=== PATIENT | female | born 1950 | race Caucasian/White ===

== ENCOUNTER 2020-05-22 10:34 | Emergency (ER) | payer MEDICARE, SELFPAY ==
[2020-05-22 10:46] VITALS: BP 179/88; PULSE 96; RESP 16; TEMP 35.9; O2SAT 96
--- NOTE | 2020-05-22 10:53 | ED.EAR ---
HPI - Ear Problem General Chief complaint: Ear Stated complaint: EARACHE Time Seen by Provider: 05/22/20 10:53 Source: patient and RN notes reviewed History of Present Illness HPI Narrative: Patient is a 69-year-old female who presents the urgent care with complaints of left ear pain. Patient states that it started on Tuesday and she is taken Tylenol a few times since then. Patient denies any use of [id number] drops, water, peroxide to the ear. Denies any recent swimming. Denies fever, chills, nausea, vomiting, any upper respiratory symptoms. No other acute complaints. No acute distress noted. Patient read the plan of care. Related Data Home Medications Medication Instructions Recorded Confirmed amlodipine-benazepril 1 cap PO DAILY 05/22/20 05/22/20 buspirone 10 mg PO DAILY 05/22/20 05/22/20 duloxetine 30 mg PO DAILY 05/22/20 05/22/20 glipizide 2.5 mg PO DAILY 05/22/20 05/22/20 metoprolol succinate 50 mg PO DAILY 05/22/20 05/22/20 naproxen 375 mg PO BID 05/22/20 05/22/20 omeprazole 20 mg PO DAILY 05/22/20 05/22/20 pravastatin 20 mg PO DAILY 05/22/20 05/22/20 Allergies Allergy/AdvReac Type Severity Reaction Status Date / Time Sulfa (Sulfonamide Allergy Unknown Hives / Verified 05/22/20 10:43 Antibiotics) Red Face Review of Systems Review of Systems: Narrative: CONSTITUTIONAL: Denies fever, chills, or sweats. EYES: Denies visual changes, redness, or discharge. ENT: Reports of left otalgia without notable drainage CARDIOVASCULAR: Denies chest pain, palpitations, or edema. RESPIRATORY: Denies cough or dyspnea. GASTROINTESTINAL: Denies abdominal pain, nausea, vomiting, or diarrhea. GENITOURINARY: Denies dysuria or hematuria. SKIN: Denies rash or itching. MUSCULOSKELETAL: Denies back pain, joint pain, or myalgia. NEUROLOGIC: Denies headache, numbness, or weakness. All other systems reviewed are negative, except as documented in HPI. PMFSH Comments At the time of my signature, I reviewed and agree with the nursing past medical, surgical, social, and family history. There is no relevant family history pertinent to the patient complaint. Exam Narrative: Exam Narrative: GENERAL: This is a well-nourished, well-developed patient, in no apparent distress. HEAD: normocephalic, atraumatic. EYES: PERRL. Sclera clear/white. Vision is grossly intact. EARS: External ears normal, right auditory canals clear and without drainage, moderate edema and erythema noted to the left auditory canal without notable drainage, unable to visualize left TM due to a outer ear canal edema and pain, right TMs normal without perforation. Hearing grossly intact. NOSE: External nose normal with no obvious nasal discharge, nares without redness, no rhinorrhea. THROAT: Mucous membranes moist NECK: Neck supple SKIN: warm, intact with no suspicious lesions or rash, good texture and turgor. NEURO: awake, alert, and oriented to person, place and time. There were no obvious focal neurologic abnormalities. EXTREMITIES: No clubbing, cyanosis, or edema. Course Vital Signs Vital signs: Vital Signs Temperature 96.7 F L 05/22/20 10:46 Pulse Rate 96 05/22/20 10:46 Respiratory Rate 16 05/22/20 10:46 Blood Pressure 179/88 H 05/22/20 10:46 Pulse Oximetry 96 05/22/20 10:46 Temperature 96.7 F L 05/22/20 10:46 Pulse Rate 96 05/22/20 10:46 Respiratory Rate 16 05/22/20 10:46 Blood Pressure 179/88 H 05/22/20 10:46 Pulse Oximetry 96 05/22/20 10:46 Reviewed?patient is informed that they may have pre-hypertension or hypertension based on a blood pressure reading in the department. I recommend the patient call the primary care provider listed on their discharge instructions or a physician of their choice this week to arrange follow-up for further evaluation of possible pre-hypertension or hypertension. Medical Decision Making MDM Narrative Medical decision making narrative: Advised the patient to complete oral antibiotic regimen as
== END 2020-05-22 11:05 | disposition home or self-care (01) ==
PROVIDERS: Emergency Provider Nurse Practitioner Family
DX: H60.92 Unspecified otitis externa, left ear (principal); E78.00 Pure hypercholesterolemia, unspecified; I10 Essential (primary) hypertension; K21.9 Gastro-esophageal reflux disease without esophagitis; M19.90 Unspecified osteoarthritis, unspecified site; E11.9 Type 2 diabetes mellitus without complications; F32.9 Major depressive disorder, single episode, unspecified
CPT/HCPCS: 99213; G0463

== ENCOUNTER 2022-02-24 14:58 | Outpatient (CLI) | payer MEDICARE, SELFPAY ==
--- NOTE | ~2022-02-24 | MM_ITS ---
EXAMINATION: MM screening sariah BI w new HISTORY: Screening TECHNIQUE: Craniocaudal and mediolateral oblique 3-D tomosynthesis images were obtained and synthetic 2-D images were generated. CAD analysis was submitted and interpreted. COMPARISON: No prior mammogram is available for comparison at this institution. BREAST PARENCHYMAL COMPOSITION: There are scattered areas of fibroglandular density. FINDINGS: There is no evidence of suspicious mass, calcification, or architectural distortion to sugg est malignancy in either breast. There has been no suspicious interval change. IMPRESSION: 1. No mammographic evidence of malignancy. 2. Recommend routine screening mammography in one year. BI-RADS Category 1: Negative Reviewed, dictated and finalized at location [facility].
== END 2022-02-24 14:59 | disposition home or self-care (01) ==
LOC: ANHIMG 14:59
PROVIDERS: PCP Internal Medicine; Visit Provider Nurse Practitioner
DX: Z12.31 Encounter for screening mammogram for malignant neoplasm of breast (principal)
CPT/HCPCS: 77063; 77067

== ENCOUNTER 2022-03-05 10:07 | Emergency (ER) | payer MEDICARE, SELFPAY ==
--- NOTE | 2022-03-05 10:13 | ED.FEMALEGU ---
HPI - Female Genitourinary General Chief complaint: Urogenital-Female Stated complaint: urinary pain Time Seen by Provider: 03/05/22 10:13 Source: patient and RN notes reviewed Mode of arrival: ambulatory Limitations: no limitations History of Present Illness HPI Narrative: 71 y/o female presents for c/o burning with urination, frequency and hesitancy. Endorses one episode of urinary incontinence yesterday. States 'I think I have a uti.' Denies hematuria, flank pain, nausea, vomiting, diarrhea, constipation fever/chills. Denies frequent uti's. Related Data Home Medications Medication Instructions Recorded Confirmed biotin 10,000 mcg disintegrating 10,000 mcg PO DAILY 01/11/22 03/05/22 tablet fexofenadine 180 mg tablet 180 mg PO DAILY 01/11/22 03/05/22 Allergies Allergy/AdvReac Type Severity Reaction Status Date / Time Sulfa (Sulfonamide Allergy Unknown Hives / Verified 03/05/22 10:14 Antibiotics) Red Face Review of Systems Review of Systems: CONSTITUTIONAL: Denies body aches, fever, chills, or sweats. CARDIOVASCULAR: Denies chest pain, palpitations, or edema. RESPIRATORY: Denies cough or dyspnea. GASTROINTESTINAL: Denies abdominal pain, nausea, vomiting, or diarrhea. GENITOURINARY: Reports dysuria, frequency, urgency, denies hematuria, flank pain SKIN: Denies rash, itching, or wounds. MUSCULOSKELETAL: Denies back pain or myalgia. [facility] Past Medical History Medical History (Updated 03/05/22 @ 10:29 by Penny Whittaker APRN) Allergy Anxiety Arthritis Diabetes GERD (gastroesophageal reflux disease) Hyperlipidemia Obesity Transaminitis Family History Family History Mother Hypertension Social History Social History Smoking status: Former smoker Smoking end date: 11/14/89 Alcohol intake: never Substance use: never Comments At time of signature, I have reviewed and agree with nursing past medical, surgical, social and family history unless otherwise noted. Please see nursing chart for further information. There is no relevant family history pertinent to the presenting complaint Exam Narrative: GENERAL: Well-appearing and in no acute distress. HEAD: Normocephalic EYES: EOMI. . ENT: Mucous membranes pink and moist. NECK: Normal AROM. Supple. CHEST: No respiratory distress. Clear to auscultation. HEART: Regular rate and rhythm. ABDOMEN: Soft, nontender, nondistended, No CVA tenderness MUSCULOSKELETAL: No bony tenderness. SKIN: Warm, dry, no rash. NEURO: No focal deficits. Alert and oriented x3. Gait steady. PSYCH: Normal affect. No signs of depression or anxiety. Course Course Emergency Course: Patient is aware of diagnosis, understands and agrees to treatment plan. Anticipatory guidance given. Patient agrees to follow-up as directed and is aware of reasons to seek care at the emergency department. Portions of this record may have been created with voice recognition software Level of Care: Express Care Visit Vital Signs Vital signs: Vital Signs Temperature 96.6 F L 03/05/22 10:15 Pulse Rate 94 03/05/22 10:15 Respiratory Rate 16 03/05/22 10:15 Blood Pressure 151/82 H 03/05/22 10:15 Pulse Oximetry 97 03/05/22 10:15 Temperature 96.6 F L 03/05/22 10:15 Pulse Rate 94 03/05/22 10:15 Respiratory Rate 16 03/05/22 10:15 Blood Pressure 151/82 H 03/05/22 10:15 Pulse Oximetry 97 03/05/22 10:15 Reviewed MDM - Female Genitourinary MDM Narrative Medical decision making narrative: urine result reviewed with pt, she is advised to monitor for worsening sx and f/u with pcp. v/u. Differential Diagnosis Differential diagnosis: Likely urinary tract infection and cystitis Lab Data Attestation: I reviewed the patient's lab results. Labs: Urine Characteristics Cloudy Discharg
[2022-03-05 10:15] VITALS: BP 151/82; PULSE 94; RESP 16; TEMP 35.9; O2SAT 97
== END 2022-03-05 10:38 | disposition home or self-care (01) ==
PROVIDERS: Emergency Provider Nurse Practitioner Family; PCP Internal Medicine
DX: N39.0 Urinary tract infection, site not specified (principal); Z87.891 Personal history of nicotine dependence; M19.90 Unspecified osteoarthritis, unspecified site; E11.9 Type 2 diabetes mellitus without complications; K21.9 Gastro-esophageal reflux disease without esophagitis; E78.5 Hyperlipidemia, unspecified; E66.9 Obesity, unspecified; Z68.41 Body mass index [BMI] 40.0-44.9, adult; F41.9 Anxiety disorder, unspecified
CPT/HCPCS: 81003; 87086; 87088; 99213; G0463

== ENCOUNTER 2022-04-28 11:38 | Outpatient (CLI) | payer MEDICARE, SELFPAY ==
--- NOTE | ~2022-04-28 | XR_ITS ---
XR abdomen/kub 1V DATE: 04/28/2022 12:02 INDICATION: Hematuria for 2 weeks TECHNIQUE: 2 AP views COMPARISON: None FINDINGS: There is radiopaque contrast material within the bilateral renal collecting systems and uri nary bladder; no examination is noted here for which intravenous contrast material would been adminis tered. There is no evidence of hydronephrosis on either side. The urinary bladder appears unremarkabl e. The spleen appears prominent in size. No visceromegaly is noted otherwise. No evidence of bowel obstruction. The psoas shadows are intact. There is rotatory dextroscoliosis and degenerative change of the lumbar spine. There is degenerative change of the lower thoracic spine. Normal heart size. The lung bases are clear. IMPRESSION: Suspected splenomegaly Reviewed, dictated and finalized at [facility]. Reviewed, dictated and finalized at location [facility]. IMPRESSION: Suspected splenomegaly
== END 2022-04-28 11:39 | disposition home or self-care (01) ==
PROVIDERS: PCP Internal Medicine; Visit Provider Nurse Practitioner Family
DX: R31.29 Other microscopic hematuria (principal); M41.9 Scoliosis, unspecified; M47.814 Spondylosis without myelopathy or radiculopathy, thoracic region
CPT/HCPCS: 74018

== ENCOUNTER 2022-05-23 11:17 | Emergency (ER) | payer MEDICARE, SELFPAY ==
[2022-05-23] VITALS (47 sets, daily range): BP systolic 109–153; BP diastolic 63–97; PULSE 111–139; RESP 9–25; TEMP 36.1; O2SAT 91–99
--- NOTE | ~2022-05-23 | CT_ITS ---
EXAMINATION: CT abdomen pelvis w con DATE: 05/23/2022 13:47 INDICATION: Epigastric pain, nausea, vomiting and diarrhea TECHNIQUE: Computed tomography (CT) of the abdomen and pelvis was performed with 100 mL Omnipaque-300 intravenous contrast. Automated exposure control and iterative reconstruction technique were employe d. The dose-length product was 1320.92 mGy-cm. COMPARISON: None FINDINGS: Mild compressive atelectasis at the medial aspect of the bilateral lower lobes along side a moderate sized sliding-type hiatal hernia. Heart size is normal. No pericardial or pleural effusion. Numerous small splenic and a couple small hepatic calcifications consistent with old granulomatous disease. 5 mm low-attenuation cyst in the left hepatic lobe. There are few small gallstones layering in the depe ndent aspect of the otherwise normal gallbladder with no wall thickening or pericholecystic infiltrat e change to suggest acute cholecystitis. Pancreas and bilateral adrenal glands are normal. A few subc entimeter bilateral renal cysts the largest on the right measuring 6 mm. Bladder is normal. The uteru s is not identified and has likely been surgically resected. Bowels including appendix are normal. No free intraperitoneal gas or fluid. No pathologically enlarged abdominal or pelvic lymphadenopathy. S -shaped thoracolumbar scoliosis. There are bridging osteophytes as well as fusion across many of the posterior elements at multiple levels in the spine consistent with diffuse idiopathic skeletal hypero stosis (DISH). IMPRESSION: 1. Cholelithiasis. 2. Moderate-sized sliding-type hiatal hernia. Reviewed, dictated and finalized at location [facility].
--- NOTE | 2022-05-23 11:46 | ECG_ITS ---
Measurements Intervals [place] Rate: 131 P: MT: 0 QRS: -9 QRSD: 80 T: 55 QT: 308 QTc: 455 Interpretive Statements SINUS TACHYCARDIA POOR R WAVE PROGRESSION, ANTERIOR LEADS CONSIDER INFERIOR INFARCT, AGE INDETERMINATE BORDERLINE ST-T WAVE ABNORMALITY- HIGH LATERAL LEADS BASELINE ARTIFACT- I, III, AVR, AVL, AVF, V4-V6 ABNORMAL ECG Electronically Signed On 05-23-2022 12:56:27 CDT by Sean Cantu D.O.
[2022-05-23 12:00] LABS: Basophils Absolute Auto 0.1 K/mm3 (0.0-0.1); Basophils Percent Auto 0.6 % (0.2-1.2); Hematocrit 37.2 % (37.0-47.0); Hemoglobin 12.4 g/dL (12.0-15.0); Immature Granulocyte Absolute 0.06 K/mm3 (0.00-0.031); Immature Granulocyte Percent A 0.5 % (0-0.5); Lymphocytes Absolute Auto 2.37 K/mm3 (0.9-3.2); Lymphocytes Percent Auto 17.8 % (18.3-44.2); Mean Corpuscular HGB Conc 33.3 g/dl (32-36); Mean Corpuscular Hemoglobin 29.1 pg (26-34); Mean Corpuscular Volume 87.3 fl (80-100); Mean Platelet Volume 12.2 fl (7.4-10.4); Monocytes Absolute Auto 0.9 K/mm3 (0.1-0.6); Monocytes Percent Auto 6.6 % (2.6-8.5); Neutrophils Absolute Auto 9.9 K/mm3 (1.3-6.7); Neutrophils Percent Auto 74.5 % (45.5-73.1); Platelet Count Result 235 k/mm3 (150-375); Red Blood Count 4.26 M/mm3 (4.2-5.4); Red Cell Distribution Width 13.7 % (11.5-14.5); White Blood Count 13.3 K/mm3 (4.5-10.0)
[2022-05-23 12:11] LABS: Alanine Aminotransferase 25 U/L (6-35); Albumin Level 4.1 g/dL (3.5-5.1); Alkaline Phosphatase 80 U/L (38-126); Anion Gap 11 mmol/L (8-16); Aspartate Amino Transferase 23 U/L (14-36); Bilirubin,Total 0.5 mg/dL (0.2-1.3); Blood Urea Nitrogen 54 mg/dL (7-17); Calcium 9.1 mg/dL (8.4-10.2); Carbon Dioxide 19 mmol/L (22-30); Chloride 113 mmol/L (98-107); Estimated CRCL calculation 63 ml/min; Estimated Glomerular Filt Rate > 60; Glucose 254 mg/dL (65-110); Lipase 62 U/L (23-300); Potassium 4.3 mmol/L (3.4-5.0); Sodium 143 mmol/L (137-145)
[2022-05-23 12:55] LABS: Appearance Urine Clear (Clear); Bilirubin Urine 1+ (Negative); Color Urine Yellow (Yellow); Glucose Urine UA Negative (Negative); Ketones Urine Trace mg/dL (Negative); Leukocyte Esterase Ur Negative LEU/UL (Negative); Nitrate Urine Negative (Negative); Protein Urine Trace mg/dL (Negative); Specific Grav Ur >= 1.030 (1.001-1.035); Urobilinogen Urine 0.2 mg/dL (<2.0)
[2022-05-23 12:58] LABS: Add Urine Microscopic? YES; Blood Urine Trace-Intact (Negative)
[2022-05-23 13:02] LABS: Hyaline Casts Urine 50+ /lpf; Mucus Urine Heavy /lpf; Squamous Epithelial Cell Urine Few /hpf (Few); WBC Urine 0-3 /hpf
--- NOTE | 2022-05-23 13:07 | ED.NAVMDI ---
HPI - Nausea/Vomiting/Diarrhea General Chief complaint: Nausea/Vomiting/Diarrhea <Nia Murillo PA-C - Last Filed: 05/23/22 20:04> Stated complaint: n/v/d since tuesday <Nia Murillo PA-C - Last Filed: 05/23/22 20:04> Time Seen by Provider: 05/23/22 12:42 <MONTSERRAT Melton Last Filed: 05/23/22 20:04> Source: patient and family <MONTSERRAT Melton Last Filed: 05/23/22 20:04> Mode of arrival: EMS <MONTSERRAT Melton Last Filed: 05/23/22 20:04> Limitations: no limitations <MONTSERRAT Melton Last Filed: 05/23/22 20:04> History of Present Illness HPI Narrative: Patient is a 71-year-old female who presents to the ED, via EMS, with report of N/V/D X 2 days. Patient reports having multiple episodes of vomiting and diarrhea over the past two days. Denies abdominal pain. Denies dysuria, hematuria. Denies bright red rectal bleeding or emesis. Has had chills/diaphoresis, but no documented fever. Also denies any recent cough, congestion, rhinorrhea. Patient's sister at bedside reports patient is very groggy currently. EMS started fluids and given IV Zofran en route to ED. Patient reports her emesis, stool, and urine have been black in color. Denies taking any pepto bismol, iron. Patient further reports feeling very dizzy and lightheaded with standing upright. <Nia Murillo PA-C - Last Filed: 05/23/22 20:04> Related Data Home medications: Home Medications Medication Instructions Recorded Confirmed biotin 10,000 mcg disintegrating 10,000 mcg PO DAILY 01/11/22 03/16/22 tablet fexofenadine 180 mg tablet 180 mg PO DAILY 01/11/22 03/16/22 terbinafine HCl 250 mg tablet 500 mg PO DAILY 03/16/22 03/16/22 <MONTSERRAT Melton Last Filed: 05/23/22 20:04> Allergies/Adverse reactions: Allergies Allergy/AdvReac Type Severity Reaction Status Date / Time Sulfa (Sulfonamide Allergy Unknown Hives / Verified 05/23/22 11:38 Antibiotics) Red Face <Nia Murillo PA-C - Last Filed: 05/23/22 20:04> Review of Systems Review of Systems: CONSTITUTIONAL: Reports chills and sweats. Denies fever. ENT: Denies rhinorrhea, congestion, sore throat. CARDIOVASCULAR: Denies chest pain. RESPIRATORY: Denies cough or dyspnea. GASTROINTESTINAL: Reports N/V/D, black vomit, melena. Denies abdominal pain, bright red rectal bleeding. GENITOURINARY: Reports black urine. Denies dysuria or hematuria. MUSCULOSKELETAL: Denies back pain, joint pain, or myalgia. NEUROLOGIC: Reports dizziness/light headedness. Denies headache, numbness, or weakness. <Nia Murillo PA-C - Last Filed: 05/23/22 20:04> All systems reviewed & are unremarkable except as noted in HPI and below <Nia Murillo PA-C - Last Filed: 05/23/22 20:04> [facility] Past Medical History Medical History: Medical History (Updated 05/24/22 @ 00:00 by Abdelrahman Bethea) Allergy Anxiety Arthritis Diabetes GERD (gastroesophageal reflux disease) Hyperlipidemia Obesity Transaminitis <Nia Murillo PA-C - Last Filed: 05/23/22 20:04> Surgical History Surgical History: Surgical History (Updated 05/23/22 @ 19:59 by Nia Murillo PA-C) History of carpal tunnel release of both wrists No pertinent past surgical history <Nia Murillo PA-C - Last Filed: 05/23/22 20:04> Family History Family History: Family History (Updated 03/16/22 @ 10:50 by Kadi Flores MA) Mother Hypertension <Nia Murillo PA-C - Last Filed: 05/23/22 20:04> Social History Social History: Social History Smoking status: Former smoker Smoking end date: 11/14/89 Alcohol intake: never Substance use: never <Nia Murillo PA-C - Last Filed: 05/23/22 20:04> Exam Narrative: GENERAL: Ill appearing, obese, in no acute distress. HEAD: Normocephalic, atraumatic. THROAT: Pharynx clear, no exudate. MMs dry. NECK: Supple. No adenopathy, no masses
[2022-05-23 13:32] LABS: Lactic Acid Reflex 2.6 mmol/L (0.7-2.0)
[2022-05-23] MEDS: SODIUM CHLORIDE 0.9% IV 1,000 ML 999 ML IV CONT ×3 (13:59→18:01)
[2022-05-23] MEDS: ONDANSETRON INJ 4 MG/2 ML VIAL IV PUSH (13:59)
[2022-05-23] MEDS: PANTOPRAZOLE SODIUM IV 40 MG VIAL IV PUSH (15:39)
[2022-05-23 16:20] LABS: Reflex Lactic Acid Yes or No Add Lactic
[2022-05-23 16:21] LABS: SARS-CoV-2 RNA PCR Negative
[2022-05-23 17:24] LABS: Hematocrit 32.9 % (37.0-47.0); Hemoglobin 10.8 g/dL (12.0-15.0)
[2022-05-23 17:54] LABS: INR 1.2; Partial Thromboplastin Time 28.4 SECONDS (22.3-36.8); Prothrombin Time 14.9 Seconds (11.1-14.7)
--- NOTE | 2022-05-23 19:11 | PC.NURSE ---
Patient report given to ELKE Forde. All questions answered and care of patient assumed.
== END 2022-05-23 21:40 | disposition short-term general hospital (02) ==
PROVIDERS: Physician Assistant; Emergency Provider Emergency Medicine; PCP Internal Medicine
DX: K92.2 Gastrointestinal hemorrhage, unspecified (principal); Z20.822 Contact with and (suspected) exposure to COVID-19; E11.9 Type 2 diabetes mellitus without complications; K21.9 Gastro-esophageal reflux disease without esophagitis; E78.5 Hyperlipidemia, unspecified; M19.90 Unspecified osteoarthritis, unspecified site; F41.9 Anxiety disorder, unspecified; E66.9 Obesity, unspecified; Z68.39 Body mass index [BMI] 39.0-39.9, adult; Z87.891 Personal history of nicotine dependence; Z79.84 Long term (current) use of oral hypoglycemic drugs
CPT/HCPCS: 36415; 51701; 74177; 80053; 81001; 83605; 83690; 85014; 85018; 85025; 85610; 85730; 86850; 86900; 86901; 87040; 93005; 96361; 96374; 96375; 96376; 99285; C9113; C9803; J2405; J7030; J7060; Q9967; U0003; U0005

== ENCOUNTER 2022-06-01 09:13 | Outpatient (CLI) | payer MEDICARE, SELFPAY ==
[2022-06-01 18:38] LABS: Eosinophils Absolute Auto 0.1 K/mm3 (0-0.3); Eosinophils Percent Auto 2.7 % (0-4.4); Hematocrit 29.4 % (37.0-47.0); Hemoglobin 9.1 g/dL (12.0-15.0); Immature Granulocyte Absolute 0.01 K/mm3 (0.00-0.031); Immature Granulocyte Percent A 0.2 % (0-0.5); Immature Platelet Fraction Pct 12.8 % (0.9-11.2); Lymphocytes Absolute Auto 0.91 K/mm3 (0.9-3.2); Mean Corpuscular Hemoglobin 28.7 pg (26-34); Mean Corpuscular Volume 92.7 fl (80-100); Mean Platelet Volume 12.8 fl (7.4-10.4); Monocytes Absolute Auto 0.4 K/mm3 (0.1-0.6); Monocytes Percent Auto 9.2 % (2.6-8.5); Neutrophils Absolute Auto 2.7 K/mm3 (1.3-6.7); Neutrophils Percent Auto 64.9 % (45.5-73.1); Platelet Count Result 157 k/mm3 (150-375); Red Blood Count 3.17 M/mm3 (4.2-5.4); Red Cell Distribution Width 15.1 % (11.5-14.5); White Blood Count 4.1 K/mm3 (4.5-10.0)
[2022-06-01 18:46] LABS: Alanine Aminotransferase 18 U/L (6-35); Albumin Level 3.6 g/dL (3.5-5.1); Alkaline Phosphatase 69 U/L (38-126); Anion Gap 8 mmol/L (8-16); Aspartate Amino Transferase 29 U/L (14-36); Bilirubin,Total 0.6 mg/dL (0.2-1.3); Blood Urea Nitrogen 9 mg/dL (7-17); Calcium 8.8 mg/dL (8.4-10.2); Carbon Dioxide 31 mmol/L (22-30); Chloride 104 mmol/L (98-107); Estimated Glomerular Filt Rate > 60; Glucose 145 mg/dL (65-110); Sodium 143 mmol/L (137-145)
== END 2022-06-01 09:14 | disposition home or self-care (01) ==
LOC: ANHGOSHLAB 09:15
PROVIDERS: PCP Internal Medicine; Visit Provider Nurse Practitioner
DX: R74.01 Elevation of levels of liver transaminase levels (principal); D64.9 Anemia, unspecified
CPT/HCPCS: 36415; 80053; 85025; 85055

== ENCOUNTER 2023-02-28 13:45 | Outpatient (RCR) | payer MEDICARE, SELFPAY ==
--- NOTE | 2022-12-07 10:19 | PTOPEVAL1 ---
Assessment and note entered by Grayson Parada, PT, DPT Evaluation Information Assessment Status Evaluation Diagnosis tatiana knee pain Onset 1-2 years Subjective Information Pt states she has tatiana knee replacements in 2015 and she recovered well from theses. She states after therapy she was walking 3x/wk in the pool for exercise. Since Cov she has stopped this. She states 1-2 years she states she has lost motion and now her knees ache often. Pts states her goals are more motion and to be able to walk/stand longer. Reported Pain Level Pain Score 0,0: Self Report Assessment PT Clinical Summary Haritha presents to therapy today for her initial evaluation with a diagnosis of tatiana knee pain. She has a history of tatiana TKA in 2014. Today she demonstrates tatiana active knee flexion ~70 deg, and is lacking ~15 deg from terminal knee ext. She demonstrates good strength through resisted muscle testing but requires increased time to complete the 5xSTS test. Skilled physical therapy services are indicated to improve tatiana knee ROM, knee strength with functional tasks, manage pain, and to improve functional mobility. Plan of Care Interventions Gait Training,Hot Pack/Cold Pack,Manual Therapy, Neuro Re-education,Patient/Caregiver Educati, Therapeutic Activities,Therapeutic Exercise PT Services Indicated Yes Treatment Frequency and 2x/wk for 4 wks Duration These treatments will address the objective and functional deficits as defined above. The patient will be advanced safely and appropriately in order for the patient to progress towards his/her prior level of function. Additional exercises will be introduced and as well as a comprehensive home exercise program upon discharge, if needed, ?to ensure carryover of functional gains achieved in the clinic. This treatment plan has been reviewed and agreement upon by the patient.
--- NOTE | 2022-12-28 16:31 | PTOPPROG ---
Assessment and note entered by Grayson Parada, PT, DPT Evaluation Information Assessment Status Progress Diagnosis tatiana knee pain Onset 1-2 years Subjective Information Pt states her L knee is feeling a little bit better and her R knee feels about the same. She states she feels like her legs are getting stronger. Assessment PT Clinical Summary Haritha Diehl presents to therapy today following 6 visits of skilled physical therapy to treat her tatiana knee pain. Today she demonstrates no improvements actively or passively in her knee ROM into flexion and extension. Her ROM is still significantly decreased from functional levels. She has improved her gait speed and functional LE strength since starting therapy. She also reports improvements in her pain reports. Continuation of skilled physical therapy services are indicated to continue improving strength, functional mobility, and to work towards improving knee ROM. [facility] stretching splint d/t the chronic nature of her limitations. Plan of Care Interventions Gait Training,Hot Pack/Cold Pack,Manual Therapy, Neuro Re-education,Patient/Caregiver Educati, Therapeutic Activities,Therapeutic Exercise PT Services Indicated Yes Treatment Frequency and 2x/wk for 4 wks Duration These treatments will address the objective and functional deficits as defined above. The patient will be advanced safely and appropriately in order for the patient to progress towards his/her prior level of function. Additional exercises will be introduced and as well as a comprehensive home exercise program upon discharge, if needed, ?to ensure carryover of functional gains achieved in the clinic. This treatment plan has been reviewed and agreement upon by the patient.
--- NOTE | 2023-02-28 14:11 | PTOPDC ---
Assessment and note entered by Grayson Parada, PT, DPT Evaluation Information Assessment Status Discharge Diagnosis tatiana knee pain Onset 1-2 years Subjective Information pt states she has been wearing a dynamic stretching split for 5 weeks now and feels she does not feel she has improved. She states she feels lost and unsure of where to go from here. Shes states she has not been doing her exercises. She states she can perform all of her daily tasks, but states her knees still hurt every time she gets up. Reported Pain Level Pain Score 2,3: Self Report Assessment PT Clinical Summary Haritha presents to therapy today for her progress report after a 6 week long participation in a dynamic stretching splint, and following 7 visits of skilled therapy to treat her tatiana knee pain. Today she reports no improvements in her pain since starting the splints. Today she demonstrates no improvements in her active nor passive ROM in her knees tatiana. It was recommended that she continue her HEP and follow up with her orthopedic doctor and referring provider regarding next steps in her POC. Plan of Care PT Services Indicated No
== END 2023-03-01 09:56 | disposition home or self-care (01) ==
LOC: ANHGOSHPT 13:45
PROVIDERS: PCP Internal Medicine; Visit Provider Nurse Practitioner
DX: M25.561 Pain in right knee (principal); M25.562 Pain in left knee; Z96.659 Presence of unspecified artificial knee joint
CPT/HCPCS: 97110; 97112; 97140; 97161; 97530

== ENCOUNTER 2023-04-13 11:25 | Observation (INO) | payer MEDICARE, SELFPAY ==
[2023-04-13] VITALS (18 sets, daily range): BP systolic 104–138; BP diastolic 55–99; PULSE 73–144; RESP 14–28; TEMP 35.7–36.2; O2SAT 92–98; BMI 38.0
--- NOTE | ~2023-04-13 | XR_ITS ---
Clinical Indication: Shortness of breath PA and lateral views of the chest: Comparison: None Findings: Suspected abnormal density in the retrocardiac region. No pleural effusion or pneumothorax. . Cardiomediastinal silhouette is within normal limits. Bones and soft tissues are otherwise unremar kable. Impression: Abnormal retrocardiac density. This probably is related to moderate to large hiatal hernia, which was seen on prior CT dated 05/23/2022. Otherwise clear lungs. Reviewed, dictated and finalized at location . Impression: Abnormal retrocardiac density. This probably is related to moderate to large hi atal hernia, which was seen on prior CT dated 05/23/2022. Otherwise clear lungs.
--- NOTE | 2023-04-13 11:28 | ECG_ITS ---
Measurements Intervals [place] Rate: 133 P: MD: 0 QRS: -80 QRSD: 74 T: 52 QT: 278 QTc: 414 Interpretive Statements ATRIAL FLUTTER/TACHYCARDIA WITH RAPID VENTRICULAR RESPONSE LOW QRS VOLTAGE IN PRECORDIAL LEADS LEFT ANTERIOR FASCICULAR BLOCK CANNOT RULE OUT SEPTAL INFARCT, AGE INDETERMINATE ABNORMAL ECG COMPARED TO ECG 05/23/2022 11:53:39 ATRIAL FLUTTER NOW PRESENT LEFT ANTERIOR FASCICULAR BLOCK NOW PRESENT Electronically Signed On 04-13-2023 12:13:09 CDT by Sean Cantu D.O.
[2023-04-13 11:45] LABS: Basophils Absolute Auto 0.1 K/mm3 (0.0-0.1); Basophils Percent Auto 1.1 % (0.2-1.2); Eosinophils Absolute Auto 0.2 K/mm3 (0-0.3); Eosinophils Percent Auto 2.3 % (0-4.4); Hemoglobin 16.7 g/dL (12.0-15.0); Immature Granulocyte Absolute 0.04 K/mm3 (0.00-0.031); Immature Granulocyte Percent A 0.6 % (0-0.5); Lymphocytes Absolute Auto 1.68 K/mm3 (0.9-3.2); Lymphocytes Percent Auto 25.7 % (18.3-44.2); Mean Corpuscular HGB Conc 34.1 g/dl (32-36); Mean Corpuscular Hemoglobin 30.8 pg (26-34); Mean Corpuscular Volume 90.4 fl (80-100); Mean Platelet Volume 11.5 fl (7.4-10.4); Monocytes Absolute Auto 0.6 K/mm3 (0.1-0.6); Monocytes Percent Auto 8.7 % (2.6-8.5); Neutrophils Percent Auto 61.6 % (45.5-73.1); Platelet Count Result 149 k/mm3 (150-375); Red Blood Count 5.42 M/mm3 (4.2-5.4); Red Cell Distribution Width 12.5 % (11.5-14.5); White Blood Count 6.5 K/mm3 (4.5-10.0)
[2023-04-13] MEDS: dilTIAZem HCl INJ 25 MG/5 ML VIAL 20 MG IV PUSH (11:53)
[2023-04-13] MEDS: dilTIAZem 100 MG/100 ML 100 MG/100 ML BAG IV CONT (11:54)
[2023-04-13 11:57] LABS: Alanine Aminotransferase 40 U/L (6-35); Albumin Level 4.4 g/dL (3.5-5.1); Alkaline Phosphatase 80 U/L (38-126); Anion Gap 9 mmol/L (8-16); Aspartate Amino Transferase 42 U/L (14-36); Bilirubin,Total 1.1 mg/dL (0.2-1.3); Blood Urea Nitrogen 11 mg/dL (7-17); Calcium 9.1 mg/dL (8.4-10.2); Carbon Dioxide 28 mmol/L (22-30); Chloride 105 mmol/L (98-107); Estimated CRCL calculation 56 ml/min; Estimated Glomerular Filt Rate > 60; Glucose 186 mg/dL (65-110); Potassium 4.2 mmol/L (3.4-5.0); Sodium 142 mmol/L (137-145)
[2023-04-13 12:26] LABS: Prothrombin Time 13.7 Seconds (11.1-14.7)
[2023-04-13 12:27] LABS: NT Pro B Type Natriuretic Pept 305 pg/mL (19.9-100); Partial Thromboplastin Time 32.9 SECONDS (22.3-36.8); Troponin I < 0.012 ng/mL (0.000-0.034)
--- NOTE | 2023-04-13 13:27 | ED.GENADULT ---
HPI - General Adult General Chief complaint: Shortness of Breath/Dyspnea Stated complaint: tachycardia Time Seen by Provider: 04/13/23 11:37 History of Present Illness HPI narrative: Patient is a 72-year-old female who presents emergency department with chief complaint of fast and irregular heartbeat. Patient reports that she went to her regular doctor's office today for a normal follow-up appointment and they found that she was in A-fib with RVR the patient incidentally reports that she has been getting little short of breath with exertion but denies specific chest pain. Related Data Home Medications Medication Instructions Recorded Confirmed biotin 10,000 mcg disintegrating 10,000 mcg PO DAILY 01/11/22 04/13/23 tablet fexofenadine 180 mg tablet 180 mg PO DAILY 01/11/22 04/13/23 cholecalciferol (vitamin D3) 50 50 mcg PO DAILY 04/13/23 04/13/23 mcg (2,000 unit) capsule Allergies Allergy/AdvReac Type Severity Reaction Status Date / Time Sulfa (Sulfonamide Allergy Unknown Hives / Verified 04/13/23 11:26 Antibiotics) Red Face Review of Systems Review of Systems: A 10 system review of systems was completed on the patient and is negative except for what is stated in the HPI. Nursing and ancillary documentation was reviewed. [facility] Past Medical History Medical History Allergy Anxiety Arthritis Diabetes GERD (gastroesophageal reflux disease) GI bleed due to NSAIDs Hyperlipidemia Hypertension Obesity Transaminitis Surgical History Surgical History H/O esophagogastroduodenoscopy (~05/2022) H/O total knee replacement Bilateral in 2015 History of carpal tunnel release of both wrists No pertinent past surgical history Family History Family History Mother Hypertension Social History Social History Smoking status: Former smoker Smoking end date: 11/14/89 Alcohol intake: never Substance use: never Lack of Transportation: No Lack of Food: Never True Current Housing: I Have Housing Concerned About Future Housing: No Difficulty Paying Gas/Electric Bills: No Difficulty Paying for Meds: No Currently Unemployed: No Education: High School Diploma/GED Difficulty w/ Childcare or Family Care: No Spiritual care concerns: No Exam Narrative: GENERAL: Well-appearing, well-nourished, and in no acute distress. HEAD: Normocephalic, atraumatic. EYES: PERRLA and EOMI. ENT: Nares clear, no rhinorrhea or epistaxis. Mucous membranes moist. NECK: Supple. CHEST: Clear to auscultation. No respiratory distress. HEART: Tachycardic irregular rate and rhythm. No murmur heard. Normal peripheral pulses. ABDOMEN: Soft, nontender, nondistended, normal active bowel sounds. EXTREMITIES: Normal range of motion. No edema. SKIN: Warm, dry, no rash. NEURO: No focal deficits. Alert and oriented x3. PSYCH: Normal mood and affect. Course Vital Signs Vital signs: Vital Signs Temperature 35.7 C L 04/13/23 11:37 Pulse Rate 133 H 04/13/23 11:37 Respiratory Rate 20 04/13/23 11:37 Blood Pressure 138/99 H 04/13/23 11:37 Pulse Oximetry 97 04/13/23 11:37 Oxygen Delivery Room Air 04/13/23 11:37 Temperature 35.8 C L 04/13/23 14:42 Pulse Rate 86 04/13/23 14:42 Respiratory Rate 16 04/13/23 14:42 Blood Pressure 120/75 04/13/23 14:42 Pulse Oximetry 96 04/13/23 14:42 Oxygen Delivery Room Air 04/13/23 12:00 Medical Decision Making [facility] Narrative Medical decision making narrative: Differential diagnosis includes A-fib with RVR, CHF, electrolyte abnormality EKG is atrial flutter patient flutter is noticed with a rate of 133 Laboratory studies were obtained and the patient which CBC showed normal wh
--- NOTE | 2023-04-13 14:15 | ADMGEN ---
This patient, Haritha Castanon, was admitted to IMU Room 232-01. Patient/family oriented to hospital policies and general routines including ID bracelet, bed and alarms, visiting hours, pain management, procedures, bathroom and other care routines, personal items, smoking policy, room service/diet, and visiting hours. Information on how to activate the Rapid Response Team has been discussed. Patient/Family are encouraged to report perceived risks to care and to ask questions if they do not understand what they are told or what they should do.
[2023-04-13 15:35] LABS: Troponin I < 0.012 ng/mL (0.000-0.034)
[2023-04-13 20:28] LABS: Troponin I < 0.012 ng/mL (0.000-0.034)
--- NOTE | 2023-04-13 20:34 | PM.IMHP ---
H&P: HPI History of Present Illness Date/Time: 04/13/23 20:35 Chief Complaint: Irregular heartbeat. Narrative: This is a very pleasant 72-year-old female with hypertension, hyperlipidemia, type 2 diabetes mellitus, obstructive sleep apnea for which she has not used her CPAP for a couple of years, and history of upper GI bleed in May 2022 who presented to the emergency department from her doctor's office for evaluation of an irregular heartbeat. The patient provides the following history. She was at her doctor's office today for routine checkup when she was found to be in atrial fibrillation with rapid ventricular response. Her heart rate in the emergency department was as high as 144 and she was started on a diltiazem drip. At the time my evaluation her heart rate is in the 70s to 80s though she remains in atrial fibrillation. She was surprised by a the admission as she has absolutely no symptoms and she specifically denies sensations of racing heart, palpitations, and shortness of breath. She does get short of breath with exertion however that has been ongoing for a couple of years which she attributes to deconditioning as she has not been going to water aerobics since the start of COVID. She stopped wearing her CPAP a couple of years ago but is willing to start using it again. She has no known history of thyroid disease, denies alcohol and caffeine use, and she has no known history of cardiac dysrhythmia or disease. At the time my evaluation she has no complaints. Review of Systems Review of Systems: Twelve systems were reviewed. No fever, chills, or sweats. No recent cold or flu symptoms. She felt a little dizzy when she got up to the bathroom earlier. She goes on to say that every once while she gets dizzy when rolling over in bed. No syncope or near syncope. She has not noticed any significant lower extremity edema and denies calf pain. Appetite has been good. No nausea or vomiting. She has 3 loose stools a day which seemed to be related to food. Her stools are always dark black and have been since last May when she was started on iron supplementation. She has not noticed any bright red blood in her stools. It no blurry vision, polydipsia, or polyuria. Except as documented, all other systems were reviewed and are negative. [facility] Past Medical History Medical History (Updated 04/14/23 @ 00:12 by Leighann Kaplan PA-C) Allergy Anxiety Arthritis GERD (gastroesophageal reflux disease) GI bleed due to NSAIDs Hyperlipidemia Hypertension Obesity Obstructive sleep apnea Transaminitis Type 2 diabetes mellitus Surgical History Surgical History (Updated 04/14/23 @ 00:12 by Leighann Kaplan PA-C) H/O esophagogastroduodenoscopy (~05/2022) H/O total knee replacement Bilateral in 2015 History of carpal tunnel release of both wrists History of esophagogastroduodenoscopy (05/2022) For evaluation of upper GI bleed. Findings included a large hiatal hernia, erythematous mucosa in the gastric body which was biopsied, and 2 friable gastric polyps which were resected and retrieved. No pertinent past surgical history Family History Family History Mother Hypertension Grandparent Acute myocardial infarction Grandparent Acute myocardial infarction Father Cerebrovascular accident Prostate carcinoma Grandparent Diabetes mellitus Social History Social History Smoking packs per day: 1 Smoking cigarettes per day: 20.0 Years smoked: 20 Smoking pack-years: 20.00 Smoking status: Former smoker Tobacco type: cigarettes Smoking end date: 11/14/89 Alcohol intake: never Substance use: never Lack of Transportation: No Lack of Food: Never True Current Housing: I Have Housing Concerned About Future Housing: No Difficulty Paying Gas/Electric Bills: No Difficulty Paying for Meds:
[2023-04-13] MEDS: PRAVASTATIN SODIUM 20 MG TABLET PO (21:37)
[2023-04-13 21:38] LABS: Glucose Point of Care 114 mg/dl (65-105)
[2023-04-13] MEDS: LORATADINE 10 MG TABLET PO (21:38)
[2023-04-13] MEDS: CHOLECALCIFEROL 1,000 UNITS TABLET 2000 UNITS PO (21:38)
[2023-04-13 23:25] LABS: Hemoglobin A1C 7.1 % (<5.7)
[2023-04-14] VITALS (17 sets, daily range): BP systolic 101–132; BP diastolic 61–93; PULSE 74–107; RESP 16–20; TEMP 35.7–36.5; O2SAT 93–99
--- NOTE | 2023-04-14 00:07 | ECHO_ITS ---
Patient Info Name: Haritha Castanon Age: 72 years : 1950 Gender: Female Ht: 64 in Wt: 222 lbs BSA: 2.18 m2 HR: 75 bpm BP: 120 / 82 mmHg Heart Rhythm: Indeterminant Technical Quality: Poor Exam Date: 04/14/2023 9:59 AM Exam Location: [facility] Patient Status: Outpatient Admit Date: 04/13/2023 Staff Ordering Physician: Leighann Kaplan PA-C Color Room Attendant: Benson Yip RDCS Attending Provider: Mirta Zapien DO Referring Physician: Rosaura BUNDY; Exam Type: CA echo doppler color flow Study Info Indications - new onset Fib Complete two-dimensional, color flow and Doppler transthoracic echocardiogram is performed. Reason for Poor Study: poor echocardiographic windows Summary 1. Complete two-dimensional, color flow and Doppler transthoracic echocardiogram is performed. 2. Left ventricular chamber dimension is normal. 3. Left ventricular systolic function is normal, estimated at 60-65%. 4. There is mildly increased left ventricular wall thickness. 5. Right ventricular systolic function is normal. 6. Left atrial chamber dimension is moderately enlarged. 7. Right atrial chamber dimension is mildly enlarged. 8. There is mild tricuspid valve regurgitation. Left Ventricle Left ventricular chamber dimension is normal. Left ventricular systolic function is normal, estimated at 60-65%. There is mildly increased left ventricular wall thickness. Right Ventricle Right ventricular chamber dimension is normal. Right ventricular systolic function is normal. Left Atria Left atrial chamber dimension is moderately enlarged. Right Atria Right atrial chamber dimension is mildly enlarged. Atrial Septum Intact interatrial septum visualized by color flow imaging. Aortic Valve The aortic valve is trileaflet. There is mild aortic valve sclerosis. There is no aortic valve stenosis. There is no aortic valve regurgitation. Pulmonic Valve The pulmonic valve is not well visualized. There is trace pulmonic regurgitation. Mitral Valve There is trace mitral valve regurgitation. The mitral valve annulus is moderately calcified. Tricuspid Valve There is mild tricuspid valve regurgitation. Pericardium/Pleural There is small anterior pericardial effusion. Inferior Vena Cava Inferior vena cava is not well visualized. Aorta The aortic root size at the sinus of Valsalva is normal. Left Ventricular Outflow Tract Name Value Normal LVOT 2D LVOT Diameter 2.0 cm LVOT Doppler LVOT Peak Gradient 4 mmHg LVOT Mean Gradient 2 mmHg LVOT VTI 16 cm LVOT VTI/AV VTI Ratio 0.8 LVOT Stroke Volume 48 ml LVOT CO 4.0 l/min LVOT CI 1.8 l/min/m2 Pulmonic Valve Name Value Normal RVOT Doppler RVOT Peak Gradient 4 mmHg
[2023-04-14 00:24] LABS: Iron 86 ug/dL (37-170)
[2023-04-14 00:34] LABS: Percent Iron Saturation 27 % (20-50)
[2023-04-14 00:42] LABS: Folic Acid > 20.0 ng/mL (2.76->20)
[2023-04-14 00:56] LABS: Thyroid Stimulating Hormone Reflex 0.373 uIU/mL (0.465-4.68)
[2023-04-14] MEDS: dilTIAZem 100 MG/100 ML 100 MG/100 ML BAG IV CONT (03:30)
[2023-04-14 04:54] LABS: Hemoglobin 15.9 g/dL (12.0-15.0); Mean Corpuscular HGB Conc 34.6 g/dl (32-36); Mean Corpuscular Hemoglobin 31.2 pg (26-34); Mean Corpuscular Volume 90.4 fl (80-100); Mean Platelet Volume 11.4 fl (7.4-10.4); Platelet Count Result 123 k/mm3 (150-375); Red Blood Count 5.09 M/mm3 (4.2-5.4); Red Cell Distribution Width 12.6 % (11.5-14.5); White Blood Count 6.3 K/mm3 (4.5-10.0)
[2023-04-14 05:43] LABS: Alanine Aminotransferase 35 U/L (6-35); Albumin Level 3.9 g/dL (3.5-5.1); Alkaline Phosphatase 70 U/L (38-126); Anion Gap 5 mmol/L (8-16); Aspartate Amino Transferase 37 U/L (14-36); Bilirubin,Total 1.4 mg/dL (0.2-1.3); Blood Urea Nitrogen 13 mg/dL (7-17); Carbon Dioxide 30 mmol/L (22-30); Chloride 104 mmol/L (98-107); Estimated CRCL calculation 62 ml/min; Estimated Glomerular Filt Rate > 60; Glucose 136 mg/dL (65-110); Potassium 3.9 mmol/L (3.4-5.0); Sodium 139 mmol/L (137-145)
[2023-04-14 08:32] LABS: Glucose Point of Care 269 mg/dl (65-105)
[2023-04-14] MEDS: DULoxetine HCL 30 MG CAPSULE.DR PO (09:05)
[2023-04-14] MEDS: INSULIN ASPART (*BKC) 100 UNITS/ML SUB-Q (09:06)
[2023-04-14] MEDS: busPIRone HCL 10 MG TABLET PO (09:06)
[2023-04-14] MEDS: glipiZIDE XL 5 MG TABCR PO (09:06)
[2023-04-14] MEDS: PANTOPRAZOLE 40 MG TABLET PO (09:06)
[2023-04-14 10:06] LABS: IFOB Positive Control Positive; Immunochemical Fecal Occult Bl Negative (N)
[2023-04-14 11:52] LABS: Glucose Point of Care 182 mg/dl (65-105)
--- NOTE | 2023-04-14 11:55 | PM.IMPN ---
Progress Note: A&P Assessment and Plan (1) Atrial fibrillation with rapid ventricular response: Code(s): I48.91 - Unspecified atrial fibrillation Status: Acute Assessment and Plan: Heart rate controlled. Echo pending. cardiology consult (2) Type 2 diabetes mellitus: Code(s): E11.9 - Type 2 diabetes mellitus without complications Status: Acute Assessment and Plan: Monitor blood sugar (3) Obstructive sleep apnea: Code(s): G47.33 - Obstructive sleep apnea (adult) (pediatric) Status: Acute Assessment and Plan: Patient needs to resume CPAP use at home. (4) Hypertension: Qualifiers: Hypertension type: primary hypertension Qualified Code(s): I10 - Essential (primary) hypertension Code(s): I10 - Essential (primary) hypertension Status: Acute Assessment and Plan: Monitor blood pressure (5) Iron deficiency anemia: Qualifiers: Iron deficiency anemia type: other iron deficiency Qualified Code(s): D50.8 - Other iron deficiency anemias Code(s): D50.9 - Iron deficiency anemia, unspecified Status: Acute Subjective Date/time seen: 04/14/23 11:55 Interval history: No complaints Exam Narrative: General: Well-developed, nontoxic-appearing female sitting up in bed reading a book in no distress. Weight: 100.5 kg. BMI: 38.0. HEENT: Wearing glasses. PERRL, EOMI. Sclera anicteric. Oral mucosa moist. Neck: Supple. No JVD or carotid bruits. Respiratory: Lungs are clear to auscultation bilaterally. Cardiovascular: Irregularly irregular rate and rhythm with S1-S2. Gastrointestinal: Abdomen is soft, obese, nontender, and nondistended with positive bowel sounds. Skin: Warm and dry. No rash or lesions on limited exam. Extremities: No cyanosis, clubbing, or edema. Radial and pedal pulses intact. Neurological: Alert. Cranial nerves 2-12 are grossly intact. No gross focal deficits to casual conversation. Psychiatric: Pleasant and cooperative with normal mood and affect. Judgment and insight intact. Objective Data Vital Signs Vital Signs: Vital Signs - 24 hr 04/13/23 12:00 04/13/23 12:02 04/13/23 12:00 Temperature Pulse Rate 131 H 91 Respiratory Rate 19 21 H Blood Pressure 104/55 L Pulse Oximetry 95 93 Oxygen Delivery Room Air 04/13/23 12:16 04/13/23 13:15 04/13/23 13:31 Temperature Pulse Rate 73 89 95 Respiratory Rate 22 H 14 27 H Blood Pressure 111/72 116/85 121/79 Pulse Oximetry 94 96 92 Oxygen Delivery 04/13/23 14:05 04/13/23 14:42 04/13/23 16:54 Temperature 96.5 F L 96.2 F L Pulse Rate 85 86 87 Respiratory Rate 16 16 20 Blood Pressure 130/76 120/75 119/87 Pulse Oximetry 93 96 97 Oxygen Delivery 04/13/23 16:00 04/13/23 15:00 04/13/23 20:00 Temperature 97.1 F L Pulse Rate 88 79 Respiratory Rate 16 Blood Pressure 125/81 Pulse Oximetry 97 Oxygen Delivery Room Air 04/13/23 20:00 04/13/23 20:00 04/13/23 22:00 Temperature Pulse Rate 79 84 94 Respiratory Rate 16 Blood Pressure Pulse Oximetry 97 Oxygen Delivery Room Air 04/14/23 00:00 04/14/23 00:00 04/14/23 00:00 Temperature 97.3 F L Pulse Rate 98 98 93 Respiratory Rate 16 16 Blood Pressure 101/77 Pulse Oximetry 99 99 Oxygen Delivery Room Air 04/14/23 02:00 04/14/23 03:30 04/14/23 04:00 Temperature Pulse Rate 92 87 87 Respiratory Rate 16 Blood Pressure 101/77 Pulse Oximetry 99 Oxygen Delivery Room Air 04/14/23 04:00 04/14/23 04:00 04/14/23 06:00 Temperature 97.1 F L Pulse Rate 92 92 75 Respiratory Rate 16 Blood Pressure 120/82 Pulse Oximetry 98 Oxygen Delivery 04/14/23 08:25 Temperature 97.1 F L Pulse Rate 95 Respiratory Rate 20 Blood Pressure 125/76 Pulse Oximetry 93 Oxygen Delivery Intake/Output Intake/Output: Intake & Output 04/11/23 04/12/23 04/13/23 04/14/23 23:59 23:59 23:59 23:59 Intake Tota
[2023-04-14] MEDS: METOPROLOL SUCCINATE EXT REL 50 MG TABCR PO (12:39)
[2023-04-14] MEDS: amLODIPine BESYLATE 5 MG TABLET PO (12:40)
[2023-04-14] MEDS: lisinopriL 10 MG TABLET PO (12:40)
--- NOTE | 2023-04-14 13:09 | PM.CNCAR ---
Assessment and Plan Assessment and plan (1) Atrial fibrillation with rapid ventricular response: Code(s): I48.91 - Unspecified atrial fibrillation Status: Acute Assessment and Plan: New diagnosis for the patient. Currently rate controlled on low dose Cardizem drip. Echo with preserved LVEF. Will stop Cardizem drip and start oral Cardizem. Continue with beta kleber. Patient on Amlodipine at home - will stop that since we are starting Cardizem. If additional blood pressure control is needed, can increase dose of ACEi. Anticoagulation for stroke prophylaxis has not been started as patient is being worked up for dark stools. Fecal occult pending. If no concern for GI bleed / negative workup, recommend to start NOAC. Will arrange for outpatient follow up in our clinic. History of Present Illness History of Present Illness Consult date/time: 04/14/23 13:09 Requesting physician: Dale Frazier MD Consult reason: atrial fibrillation Reason For Visit: new onset atrial fibrillation with rapid ventricul Narrative: We are consulted for atrial fibrillation with RVR. This is a 72-year-old female with hypertension, hyperlipidemia, type 2 diabetes, HAYDE, history of upper GI bleed who presented to [place] ER from her doctor's office for irregular heart beat. Found to be in atrial fibrillation with RVR. New diagnosis for the patient. Started on Cardizem drip. Being worked up for dark stools as well. Patient denies any palpitations, chest pain, shortness of breath. Review of Systems Review of Systems: All systems reviewed & are unremarkable except as noted in HPI and below (HPI) [facility] Past Medical History Medical History Allergy Anxiety Arthritis GERD (gastroesophageal reflux disease) GI bleed due to NSAIDs Hyperlipidemia Hypertension Obesity Obstructive sleep apnea Transaminitis Type 2 diabetes mellitus Surgical History Surgical History H/O esophagogastroduodenoscopy (~05/2022) H/O total knee replacement Bilateral in 2015 History of carpal tunnel release of both wrists History of esophagogastroduodenoscopy (05/2022) For evaluation of upper GI bleed. Findings included a large hiatal hernia, erythematous mucosa in the gastric body which was biopsied, and 2 friable gastric polyps which were resected and retrieved. No pertinent past surgical history Family History Family History Mother Hypertension Grandparent Acute myocardial infarction Grandparent Acute myocardial infarction Father Cerebrovascular accident Prostate carcinoma Grandparent Diabetes mellitus Social History Social History Smoking packs per day: 1 Smoking cigarettes per day: 20.0 Years smoked: 20 Smoking pack-years: 20.00 Smoking status: Former smoker Tobacco type: cigarettes Smoking end date: 11/14/89 Alcohol intake: never Substance use: never Lack of Transportation: No Lack of Food: Never True Current Housing: I Have Housing Concerned About Future Housing: No Difficulty Paying Gas/Electric Bills: No Difficulty Paying for Meds: No Currently Unemployed: No Education: High School Diploma/GED Difficulty w/ Childcare or Family Care: No Spiritual care concerns: No Meds Home Medications and Allergies Home Medications Medication Instructions Recorded Confirmed Type biotin 10,000 mcg disintegrating 10,000 mcg PO HS 01/11/22 04/13/23 History tablet fexofenadine 180 mg tablet 180 mg PO HS 01/11/22 04/13/23 History ferrous sulfate 325 mg (65 mg 325 mg PO DAILY #90 tabs 10/13/22 04/13/23 Rx iron) tablet amlodipine 5 mg-benazepril 10 mg 1 cap PO DAILY #90 caps 12/30/22 04/13/23 Rx capsule buspirone 10 mg tablet 10 mg PO DAILY #90 tabs 03/28/23 04/13/23 Rx
[2023-04-14 14:44] LABS: Free T4 Free Thyroxine Reflex 1.43 ng/dL (0.78-2.19)
[2023-04-14] MEDS: dilTIAZem HCL CD 180 MG CAP.ER.24H PO (15:01)
[2023-04-14 16:04] LABS: Glucose Point of Care 134 mg/dl (65-105)
[2023-04-14 19:59] LABS: Glucose Point of Care 146 mg/dl (65-105)
[2023-04-14] MEDS: CHOLECALCIFEROL 1,000 UNITS TABLET 2000 UNITS PO (21:28)
[2023-04-14] MEDS: PRAVASTATIN SODIUM 20 MG TABLET PO (21:28)
[2023-04-14] MEDS: LORATADINE 10 MG TABLET PO (22:52)
[2023-04-15] VITALS (8 sets, daily range): BP systolic 98–102; BP diastolic 63–65; PULSE 70–132; RESP 14–16; TEMP 36.1–37.5; O2SAT 96–101
[2023-04-15 08:04] LABS: Glucose Point of Care 193 mg/dl (65-105)
[2023-04-15] MEDS: APIXABAN 5 MG TABLET PO (09:31)
[2023-04-15] MEDS: PANTOPRAZOLE 40 MG TABLET PO (09:31)
[2023-04-15] MEDS: busPIRone HCL 10 MG TABLET PO (09:32)
[2023-04-15] MEDS: lisinopriL 10 MG TABLET PO (09:32)
[2023-04-15] MEDS: METOPROLOL SUCCINATE EXT REL 50 MG TABCR 100 MG PO (09:32)
[2023-04-15] MEDS: glipiZIDE XL 5 MG TABCR PO (09:33)
[2023-04-15] MEDS: dilTIAZem HCL CD 180 MG CAP.ER.24H PO (09:33)
[2023-04-15] MEDS: DULoxetine HCL 30 MG CAPSULE.DR PO (09:33)
--- NOTE | 2023-04-15 10:32 | PM.PNCARD ---
Progress Note: A&P Assessment and Plan (1) Atrial fibrillation with rapid ventricular response: Code(s): I48.91 - Unspecified atrial fibrillation Status: Acute Assessment and Plan: 04/14: New diagnosis for the patient. Currently rate controlled on low dose Cardizem drip. Echo with preserved LVEF. Will stop Cardizem drip and start oral Cardizem. Continue with beta kleber. Patient on Amlodipine at home - will stop that since we are starting Cardizem. If additional blood pressure control is needed, can increase dose of ACEi. Anticoagulation for stroke prophylaxis has not been started as patient is being worked up for dark stools. Fecal occult pending. If no concern for GI bleed / negative workup, recommend to start NOAC. Will arrange for outpatient follow up in our clinic. 04/15: Patient doing well. Patient is in rate controlled atrial fibrillation. Continue PO Diltiazem and Toprol. Will start Eliquis for anticoagulation as fecal occult negative and no concern for bleeding. Okay for discharge from my standpoint. Will arrange outpatient follow up in our clinic. Recommendations/plan discussed with Hospitalist. Subjective Date/time seen: 04/15/23 10:32 Interval history: Reason for visit: New diagnosis of atrial fibrillation HPI: We are consulted for atrial fibrillation with RVR. This is a 72-year-old female with hypertension, hyperlipidemia, type 2 diabetes, HAYDE, history of upper GI bleed who presented to [place] ER from her doctor's office for irregular heart beat. Found to be in atrial fibrillation with RVR. New diagnosis for the patient. Started on Cardizem drip. Being worked up for dark stools as well. Patient denies any palpitations, chest pain, shortness of breath. Date of service 04/15: Feeling well this morning. Remains in atrial fibrillation but is rate controlled. Hoping to go home today. Review of Systems Review of Systems: 8 point ROS obtained. Negative, unless stated in HPI. Exam Const: General: comfortable and no acute distress HENMT: Mouth: Yes moist mucous membranes Eyes: General: appearance normal, both eyes and all related structures Sclera: sclerae normal Neck: Neck: supple Resp: Effort & Inspection: normal respiratory effort Auscultation: clear to auscultation bilaterally Cardio: Rhythm: abnormal rhythm irregularly irregular Heart sounds: no murmurs Skin: General skin exam: normal color Neuro: Speech: normal speech Psych: Mental Status: mental status grossly normal Affect: normal affect Objective Data Vital Signs Vital Signs: Vital Signs - 24 hr 04/14/23 12:00 04/14/23 12:18 04/14/23 12:00 Temperature 35.7 C L Pulse Rate 95 96 Respiratory Rate 20 Blood Pressure 130/93 H Pulse Oximetry 97 Oxygen Delivery Room Air 04/14/23 12:39 04/14/23 14:00 04/14/23 15:51 Temperature Pulse Rate 107 H 86 Respiratory Rate Blood Pressure Pulse Oximetry Oxygen Delivery Room Air 04/14/23 16:17 04/14/23 16:00 04/14/23 18:00 Temperature 36.1 C L Pulse Rate 83 84 83 Respiratory Rate 20 Blood Pressure 132/74 Pulse Oximetry 96 Oxygen Delivery 04/14/23 20:00 04/14/23 20:00 04/14/23 20:00 Temperature 36.5 C Pulse Rate 84 84 84 Respiratory Rate 16 16 Blood Pressure 114/61 Pulse Oximetry 96 96 Oxygen Delivery Room Air 04/14/23 22:00 04/15/23 00:00 04/15/23 00:00 Temperature 37.5 C Pulse Rate 82 82 87 Respiratory Rate 16 Blood Pressure 98/64 L Pulse Oximetry 97 Oxygen Delivery 04/15/23 00:00 04/15/23 02:00 04/15/23 04:00 Temperature Pulse Rate 87 90 88 Respiratory Rate 16 Blood Pressure Pulse Oximetry 97 Oxygen Delivery Room Air 04/15/23 04:00 04/15/23 06:00 04/15/23 04:00 Temperature 36.1 C L Pulse Rate 88 92 100 Respiratory Rate 16 16 Blood Pressure 100/65 Pulse Oximetry 97 96 Oxygen Delivery Room Air 04/15/23 08:00 04/15/23 08:00 04/15/23 09:32 Temperature 36.1
--- NOTE | 2023-04-15 13:32 | PM.DS ---
DS: Admitting Diagnosis Discharge Date April 15, 2023 Admitting Diagnosis AFib RVR DS: Discharge Diagnosis Discharge Diagnosis (1) Atrial fibrillation with rapid ventricular response: Code(s): I48.91 - Unspecified atrial fibrillation Status: Acute Assessment and Plan: Heart rate controlled. Echo pending. cardiology consult (2) Type 2 diabetes mellitus: Code(s): E11.9 - Type 2 diabetes mellitus without complications Status: Acute Assessment and Plan: Monitor blood sugar (3) Obstructive sleep apnea: Code(s): G47.33 - Obstructive sleep apnea (adult) (pediatric) Status: Acute Assessment and Plan: Patient needs to resume CPAP use at home. (4) Hypertension: Qualifiers: Hypertension type: primary hypertension Qualified Code(s): I10 - Essential (primary) hypertension Code(s): I10 - Essential (primary) hypertension Status: Acute Assessment and Plan: Monitor blood pressure (5) Iron deficiency anemia: Qualifiers: Iron deficiency anemia type: other iron deficiency Qualified Code(s): D50.8 - Other iron deficiency anemias Code(s): D50.9 - Iron deficiency anemia, unspecified Status: Acute DS: Summary Hospital Course Hospital Course: 72-year-old admitted for AFib RVR. Medications adjusted and she was started on Cardizem. We will also increase her beta-kleber. She will also be started on anticoagulation on discharge. She can follow-up with Cardiology Time Spent with Patient Time attestation: Total time spent providing and/or coordinating discharge services: Exam Narrative: General: Well-developed, nontoxic-appearing female sitting up in bed reading a book in no distress. Weight: 100.5 kg. BMI: 38.0. HEENT: Wearing glasses. PERRL, EOMI. Sclera anicteric. Oral mucosa moist. Neck: Supple. No JVD or carotid bruits. Respiratory: Lungs are clear to auscultation bilaterally. Cardiovascular: Irregularly irregular rate and rhythm with S1-S2. Gastrointestinal: Abdomen is soft, obese, nontender, and nondistended with positive bowel sounds. Skin: Warm and dry. No rash or lesions on limited exam. Extremities: No cyanosis, clubbing, or edema. Radial and pedal pulses intact. Neurological: Alert. Cranial nerves 2-12 are grossly intact. No gross focal deficits to casual conversation. Psychiatric: Pleasant and cooperative with normal mood and affect. Judgment and insight intact. DS: Data Data Completed and Pending Labs on day of discharge: Labs from last 24 hours 04/15/23 04/14/23 04/14/23 08:01 19:45 15:55 POC Capillary Glucose 193 H 146 H 134 H Free T4 Total T3 04/13/23 22:59 POC Capillary Glucose Free T4 1.43 Total T3 1.80 H Discharge Plan Discharge Attending physician on discharge: Dale Frazier Consulting providers: Jaqueline Martinez Discharging Clinician: Dale Frazier Patient Disposition: Home, Self-Care Activity: as tolerated Diet: as tolerated Patient Instructions: Antibiotic Form Stand Alone Forms: General Discharge Information Follow-up/Referrals: Jaqueline Martinez MD [Physician] - Discharge Medications: New metoprolol succinate 50 mg Tablet Extended Release 24 Hr 100 mg PO DAILY 30 Days Qty: 60 0RF diltiazem HCl 180 mg Capsule,Ext.Rel 24h Degradable 180 mg PO QAM 30 Days Qty: 30 0RF Eliquis 5 mg Tablet 5 mg PO Q12HR 30 Days Qty: 60 0RF Continued cholecalciferol (vitamin D3) 50 mcg (2,000 unit) capsule 50 mcg PO HS biotin 10,000 mcg tablet,disintegrating 10,000 mcg PO HS fexofenadine 180 mg tablet 180 mg PO HS ferrous sulfate 325 mg (65 mg iron) tablet 325 mg PO DAILY Qty: 90 1RF glipizide 5 mg tablet extended release 24hr 5 mg PO DAILY omeprazole 20 mg capsule,delayed release(DR/EC) 20 mg PO DAILY Rx Instructions: Take 1 capsule by mouth once daily
--- NOTE | 2023-04-15 15:35 | PCCCNOTE ---
On 04/15/23, the student, [Glory Damon ], provided care and completed [facility] documentation on this patient. I have reviewed the student's documentation and agree with the findings.
== END 2023-04-15 15:11 | disposition home or self-care (01) ==
LOC: ANHED 13:30 → ANHIMU 14:10
PROVIDERS: Physician Assistant; Admitting Provider Student in an Organized Health Care Education/Training Program; Emergency Provider Emergency Medicine; PCP Internal Medicine; Visit Provider Chiropractor
DX: I48.91 Unspecified atrial fibrillation (principal); E11.9 Type 2 diabetes mellitus without complications; G47.33 Obstructive sleep apnea (adult) (pediatric); I10 Essential (primary) hypertension; D50.8 Other iron deficiency anemias; R00.0 Tachycardia, unspecified; R06.02 Shortness of breath; F41.9 Anxiety disorder, unspecified; M19.90 Unspecified osteoarthritis, unspecified site; K21.9 Gastro-esophageal reflux disease without esophagitis; E78.5 Hyperlipidemia, unspecified; R94.31 Abnormal electrocardiogram [ECG] [EKG]; I07.1 Rheumatic tricuspid insufficiency; E66.9 Obesity, unspecified; Z68.36 Body mass index [BMI] 36.0-36.9, adult; K44.9 Diaphragmatic hernia without obstruction or gangrene; R74.01 Elevation of levels of liver transaminase levels; Z87.891 Personal history of nicotine dependence; Z79.84 Long term (current) use of oral hypoglycemic drugs; Z79.899 Other long term (current) drug therapy
CPT/HCPCS: 36415; 71046; 80053; 82274; 82607; 82728; 82746; 82948; 83036; 83540; 83550; 83735; 83880; 84439; 84443; 84480; 84484; 85025; 85027; 85610; 85730; 93005; 93306; 96365; 96366; 96374; 99285; A9270; G0378; J1815

== ENCOUNTER 2023-06-15 10:00 | Outpatient (RCR) | payer MEDICARE, SELFPAY ==
--- NOTE | 2023-05-25 15:46 | OPREHPOC ---
Outpatient Therapy Plan of Care This is a Multidisciplinary Plan of Care that may contain components documented by all disciplines (PT, OT, and ST.) PT Problem 1 PT Problem #1 Knowledge Deficit PT Goal 1 Goal Pt to be IND with issued HEP. Target Visit 12 PT Problem 2 PT Problem #2 Pain PT Goal 1 Goal Pt to report pain no greater than 4/10 in the last week Target Visit 8 PT Goal 2 Goal Pt to report 50% improvement in overall symptoms Target Visit 12 PT Problem 3 PT Problem #3 Impaired Range of Motion PT Goal 1 Goal Pt to improve tatiana knee flexion ROM to 75 deg Target Visit 12 PT Goal 2 Goal Pt to improve active tatiana knee extension ROM to -10 deg Target Visit 12 PT Problem 4 PT Problem #4 Impaired Gait PT Goal 1 Goal Pt to improve 2 min walk distance from 360ft to 420ft Target Visit 12
--- NOTE | 2023-05-25 15:46 | PTOPEVAL1 ---
Assessment and note entered by Grayson Parada, PT, DPT Evaluation Information Assessment Status Evaluation Diagnosis tatiana knee pain Onset chronic Subjective Information Pt states her knees are the same as the last time she was in therapy. She states she is on a new medication for her A-fib. She had both knees replaced in 2014. Since then she has had developed a knee flexion contracture since 2019. She continues to have no pain at rest, just when standing. Reported Pain Level Pain Score 0: Self Report Assessment PT Clinical Summary Haritha presents to therapy today for her initial evaluation with a diagnosis of tatiana knee pain following tatiana TKA in 2014. Today she demonstrates significant limitations in her knee active and passive ROM, L knee active is -20 to 63 deg, R knee is -14 to 66 deg. Due to her lack of motion she demonstrates deviations during ambulation and stair navigation. She also reports her standing tolerance is limited by pain. Skilled therapy services are indicated to improve motion, improve strength, manage pain, and to promote an unlimited functional mobility. Plan of Care Interventions Electrical Stimulation,Gait Training,Hot Pack/Cold Pack,Manual Therapy,Neuro Re-education,Patient/ Caregiver Educati,Therapeutic Activities, Therapeutic Exercise PT Services Indicated Yes Treatment Frequency and 2x/wk for 6 wks Duration These treatments will address the objective and functional deficits as defined above. The patient will be advanced safely and appropriately in order for the patient to progress towards his/her prior level of function. Additional exercises will be introduced and as well as a comprehensive home exercise program upon discharge, if needed, ?to ensure carryover of functional gains achieved in the clinic. This treatment plan has been reviewed and agreement upon by the patient.
--- NOTE | 2023-06-15 10:42 | PTOPDC ---
Assessment and note entered by Grayson Parada, PT, DPT Evaluation Information Assessment Status Discharge Diagnosis tatiana knee pain Onset chronic Subjective Information Pt states overall she does not feel a difference in her knees. She states she continues to have pain, this pain has not changed in frequency. Reported Pain Level Pain Score 4: Self Report Pain Score 0,0,5: Self Report Assessment PT Clinical Summary Haritha presents to therapy today for her progress report following 8 visits of skilled therapy to treat her tatiana knee pain following tatiana TKA in 2014. Today she combines to demonstrates significant limitations in her knee active and passive ROM, L knee active is -15 to 63 deg, R knee is -17 to 60 deg and has made changes that are with the standard error of measure. Due to her lack of motion she continues to demonstrates deviations during ambulation and stair navigation as well as a decreased gait speed. She did not make improvement in her gait speed either. She will be discharged from skilled services at this time d/t making no measureable improvement. Plan of Care PT Services Indicated No
== END 2023-06-15 11:51 | disposition home or self-care (01) ==
LOC: ANHGOSHPT 10:00
PROVIDERS: PCP Nurse Practitioner
DX: M25.561 Pain in right knee (principal); M25.562 Pain in left knee; Z96.653 Presence of artificial knee joint, bilateral
CPT/HCPCS: 97110; 97112; 97140; 97161; 97530

== ENCOUNTER 2023-07-11 15:00 | Outpatient (CLI) | payer MEDICARE, SELFPAY ==
--- NOTE | ~2023-07-11 | MM_ITS ---
EXAMINATION: MM screening sariah BI w new HISTORY: Screening mammogram TECHNIQUE: Craniocaudal and mediolateral oblique 3-D tomosynthesis images were obtained and synthetic 2-D images were generated. CAD analysis was submitted and interpreted. COMPARISON: 02/24/2022 BREAST PARENCHYMAL COMPOSITION: There are scattered areas of fibroglandular density. FINDINGS: No suspicious mass, calcification, or architectural distortion are identified in either zaki ast to suggest malignancy. There has been no suspicious interval change. IMPRESSION: 1. No mammographic evidence of malignancy. 2. Recommend routine screening mammography in one year. BI-RADS Category 1: Negative Reviewed, dictated and finalized at location A.
== END 2023-07-11 15:01 | disposition home or self-care (01) ==
LOC: ANHIMG 15:02
PROVIDERS: PCP Internal Medicine; Visit Provider Nurse Practitioner
DX: Z12.31 Encounter for screening mammogram for malignant neoplasm of breast (principal)
CPT/HCPCS: 77063; 77067

== ENCOUNTER 2023-09-21 01:30 | Day surgery (SDC) | payer MEDICARE, SELFPAY ==
[2023-09-13 13:17] VITALS: BMI 39.5
--- NOTE | 2023-09-19 09:19 | SUR.PREOP ---
Patient called regarding upcoming procedure. Reviewed preop instructions, appointment times, and procedure prep.
--- NOTE | 2023-09-20 16:36 | PM.HPGS ---
History of Present Illness History of Present Illness Consent: Risks, benefits, and alternatives have been discussed and questions answered. Patient agrees to proceed with procedure. Chief complaint: neoplasm screening Narrative: Haritha Castanon is a 73 year old female referred for colon cancer screening. Review of Systems Review of Systems: All systems reviewed & are unremarkable except as noted in HPI and below PMFSH Past Medical History Medical History Allergy Anxiety Arthritis GERD (gastroesophageal reflux disease) GI bleed due to NSAIDs Hyperlipidemia Hypertension Obesity Obstructive sleep apnea Transaminitis Type 2 diabetes mellitus Surgical History Surgical History H/O esophagogastroduodenoscopy (~05/2022) H/O total knee replacement Bilateral in 2014 History of carpal tunnel release of both wrists History of esophagogastroduodenoscopy (05/2022) For evaluation of upper GI bleed. Findings included a large hiatal hernia, erythematous mucosa in the gastric body which was biopsied, and 2 friable gastric polyps which were resected and retrieved. No pertinent past surgical history Family History Family History Mother Hypertension Grandparent Acute myocardial infarction Grandparent Acute myocardial infarction Father Cerebrovascular accident Prostate carcinoma Grandparent Diabetes mellitus Sibling Glaucoma Social History Social History Smoking packs per day: 1 Smoking cigarettes per day: 20.0 Years smoked: 20 Smoking pack-years: 20.00 Smoking status: Former smoker Tobacco type: cigarettes Smoking end date: 11/14/89 Alcohol intake: current Substance use: never Substance use type: does not use Lack of Transportation: No Lack of Food: Never True Current Housing: I Have Housing Concerned About Future Housing: No Difficulty Paying Gas/Electric Bills: No Difficulty Paying for Meds: No Currently Unemployed: No Education: High School Diploma/GED Difficulty w/ Childcare or Family Care: No Living arrangements: alone Spiritual care concerns: No Meds Home Medications and Allergies Home Medications Medication Instructions Recorded Confirmed Type fexofenadine 180 mg tablet 180 mg PO HS 01/11/22 09/13/23 History buspirone 10 mg tablet 10 mg PO DAILY #90 tabs 03/28/23 09/13/23 Rx duloxetine 30 mg capsule,delayed 30 mg PO DAILY #90 caps 04/04/23 09/13/23 Rx release cholecalciferol (vitamin D3) 50 50 mcg PO HS 04/13/23 09/13/23 History mcg (2,000 unit) capsule omeprazole 20 mg capsule,delayed 20 mg PO DAILY 04/13/23 09/13/23 History release apixaban 5 mg tablet (Eliquis) 5 mg PO Q12HR 30 days #60 tabs 04/15/23 09/13/23 Rx diltiazem HCl 180 mg 180 mg PO QAM 30 days #30 caps 04/15/23 09/13/23 Rx capsule,extended release 24 hr, controlled lisinopril 10 mg tablet (Zestril) 10 mg PO DAILY #30 tabs 04/15/23 09/13/23 Rx pravastatin 20 mg tablet 20 mg PO HS #90 tabs 04/29/23 09/13/23 Rx glipizide 5 mg tablet, extended 5 mg PO DAILY #90 tabs 06/17/23 09/13/23 Rx release 24 hr metoprolol succinate 100 mg 100 mg PO DAILY #90 tabs 08/15/23 09/13/23 Rx tablet,extended release 24 hr CPAP supplies #1 ea 08/30/23 08/30/23 Rx biotin 5,000 mcg chewable tablet 5,000 mcg PO HS 09/13/23 09/13/23 History Allergies Allergy/AdvReac Type Severity Reaction Status Date / Time Sulfa (Sulfonamide Allergy Severe Hives / Verified 09/21/23 09:46 Antibiotics) Red Face Exam Resp: Auscultation: clear to auscultation bilaterally Cardio: Rate: regular rate Rhythm: regular rhythm GI: GI Palp: Yes Soft to palpation and No Tenderness to palpation present (GI) Assessment and Plan Assessment and plan (1) Screening for colon canc
[2023-09-21 09:49] VITALS: BP 161/92; PULSE 106; RESP 20; TEMP 36.5; O2SAT 97; BMI 38.7
[2023-09-21] MEDS: LACTATED RINGERS 1,000 ML 150 ML IV CONT (10:02)
[2023-09-21 10:07] LABS: Glucose Point of Care 210 mg/dl (65-105)
--- NOTE | 2023-09-21 10:54 | WPDANESEPPF ---
Anes - Initial Pre Proc Eval Procedure: Operation Date: 09/21/23 11:15 Proposed Procedures p Screening Colonoscopy - Star Carson MD Date/Time: 09/21/23 10:54 Surgeon: Star Carson MD Pre Op Diagnosis: neoplasm screening Patient Data Age: 73 Gender: F Height: 1.63 m Weight: 102.4 kg Last Vital Signs Temp 97.7 F 09/21/23 09:49 Pulse 106 H 09/21/23 09:49 Resp 20 09/21/23 09:49 BP 161/92 H 09/21/23 09:49 Pulse Ox 97 09/21/23 09:49 O2 Del Method Room Air 09/21/23 09:49 Allergies Allergy/AdvReac Type Severity Reaction Status Date / Time Sulfa (Sulfonamide Allergy Severe Hives / Verified 09/21/23 09:46 Antibiotics) Red Face Home Medications Medication Instructions Recorded Confirmed Type fexofenadine 180 mg tablet 180 mg PO HS 01/11/22 09/13/23 History buspirone 10 mg tablet 10 mg PO DAILY #90 tabs 03/28/23 09/13/23 Rx duloxetine 30 mg capsule,delayed 30 mg PO DAILY #90 caps 04/04/23 09/13/23 Rx release cholecalciferol (vitamin D3) 50 50 mcg PO HS 04/13/23 09/13/23 History mcg (2,000 unit) capsule omeprazole 20 mg capsule,delayed 20 mg PO DAILY 04/13/23 09/13/23 History release apixaban 5 mg tablet (Eliquis) 5 mg PO Q12HR 30 days #60 tabs 04/15/23 09/13/23 Rx diltiazem HCl 180 mg 180 mg PO QAM 30 days #30 caps 04/15/23 09/13/23 Rx capsule,extended release 24 hr, controlled lisinopril 10 mg tablet (Zestril) 10 mg PO DAILY #30 tabs 04/15/23 09/13/23 Rx pravastatin 20 mg tablet 20 mg PO HS #90 tabs 04/29/23 09/13/23 Rx glipizide 5 mg tablet, extended 5 mg PO DAILY #90 tabs 06/17/23 09/13/23 Rx release 24 hr metoprolol succinate 100 mg 100 mg PO DAILY #90 tabs 08/15/23 09/13/23 Rx tablet,extended release 24 hr CPAP supplies #1 ea 08/30/23 08/30/23 Rx biotin 5,000 mcg chewable tablet 5,000 mcg PO HS 09/13/23 09/13/23 History Laboratory Tests 09/21/23 09:59 POC Capillary Glucose 210 H mg/dl (65-105) Patient hx anesthesia problems: none Family hx anesthesia problems: none Results Review: All pre-operative results and documents have been reviewed as part of the pre-operative evaluation. [facility] Past Medical History Medical History Allergy Anxiety Arthritis GERD (gastroesophageal reflux disease) GI bleed due to NSAIDs Hyperlipidemia Hypertension Obesity Obstructive sleep apnea Transaminitis Type 2 diabetes mellitus Surgical History Surgical History H/O esophagogastroduodenoscopy (~05/2022) H/O total knee replacement Bilateral in 2014 History of carpal tunnel release of both wrists History of esophagogastroduodenoscopy (05/2022) For evaluation of upper GI bleed. Findings included a large hiatal hernia, erythematous mucosa in the gastric body which was biopsied, and 2 friable gastric polyps which were resected and retrieved. No pertinent past surgical history Family History Family History Mother Hypertension Grandparent Acute myocardial infarction Grandparent Acute myocardial infarction Father Cerebrovascular accident Prostate carcinoma Grandparent Diabetes mellitus Sibling Glaucoma Social History Social History Smoking packs per day: 1 Smoking cigarettes per day: 20.0 Years smoked: 20 Smoking pack-years: 20.00 Smoking status: Former smoker Tobacco type: cigarettes Smoking end date: 11/14/89 Alcohol intake: current Substance use: never Substance use type: does not use Lack of Transportation: No Lack of Food: Never True Current Housing: I Have Housing Concerned About Future Housing: No Difficulty Paying Gas/Electric Bills: No Difficulty Paying for Meds: No Currently Unemployed: No Education: High School Diploma/GED Difficulty w/ Childcare or Famil
--- NOTE | 2023-09-21 10:59 | SUR.OPER ---
Dr. Pang was reported to, per ROSALES Addison, that patient is in A-fib RVR.
[2023-09-21 11:17] VITALS: BP 140/87; PULSE 86; RESP 22; O2SAT 95
[2023-09-21 11:26] LABS: Glucose Point of Care 191 mg/dl (65-105)
[2023-09-21 11:27] VITALS: BP 151/96; PULSE 79; RESP 26; O2SAT 96
[2023-09-21 11:34] VITALS: BP 153/88; PULSE 74; RESP 21; O2SAT 97
== END 2023-09-21 12:02 | disposition home or self-care (01) ==
PROVIDERS: PCP Internal Medicine; Visit Provider Internal Medicine Gastroenterology
PROC: 0DJD8ZZ Inspection of Lower Intestinal Tract, Via Natural or Artificial Opening Endoscopic (ICD-10-PCS; CPT 45378; principal; 2023-09-21 11:15)
DX: Z12.11 Encounter for screening for malignant neoplasm of colon (principal); K63.5 Polyp of colon; F41.9 Anxiety disorder, unspecified; K21.9 Gastro-esophageal reflux disease without esophagitis; E78.5 Hyperlipidemia, unspecified; I10 Essential (primary) hypertension; G47.33 Obstructive sleep apnea (adult) (pediatric); E11.9 Type 2 diabetes mellitus without complications; Z87.891 Personal history of nicotine dependence; Z79.01 Long term (current) use of anticoagulants; Z79.84 Long term (current) use of oral hypoglycemic drugs; Z99.89 Dependence on other enabling machines and devices; E66.9 Obesity, unspecified; Z68.38 Body mass index [BMI] 38.0-38.9, adult; Z82.49 Family history of ischemic heart disease and other diseases of the circulatory system
CPT/HCPCS: 45385; 82948; 88305; J2704; J7120

== ENCOUNTER 2023-10-09 09:48 | Emergency (ER) | payer MEDICARE, SELFPAY ==
--- NOTE | ~2023-10-09 | XR_ITS ---
EXAMINATION: XR foot LT min 3V DATE: 10/09/2023 10:39 INDICATION: Left foot pain TECHNIQUE: Dorsoplantar, lateral, and 2 oblique views of the left foot were obtained. COMPARISON: None. FINDINGS: Bone alignment is normal. There is no fracture. There is mild dorsal soft tissue swelling o f the foot. Mild polyarticular osteoarthritis is noted in multiple interphalangeal joints. Suture anc hors are present in the calcaneus. IMPRESSION: 1. Dorsal soft tissue swelling without acute osseous abnormality. Reviewed, dictated and finalized at location A. [employer]
--- NOTE | ~2023-10-09 | XR_ITS ---
EXAMINATION: XR chest 2V DATE: 10/09/2023 10:38 INDICATION: Chest pain TECHNIQUE: PA and lateral views of the chest are obtained. COMPARISON: 04/13/2023 FINDINGS: The lungs are free of acute opacities. No pleural effusion or pneumothorax. The heart size is normal. There is a large hiatal hernia. There are bridging osteophytes at multiple levels in the s pine, consistent with diffuse idiopathic skeletal hyperostosis (DISH). IMPRESSION: 1. No acute cardiopulmonary abnormality. Reviewed, dictated and finalized at location A. [employer]
[2023-10-09 10:08] VITALS: BP 154/79; PULSE 71; RESP 16; TEMP 36.6; O2SAT 97
--- NOTE | 2023-10-09 10:16 | ED.LOWEXIN ---
HPI - Extremity Injury (Lower) General Chief Complaint: Extremity Injury, Lower Stated Complaint: Injured toe Time Seen by Provider: 10/09/23 10:16 Source: patient, RN notes reviewed and old records reviewed Mode of arrival: ambulatory Limitations: no limitations History of Present Illness HPI Narrative: 73-year-old female presents to [facility] with complaint of falling on Tuesday, patient states fell face 1st onto concrete. Patient complaining of left toe pain, states now has large blister on left great toe. Patient also has bruising to left arm, left lower lip, and is complaining of chest pain with sneezing and palpitation. Patient denies neck or back pain patient denies loss of consciousness. Related Data Home Medications Medication Instructions Recorded Confirmed fexofenadine 180 mg tablet 180 mg PO HS 01/11/22 10/09/23 cholecalciferol (vitamin D3) 50 50 mcg PO HS 04/13/23 10/09/23 mcg (2,000 unit) capsule omeprazole 20 mg capsule,delayed 20 mg PO DAILY 04/13/23 10/09/23 release biotin 5,000 mcg chewable tablet 5,000 mcg PO HS 09/13/23 10/09/23 Allergies Allergy/AdvReac Type Severity Reaction Status Date / Time Sulfa (Sulfonamide Allergy Severe Hives / Verified 10/09/23 10:12 Antibiotics) Red Face Review of Systems Constitutional: Constitutional: Reports no additional constitutional complaints Eyes: Eyes: Reports no additional eye complaints ENT: Reports system reviewed and no additional complaints, except as documented Cardiovascular: Cardiovascular: Reports as per HPI (Upper chest pain with palpitation and sneezing) Respiratory: Respiratory: Reports no additional respiratory complaints Musculoskeletal: Musculoskeletal: Reports as per HPI and Reports other (Left foot toe pain) Integumentary/Breasts: Skin/Breast: Reports change in pigmentation (Ecchymosis noted to left lower lip, left forearm, left great and 2nd toe) Neurologic: Reports system reviewed and no additional complaints, except as documented PMF Past Medical History Medical History Allergy Anxiety Arthritis GERD (gastroesophageal reflux disease) GI bleed due to NSAIDs Hyperlipidemia Hypertension Obesity Obstructive sleep apnea Transaminitis Type 2 diabetes mellitus Surgical History Surgical History H/O esophagogastroduodenoscopy (~05/2022) H/O total knee replacement Bilateral in 2015 History of carpal tunnel release of both wrists History of esophagogastroduodenoscopy (05/2022) For evaluation of upper GI bleed. Findings included a large hiatal hernia, erythematous mucosa in the gastric body which was biopsied, and 2 friable gastric polyps which were resected and retrieved. No pertinent past surgical history Family History Family History Mother Hypertension Grandparent Acute myocardial infarction Grandparent Acute myocardial infarction Father Cerebrovascular accident Prostate carcinoma Grandparent Diabetes mellitus Sibling Glaucoma Social History Social History Smoking packs per day: 1 Smoking cigarettes per day: 20.0 Years smoked: 20 Smoking pack-years: 20.00 Smoking status: Former smoker Tobacco type: cigarettes Smoking end date: 11/14/89 Alcohol intake: current Substance use: never Substance use type: does not use Lack of Transportation: No Lack of Food: Never True Current Housing: I Have Housing Concerned About Future Housing: No Difficulty Paying Gas/Electric Bills: No Difficulty Paying for Meds: No Currently Unemployed: No Education: High School Diploma/GED Difficulty w/ Childcare or Family Care: No Living arrangements: alone Spiritual care concerns: No Comments At the time of my signature, I reviewed and agree w
== END 2023-10-09 11:43 | disposition home or self-care (01) ==
PROVIDERS: Emergency Provider Registered Nurse; PCP Nurse Practitioner
DX: S50.12XA Contusion of left forearm, initial encounter (principal); S00.531A Contusion of lip, initial encounter; S90.32XA Contusion of left foot, initial encounter; W19.XXXA Unspecified fall, initial encounter; M19.90 Unspecified osteoarthritis, unspecified site; K21.9 Gastro-esophageal reflux disease without esophagitis; E78.5 Hyperlipidemia, unspecified; I10 Essential (primary) hypertension; E66.9 Obesity, unspecified; Z68.39 Body mass index [BMI] 39.0-39.9, adult; E11.9 Type 2 diabetes mellitus without complications; Z79.84 Long term (current) use of oral hypoglycemic drugs; Z96.653 Presence of artificial knee joint, bilateral; Z87.891 Personal history of nicotine dependence
CPT/HCPCS: 71046; 73630; 99214; G0463

== ENCOUNTER 2024-05-03 11:05 | Emergency (ER) | payer MEDICARE, SELFPAY ==
--- NOTE | 2024-05-03 11:14 | ED.EAR ---
HPI - Ear Problem General Chief complaint: Ear Stated complaint: something stuck in r ear Time Seen by Provider: 05/03/24 11:14 Source: patient, RN notes reviewed and old records reviewed Mode of arrival: ambulatory Limitations: no limitations History of Present Illness HPI Narrative: 73-year-old woman to [facility] concerned that a part of her hearing aid is stuck in her right ear. Patient states that she 1st noticed this last night. Patient denies pain, fever, headache. Patient denies this being an issue previously. Patient no acute distress. Related Data Home Medications Medication Instructions Recorded Confirmed fexofenadine 180 mg tablet 180 mg PO HS 01/11/22 05/03/24 cholecalciferol (vitamin D3) 50 50 mcg PO HS 04/13/23 05/03/24 mcg (2,000 unit) capsule biotin 5,000 mcg chewable tablet 5,000 mcg PO HS 09/13/23 05/03/24 Allergies Allergy/AdvReac Type Severity Reaction Status Date / Time Sulfa (Sulfonamide Allergy Severe Hives / Verified 05/03/24 11:14 Antibiotics) Red Face Review of Systems Review of Systems: All systems reviewed & are unremarkable except as noted in HPI and below Constitutional: Constitutional: Reports no additional constitutional complaints Eyes: Eyes: Reports no additional eye complaints ENT: Reports as per HPI and Reports other ( foreign Body right ear) Cardiovascular: Cardiovascular: Reports no additional cardiovascular complaints, Denies chest pain and Denies dyspnea Respiratory: Respiratory: Reports no additional respiratory complaints, Denies cough and Denies dyspnea Musculoskeletal: Musculoskeletal: Reports no additional musculoskeletal complaints Neurologic: Reports system reviewed and no additional complaints, except as documented Psychiatric: Psychiatric: Reports no additional psychiatric complaints [facility] Past Medical History Medical History Allergy Anxiety Arthritis GERD (gastroesophageal reflux disease) GI bleed due to NSAIDs Hyperlipidemia Hypertension Obesity Obstructive sleep apnea Transaminitis Type 2 diabetes mellitus Surgical History Surgical History H/O esophagogastroduodenoscopy (~05/2022) H/O total knee replacement Bilateral in 2014 History of carpal tunnel release of both wrists History of esophagogastroduodenoscopy (05/2022) For evaluation of upper GI bleed. Findings included a large hiatal hernia, erythematous mucosa in the gastric body which was biopsied, and 2 friable gastric polyps which were resected and retrieved. No pertinent past surgical history Family History Family History Mother Hypertension Grandparent Acute myocardial infarction Grandparent Acute myocardial infarction Father Cerebrovascular accident Prostate carcinoma Grandparent Diabetes mellitus Sibling Glaucoma Social History Social History Smoking packs per day: 1 Smoking cigarettes per day: 20.0 Years smoked: 20 Smoking pack-years: 20.00 Smoking status: Former smoker Tobacco type: cigarettes Smoking end date: 11/14/89 Alcohol intake: current Substance use: never Substance use type: does not use Living arrangements: alone Spiritual care concerns: No Comments At the time of my signature, I reviewed and agree with the nursing past medical, surgical, social, and family history. There is no relevant family history pertinent to the patient complaint. Exam Const: General: cooperative, healthy appearing, comfortable, no acute distress, alert and well nourished Nutritional Appearance: well nourished Orientation/consciousness: patient oriented x3 Limitations: no limitations HENMT: Head: normal to inspection Ears: Abnormal EAC present foreign body on the right Face/Nose/Sinus:
[2024-05-03 11:17] VITALS: BP 100/63; PULSE 83; RESP 16; TEMP 35.8; O2SAT 98
== END 2024-05-03 11:37 | disposition home or self-care (01) ==
PROVIDERS: Emergency Provider Nurse Practitioner Family; PCP Nurse Practitioner
DX: T16.1XXA Foreign body in right ear, initial encounter (principal); W44.G1XA Audio device entering into or through a natural orifice, initial encounter; H61.21 Impacted cerumen, right ear; Z87.891 Personal history of nicotine dependence; M19.90 Unspecified osteoarthritis, unspecified site; K21.9 Gastro-esophageal reflux disease without esophagitis; E78.5 Hyperlipidemia, unspecified; I10 Essential (primary) hypertension; E11.9 Type 2 diabetes mellitus without complications; E66.9 Obesity, unspecified; Z68.41 Body mass index [BMI] 40.0-44.9, adult; Z96.653 Presence of artificial knee joint, bilateral
CPT/HCPCS: 69210; 69200; 99213; G0463

== ENCOUNTER 2025-01-18 14:04 | Outpatient (CLI) | payer MEDICARE, SELFPAY ==
--- NOTE | ~2025-01-18 | MM_ITS ---
EXAMINATION: [facility] new HISTORY: Screening TECHNIQUE: Craniocaudal and mediolateral oblique 3-D tomosynthesis images were obtained and synthetic 2-D images were generated. CAD analysis was submitted and interpreted. COMPARISON: 07/11/2023 and 02/24/2022 BREAST PARENCHYMAL COMPOSITION: There are scattered areas of fibroglandular density. FINDINGS: Punctate and bulky calcifications are detected bilaterally, stable and benign in appearance . Otherwise stable parenchymal pattern without suspicious microcalcifications, architectural distortion , discrete masses or significant asymmetry. IMPRESSION: 1. No mammographic/tomographic evidence of malignancy. 2. Recommend routine screening mammography in one year. BI-RADS Category 2: Benign finding(s). Reviewed, dictated and finalized at location [facility]. [facility]
--- OUTSIDE RECORDS SUMMARY | 2025-01-18 14:23 | XMS_ITS | Referral Summary ---
Author Organization [facility] Address [address] [place] [address] Care Team Providers Care Visual Display Associate Name Role Phone Arturo Tang DO Primary Care Provider [phone] Source Comments [facility] [employer],non-owned Affiliates and Associated Physician Practices is amultiple site organization consisting of ambulatory clinics and hospital sitesin [place], [place], [place] and [place]. This disclosure is being madepursuant to the Care Everywhere program and may not contain all information available regarding this patient. Last updated 18.[facility] [employer] Allergies Active Allergy Reactions Criticality Noted Date Comments Dust Mite Extract Other 05/24/2022 Metformin Diarrhea High 12/09/2016 Sulfamethoxazole W-Trimethoprim Rash Medium 03/14 Medications * Be aware that medications may not be up to date on this document. Alwaysverify current medications with the patient. Medication Sig Dispensed Refills Start Date End Date Status phenazopyridine (PYRIDIUM) 200 MG tablet Take 200 mg by mouth 3 times daily as needed Active Biotin 93052 MCG Take by mouth once daily Active fexofenadine (CHANDLER) 180 MG tablet Take 180 mg by mouth once daily Active busPIRone (BUSPAR) 10 MG tablet Take 10 mg by mouth once daily Active DULoxetine (CYMBALTA) 30 MG capsule Take 30 mg by mouth once daily Active metoprolol succinate XL 24hr (TOPROL XL) 50 MG tablet Take 50 mg by mouth once daily Active pravastatin (PRAVACHOL) 20 MG tablet Take 20 mg by mouth once daily Active glipiZIDE (GLUCOTROL) 5 MG tablet Take 5 mg by mouth daily before breakfast Active acetaminophen (TYLENOL) 325 MG tablet Take 2 (two) tablets by mouth every 6 hours Maximum allowable Acetaminophen amount = 4 Grams (4000 mg) / 24 hours. 0 05/26/2022 Active Active Problems Problem Noted Date Diagnosed Date Upper GI bleed 05/23/2022 Social History Tobacco Use Types Packs/Day Years Used Date Smoking Tobacco: Former Cigarettes Q uit: 1989 Smokeless Tobacco: Never Tobacco Cessation:Counseling Given: No Hunger Vital Sign Answer Date Recorded Within the past 12 months, y ou worried that your food would run out before you got the money to buy more. Never true 05/24/20 22 Within the past 12 months, t he food you bought just didn't last and you didn't have money to get more. Never true 05/24/2022 Sex and Gender Information Value Date Recorded Sex Assigned at Not on file Gender Identity Not on file Sexual Orientation Not on file Last Filed Vital Signs Vital Sign Reading Time Taken Comments Blood Pressure 135/69 05/26/2022 8:16 AM CDT Pulse 74 05/26/2022 8:16 AM CDT Temperature 36.8 C (98.3 F) 05/26/2022 8:16 AM CDT Respiratory Rate 18 05/26/2022 8:16 AM CDT Oxygen Saturation 97% 05/26/2022 8:16 AM CDT Inhaled Oxygen Concentration - - Weight 103.5 kg (228 lb 2.8 oz) 05/26/2022 6:02 AM CDT Height 160 cm (5' 3 ) 05/23/2022 11:29 PM CDT Body Mass Index 40.42 05/23/2022 11:29 PM CDT Functional Status Functional Status Response Date of Assess ment Is person deaf or have serious hearing difficult y? No 05/23/2022 Is person blind or have serious difficulty seein g? No 05/23/2022 Does person have serious dif ficulty walking/climbing stairs? No 05/23/2022 Does person have difficulty dressing/bathing? No 05/23/2022 Does person have difficulty doing errands alone? Yes 05/23/2022 Cognitive Status Response Date of Assessm ent Does person have difficulty concentrating/remembering/making decisions? No 05/23/2022 Plan of Treatment Not on file Advance Directives * Full Code (Latest Code Status on File) Date Activated Date Inactivated Comments 05/23/2022 11:21 PM 05/26/2022 12:59 PM Care Teams Visual Display Associate Relationship Specialty Start Date End Date Arturo Tang DO PCP - General Internal Medicine 05/23/22
--- OUTSIDE RECORDS SUMMARY | 2025-01-18 14:23 | XMS_ITS | Encounter Summary ---
Author Organization [facility] Address [address] [place] [address] Phone Care Team Providers Care Mash Preparatory Operator Name Role Phone Maricarmen Mireles MD Primary Care Provider Arturo Tang DO Primary Care Provider Reason for Visit * Reason Comments Medication Refill Encounter Details Date Type Department Care Team (Late st Contact Info) Description [facility] [place] [address] [place] [address] Elvira Kumar APRN, BUCKLE INSPECTOR [address] [place] [address] Medication Refill Social History Tobacco Use Types Packs/Day Years Used Date Smoking Tobacco: Former Cigarettes Q uit: 01/08/1990 Smokeless Tobacco: Never Alcohol Use Standard Drinks/Week Comments Yes 0 (1 standard drink = 0.6 oz pur e alcohol) PHQ-2 Answer Date Recorded Total Score - Questions 1-9 0 08/14 Comments No Sex and Gender Information Value Date Recorded Sex Assigned at Not on file Legal Sex Female 8:51 PM CDT Gender Identity Not on file Sexual Orientation Not on file COVID-19 Exposure Response Date Recorded In the last month, have you been in contact with someone who was confirmed or suspected to have Coronavirus / COVID-19? No / Unsure 10/12/2020 3:25 PM [employer] documented as of this encounter Plan of Treatment Not on file documented as of this encounter Visit Diagnoses Diagnosis Back strain, initial encounter documented in this encounter Additional Health Concerns Assessment Noted Time PHQ-9 Depression Total Score: 0 08/25/20 20 12:00 PM CDT documented as of this encounter Care Teams Mash Preparatory Operator Relationship Specialty Start Date End Date Maricarmen Mireles MD PCP - General Family Medicine 08/25/15 12/08/21 Arturo Tang DO [facility] [facility] [place] [address] PCP - General Internal Medicine 12/17/21 documented as of this encounter
--- OUTSIDE RECORDS SUMMARY | 2025-01-18 14:23 | XMS_ITS | Encounter Summary ---
Author Organization [facility] Address [address] [place] [address] Phone Care Team Providers Care Machine Room Operator Name Role Phone Maricarmen Mireles MD Primary Care Provider [phone] Arturo Tang DO Primary Care Provider Reason for Visit * Reason Comments Medication Refill Encounter Details Date Type Department Care Team (Late st Contact Info) Description [facility] [address] [place] [address] Maricarmen Mireles MD [address] [place] [address] Medication Refill Social History Tobacco Use Types [...] on file Sexual Orientation Not on file documented as of this encounter Miscellaneous Notes * Telephone Encounter - Susan Husain RN - 04/30/2021 8:40 AM CDT Medication failed the protocol, provider to review and approve the medication order if appropriate. Requested Prescriptions Pending Prescriptions Disp Refills pravastatin (PRAVACHOL) 20 MG Tablet [Pharmacy Med Name: Pravastatin Sodium 20 MG Oral Tablet] 90 Tablet 0 Sig: Take 1 tablet by mouth once daily Hmg CoA Reductase Inhibitors Protocol Failed - 04/30/2021 5:30 AM Failed - Lipid panel in past 12 months LDL Date Value Ref Range Status 08/09/2020 93 0 - 130 mg/dL Final Passed - Visit with relevant provider in past 12 months or upcoming 90 days Recent Visits Date Type Provider Dept 03/10/21 Office Visit Maricarmen Mireles MD [facility] [place] [facility] 08/25/20 Office Visit Maricarmen Mireles MD [facility] [place] [facility] Showing recent visits within past 365 days and meeting all other requirements Future Appointments No visits were found meeting these conditions. Showing future appointments within next 90 days and meeting all other requirements metoprolol Succinate (TOPROL-XL) 50 MG TABLET SR 24 HR [Pharmacy Med Name: Metoprolol Succinate ER 50 MG Oral Tablet Extended Release 24 Hour] 90 Tablet 0 Sig: Take 1 tablet by mouth once daily Beta-Blockers Protocol Passed - 04/30/2021 5:30 AM Passed - BP on record in the past year Clinician-entered: BP Readings from Last 3 Encounters: 03/10/21 124/88 10/12/20 142/82 08/25/20 140/82 Patient-entered: No data recorded Passed - Visit with relevant provider in past 12 months or upcoming 90 days Recent Visits Date Type Provider Dept 03/10/21 Office Visit Maricarmen Mireles MD [facility] 08/25/20 Office Visit Maricarmen Mireles MD [facility] [place] [facility] Showing recent visits within past 365 days and meeting all other requirements Future Appointments No visits were found meeting these conditions. Showing future appointments within next 90 days and meeting all other requirements naproxen 375 MG Tablet Delayed Response [Pharmacy Med Name: Naproxen DR 375 MG Oral Tablet Delayed Release] 180 Tablet 0 Sig: TAKE 1 TABLET BY MOUTH TWICE DAILY NEEDED WITH FOOD [facility] Analgesics: NSAIDS - OTC Passed - 04/30/2021 5:30 AM Passed - Valid encounter within last 12 months Past Office Visits Recent Outpatient Visits 1 month ago Type 2 diabetes mellitus without complication, without long-term current use of insulin(HCC) [facility] - Family Medicine - [address] Maricarmen Mireles MD 8 months ago Physical exam, annual (Adult) [facility] Maricarmen Mireles MD 1 year ago Type 2 diabetes mellitus without complication, without long-term current use of insulin ([facility]) [facility] - Maricarmen Beck MD 1 year ago Physical exam, annual (Adult) [facility] Maricarmen Mireles MD 2 years ago Type 2 diabetes mellitus without complication, without long-term current use of insulin([facility]) [facility] Maricarmen Mireles MD Upcoming Appointments Future Appointments In 10 months Maricarmen Mireles MD [facility] - Recent and Past Visits Recent Visits Date Type Provider Dept 03/10/21 Office Visit Maricarmen Mireles MD [facility] 08/25/20 Office Visit Maricarmen Mireles MD [facility] Showing recent visits within past 460 days with a meds authorizing provider and meeting all other requirements Future Appointments No visits were found meeting these conditions. Showing future appointments within next 90 days with a meds authorizing provider and meeting all other requirements documented in this encounter Plan of Treatment Not on file documented as of this encounter Visit Diagnoses Diagnosis Hyperlipidemia, unspecified hyperlipidemia type Essential hypertension Unspecified essential hypertension documented in this encounter Additional Health Concerns Assessment Noted Time PHQ-9 Depression Total Score: 0 08/25/20 20 12:00 PM CDT documented as of this encounter Care Teams Machine Room Operator Relationship Specialty Start Date End Date Maricarmen Mireles MD PCP - General Family Medicine 08/25/15 12/08/21 Arturo Tang DO [facility] [facility] [place] [address] PCP - General Internal Medicine 12/17/21 documented as of this encounter
--- OUTSIDE RECORDS SUMMARY | 2025-01-18 14:23 | XMS_ITS | Clinical Summary ---
Author Organization [facility] [address] Address [address] [place] [address] Care Team Providers Care Seed Cutter Name Role Phone Sol Aragon NP Primary Care Provider Allergies Active Allergy Reactions Criticality Noted Date Comments House Dust Metformin Diarrhea High 12/09/2016 Sulfamethoxazole-Trimethoprim Rash Medium 2016 Medications ergocalciferol (VITAMIN D) 50,000 unit capsule Take one by mouth every week 4 4 8 Active omeprazole (PriLOSEC) 10 mg capsule take 2 capsule by oral route every day before a meal 0 [address] (CYMBALTA) 60 mg capsule take 1 capsule by oral route every day 0 0 4 Active pravastatin (PRAVACHOL) 80 mg tablet take 1 tablet by oral route every day 0 0 5 Active acetaminophen (TYLENOL) 325 mg tablet Take 2 tablets (650 mg total) by mouth every 6 (six) hours 2 Active GLIPIZIDE ORALIndications:t ype 2 diabetes mellitus Take 10 mg by mouth daily Active busPIRone (BUSPAR) 10 mg tablet Take 1 tablet (10 mg total) by mouth daily 3 Active metoprolol XL (TOPROL-XL) 50 mg extended release tablet TAKE 2 TABLETS BY MOUTH ONCE DAILY FOR 30 DAYS 3 Active fexofenadine (CHANDLER) 180 mg tablet Take 1 tablet (180 mg total) by mouth daily Active DILT-XR 180 mg 24 hr capsuleIndication s:Paroxysmal atrial fibrillation (HCC) Take 1 capsule by mouth once daily 90 capsule 2 4 Active Eliquis 5 mg tabletIndications :Paroxysmal atrial fibrillation (HCC) Take 1 tablet by mouth twice daily 180 tablet 4 Active lisinopriL (PRINIVIL,ZESTRIL ) 20 mg tablet Take 1 tablet (20 mg total) by mouth daily 4 Active Active Problems Problem Noted Date Diagnosed Date Hyperlipidemia 07/20/2024 Paroxysmal atrial fibrillation 05/05/2023 Chronic anticoagulation 05/05/2023 Essential hypertension 05/05/2023 Surgical History Surgery Date Site/Laterality Comments TOTAL ABDOMINAL HYSTERECTOMY W/ BILATERAL SALPINGOOPHORECTOMY 1995 Hysterectomy, total abdominal, BSO CARPAL TUNNEL RELEASE 2007 Carpal tunnel release TOTAL ABDOMINAL HYSTERECTOMY Hysterectomy, total CARPAL TUNNEL RELEASE Carpal tunnel release KNEE ARTHROPLASTY Right Knee replacement KNEE ARTHROPLASTY Knee replacement JOINT REPLACEMENT Medical History Medical History Date Comments Hypertension Hypertension Depression Depression Osteoarthritis Osteoarthritis Hx Other Medical Back pain; Comm ents: APO 06/24/2014 - Hx Other Medical Migraine; Comme nts: APO 06/24/2014 - Hx Other Medical Gastric reflux; Comments: APO 06/24/2014 - Hx Other Medical Osteoarthritis; Comments: APO 06/24/2014 - Hx Other Medical Heel spurs; Com ments: APO 06/24/2014 - GERD (gastroesophageal reflu x disease) Anxiety Diabetes mellitus (HCC) Sleep apnea Atrial fibrillation (HCC) 04/13/2023 Family History Medical History Relation Name Comments Alzheimer's disease Father Moe dias Hearing loss Father Moe dias Parkinsonism Father Moe dias Parkinson' s disease; Heart disease Maternal Grandfather Nasir read Stroke Maternal Grandfather Nasir read Cancer Maternal Grandmother Sonja read Arthritis Mother Anne dias arthritis; Hypertension Mother Anne dias Hypertensi on; Obesity Mother Anne dias Cancer Other 1 Family history of Cancer; Heart disease Other 2 Family history of Heart problems; Hypertension Other 3 Family history of Hypertension; Mental illness Other 4 Family histor y of Mental illness; Stroke Other 5 Family history of Stroke; Diabetes Other 6 Family history of Diabetes; Other Sister 1 acid reflux; Miscarriages / Stillbirths Sister 2 Daisy samuels Bipolar disorder Son Bipolar dis order; Relation Name Status Comments Father Moe dias Maternal Grandfather Nasir read Maternal Grandmother Sonja read Mother Anne dias Other 1 Other 2 Other 3 Other 4 Other 5 Other 6 Sister 1 Sister 2 Daisy samuels Son Social History Tobacco Use Types Packs/Day Years Used Date Smoking Tobacco: Former Cigarettes 0.5 20 0 11/14/1969 - 11/14/1989 Smokeless Tobacco: Never Tobacco Cessation:Counseling Given: Not Answered Alcohol Use Standard Drinks/Week Comments Yes 0 (1 standard drink = 0.6 oz pur e alcohol) Comments Unknown Sex and Gender Information Value Date Recorded Sex Assigned at Not on file Legal Sex Female 11:56 PM IT APPLICATIONS MANAGER Gender Identity Not on file Sexual Orientation Not on file Obstetrics History Last Filed Vital Signs Vital Sign Reading Time Taken Comments Blood Pressure 150/68 07/20/2024 1:34 PM CDT Pulse 69 07/20/2024 1:34 PM CDT Temperature - - Respiratory Rate - - Oxygen Saturation 95% 07/20/2024 1:34 PM CDT Inhaled Oxygen Concentration - - Weight 104.5 kg (230 lb 6.4 oz) 07/20/2024 1:34 PM CDT Height 162.6 cm (5' 4 ) 07/20/2024 1:34 PM CDT Body Mass Index 39.55 07/20/2024 1:34 PM CDT Plan of Treatment Health Maintenance Due Date Last Done Comments Depression Screening 1950 Fall Risk Assessment 1950 Hepatitis C Screening 1950 Hepatitis B Screening 1967 Well Visit 65+ 2014 Osteoporosis Screening-Bone Density Scan 07/06/2020 07/06/2018, 07/06/2018 Colon Cancer Screening-Colonoscopy 07/01/2021 07/01/2011 Covid-19 Vaccine (2023-2 5 season) 2024 08/13/2022, 02/19/2022, 09/21/2021, Additional history exists Influenza Vaccine (#1) 2024 , 08/08/2021, 08/03/2020, Additional history exists DTaP/Tdap/Td Vaccine (2 - Td or Tdap) 01/11/2026 01/11/2016, 11/14/2014 Pneumococcal vaccine 65+ Completed 017, 07/07/2015, 11/14/2014 Zoster Vaccine Completed 12/04/2018, 09/15, 08/28/2015 Breast Cancer Screening-Mammogram Discontinued 07/13/2019, 07/13/2019, 07/14/2017, Additional history exists Procedures Procedure Name Priority Date/Time Associated Diagnosis Comments DIGITAL MAMMOGRAPHY Routine 07/02/2015 1 :43 PM CDT COLONOSCOPY 07/01/2011 12:00 AM CDT from Last 3 Months or Most Recently Relevant to Health Maintenance Results * DIGITAL MAMMOGRAPHY (07/02/2015 1:43 PM CDT) Anatomical Region Laterality Modality Breast Mammography 07/02/2015 1:43 PM CDT Narrative 07/02/2015 9:47 PM CDT Screening Mamm Bi Acc#: [id number] DATE OF EXAM: Jul 02 2015 Performed by: CLINICAL HISTORY: Routine screening. RESULT: Two views of each breast obtained, compared with 06/04/14 and 08/10/12. Scattered fibroglandular densities bilaterally. No dominant mass is demonstrated. No suspicious clusters of microcalcifications are evident. A few scattered benign calcifications. A few small densities which are similar to previously. Digital technology was employed plus computer-aided detection software (R2) was utilized in interpretation of these images. This facility utilizes a reminder system to notify patients of yearly mammograms. IMPRESSION: BENIGN FINDINGS. ANNUAL MAMMOGRAPHIC FOLLOW-UP RECOMMENDED. BI-RADS CATEGORY 2 - BENIGN Interpreting Physician: HEIDY MARIEE M.D. Read on: Jul 02 2015 1:43P Transcribed by: julia On: Jul 02 2015 4:55P Approved Electronically by: HEIDY MARIEE M.D. on: Jul 02 2015 9:47P Attending: JESSICA DE LA PAZ Requesting: JESSICA DE LA PAZ Requesting Fax: -- Attending Fax: -- Attending ID: [id number] Requesting ID: [id number] Report To 1 ID: [id number] Report To 1 Name: JESSICA DE LA PAZ Report To 1 FAX: -- NextGen Order #: Procedure Note Provider, MD Shobha - 03/10/2017 Screening Mamm Bi Acc#: [id number] DATE OF EXAM: Jul 02 2015 Performed by: CLINICAL HISTORY: Routine screening. RESULT: Two views of each breast obtained, compared with 06/04/14 and 08/10/12.Scattered fibroglandular densities bilaterally. No dominant mass isdemonstrated. No suspicious clusters of microcalcifications are evident.A few scattered benign calcifications. A few small densities which aresimilar to previously. Digital technology was employed plus computer-aideddetection software (@Pay) was utilized in interpretation of these images.This facility utilizes a reminder system to notify patients of yearlymammograms. IMPRESSION: BENIGN FINDINGS. ANNUAL MAMMOGRAPHIC FOLLOW-UP RECOMMENDED. BI-RADSCATEGORY 2 - BENIGN Interpreting Physician: HEIDY MARIEE M.D. Read on: Jul 02 2015 1:43P Transcribed by: julia On: Jul 02 2015 4:55P Approved Electronically by: HEIDY MARIEE M.D. on: Jul 02 2015 9:47P Attending: JESSICA DE LA PAZ Requesting: JESSICA DE LA PAZ Requesting Fax: -- Attending Fax: -- Attending ID: [id number] Requesting ID: [id number] Report To 1 ID: [id number] Report To 1 Name: JESSICA DE LA PAZ Report To 1 FAX: -- NextGen Order #: Historical Provider MD CHEN MAMMO PROCEDURES Valeri l Result * COLONOSCOPY (07/01/2011 12:00 AM CDT) Anatomical Region Laterality Modality Other Narrative 07/01/2011 12:00 AM CDT Ordered by an unspecified provider. Procedure Note Provider, MD Shobha - 07/01/2011 12:00 AM CDT PROCEDURE REPORT Patient: HARITHA CASTANON Account: [id number] Room No: : 1950 Patient Type: [facility] Attend.: Arturo Chavez M.D. Admit Date: 07/01/2011 Dict.: Arturo Chavez M.D. Disch. Date: PROCEDURE PERFORMED: Colonoscopy. HISTORY: 60-year-old female presents for screening colonoscopy. PHYSICAL EXAMINATION: Morbidly obese female. Lungs are clear. Cardiovascular examination was unremarkable. PROCEDURE: Colonoscopy was performed with the [employer] video endoscope.The patient was premedicated by anesthesia. On digital exam no abnormalitiesare palpable. We inserted the endoscope and advanced it to the cecum. Thecolon was not perfectly prepped and we had a very difficult time with usingsuction and irrigation to try to clean the colon. Nevertheless I was not ableto demonstrate any abnormalities. We searched the colon as best we couldand then removed the endoscope. The patient tolerated the procedure without difficulty. POSTOPERATIVE DIAGNOSIS: Normal colonoscopy. Arturo Chavez M.D. /florencia TD: 07/01/2011 13:55 CC: All Barber M.D. PROCEDURE REPORT Authenticated by Arturo Chavez MD On 07/02/2011 07:40:00 AM us Historical Provider ENDOSCOPY PROCEDURES Valeri l Result from Last 3 Months or Most Recently Relevant to Health Maintenance Insurance [facility] MEDICARE [facility] MEDICARE GOLD Care Teams Seed Cutter Relationship Specialty Start Date End Date Sol Aragon NP PCP - General Nurse Practitioner 04/18/23
--- OUTSIDE RECORDS SUMMARY | 2025-01-18 14:23 | XMS_ITS | CONTINUITY OF CARE DOCUMENT ---
Author Name sarah smith Address Unknown Organization [facility] Address [address] [place] [address] Phone [phone] Care Team Providers Care Dyeing Machine Back Tender Name Role Phone Ko LEBLANC, Unavailable [phone] HANNAH OG MD Unavailable HANNAH OG MD Unavailable [phone] INSURANCE PROVIDERS Payer name Policy type / Coverage type [facility] alliance party ID [id number] OPEN ACCESS/PPO Other [id number]
--- OUTSIDE RECORDS SUMMARY | 2025-01-18 14:23 | XMS_ITS | Encounter Summary ---
Author Organization [facility] Address [address] [place] [address] Phone Care Team Providers Care Customer Service Analyst Name Role Phone Maricarmen Mireles MD Primary Care Provider [phone] Arturo Tang DO Primary Care Provider Reason for Visit * Reason Comments Medication Refill Encounter Details Date Type Department Care Team (Late st Contact Info) Description 01/19/2021 Refill [facility] - [facility] - [place] [address] [place] [address] Maricarmen Mireles MD [address] [place] [address] Medication Refill Social History Tobacco [...] have Coronavirus / COVID-19? No / Unsure 01/13/2021 4:52 PM CORPORATE REAL ESTATE SPECIALIST documented as of this encounter Miscellaneous Notes * Telephone Encounter - Susan Husain RN - 01/19/2021 4:33 PM CORPORATE REAL ESTATE SPECIALIST Medication approved and signed per standing order protocol. ORATE REAL ESTATE SPECIALIST documented in this encounter Plan of Treatment Not on file documented as of this encounter Visit Diagnoses Not on filedocumented in this encounter Additional Health Concerns Assessment Noted Time PHQ-9 Depression Total Score: 0 08/25/20 20 12:00 PM CDT documented as of this encounter Care Teams Customer Service Analyst Relationship Specialty Start Date End Date Maricarmen Mireles MD PCP - General Family Medicine 08/25/15 12/08/21 Arturo Tang DO [facility] [facility] [place] [address] PCP - General Internal Medicine 12/17/21 documented as of this encounter
--- OUTSIDE RECORDS SUMMARY | 2025-01-18 14:23 | XMS_ITS | Clinical Summary ---
Author Organization [facility] Address [address] [place] [address] Care Team Providers Care Charrer Name Role Phone Arturo Tang DO Primary Care Provider [phone] Source Comments [facility],non-owned Affiliates and Associated Physician Practices is amultiple site organization consisting of ambulatory clinics and hospital sitesin [place], [place], [place] and [place]. This disclosure is being madepursuant to the Care Everywhere program and may not contain all information available regarding this patient. Last updated 18.[facility] Allergies Active Allergy Reactions Criticality Noted Date [...] 3 times daily as needed Active Biotin 38431 MCG Take by mouth once daily Active [...] Date Diagnosed Date Upper GI bleed 05/23/2022 Family History Medical History Relation Name Comments Cancer - Breast Maternal Grandmother Cancer - Lung Maternal Grandmother Relation Name Status Comments Maternal Grandmother Social History Tobacco Use Types Packs/Day Years [...] Mass Index 40.42 05/23/2022 11:29 PM CDT Plan of Treatment Health Maintenance Due Date Last Done Comments BONE DENSITY TESTING 1950 COLOGUARD (AGES 45-75) - COLON CA SCREENING 1950 COLON MONITORING 1950 COLONOSCOPY - COLON CA SCREENING 1949 CT COLONOGRAPHY - COLON CA SCREENING 1950 Colorectal Cancer Screening 1950 FIT - COLON CA SCREENING 1950 FLEX SIG - COLON CA SCREENING 1950 MAMMOGRAM 1950 HEPATITIS C SCREENING 09/10/1967 DTAP/TDAP/TD VACCINES (1 - Tdap) 1968 PNEUMOCOCCAL VACCINE 50+ (1 of 1 - PCV) 1999 ZOSTER VACCINE (1 of 2) 1999 COVID-19 VACCINE ( - 2023- season) 2024 02/19/2022, 09/21/2021, 01/13/2021, Additional history exists INFLUENZA VACCINE (#1) 2024 , 08/03/2020, 07/28/2020, Additional history exists Respiratory Syncytial Virus (RSV) Vaccine Pt: or over 60 yrs (1 - 1-dose 75+ series) 2024 DEPRESSION SCREENING 11/14/2024 MEDICARE AWV CALENDAR YEAR 2024 HEPATITIS B VACCINE Aged Out No longe r eligible based on patient's age to complete this topic HIB VACCINE Aged Out No longer eligi ble based on patient's age to complete this topic HPV VACCINE Aged Out No longer eligi ble based on patient's age to complete this topic MENINGOCOCCAL (Group B) VACCINE Aged Out No longer eligible based on patient's age to complete this topic MENINGOCOCCAL VACCINE Aged Out No ree elham eligible based on patient's age to complete this topic Advance Directives * Full Code (Latest Code Status on File) Date Activated Date Inactivated Comments 05/23/2022 11:21 PM 05/26/2022 12:59 PM Care Teams Charrer Relationship Specialty Start Date End Date Arturo Tang DO PCP - General Internal Medicine 05/23/22
--- OUTSIDE RECORDS SUMMARY | 2025-01-18 14:23 | XMS_ITS | Encounter Summary ---
Author Organization [facility] Address [address] [place] [address] Phone Care Team Providers Care Lime Vat Tender Name Role Phone Maricarmen Mireles MD Primary Care Provider [phone] Arturo Tang DO Primary Care Provider Reason for Visit * Reason Comments Medication Refill Encounter Details Date Type Department Care Team (Late st Contact Info) Description 09/15/2021 Refill [facility] - Primary Care - [place] [address] [place] [address] Maricarmen Mireles MD [address] [place] [address] Medication Refill Social History Tobacco [...] encounter Miscellaneous Notes * Telephone Encounter - Jannet Marie RN - 09/15/2021 11:55 AM CDT Medication failed the protocol, provider to review and approve the medication order if appropriate. Requested Prescriptions Pending Prescriptions Disp Refills DULoxetine (CYMBALTA) [address] Particles [Pharmacy Med Name: DULoxetine HCl 30 MG Oral Capsule Delayed Release Particles] 90 Capsule 0 Sig: Take 1 capsule by mouth once daily SNRI (6 Month Refill Only) Protocol Failed - 09/15/2021 11:23 AM Failed - Visit with relevant provider in past 6 months or upcoming 90 days Recent Visits No visits were found meeting these conditions. Showing recent visits within past 182 days and meeting all other requirements Future Appointments No visits were found meeting these conditions. Showing future appointments within next 90 days and meeting all other requirements Failed - Has an encounter in the past 6 months with a depression or anxiety visit diagnosis Passed - Patient has established therapy with Serotonin-Norepinephrine Reuptake Inhibitors for at least 6 months omeprazole (PriLOSEC) 20 MG CAPSULE DELAYED RELEASE [Pharmacy Med Name: Omeprazole 20 MG Oral Capsule Delayed Release] 90 Capsule 0 Sig: Take 1 capsule by mouth once daily Proton Pump Inhibitors Protocol Passed - 09/15/2021 11:23 AM Passed - Visit with relevant provider in past 12 months or upcoming 90 days Recent Visits Date Type Provider Dept 03/10/21 Office Visit Maricarmen Mireles MD [facility] Showing recent visits within past 365 days and meeting all other requirements Future Appointments No visits were found meeting these conditions. Showing future appointments within next 90 days and meeting all other requirements amLODIPine-benazepril (LOTREL) 5-10 MG Capsule [Pharmacy Med Name: amLODIPine Besy-Benazepril HCl 5-10 MG Oral Capsule] 90 Capsule 0 Sig: Take 1 capsule by mouth once daily ALLEN INHIBITOR-CALCIUM CHANNEL JUNIOR PROTOCOL Failed - 09/15/2021 11:23 AM Failed - Serum potassium on record in past 12 months No results found for: POTASSIUM, POCTK Failed - GFR on record in past 12 months No results found for: GFRNA Passed - Blood pressure on record in past 12 months Clinician-entered: BP Readings from Last 3 Encounters: 03/10/21 124/88 10/12/20 142/82 08/25/20 140/82 Patient-entered: No data recorded Passed - Visit with relevant provider in past 12 months or upcoming 90 days Recent Visits Date Type Provider Dept 03/10/21 Office Visit Maricarmen Mireles MD [facility] Showing recent visits within past 365 days and meeting all other requirements Future Appointments No visits were found meeting these conditions. Showing future appointments within next 90 days and meeting all other requirements busPIRone (BUSPAR) 10 MG Tablet [Pharmacy Med Name: busPIRone HCl 10 MG Oral Tablet] 180 Tablet 0 Sig: Take 1 tablet by mouth twice daily Buspirone (6 Month Refill Only) Protocol Failed - 09/15/2021 11:23 AM Failed - Visit with relevant provider in past 6 months or upcoming 90 days Recent Visits No visits were found meeting these conditions. Showing recent visits within past 182 days and meeting all other requirements Future Appointments No visits were found meeting these conditions. Showing future appointments within next 90 days and meeting all other requirements Failed - Has an encounter in the past 6 months with a depression or anxiety visit diagnosis Passed - Patient has established therapy with Buspirone for at least 6 months documented in this encounter Plan of Treatment Not on file documented as of this encounter Visit Diagnoses Diagnosis Depression with anxiety Dysthymic disorder Gastroesophageal reflux disease Esophageal reflux Essential hypertension Unspecified essential hypertension documented in this encounter Additional Health Concerns Assessment Noted Time PHQ-9 Depression Total Score: 0 08/25/20 20 12:00 PM CDT documented as of this encounter Care Teams Lime Vat Tender Relationship Specialty Start Date End Date Maricarmen Mireles MD PCP - General Family Medicine 08/25/15 12/08/21 Arturo Tang DO [facility] [place] [address] PCP - General Internal Medicine 12/17/21 documented as of this encounter
--- OUTSIDE RECORDS SUMMARY | 2025-01-18 14:23 | XMS_ITS | Encounter Summary ---
Author Organization [facility] Address [address] [place] [address] Phone Care Team Providers Care Section Plotter Operator Name Role Phone Maricarmen Mireles MD Primary Care Provider Arturo Tang DO Primary Care Provider Reason for Visit * Reason Comments Medication Refill Encounter Details Date Type Department Care Team (Late st Contact Info) Description 09/[facility] [address] [place] [address] Maricarmen Mireles MD [address] [place] [address] Medication Refill Social History Tobacco [...] have Coronavirus / COVID-19? No / Unsure 08/25/2020 12:08 PM CDT documented as of this encounter Miscellaneous Notes * Telephone Encounter - Jennifer Allen D, [facility] - 09/22/2020 11:43 AM COMMUNITY MUSIC THERAPIST Medication failed the protocol, provider to review and approve the medication order if appropriate. Requested Prescriptions Pending Prescriptions Disp Refills omeprazole (PriLOSEC) 20 MG CAPSULE DELAYED RELEASE [Pharmacy Med Name: Omeprazole 20 MG Oral Capsule Delayed Release] 90 Cap 1 Sig: Take 1 capsule by mouth once daily Gastroenterology: Antiulcer - Proton Pump Inhibitors Passed - 09/21/2020 6:29 PM Passed - Valid encounter within last 12 months Past Office Visits Recent Outpatient Visits 4 weeks ago Physical exam, annual (Adult) [facility] Maricarmen Mireles MD 8 months ago Type 2 diabetes mellitus without complication, without long-term current use of insulin ([facility]) [facility] - Maricarmen Beck MD 1 year ago Physical exam, annual (Adult) [facility] - Maricarmen Beck MD 1 year ago Type 2 diabetes mellitus without complication, without long-term current use of insulin ([facility]) [facility] - Maricarmen Beck MD 2 years ago Physical exam, annual (Adult) [facility] - Maricarmen Trejo MD Upcoming Appointments Future Appointments In 5 months Maricarmen Mireles MD [facility] WEB CONTENT & SOCIAL MEDIA MANAGER - Recent and Past Visits Recent Visits Date Type Provider Dept 08/25/20 Office Visit Maricarmen Mireles MD [facility] 12/28/19 Office Visit Maricarmen Mireles MD [facility] 06/22/19 Office Visit Maricarmen Mireles MD [facility] Showing recent visits within past 460 days with a meds authorizing provider and meeting all other requirements Future Appointments No visits were found meeting these conditions. Showing future appointments within next 90 days with a meds authorizing provider and meeting all other requirements DULoxetine (CYMBALTA) [address] Particles [Pharmacy Med Name: DULoxetine HCl 30 MG Oral Capsule Delayed Release Particles] 90 Cap 1 Sig: Take 1 capsule by mouth once daily Not Delegated - Psychiatry: Antidepressants: Other Failed - 09/21/2020 6:29 PM Failed - This refill cannot be delegated Passed - Valid encounter within last 12 months Past Office Visits Recent Outpatient Visits 4 weeks ago Physical exam, annual (Adult) [facility] Maricarmen Mireles MD 8 months ago Type 2 diabetes mellitus without complication, without long-term current use of insulin ([facility]) [facility] - Maricarmen Beck MD 1 year ago Physical exam, annual (Adult) [facility] - Maricarmen Beck MD 1 year ago Type 2 diabetes mellitus without complication, without long-term current use of insulin ([facility]) [facility] - Maricarmen Beck MD 2 years ago Physical exam, annual (Adult) [facility] Maricarmen Mireles MD Upcoming Appointments Future Appointments In 5 months Maricarmen Mireles MD [facility] - Recent and Past Visits Recent Visits Date Type Provider Dept 08/25/20 Office Visit Maricarmen Mireles MD [facility] 12/28/19 Office Visit Maricarmen Mireles MD [facility] 06/22/19 Office Visit Maricarmen Mireles MD [facility] Showing recent visits within past 460 days with a meds authorizing provider and meeting all other requirements Future Appointments No visits were found meeting these conditions. Showing future appointments within next 90 days with a meds authorizing provider and meeting all other requirements Passed - Last BP in normal range BP Readings from Last 1 Encounters: 08/25/20 140/82 amLODIPine-benazepril (LOTREL) 5-10 MG Capsule [Pharmacy Med Name: amLODIPine Besy-Benazepril HCl 5-10 MG Oral Capsule] 90 Cap 1 Sig: Take 1 capsule by mouth once daily Cardiovascular: Antihypertensive Combinations Passed - 09/21/2020 6:29 PM Passed - Valid encounter within last 12 months Past Office Visits Recent Outpatient Visits 4 weeks ago Physical exam, annual (Adult) [facility] Maricarmen Mireles MD 8 months ago Type 2 diabetes mellitus without complication, without long-term current use of insulin (HCC) [facility] - Maricarmen Beck MD 1 year ago Physical exam, annual (Adult) [facility] - Maricarmen Beck MD 1 year ago Type 2 diabetes mellitus without complication, without long-term current use of insulin ([facility]) [facility] - Maricarmen Beck MD 2 years ago Physical exam, annual (Adult) [facility] Maricarmen Mireles MD Upcoming Appointments Future Appointments In 5 months Maricarmen Mireles MD [facility] WEB CONTENT & SOCIAL MEDIA MANAGER - Recent and Past Visits Recent Visits Date Type Provider Dept 08/25/20 Office Visit Maricarmen Mireles MD [facility] 12/28/19 Office Visit Maricarmen Mireles MD [facility] 06/22/19 Office Visit Maricarmen Mireles MD [facility] Showing recent visits within past 460 days with a meds authorizing provider and meeting all other requirements Future Appointments No visits were found meeting these conditions. Showing future appointments within next 90 days with a meds authorizing provider and meeting all other requirements Passed - Last BP in normal range BP Readings from Last 1 Encounters: 08/25/20 140/82 UNITY MUSIC THERAPIST documented in this encounter Plan of Treatment Not on file documented as of this encounter Visit Diagnoses Diagnosis Gastroesophageal reflux disease Esophageal reflux Depression with anxiety Dysthymic disorder documented in this encounter Additional Health Concerns Assessment Noted Time PHQ-9 Depression Total Score: 0 08/25/20 20 12:00 PM CDT documented as of this encounter Care Teams Section Plotter Operator Relationship Specialty Start Date End Date Maricarmen Mireles MD PCP - General Family Medicine 08/25/15 12/08/21 Arturo Tang DO [address] [facility], [place] [id number] PCP - General Internal Medicine 12/17/21 documented as of this encounter
--- OUTSIDE RECORDS SUMMARY | 2025-01-18 14:23 | XMS_ITS | Encounter Summary ---
Author Organization [facility] Address [address] [place] [address] Phone Care Team Providers Care Production Superintendent Hydro Name Role Phone Maricarmen Mireles MD Primary Care Provider Arturo Tang DO Primary Care Provider Reason for Visit * Reason Comments Medication Refill Encounter Details Date Type Department Care Team (Late st Contact Info) Description 01/24/2021 Refill [facility] - Primary Care - [place] [address] [place] [address] Maricarmen Mireles MD [address] [place] [address] Medication Refill Social History Tobacco [...] COVID-19? No / Unsure 01/13/2021 4:52 PM PHARMACY OPERATIONS COORDINATOR documented as of this encounter Miscellaneous Notes * Telephone Encounter - Jannet Marie RN - 01/26/2021 9:20 AM CDT Medication failed the protocol, provider to review and approve the medication order if appropriate. Requested Prescriptions Pending Prescriptions Disp Refills metoprolol Succinate (TOPROL-XL) 50 MG TABLET SR 24 HR [Pharmacy Med Name: Metoprolol Succinate ER 50 MG Oral Tablet Extended Release 24 Hour] 90 Tablet 0 Sig: Take 1 tablet by mouth once daily Cardiovascular: Beta Blockers Failed - 01/24/2021 2:32 PM Failed - Last BP in normal range BP Readings from Last 1 Encounters: 10/12/20 142/82 Passed - Valid encounter within last 12 months Past Office Visits Recent Outpatient Visits 5 months ago Physical exam, annual (Adult) [facility] Maricarmen Mireles MD 1 year ago Type 2 diabetes mellitus without complication, without long-term current use of insulin ([facility]) [facility] - Maricarmen Beck MD 1 year ago Physical exam, annual (Adult) [facility] - Maricarmen Beck MD 2 years ago Type 2 diabetes mellitus without complication, without long-term current use of insulin([facility]) [facility] - Maricarmen Beck MD 2 years ago Physical exam, annual (Adult) [facility] Maricarmen Mireles MD Upcoming Appointments Future Appointments In 4 weeks Mar[facility]armen Mireles MD [facility] - Recent and Past Visits Recent Visits Date Type Provider Dept 08/25/20 Office Visit Maricarmen Mireles MD [facility] 12/28/19 Office Visit [facility] Showing recent visits within past 460 days with a meds authorizing provider and meeting all other requirements Future Appointments Date Type Provider Dept 02/23/21 Appointment [facility]icarmen [facility] Showing future appointments within next 90 days with a meds authorizing provider and meeting all other requirements documented in this encounter Plan of Treatment Not on file documented as of this encounter Visit Diagnoses Not on filedocumented in this encounter Additional Health Concerns Assessment Noted Time PHQ-9 Depression Total Score: 0 08/25/20 12:00 PM CDT documented as of this encounter Care Teams Production Superintendent Hydro Relationship Specialty Start Date End Date Maricarmen Mireles MD PCP - General Family Medicine 08/25/15 12/08/21 Arturo Tang DO [facility] [place] [address] PCP - General Internal Medicine 12/17/21 documented as of this encounter
--- OUTSIDE RECORDS SUMMARY | 2025-01-18 14:23 | XMS_ITS | Encounter Summary ---
Author Organization [facility] Address [address] [place] [address] Phone Care Team Providers Care Electric Bath Attendant Name Role Phone Maricarmen Mireles MD Primary Care Provider Arturo Tang DO Primary Care Provider Reason for Visit * Reason Comments Medication Refill Encounter Details Date Type Department Care Team (Late st Contact Info) Description [facility] [address] [place] [address] Maricarmen Mireles MD [address] [place] [address] Medication Refill Social History Tobacco [...] Telephone Encounter - Jannet Marie RN - 11/16/2021 11:02 AM CST Medication failed the protocol, provider to review and approve the medication order if appropriate. Requested Prescriptions Pending Prescriptions Disp Refills naproxen 375 MG Tablet Delayed Response [Pharmacy Med Name: Naproxen DR 375 MG Oral Tablet Delayed Release] 180 Tablet 0 Sig: TAKE 1 TABLET BY MOUTH TWICE DAILY NEEDED WITH FOOD NSAIDs Protocol Failed - 11/14/2021 12:13 PM Failed - Normal serum creatinine in past 12 months No results found for: CREATININE Failed - Not delegated, patient not between 1 and 65 years of age Failed - AST less than 55 or ALT less than 90 in past 12 months No results found for: SGOTAST No results found for: SGPTALT Failed - HGB greater than 10 or HCT greater than 30 in past 12 months No results found for: HEMOGLOBIN, HEMATOCRIT Passed - Visit with relevant provider in past 12 months or upcoming 90 days Recent Visits Date Type Provider Dept 03/10/21 Office Visit Maricarmen Mireles MD [facility] Showing recent visits within past 365 days and meeting all other requirements Future Appointments No visits were found meeting these conditions. Showing future appointments within next 90 days and meeting all other requirements Passed - No matching NSAID med order in past 45 days No matching medication orders between 10/02/2021 11:02 AM and 11/16/2021 11:02 AM CONTENT DEVELOPER documented in this encounter Plan of Treatment Not on file documented as of this encounter Visit Diagnoses Not on filedocumented in this encounter Additional Health Concerns Assessment Noted Time PHQ-9 Depression Total Score: 0 08/25/20 20 12:00 PM CDT documented as of this encounter Care Teams Electric Bath Attendant Relationship Specialty Start Date End Date Maricarmen Mireles MD PCP - General Family Medicine 08/25/15 12/08/21 Arturo Tang DO [address] [place] [address] PCP - General Internal Medicine 12/17/21 documented as of this encounter
--- OUTSIDE RECORDS SUMMARY | 2025-01-18 14:23 | XMS_ITS | Encounter Summary ---
Author Organization [facility] Address [address] [place] [address] Phone Care Team Providers Care Color Expert Name Role Phone Maricarmen Mireles MD Primary Care Provider Arturo Tang DO Primary Care Provider Reason for Visit * Reason Comments Medication Refill Encounter Details Date Type Department Care Team (Late st Contact Info) Description 07/27/[address] [facility] [address] [place] [address] Maricarmen Mireles MD [address] [place] [address] Medication Refill Social History Tobacco [...] encounter Miscellaneous Notes * Telephone Encounter - Rosanna Lozoya RN - 07/28/2021 11:35 AM CDT Medication failed the protocol, provider to review and approve the medication order if appropriate. Requested Prescriptions Pending Prescriptions Disp Refills metoprolol Succinate (TOPROL-XL) 50 MG TABLET SR 24 HR [Pharmacy Med Name: Metoprolol Succinate ER 50 MG Oral Tablet Extended Release 24 Hour] 90 Tablet 0 Sig: Take 1 tablet by mouth once daily Beta-Blockers Protocol Passed - 07/27/2021 6:27 PM Passed - BP on record in the past year Clinician-entered: BP Readings from Last 3 Encounters: 03/10/21 124/88 10/12/20 142/82 08/25/20 140/82 Patient-entered: No data recorded Passed - Visit with relevant provider in past 12 months or upcoming 90 days Recent Visits Date Type Provider Dept 03/10/21 Office Visit Maricarmen Mireles MD [facility] 08/25/20 Office Visit Maricarmen Mireles MD [facility] Showing recent visits within past 365 days and meeting all other requirements Future Appointments No visits were found meeting these conditions. Showing future appointments within next 90 days and meeting all other requirements pravastatin (PRAVACHOL) 20 MG Tablet [Pharmacy Med Name: Pravastatin Sodium 20 MG Oral Tablet] 90 Tablet 0 Sig: Take 1 tablet by mouth once daily Hmg CoA Reductase Inhibitors Protocol Failed - 07/27/2021 6:27 PM Failed - Lipid panel in past 12 months LDL Date Value Ref Range Status 08/09/2020 93 0 - 130 mg/dL Final Passed - Visit with relevant provider in past 12 months or upcoming 90 days Recent Visits Date Type Provider Dept 03/10/21 Office Visit aMricarmen Mireles MD [facility] 08/25/20 Office Visit Maricarmen Mireles MD [facility] Showing recent visits within past 365 days and meeting all other requirements Future Appointments No visits were found meeting these conditions. Showing future appointments within next 90 days and meeting all other requirements documented in this encounter Plan of Treatment Not on file documented as of this encounter Visit Diagnoses Diagnosis Essential hypertension Unspecified essential hypertension Hyperlipidemia, unspecified hyperlipidemia type documented in this encounter Additional Health Concerns Assessment Noted Time PHQ-9 Depression Total Score: 0 08/25/20 20 12:00 PM CDT documented as of this encounter Care Teams Color Expert Relationship Specialty Start Date End Date Maricarmen Mireles MD PCP - General Family Medicine 08/25/15 12/08/21 Arturo Tang DO [facility] [place] [address] PCP - General Internal Medicine 12/17/21 documented as of this encounter
--- OUTSIDE RECORDS SUMMARY | 2025-01-18 14:23 | XMS_ITS | Encounter Summary ---
Author Organization [facility] Address [address] [place] [address] Phone Care Team Providers Care Electric Meter Tester Shop Name Role Phone Maricarmen Mireles MD Primary Care Provider [phone] Arturo Tang DO Primary Care Provider Reason for Visit * Reason Comments Medication Refill Encounter Details Date Type Department Care Team (Late st Contact Info) Description 09/01/2020 Refill [facility] - Primary Care - [place] [address] [place] [address] Maricarmen Mireles MD [address] [place] [address] Medication Refill Social History Tobacco [...] encounter Miscellaneous Notes * Telephone Encounter - Radha Carmichael - 09/01/2020 4:24 PM CDT Medication failed the protocol provider to review and approve the medication order. Requested Prescriptions Pending Prescriptions Disp Refills busPIRone (BUSPAR) 10 MG Tablet [Pharmacy Med Name: busPIRone HCl 10 MG Oral Tablet] 180 Tab 3 Sig: Take 1 tablet by mouth twice daily Not Delegated - Psychiatry: Anxiolytics/Hypnotics Failed - 09/01/2020 9:54 AM Failed - This refill cannot be delegated Passed - Valid encounter within last 6 months Past Office Visits Recent Outpatient Visits 1 week ago Physical exam, annual (Adult) [facility] Maricarmen Mireles MD 8 months ago Type 2 diabetes mellitus without complication, without long-term current use of insulin ([facility]) [facility] - Maricarmen Beck MD 1 year ago Physical exam, annual (Adult) [facility] - Maricarmen Beck MD 1 year ago Type 2 diabetes mellitus without complication, without long-term current use of insulin ([facility]) [facility] - Maricarmen Beck MD 2 years ago Physical exam, annual (Adult) [facility] - Maricarmen Trejo MD Upcoming Appointments Future Appointments In 5 months Maricarmen Mireles MD [facility] - Recent and Past Visits Recent Visits Date Type Provider Dept 08/25/20 Office Visit [facility] 12/28/19 Office Visit Mar[facility]armen Mireles MD [facility] 06/22/19 [facility] Showing recent visits within past 460 days [...] Diagnoses Diagnosis Depression with anxiety Dysthymic disorder documented in this encounter Additional Health Concerns Assessment Noted Time PHQ-9 Depression Total Score: 0 08/25/20 20 12:00 PM CDT documented as of this encounter Care Teams Electric Meter Tester Shop Relationship Specialty Start Date End Date Maricarmen Mireles MD PCP - General Family Medicine 08/25/15 12/08/21 Arturo Tang DO [facility] [place] [address] PCP - General Internal Medicine 12/17/21 documented as of this encounter
--- OUTSIDE RECORDS SUMMARY | 2025-01-18 14:23 | XMS_ITS | Referral Summary ---
Author Organization [facility] Address [address] [place] [address] Care Team Providers Care Online Communications Manager Name Role Phone Sol Aragon NP Primary Care Provider [phone] Allergies Active Allergy Reactions Criticality Noted Date [...] 05/05/2023 Chronic anticoagulation 05/05/2023 Essential hypertension 05/05/2023 Social History Tobacco Use Types Packs/Day Years Used Date Smoking Tobacco: Former Cigarettes 0.5 20 0 11/14/1969 - 11/14/1989 Smokeless Tobacco: Never Tobacco Cessation:Counseling Given: Not Answered Alcohol Use Standard Drinks/Week Comments Yes 0 (1 standard drink = 0.6 oz pur e alcohol) Comments Unknown Sex and Gender Information Value Date Recorded Sex Assigned at Not on file 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 Gender Identity Not on file Sexual Orientation [...] 07/20/2024 1:34 PM CDT Plan of Treatment Not on file Procedures Procedure Name Priority Date/Time Associated Diagnosis Comments DIGITAL MAMMOGRAPHY Routine 07/02/2015 1 :43 PM CDT COLONOSCOPY 07/01/2011 12:00 AM CDT from Last 3 Months or Most Recently Relevant to Health Maintenance Results * DIGITAL MAMMOGRAPHY (07/02/2015 1:43 PM CDT) Anatomical Region Laterality Modality Breast Mammography 07/02/2015 1:43 PM CDT Narrative 07/02/2015 9:47 PM CDT Screening Mamm Bi Acc#: [id number] DATE OF EXAM: Jul 02 2015 Performed [...] Fax: -- Attending Fax: -- Attending ID: [id number] Requesting ID: [id number] Report To 1 ID: [id number] Report To 1 Name: JESSICA DE LA PAZ Report To 1 FAX: -- NextGen Order #: Procedure Note Provider, MD Shobha - 03/10/2017 Screening Mamm Bi Acc#: [id number] DATE OF EXAM: Jul 02 2015 Performed by: CLINICAL HISTORY: Routine screening. RESULT: Two views of each breast obtained, compared with 06/04/14 and 08/10/12.Scattered fibroglandular densities bilaterally. No dominant mass isdemonstrated. No suspicious clusters of microcalcifications are evident.A few scattered benign calcifications. A few small densities which aresimilar to previously. Digital technology was employed plus computer-aideddetection software (R2) was utilized in interpretation of these images.This [...] Fax: -- Attending Fax: -- Attending ID: [id number] Requesting ID: [id number] Report To 1 ID: [id number] Report To 1 Name: JESSICA DE LA PAZ Report To 1 FAX: -- NextGen Order #: us Historical Provider IMG MAMMO PROCEDURES Valeri l Result * COLONOSCOPY (07/01/2011 12:00 AM CDT) Anatomical Region Laterality Modality Other Narrative 07/01/2011 12:00 AM CDT Ordered by an unspecified provider. Procedure Note ProviderShobha MD - 07/01/2011 12:00 AM CDT PROCEDURE REPORT Patient: HARITHA CASTANON Account: [id number] Room No: : 1950 Patient Type: [facility] Attend.: Arturo Chavez M.D. Admit Date: 07/01/2011 Dict.: Arturo Chavez M.D. Disch. Date: PROCEDURE PERFORMED: Colonoscopy. HISTORY: 60-year-old female presents for screening colonoscopy. PHYSICAL EXAMINATION: Morbidly obese female. Lungs are clear. Cardiovascular examination was unremarkable. PROCEDURE: Colonoscopy was performed with the [employer] video endoscope.The patient was premedicated by anesthesia. [...] POSTOPERATIVE DIAGNOSIS: Normal colonoscopy. Arturo Chavez M.D. DR/florecnia TD: 07/01/2011 13:55 CC: All Barber M.D. PROCEDURE REPORT Authenticated by Arturo Chaevz MD On 07/02/2011 07:40:00 AM us Historical Provider ENDOSCOPY PROCEDURES Valeri l Result from Last 3 Months or Most Recently Relevant to Health Maintenance Insurance [employer] MEDICARE GOLD AET[employer] MEDICARE GOLD Care Teams Online Communications Manager Relationship Specialty Start Date End Date Sol Aragon NP PCP - General Nurse Practitioner 04/18/23
--- OUTSIDE RECORDS SUMMARY | 2025-01-18 14:23 | XMS_ITS | Encounter Summary ---
Author Organization [facility] Address [address] [place] [address] Phone Care Team Providers Care Data Modeler Name Role Phone Maricarmen Mireles MD Primary Care Provider Arturo Tang DO Primary Care Provider Reason for Visit * Reason Comments Medication Refill Encounter Details Date Type Department Care Team (Late st Contact Info) Description 03/04/2020 Refill [facility] [address] [place] [address] Maricarmen Mireles MD [address] [place] [address] Medication Refill Social History Tobacco Use Types Packs/Day Years Used Date Smoking Tobacco: Former Cigarettes Q uit: 01/08/1990 Smokeless Tobacco: Never Alcohol Use Standard Drinks/Week Comments Yes 0 (1 standard drink = 0.6 oz pur e alcohol) PHQ-2 Answer Date Recorded PHQ-2 Score 0 07/13/2019 Comments No Sex and Gender Information Value Date Recorded Sex Assigned at Not on file Legal Sex Female 8:51 PM CDT Gender Identity Not on file Sexual Orientation Not on file documented as of this encounter Miscellaneous Notes * Telephone Encounter - Magnolia Villa RN - 03/04/2020 12:03 PM CDT Requested Prescriptions Pending Prescriptions Disp Refills glipiZIDE (GLUCOTROL XL) 2.5 MG TABLET SR 24 HR [Pharmacy Med Name: GLIPIZIDE ER 2.5MG TABLET] 90 Tab 2 Sig: TAKE 1 TABLET BY MOUTH DAILY Endocrinology: Diabetes - Sulfonylureas Failed - 03/04/2020 11:51 AM Failed - Last BP in normal range BP Readings from Last 1 Encounters: 12/28/19 146/72 Passed - Valid encounter within last 12 months Past Office Visits Recent Outpatient Visits 2 months ago Type 2 diabetes mellitus without complication, without long-term current use of insulin (HCC) [facility] - Maricarmen Beck MD 8 months ago Physical exam, annual (Adult) [facility] - Maricarmen Beck MD 1 year ago Type 2 diabetes mellitus without complication, without long-term current use of insulin (HCC) [facility] - Maricarmen Beck MD 1 year ago Physical exam, annual (Adult) [facility] Maricarmen Mireles MD 2 years ago Sinusitis, unspecified chronicity, unspecified location [facility] - Rani Yoder, WEB OPERATIONS ADMINISTRATOR, [facility] [facility] H[facility]PITAL[facility] Upcoming Appointments Future Appointments In 3 months Maricarmen Mireles MD [facility] - [place] documented in this encounter Plan of Treatment Not on file documented as of this encounter Visit Diagnoses Diagnosis Type 2 diabetes mellitus without complication, without long-term current use of insulin ([facility]) documented in this encounter Additional Health Concerns Assessment Noted Time PHQ-9 Depression Total Score: 0 12/21/19 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
--- OUTSIDE RECORDS SUMMARY | 2025-01-18 14:23 | XMS_ITS | Encounter Summary ---
Author Organization [facility] Address [address] [place] [address] Phone Care Team Providers Care Office Machine Servicer Apprentice Name Role Phone Maricarmen Mireles MD Primary Care Provider Arturo Tang DO Primary Care Provider Reason for Visit * Reason Comments Medication Refill Encounter Details Date Type Department Care Team (Late st Contact Info) Description 08/03/2020 Refill [facility] - [place] [address] [place] [address] Maricarmen Mireles MD [address] [place] [address] Medication Refill Social History Tobacco [...] encounter Miscellaneous Notes * Telephone Encounter - Mel Wilks RN - 08/05/2020 10:27 AM CDT Medication failed the protocol, provider to review and approve the medication order. Requested Prescriptions Pending Prescriptions Disp Refills metoprolol Succinate (TOPROL-XL) 50 MG TABLET SR 24 HR [Pharmacy Med Name: Metoprolol Succinate ER 50 MG Oral Tablet Extended Release 24 Hour] 90 Tab 0 Sig: Take 1 tablet by mouth once daily Cardiovascular: Beta Blockers Failed - 08/03/2020 3:15 PM Failed - Last BP in normal range BP Readings from Last 1 Encounters: 12/28/19 146/72 Passed - Valid encounter within last 12 months Past Office Visits Recent Outpatient Visits 7 months ago Type 2 diabetes mellitus without complication, without long-term current use of insulin ([facility]) [facility] - Maricarmen Beck MD 1 year ago Physical exam, annual (Adult) [facility] - Maricarmen Beck MD 1 year ago Type 2 diabetes mellitus without complication, without long-term current use of insulin ([facility]) [facility] - Maricarmen Beck MD 2 years ago Physical exam, annual (Adult) [facility] - Maricarmen Trejo MD 2 years ago Sinusitis, unspecified chronicity, unspecified location [facility] - Rani Yoder APN, EVAPORATIVE COOLER INSTALLER Upcoming Appointments Future Appointments In 2 weeks Maricarmen Mireles MD [facility] - [facility] - Recent and Past Visits Recent Visits Date Type Provider Dept 12/28/19 Office Visit Maricarmen Mireles MD [facility] 06/22/19 Office Visit Maricarmen Mireles MD [facility] Connie Showing recent visits within past 460 days with a meds authorizing provider and meeting all other requirements Future Appointments Date Type Provider Dept 08/25/20 Appointment Maricarmen Mireles MD [facility] [place] Nina Showing future appointments within next 90 days with a meds authorizing provider and meeting all other requirements documented in this encounter Plan of Treatment Not on file documented as of this encounter Visit Diagnoses Not on filedocumented in this encounter Additional Health Concerns Assessment Noted Time PHQ-9 Depression Total Score: 0 12/21/19 19 1:00 PM COAL TRIMMER MACHINE OPERATOR documented as of this encounter Care Teams Office Machine Servicer Apprentice Relationship Specialty Start Date End Date Maricarmen Mireles MD PCP - General Family Medicine 08/25/15 12/08/21 Arturo Tang DO [facility] [place] [address] PCP - General Internal Medicine 12/17/21 documented as of this encounter
--- OUTSIDE RECORDS SUMMARY | 2025-01-18 14:23 | XMS_ITS | Clinical Summary ---
Author Organization [facility] Address [address] [address] Phone Care Team Providers Care Process Specialist Name Role Phone Arturo Tang DO Primary Care Provider Allergies Active Allergy Reactions Criticality Noted Date Comments Dust Mite Extract Other (see Comments) Metformin Diarrhea High 12/09/2016 Sulfamethoxazole-Trimethoprim Rash 2016 Medications Calcium Ascorbate 500 MG Tablet Take 1 Tab by mouth nightly. 5 Active metoprolol Succinate (TOPROL-XL) 50 MG TABLET SR 24 HRIndications:Essen tial hypertension Take 1 tablet by mouth once daily 90 Tablet 1 Active pravastatin (PRAVACHOL) 20 MG TabletIndications:H yperlipidemia, unspecified hyperlipidemia type Take 1 tablet by mouth once daily 90 Tablet 1 Active naproxen 375 MG Tablet Delayed Response TAKE 1 TABLET BY MOUTH TWICE DAILY NEEDED WITH FOOD 180 Tablet 1 2 Active glipiZIDE (GLUCOTROL XL) 5 MG TABLET SR 24 HRIndications:Type 2 diabetes mellitus without complication, without long-term current use of insulin (HCC) Take 1 tablet by mouth once daily 90 Tablet 2 Active busPIRone (BUSPAR) 10 MG TabletIndications:D epression with anxiety Take 1 tablet by mouth twice daily 180 Tablet 2 Active omeprazole (PriLOSEC) 20 MG CAPSULE DELAYED RELEASEIndications: Gastroesophageal reflux disease Take 1 capsule by mouth once daily 90 Capsule 2 Active DULoxetine (CYMBALTA) [address] ParticlesIndication s:Depression with anxiety Take 1 capsule by mouth once daily 90 Capsule 2 Active amLODIPine-benazepr il (LOTREL) 5-10 MG CapsuleIndications: Essential hypertension Take 1 capsule by mouth once daily 90 Capsule 2 Active Active Problems Problem Noted Date Diagnosed Date Depression with anxiety 12/21/2018 Attention deficit disorder 12/21/2018 Paresthesia of left arm 05/16/2017 Cervical radiculopathy 05/16/2017 Osteoarthritis of multiple joints 03/29/2017 Obesity, Class III, BMI 40-49.9 (morbid obesity) 08/05/2016 HTN (hypertension) GERD (gastroesophageal reflux disease) DM2 (diabetes mellitus, type 2) HLD (hyperlipidemia) Resolved Problems Problem Noted Date Diagnosed Date Resolved Date Weakness of left arm 05/16/2017 020 Immunizations Immunization Administration Dates Next Due Covid-19, Mrna, Lnp-s, PF, 1 00 mcg/0.5 mL Dose (Moderna) 01/13/2021,12/16/2020 Influenza Vaccine 08/25/2017,08/28/2015 Influenza Vaccine greater than 3 yrs 07/20/2019, 08/14/2015,11/14/2013 Influenza, High-dose, Quadrivalent 07/28/2020 Influenza, Seasonal, Injectable, Undefined 08/14,08/02/2014,11/14/2013 Influenza, Trivalent, Adjuvanted, PF 07/20/2019, 08/24/2017 Influenza, high-dose, trivalent, PF 08/03/2020,1 ,08/05/2016 PUR FLU HIGH DOSE (FLUZONE) 08/05/2016 PUR PCV-13 12/09/2016 Pneumococcal Vaccine - 13 Valent 12/09/2016 Pneumococcal Vaccine Adult - 23 Valent 5,11/14/2014 TD VACCINE 11/14/2014 TDAP Vaccine 01/11/2016 Zoster Vaccine Recombinant 12/04/2018,10/03/2018 Zoster Vaccine, live 08/28/2015 Family History Medical History Relation Name Comments Hypertension Father Breast Cancer Maternal Grandmother Hypertension Mother Osteoarthritis Mother Breast Cancer Other 1 Mat. cousin Breast Cancer Other 2 Pat. cousin Osteoarthritis Sister Relation Name Status Comments Father Maternal Grandmother Mother Alive Other 1 Mat. cousin Alive Other 2 Pat. cousin Alive Sister Alive Social History Tobacco Use Types Packs/Day Years Used Date Smoking Tobacco: Former Cigarettes Q uit: 01/08/1990 Smokeless Tobacco: Never Tobacco Cessation:Counseling Given: Yes Alcohol Use Standard Drinks/Week Comments Yes 0 [...] Sign Reading Time Taken Comments Blood Pressure 124/88 03/10/2021 9:07 AM CDT Pulse 87 03/10/2021 9:07 AM CDT Temperature 36.6 C (97.9 F) 03/10/2021 9:07 AM CDT Respiratory Rate 20 03/10/2021 9:07 AM CDT Oxygen Saturation 96% 03/10/2021 9:07 AM CDT Inhaled Oxygen Concentration - - Weight 111.3 kg (245 lb 6.4 oz) 03/10/2021 9:07 AM CDT Height 160 cm (5' 3 ) 03/10/2021 9:07 AM CDT Body Mass Index 43.47 03/10/2021 9:07 AM CDT Plan of Treatment Health Maintenance Due Date Last Done Comments Diabetes: Foot Exam 1950 Hepatitis C Virus (HCV) Screening 1950 Cologuard 1999 Immunochemical Fecal Occult Blood 1999 Diabetes: Hemoglobin A1c 02/06/2021 020, 12/11/2019, 06/12/2019, Additional history exists Colonoscopy 07/01/2021 07/01/2011 Colorectal Cancer Screening 07/01/2021 Diabetes: Nephropathy Screening 08/09/2021 08/09/2020, 12/11/2019, 06/12/2019, Additional history exists Diabetes: Eye Exam 11/11/2021 11/11/2020, 10/14/2017 Influenza Immunization (#1) 07/15/202407/16, 08/03/2020, 07/28/2020, Additional history exists SARS-COV-2 Immunization ( season) 2024 02/19/2022, 09/21/2021, 01/13/2021, Additional history exists Respiratory Syncytial Virus (RSV) Immunization (Adult) (1 - 1-dose 75+ series) 2024 Td Immunization Every 10 Years (Adults With 1 Tdap) 01/11/2026 01/11/2016, 11/14/2014 07/01/2011 Pneumococcal Immunization (50+ years) Completed 12/09/2016, 12/09/2016, 07/07/2015, Additional history exists Pneumococcal Immunization Combined Discontinued 12/09/2016, 12/09/2016, 07/07/2015, Additional history exists DEXA Bone Density Discontinued 07/06/2018 Zoster Immunization Completed 12/04/2018, 10/03/2018, 08/28/2015 Mammogram Discontinued 07/13/2019, 07/14/2017 Hepatitis B Immunization Aged Out No longer eligible based on patient's age to complete this topic Meningococcal Immunization (ACWY) Aged Out No longer eligible based on patient's age to complete this topic Rotavirus Immunization Aged Out No lo nger eligible based on patient's age to complete this topic Procedures Procedure Name Priority Date/Time Associated Diagnosis Comments DILATED EYE EXAM Routine 11/11/2020 CMP (COMPREHENSIVE METABOLIC PANEL) Routine 08/09/2020 Type 2 diabetes mellitus without complication, without long-term current use of insulin (HCC) HEMOGLOBIN A1C W/ ESTIMATED GLUCOSE Routine 08/09/2020 Type 2 diabetes mellitus without complication, without long-term current use of insulin (HCC) [facility] SCREENING BILATERAL DIGITAL W CAD W JAY Routine 07/13/2019 1:45 PM CDT Encounter for screening mammogram for malignant neoplasm of breast [facility] BONE DENSITOMETRY AXIAL SKELETON Routine 07/06/2018 2:35 PM CDT Postmenopausal COLONOSCOPY Routine 07/01/2011 from Last 3 Months or Most Recently Relevant to Health Maintenance Results * DILATED EYE EXAM (11/11/2020) Tyrone Wolfe PROCEDURE/MINOR SURGICAL ORDERAB LES Edited Result - Final * HEMOGLOBIN A1C W/ ESTIMATED GLUCOSE (08/09/2020) HGB-A1C 7.1 % Blood specimen (specimen) 08/09/2020 us Maricarmen Mireles MD CHEMISTRY ORDERABLES Edited Result - Final * CMP (COMPREHENSIVE METABOLIC PANEL) (08/09/2020) Blood specimen (specimen) us Maricarmen Mireles MD CHEMISTRY ORDERABLES Final R esult * [facility] SCREENING BILATERAL DIGITAL W CAD W JAY (07/13/2019 1:45 PM CDT) Anatomical Region Laterality Modality breast Bilateral Mammography 07/13/2019 1:19 PM CDT Narrative 07/13/2019 4:19 PM CDT - [facility] SCREENING BILATERAL DIGITAL W CAD W JAY BILATERAL DIGITAL SCREENING MAMMOGRAM 3D/2D WITH CAD WITH MEDIOLATERAL OBLIQUE CRANIOCAUDAL: 07/13/2019 The study was acquired using digital technology and interpreted from soft copy. Current study was also evaluated with ICAD version 7.2. CLINICAL: Routine screening. Patient has no complaints. No personal history of cancer. Maternal grandmother, maternal cousin and paternal cousin had breast cancer. COMPARISONS: Comparison is made to exams dated: 07/14/2017 [facility], 07/02/2015, and 06/04/2014 [facility]. BREAST TISSUE:There are scattered fibroglandular densities in both breasts. FINDINGS: No significant masses, calcifications, or other findings are seen in either breast. There has been no significant interval change. IMPRESSION: BI-RAD 1 NEGATIVE There is no mammographic evidence of malignancy. A 1 year screening mammogram is recommended. The patient has been or will be contacted. The patient will be entered into a reminder system with a target due date of 1 year for her next screening exam. Electronically signed by: Sonido quan/tony:07/13/2019 15:09:37 Daycare Director: Francesca MUKHERJEE(R)(M), [facility] letter sent: Normal Exam Reading location: [place] BI-RADS: 1 Negative Procedure Note Sonido Monroy MD - 07/13/2019 - [facility] SCREENING BILATERAL DIGITAL W CAD W JAY BILATERAL DIGITAL SCREENING MAMMOGRAM 3D/2D WITH CAD WITH MEDIOLATERAL OBLIQUE CRANIOCAUDAL: 07/13/2019 The study was acquired using digital technology and interpreted from soft copy. Current study was also evaluated with ICAD version 7.2. CLINICAL: Routine screening. Patient has no complaints. No personal history of cancer. Maternal grandmother, maternal cousin and paternal cousin had breast cancer. COMPARISONS: Comparison is made to exams dated: 07/14/2017 [facility], 07/02/2015, and 06/04/2014 [facility]. BREAST TISSUE:There are scattered fibroglandular densities in both breasts. FINDINGS: No significant masses, calcifications, or other findings are seen in either breast. There has been no significant interval change. IMPRESSION: BI-RAD 1 NEGATIVE There is no mammographic evidence of malignancy. A 1 year screening mammogram is recommended. The patient has been or will be contacted. The patient will be entered into a reminder system with a target due date of 1 year for her next screening exam. Electronically signed by: Sonido quan/tony:07/13/2019 15:09:37 Daycare Director: Francesca NUNEZR)(M), [facility] letter sent: Normal Exam Reading location: [place] BI-RADS: 1 Negative us Maricarmen Mireles MD IMG MAMMO ORDERABLES Final R esult * [facility] BONE DENSITOMETRY AXIAL SKELETON (07/06/2018 2:35 PM CDT) Anatomical Region Laterality Modality BODY N/A Other 07/07/2018 8:38 AM CDT Impressions 07/07/2018 8:40 AM CDT IMPRESSION: Low bone mass. Statistically significant decrease in bone density since the prior study. Spine measurements are unreliable due to severe degeneration and sclerosis. Bone mineral density: Normal (T-score above or = -1.0) Low bone mass (T-score between -1.0 and -2.5) replaces the previously used term osteopenia Osteoporosis (T-score = or below -2.5) Medical evaluation for secondary causes of low bone mineral density may be appropriate. FRAX is a World Health Organization validated fracture risk assessment tool that calculates a person's 10 year probability of a major osteoporosis related fracture and hip fracture. According to the National Osteoporosis Foundation guidelines, postmenopausal women and men age 50 or older with low bone mass and a 10 year probability of a major osteoporosis related fracture = or greater than 20% or a 10 year probability of a hip fracture = or greater than 3% should be considered for treatment. For further information, including treatment recommendations, please refer to the 2013 ISCD Official Positions (http://www.iscd.org) and the NOF's Clinician's Guide to Prevention and Treatment of Osteoporosis (http://www.nof.org/professionals/clinical-guidelines) Narrative 07/07/2018 8:40 AM CDT EXAM DESCRIPTION: [facility] BONE DENSITOMETRY AXIAL SKELETON REASON FOR STUDY: 67 y/o year old F with given history of screening. 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 Patient has been on HRT, multivitamin and vitamin D. patient does not perform weight-bearing exercise. Patient consumes dairy products regularly. Patient does not drink caffeinated beverages. Current height: 62 inches Maximum height: 64.5 inches Weight: 255 pounds COMPARISON: 07/11/2015 DEXA. FINDINGS: AP LUMBAR SPINE L1-L4: Severe degenerative changes with sclerosis of the vertebral bodies and facets spuriously increases the density. Spine measurements are unreliable. Total BMD is 1.3 g/cm2 T-score is 0.9 Most recent prior BMD was 1.26 g/cm2 There has been a 3.6% increase in BMD which is not statistically significant. LEFT HIP: Current Total BMD is 1.011 g/cm2 T-score is 0.0 Most recent prior Total BMD was 1.077 g/cm2 There has been a 6.1% decrease in BMD which is statistically significant. Current femoral neck BMD is 0.874 g/cm2 T-score is -1.2 Fracture risk assessment (FRAX): 10 year risk for a major osteoporotic fracture is 8.2 % 10 year risk for a hip fracture is 0.8 % The FRAX tool has not been validated in patients currently or previously treated with pharmacotherapy for osteoporosis. In such patients, clinical judgement must be exercised in interpreting FRAX scores as the fracture risk may be overestimated. THIS IS AN ELECTRONICALLY VERIFIED FINAL REPORT 07/07/2018 8:38 AM - Electronically signed by Armond Desouza M.D. MARSHALL: MARSHALL Report ID: [id number] Reading Location: [id number] Procedure Note Armond Desouza MD - 07/07/2018 EXAM DESCRIPTION: BR[facility]DA BONE DENSITOMETRY AXIAL SKELETON REASON FOR STUDY: 67 y/o year old F with given history of screening. 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 Patient has been on HRT, multivitamin and vitamin D. patient does not perform weight-bearing exercise. Patient consumes dairy products regularly. Patient does not drink caffeinated beverages. Current height: 62 inches Maximum height: 64.5 inches Weight: 255 pounds COMPARISON: 07/11/2015 DEXA. FINDINGS: AP LUMBAR SPINE L1-L4: Severe degenerative changes with sclerosis of the vertebral bodies and facets spuriously increases the density. Spine measurements are unreliable. Total BMD is 1.3 g/cm2 T-score is 0.9 Most recent prior BMD was 1.26 g/cm2 There has been a 3.6% increase in BMD which is not statistically significant. LEFT HIP: Current Total BMD is 1.011 g/cm2 T-score is 0.0 Most recent prior Total BMD was 1.077 g/cm2 There has been a 6.1% decrease in BMD which is statistically significant. Current femoral neck BMD is 0.874 g/cm2 T-score is -1.2 Fracture risk assessment (FRAX): 10 year risk for a major osteoporotic fracture is 8.2 % 10 year risk for a hip fracture is 0.8 % The FRAX tool has not been validated in patients currently or previously treated with pharmacotherapy for osteoporosis. In such patients, clinical judgement must be exercised in interpreting FRAX scores as the fracture risk may be overestimated. THIS IS AN ELECTRONICALLY VERIFIED FINAL REPORT 07/07/2018 8:38 AM - Electronically signed by Armond Desouza M.D. MARSHALL: MARSHALL Report ID: [id number] Reading Location: [place] [address] IMPRESSION: Low bone mass. Statistically significant decrease in bone density since the prior study. Spine measurements are unreliable due to severe degeneration and sclerosis. Bone mineral density: Normal (T-score above or = -1.0) Low bone mass (T-score between -1.0 and -2.5) replaces the previously used term osteopenia Osteoporosis (T-score = or below -2.5) Medical evaluation for secondary causes of low bone mineral density may be appropriate. FRAX is a World Health Organization validated fracture risk assessment tool that calculates a person's 10 year probability of a major osteoporosis related fracture and hip fracture. According to the National Osteoporosis Foundation guidelines, postmenopausal women and men age 50 or older with low bone mass and a 10 year probability of a major osteoporosis related fracture = or greater than 20% or a 10 year probability of a hip fracture = or greater than 3% should be considered for treatment. For further information, including treatment recommendations, please refer to the 2013 ISCD Official Positions (http://www.iscd.org) and the NOF's Clinician's Guide to Prevention and Treatment of Osteoporosis (http://www.nof.org/professionals/clinical-guidelines) us Maricarmen Mireles MD IMG DEXA ORDERABLES Final Re sult * [facility] COLONOSCOPY (07/01/2011) us Arturo Chavez MD PROCEDURE/MINOR SURGICAL ORDER [place] Final Result from Last 3 Months or Most Recently Relevant to Health Maintenance Insurance MEDICARE C [employer]ET[employer] Care Teams Process Specialist Relationship Specialty Start Date End Date Arturo Tang DO [facility] [place] [address] PCP - General Internal Medicine 12/17/21
--- OUTSIDE RECORDS SUMMARY | 2025-01-18 14:23 | XMS_ITS | Encounter Summary ---
Author Organization [facility] Address [address] [place] [address] Phone Care Team Providers Care Fish Icer Name Role Phone Maricarmen Mireles MD Primary Care Provider [phone] Arturo Tang DO Primary Care Provider Reason for Visit * Reason Comments Medication Refill Encounter Details Date Type Department Care Team (Late st Contact Info) Description 08/09[facility] [address] [place] [address] Maricarmen Mireles MD [address] [place] [address] Medication Refill Social History Tobacco [...] encounter Miscellaneous Notes * Telephone Encounter - Natalie Arredondo RN - 08/10/2021 1:50 PM CDT Medication failed the protocol, provider to review and approve the medication order if appropriate. Requested Prescriptions Pending Prescriptions Disp Refills naproxen 375 MG Tablet Delayed Response [Pharmacy Med Name: Naproxen DR 375 MG Oral Tablet Delayed Release] 180 Tablet 0 Sig: TAKE 1 TABLET BY MOUTH TWICE DAILY NEEDED WITH FOOD NSAIDs Protocol Failed - 08/10/2021 1:50 PM Failed - Normal serum creatinine in [...] Dept 03/10/21 Office Visit Maricarmen Mireles MD [facility] 08/25/20 Office Visit [facility] Showing recent visits within past 365 days and meeting all other requirements Future Appointments No visits were found meeting these conditions. Showing future appointments within next 90 days and meeting all other requirements Passed - No matching NSAID med order in past 45 days No matching medication orders between 06/26/2021 1:50 PM and 08/10/2021 1:50 PM documented in this encounter Plan of Treatment Not on file documented as of this encounter Visit Diagnoses Not on filedocumented in this encounter Additional Health Concerns Assessment Noted Time PHQ-9 Depression Total Score: 0 08/25/20 20 12:00 PM CDT documented as of this encounter Care Teams Fish Icer Relationship Specialty Start Date End Date Maricarmen Mireles MD PCP - General Family Medicine 08/25/15 12/08/21 Arturo Tang DO [address] [facility] [place] [address] PCP - General Internal Medicine 12/17/21 documented as of this encounter
--- OUTSIDE RECORDS SUMMARY | 2025-01-18 14:23 | XMS_ITS | Encounter Summary ---
Author Organization [facility] Address [address] [place] [address] Phone Care Team Providers Care Line Dancer Name Role Phone Maricarmen Mireles MD Primary Care Provider Arturo Tang DO Primary Care Provider Reason for Visit * Reason Comments Medication Refill Encounter Details Date Type Department Care Team (Late st Contact Info) Description 11/27/2021 Refill [facility] [place] [address] [place] [address] Maricarmen Mireles MD [address] [place] [address] Medication Refill Social History Tobacco [...] Telephone Encounter - Susan Husain RN - 11/27/2021 3:52 PM DIGESTER Medication failed the protocol, provider to review and approve the medication order if appropriate. Requested Prescriptions Pending Prescriptions Disp Refills glipiZIDE (GLUCOTROL XL) 5 MG TABLET SR 24 HR [Pharmacy Med Name: glipiZIDE ER 5 MG Oral Tablet Extended Release 24 Hour] 90 Tablet 0 Sig: Take 1 tablet by mouth once daily Sulfonylureas Protocol Failed - 11/27/2021 3:44 PM Failed - Visit with relevant provider in past 6 months or upcoming 90 days Recent Visits No visits were found meeting these conditions. Showing recent visits within past 182 days and meeting all other requirements Future Appointments No visits were found meeting these conditions. Showing future appointments within next 90 days and meeting all other requirements Failed - HgA1C on record in past 6 months HGB-A1C Date Value Ref Range Status 08/09/2020 7.1 % Final Failed - GFR on record in past 6 months No results found for: GFRNA STER documented in this encounter Plan of Treatment Not on file documented as of this encounter Visit Diagnoses Diagnosis Type 2 diabetes mellitus without complication, without long-term current use of insulin (HCC) documented in this encounter Additional Health Concerns Assessment Noted Time PHQ-9 Depression Total Score: 0 08/25/20 20 12:00 PM CDT documented as of this encounter Care Teams Line Dancer Relationship Specialty Start Date End Date Maricarmen Mireles MD PCP - General Family Medicine 08/25/15 12/08/21 Arturo Tang DO [facility] [place] [address] PCP - General Internal Medicine 12/17/21 documented as of this encounter
--- OUTSIDE RECORDS SUMMARY | 2025-01-18 14:23 | XMS_ITS | Patient Health Summary ---
Author Organization [facility] [employer] Address [address] [place] [address] Care Team Providers Care Pathology Secretary/Transcriptionist Name Role Phone Arturo Tang DO Primary Care Provider [phone] Note [address] [facility],non-owned Affiliates and Associated Physician Practices is amultiple site organization consisting of ambulatory clinics and hospital sitesin [place], [place], [place] and [place]. This disclosure is being madepursuant to the Care Everywhere program and may not contain all information available regarding this patient. Last updated 18.[facility] [employer] Allergies * Dust Mite Extract(Other) * Metformin(Diarrhea) -High Criticality * Sulfamethoxazole W-Trimethoprim(Rash) -Medium Criticality Medications * Be aware that medications may not be up to date on this document. Alwaysverify current medications with the patient. * phenazopyridine (PYRIDIUM) 200 MG tablet Take 200 mg by mouth 3 times daily as needed * Biotin 34805 MCG Take by mouth once daily * fexofenadine (CHANDLER) 180 MG tablet Take 180 mg by mouth once daily * busPIRone (BUSPAR) 10 MG tablet Take 10 mg by mouth once daily * DULoxetine (CYMBALTA) 30 MG capsule Take 30 mg by mouth once daily * metoprolol succinate XL 24hr (TOPROL XL) 50 MG tablet Take 50 mg by mouth once daily * pravastatin (PRAVACHOL) 20 MG tablet Take 20 mg by mouth once daily * glipiZIDE (GLUCOTROL) 5 MG tablet Take 5 mg by mouth daily before breakfast * acetaminophen (TYLENOL) 325 MG tablet(Started 05/26/2022) Take 2 (two) tablets by mouth every 6 hours Maximum allowable Acetaminophen amount = 4 Grams (4000 mg) / 24 hours. Active Problems Problem Noted Date Diagnosed Date [...] Mass Index 40.42 05/23/2022 11:29 PM CDT Procedures * CARDIAC RHYTHM STRIP ORDER(Performed 05/28/2022) * GLUCOSE - POINT OF CARE(Performed 05/26/2022) * TROPONIN I(Performed 05/26/2022) * COMPREHENSIVE METABOLIC PANEL(Performed 05/26/2022) * CBC W AUTO DIFFERENTIAL(Performed 05/26/2022) * GLUCOSE - POINT OF CARE(Performed 05/25/2022) * GLUCOSE - POINT OF CARE(Performed 05/25/2022) * CBC W AUTO DIFFERENTIAL(Performed 05/25/2022) * GLUCOSE - POINT OF CARE(Performed 05/25/2022) * COMPREHENSIVE METABOLIC PANEL(Performed 05/25/2022) * HEMOGLOBIN A1C(Performed 05/25/2022) * GLUCOSE - POINT OF CARE(Performed 05/24/2022) * GLUCOSE - POINT OF CARE(Performed 05/24/2022) * GLUCOSE - POINT OF CARE(Performed 05/24/2022) * GLUCOSE - POINT OF CARE(Performed 05/24/2022) * PATHOLOGY TISSUE EXAM (STL)(Performed 05/24/2022) Performed for Melena, Anemia, unspecified type * [place] EGD FLEX TRANSORAL W BX SNGL OR MULT(Performed 05/24/2022) * ESOPHAGOGASTRODUODENOSCOPY (EGD) REMOVAL TUMOR/POLYP/LESION (ANY METHOD) (Performed 05/24/2022) * [place] ED EGD FLEX TRANSORAL DX(Performed 05/24/2022) * EGD(Performed 05/24/2022) * LIPID PROFILE(Performed 05/24/2022) * TROPONIN I(Performed 05/24/2022) * CBC W/O DIFFERENTIAL(Performed 05/24/2022) * BASIC METABOLIC PANEL (CALCIUM TOTAL)(Performed 05/24/2022) * ECHOCARDIOGRAM 2D WITH DOPPLER(Performed 05/24/2022) Performed for Upper GI bleed * TROPONIN I(Performed 05/24/2022) * PT-INR(Performed 05/24/2022) * PHOSPHORUS BLOOD(Performed 05/24/2022) * MAGNESIUM BLOOD(Performed 05/24/2022) * LACTIC ACID BLOOD(Performed 05/24/2022) * COMPREHENSIVE METABOLIC PANEL(Performed 05/24/2022) * CBC W/O DIFFERENTIAL(Performed 05/24/2022) * DERMATOPATHOLOGY(Performed 09/16/2020) Results * CARDIAC RHYTHM STRIP ORDER (05/28/2022 11:58 PM CDT) Narrative 05/28/2022 11:58 PM CDT Ordered by an unspecified provider. Scanned Document CARDIAC SERVICES ORD ERABLES * (ABNORMAL) GLUCOSE - POINT OF CARE (05/26/2022 8:10 AM CDT) Only the most recent of8 resultswithin the time period is included. Glucose WB/POC 149(H) 70 - 106 mg/dL 05/26/2022 8:23 AM CDT [facility] Specimen Type Cap Fingerstick 2021 8:23 AM CDT [facility] Blood BLOOD SPECIMEN / Unknown 05/26/2022 8:10 AM CDT 05/26/2022 8:23 AM CDT Merline Martinez MD LAB - POINT OF CARE ORDERABLES Performing Organization Address City/[facility]/ZIP Co de Phone Number [facility] [address] [place], [place] [id number] * TROPONIN I (05/26/2022 5:21 AM CDT) Only the most recent of3 resultswithin the time period is included. [facility] Troponin I 0.015 <0.038 ng/mL 05/26/2022 6:03 AM CDT [facility] Blood BLOOD SPECIMEN / Unknown Lab Venipuncture / Unknown 05/26/2022 5:21 AM CDT 05/26/2022 5:37 AM CDT Merline Martinez MD LAB - CHEMISTRY ORDE RABALEX Performing Organization Address [facility] Co de Phone Number [facility] [address] [place] [address] * (ABNORMAL) CBC W AUTO DIFFERENTIAL (05/26/2022 5:21 AM CDT) Only the most recent of2 resultswithin the time period is included. [facility] WBC 2.9(L) 4.4 - 10.7 x10E9/L 05/26/2022 5:59 AM CDT [facility] WBC Corrected 05/26/2022 5:59 AM CDT [facility] RBC 2.55(L) 3.80 - 5.20 x10E12/L 05/26/2022 5:59 AM CDT [facility] Hemoglobin 7.5(L) 12.0 - 15.6 gm/dL 05/26/2022 5:59 AM CDT [facility] Hematocrit 22.5(L) 35.9 - 45.5 % 05/26/2022 5:59 AM CDT [facility] MCV 88.2 80.7 - 98.3 fl 05/26/2022 5:59 AM CDT [facility] MCH 29.4 26.7 - 34.0 pg 05/26/2022 5:59 AM CDT [facility] MCHC 33.3 30.8 - 35.9 gm/dL 05/26/2022 5:59 AM CDT [facility] Platelet Count 69(L) 153 - 416 x10E9/L 05/26/2022 5:59 AM CDT [facility] RDW-CV 13.7 12.1 - 14.9 % 05/26/2022 5:59 AM CDT [facility] MPV 12.4 9.4 - 12.9 fl 05/26/2022 5:59 AM CDT [facility] Neutrophils % 48.9 44.0 - 73.0 % 05/26/2022 5:59 AM CDT [facility] Lymphocytes % 38.4 20.0 - 43.0 % 05/[facility]2022 5:[facility] Monocytes % 8.6 5.0 - 13.0 % 05/26/2022 5:59 [facility] Eosinophils % 2.7 0.0 - 6.0 % 05/26/2022 5:59 AM [facility] Basophils % 0.7 0.0 - 2.0 % 05/26/2022 5:59 AM CDT [facility] Immature Granulocytes 0.7 0 - 1 % 05/26/2022 5:59 AM CDT [facility] Neutrophil Absolute 1.43(L) 2.01 - 7.14 x10E9/L 05/26/2022 5:59 AM CDT [facility] Lymphocytes Absolute 1.12 1.07 - 3.94 x10E9/L 05/26/2022 5:59 AM CDT [facility] Monocytes Absolute 0.25(L) 0.26 - 1.07 x10E9/L 05/26/2022 5:59 AM CDT [facility] Eosinophils Absolute 0.08 0 - 0.47 x10E9/L 05/26/2022 5:59 AM CDT [facility] Basophils Absolute 0.02 0 - 0.08 x10E9/L 05/26/2022 5:59 AM CDT [facility] Immature Granulocytes Absolute 0.02 0.00 - 0.06 x10E9/L 05/26/2022 5:59 AM CDT [facility] nRBC Auto 0 /100 WBC 05/26/2022 5:59 AM [facility] Blood BLOOD SPECIMEN / Unknown Lab Venipuncture / Unknown 05/26/2022 5:21 AM CDT 05/26/2022 5:37 AM CDT Merline Martinez MD LAB - HEMATOLOGY ORD ERABLES [facility] [address] [place] [address] * (ABNORMAL) COMPREHENSIVE METABOLIC PANEL (05/26/2022 5:21 AM CDT) Only the most recent of3 resultswithin the time period is included. Glucose 123(H) 70 - 105 mg/dL 05/26/2022 6:05 AM [facility] Sodium 144 136 - 145 mmol/L 05/26/2022 6:05 AM [facility] Potassium 3.5 3.5 - 5.1 mmol/L 05/26/2022 6:05 AM [facility] Chloride 113(H) 98 - 107 mmol/L 05/26/2022 6:05 AM [facility] CO2 24 23 - 31 mmol/L 05/26/2022 6:05 AM [facility] Calcium 8.2(L) 8.4 - 10.4 mg/dL 05/26/2022 6:05 AM [facility] Anion Gap 7(L) 8 - 18 mmol/L 05/26/2022 6:05 AM [facility] BUN 8(L) 9.8 - 20.1 mg/dL 05/26/2022 6:05 AM [facility] Creatinine 0.72 0.57 - 1.11 mg/dL 05/26/2022 6:05 AM [facility] Alkaline Phosphatase 49 40 - 150 U/L 05/26/2022 6:05 AM [facility] ALT 19 0 - 61 U/L 05/26/2022 6:05 AM [facility] AST 25 5 - 34 U/L 05/26/2022 6:05 AM [facility] Protein Total 4.7(L) 6.4 - 8.3 gm/dL 05/26/2022 6:05 AM T [facility] Albumin 2.9(L) 3.2 - 4.6 gm/dL 05/26/2022 6:05 AM T [facility] Bilirubin Total 0.5 0.2 - 1.2 mg/dL 05/26/2022 6:05 AM T [facility] eGFR by CKD-EPI 89(L) >=90 mL/min/1.7 3 m2 05/26/2022 6:05 AM T [facility] Blood BLOOD SPECIMEN / Unknown Lab Venipuncture / Unknown 05/26/2022 5:21 AM CDT 05/26/2022 5:37 AM CDT Merline Martinez MD LAB - CHEMISTRY TOSIN SAINZ [facility] Organization Address City/State/ZIP Co de Phone Number [facility] [address] [place] [place] [address] * (ABNORMAL) HEMOGLOBIN A1C (05/25/2022 8:04 AM CDT) Hemoglobin A1c 6.4(H) <5.7 % 05/25/2022 9:08 AM T [facility] Estimated Average Glucose 137 mg/dL 05/25/2022 9:08 AM T [facility] Blood BLOOD SPECIMEN / Unknown Lab Venipuncture / Unknown 05/25/2022 8:04 AM CDT 05/25/2022 8:29 AM CDT Narrative [facility] - 05/25/2022 9:08 AM CDT HbA1c Interpretation: Normal: < 5.7% Pre-diabetes: 5.7-6.4% Diabetes: Equal to or greater than 6.5% Test results diagnostic of diabetes should be repeated for confirmation. Treatment target values recommended by ADA and other clinical organizations should be used to evaluate metabolic control in patients. This test should not replace glucose testing for patients with Type 1 diabetes, pediatric patients, or women. Falsely low HbA1c results may be observed in patients with clinical conditions that shorten erythrocyte life span or decrease mean erythrocyte age such as the presence of unstable hemoglobin variants, elevated hemoglobin F level or other causes of hemolytic anemia. HbA1c may not accurately reflect glycemic control when clinical conditions that affect erythrocyte survival are present. Severe Iron deficiency anemia may yield falsely high results. Hemoglobin A1c assay should not be used to diagnose or monitor diabetes in patients with malignancy, recent blood transfusion, chronic kidney or liver disease. This method may yield falsely low results when hemoglobin (HbF) exceeds 5% in the specimen. The [employer] assay for the measurement of HbA1c is a National Glycohemoglobin Standardization Program (NGSP) certified method. Suleiman Perry MD LAB - CHEMISTRY ORDERABLES [facility] [address] [place] [address] * PATHOLOGY TISSUE EXAM (STL) (05/24/2022 12:15 PM CDT) Case Report Surgical Pathology Report Case: [id number] Authorizing Provider: Dale Cotto MD Collected: 05/24/2022 12:15 PM Ordering Location: [facility] Received: 05/24/2022 01:53 PM Pathologist: Nakul Meléndez MD Specimens: A) - Polyp Gastric, gastric polyps B) - Antrum Biopsy 05/26/2022 1:36 PM CDT [facility] Final Diagnosis A. Gastric polyps, polypectomy: - Hyperplastic polyp - No diagnostic evidence of high-grade dysplasia or malignancy - No Helicobacter pylori identified B. Gastric antrum, biopsy: - Gastric antral-type and oxyntic-type mucosa with chronic inflammation and surface erosion - No Helicobacter pylori identified SD/ns 05/26/2022 1:36 PM CDT [facility] Clinical History Melena and anemia. Endoscopic findings: Localized moderately erythematous mucosa without bleeding was found in the gastric body. Biopsies were taken with a cold forceps for histology. This was in the area of the diaphragmatic hiatus. Two 6 to 15 mm sessile polyps with bleeding were found in the gastric body. The polyp was removed with a hot snare. 05/26/2022 1:36 PM CDT [facility] Gross Description Received in two formalin-filled containers each labeled with the patient's name Haritha Castanon. Specimen A is further labeled polyp gastric. It consists of three red polypoid soft tissue fragments ranging in greatest dimension from 0.4 to 1.5 cm. The resection base of the largest polyp is inked blue, serially sectioned, and the specimen is entirely submitted in cassette A1. Specimen B is further labeled antrum biopsy. It consists of three whitish an soft tissue fragments ranging in greatest dimension from <0.1 to 0.3 cm. The specimen is marked with hematoxylin and entirely submitted in cassette B1. SD/scs 05/26/2022 1:36 PM [facility] Microscopic Description A. The H&E sections of the gastric polyp reveal follicular hyperplasia and dilated glands in the lamina propria. The glands display slightly hyperchromatic nuclei with increased numbers of mitotic activity. The surface mucosa displays maturation. There is edema, vascular congestion, and chronic and active inflammation seen. Immunostain for Helicobacter pylori reveal brownish pigment deposition in the stroma, none of which display the characteristic morphologic features of Helicobacter pylori. There is no diagnostic evidence of Helicobacter pylori. B. Rare abhay-shaped structures are seen near the surface mucosa and in the crypts. Immunostain for Helicobacter pylori is performed and is negative, revealing no evidence of Helicobacter pylori. Positive control for Helicobacter pylori immunostain works appropriately. SD/ns 05/26/2022 1:36 PM [facility] Disclaimer All histochemical and/or immunohistochemical results are interpreted with controls that demonstrate appropriate staining reactions before reporting results. Note on use of immunocytochemistry reagents: This test was developed and its performance characteristic determined by [facility], Department of Laboratory Medicine. It has not been cleared or approved by the U.S. Food and Drug Administration (FDA). The FDA has determined that such clearance or approval is not necessary. The test is used for clinical purpose. It should not be regarded as investigational or for research. This laboratory is certified to perform high complexity testing. The performance characteristics of the IHC/TOMMIE assays have been validated on formalin-fixed paraffin embedded tissues only. The assays have not been validated on decalcified tissues. Results should be interpreted with caution. 05/26/2022 1:36 PM [facility] Embedded Images 05/26/2022 1:36 PM [facility] Pathology/Cytology GASTRIC ANTRAL BIOPSY SPECIMEN / Unknown 05/24/2022 12:15 PM CDT 05/24/2022 1:53 PM CDT Miscellaneous samples (specimen) GASTRIC ANTRAL BIOPSY SPECIMEN / Unknown 05/24/2022 12:15 PM CDT 05/24/2022 1:53 PM CDT Dale Cotto MD LAB - PATHOLOGY/CYTO LOGY ORDERABLES [facility] [address] [address] * EGD (05/24/2022 10:10 AM CDT) Report Endoscopy POC _ Patient Name: Haritha Castanon Procedure Date: 05/24/2022 10:10 AM Date of : 1950 Admit Type: Inpatient Age: 71 Room: ROOM 3 Gender: Female Attending MD: Dale Cotto MD _ Procedure: Upper GI endoscopy Indications: Melena Providers: Dale Cotto MD, Francesca Kumar, ELKE, Susan Chua RN, Anali Phelps CRNA (Anesthesia Staff) Referring MD: Arturo Tang (Referring MD) Medicines: Monitored Anesthesia Care Complications: No immediate complications. _ Estimated Blood Loss: Estimated blood loss: none. Procedure: Pre-Anesthesia Assessment: - Prior to the procedure, a History and Physical was performed, and patient medications and allergies were reviewed. The patient's tolerance of previous anesthesia was also reviewed. The risks and benefits of the procedure and the sedation options and risks were discussed with the patient. All questions were answered, and informed consent was obtained. Prior Anticoagulants: The patient has taken no previous anticoagulant or antiplatelet agents. ASA Grade Assessment: III - A patient with severe systemic disease. After reviewing the risks and benefits, the patient was deemed in satisfactory condition to undergo the procedure. After obtaining informed consent, the endoscope was passed under direct vision. Throughout the procedure, the patient's blood pressure, pulse, and oxygen saturations were monitored continuously. The Endoscope was introduced through the mouth, and advanced to the third part of duodenum. The upper GI endoscopy was accomplished without difficulty. The patient tolerated the procedure well. Findings: The examined duodenum was normal. A large hiatal hernia was present. Localized moderately erythematous mucosa without bleeding was found in the gastric body. Biopsies were taken with a cold forceps for histology. This was in the area of the diaphragmatic hiatus. Two 6 to 15 mm sessile polyps with bleeding were found in the gastric body. The polyp was removed with a hot snare. Resection and retrieval were complete. Retrieval was done with a Lombardo net. The examined esophagus was normal. _ Impression: - Normal examined duodenum. - Large hiatal hernia. - Erythematous mucosa in the gastric body. Biopsied. - Two gastric polyps. Resected and retrieved. - Normal esophagus. Recommendation: - per inpatient GI notes Procedure Code(s): --- Professional --- 01488 65068, 59 --- Technical --- 24669 45144, 59 Diagnosis Code(s): --- Professional --- K44.9 K31.89 K31.7 K92.1 --- Technical --- K44.9 K31.89 K31.7 K92.1 CPT copyright 2019 [employer]. All rights reserved. The codes documented in this report are preliminary and upon community assistant review may be revised to meet current compliance requirements. ___ Dale Cotto MD 05/24/2022 12:26:02 PM This report has been signed electronically. Number of Addenda: 0 Note Initiated On: 05/24/2022 10:10 AM [facility] 05/24/2022 10:1 0 AM CDT Dale Cotto MD GI PROCEDURE ORDERAB LES [facility] * (ABNORMAL) CBC W/O DIFFERENTIAL (05/24/2022 6:20 AM CDT) Only the most recent of2 resultswithin the time period is included. WBC 7.3 4.4 - 10.7 x10E9/L 05/24/2022 6:30 AM CDT [facility] RBC 3.02(L) 3.80 - 5.20 x10E12/L 05/24/2022 6:30 AM CDT [facility] Hemoglobin 8.8(L) 12.0 - 15.6 gm/dL 05/24/2022 6:30 AM CDT [facility] Hematocrit 27.0(L) 35.9 - 45.5 % 05/24/2022 6:30 AM CDT [facility] MCV 89.4 80.7 - 98.3 fl 05/24/2022 6:30 AM CDT [facility] MCH 29.1 26.7 - 34.0 pg 05/24/2022 6:30 AM CDT [facility] MCHC 32.6 30.8 - 35.9 gm/dL 05/24/2022 6:30 AM CDT [facility] Platelet Count 122(L) 153 - 416 x10E9/L 05/24/2022 6:30 AM T [facility] RDW-CV 14.1 12.1 - 14.9 % 05/24/2022 6:30 AM CDT [facility] MPV 11.7 9.4 - 12.9 fl 05/24/2022 6:30 AM T [facility] Blood BLOOD SPECIMEN / Unknown Lab Venipuncture / Unknown 05/24/2022 6:20 AM CDT 05/24/2022 6:27 AM CDT Keyanna Burch MD LAB - HEMATOLOGY ORD ERABLES [facility] [address] [address] * (ABNORMAL) BASIC METABOLIC PANEL (CALCIUM TOTAL) (05/24/2022 6:20 AM CDT) Glucose 147(H) 70 - 105 mg/dL 05/24/2022 6:47 AM [facility] Sodium 148(H) 136 - 145 mmol/L 05/24/2022 6:47 AM [facility] Potassium 4.3 3.5 - 5.1 mmol/L 05/24/2022 6:47 AM [facility] Chloride 120(H) 98 - 107 mmol/L 05/24/2022 6:47 AM [facility] CO2 18(L) 23 - 31 mmol/L 05/24/2022 6:47 AM [facility] Calcium 8.0(L) 8.4 - 10.4 mg/dL 05/24/2022 6:47 AM [facility] Anion Gap 10 8 - 18 mmol/L 05/24/2022 6:47 AM [facility] BUN 29(H) 9.8 - 20.1 mg/dL 05/24/2022 6:47 AM [facility] Creatinine 0.79 0.57 - 1.11 mg/dL 05/24/2022 6:47 AM [facility] eGFR by CKD-EPI 79(L) >=90 mL/min/1.7 3 m2 05/24/2022 6:47 AM [facility] Blood BLOOD SPECIMEN / Unknown Lab Venipuncture / Unknown 05/24/2022 6:20 AM CDT 05/24/2022 6:27 AM CDT Keyanna Burch MD LAB - CHEMISTRY TOSIN SAINZ Performing Organization Address [facility]/ZIP Co de Phone Number [facility] [address] [place] [address] * (ABNORMAL) LIPID PROFILE (05/24/2022 6:20 AM CDT) [facility] Signature Cholesterol 99 <200 mg/dL 05/24/2022 6:47 AM CDT [facility] Triglycerides 134 <150 mg/dL 05/24/2022 6:47 AM CDT [facility] HDL Cholesterol 23(L) >40 mg/dL 2 6:47 AM CDT [facility] LDL Calculated 49 <130 mg/dL 05/24/2022 6:47 AM CDT [facility] VLDL Calculated 27 <=30 mg/dL 2 6:47 AM CDT [facility] Chol HDL Ratio 4.3 <4.5 05/24/2022 6:47 AM CDT [facility] LDL/HDL Ratio 2.1 <5.0 05/24/2022 6:47 AM CDT [facility] Blood BLOOD SPECIMEN / Unknown Lab Venipuncture / Unknown 05/24/2022 6:20 AM CDT 05/24/2022 6:27 AM CDT Keyanna Burch MD LAB - CHEMISTRY TOSIN SAINZ Performing Organization Address [facility]/ZIP Co de Phone Number [facility] [address] [place] [address] * ECHOCARDIOGRAM 2D WITH DOPPLER (05/24/2022 1:15 AM CDT) 05/24/2022 1:1 5 AM CDT Narrative Procedure Note Donald Yuen MD - 05/25/[address] [address] Echocardiography Examination Transthoracic Name: HARITHA CASTANON MPI#: MR#: [id number] Admission Number: [id number] Study Date: 05/25/2022 Study Time: 10:11 AM Date Of : 1950 Age: 71 years Height: 63 in. (160.0 cm) Weight: 218 lbs. (98.88 kg) BSA: 2.01 m2 Gender: Female Blood Pressure: 101 mmHg / 62 mmHg Heart Rate: Exam Details Procedure Ordered: ECHOCARDIOGRAM 2D W/DOPPLER Procedure Components: Complete 2D, M-mode, complete spectral Doppler, color Doppler, Definity Procedure Views: Images were obtained from the parasternal, apical, subcostal, and suprasternal notch acoustic windows Procedure Status: Routine study Image Quality: Technically Difficult Contrast: Intravenous contrast (Definity) was administered to opacify the left ventricle. Facility Location: [facility] Indication: Upper GI Bleed Procedure Curb Machine Operator: Ema Jerome Ordering Provider: KEYANNA BURCH Reading Physician: DONALD YUEN MD Conclusions Left Ventricle: Left ventricle is normal in size. Normal global systolic left ventricular function. EF 72 %. Left ventricle wall thickness is mildly increased. There are no regional wall motion abnormalities. Features are consistent with a pseudonormal left ventricular filling pattern, with concomitant abnormal relaxation and increased filling pressure (Grade 2 diastolic dysfunction). Left Atrium: The left atrium is mildly dilated. Tricuspid Valve Measurements RVSP: 27 mmHg. Patient: HARITHA CASTANON Study Date: 05/25/2022 10:11 AM Page 1 of 4 Follow up: Findings Left Ventricle: Left ventricle is normal in size. Normal global systolic left ventricular function. EF evaluated by biplane method of disks. EF 72 %. Left ventricle wall thickness is mildly increased. There are no regional wall motion abnormalities. Features are consistent with a pseudonormal left ventricular filling pattern, with concomitant abnormal relaxation and increased filling pressure (Grade 2 diastolic dysfunction). Right Ventricle: Normal size right ventricle. Right ventricular wall thickness is normal. Right ventricular systolic function is normal. Pulmonary artery pressure normal. Left Atrium: The left atrium is mildly dilated. Right Atrium: The right atrium is normal in size. Mitral Valve: Mitral leaflets exhibit normal cuspal separation. Trivial mitral regurgitation. No mitral valve stenosis. Aortic Valve: Aortic leaflets exhibit normal cuspal separation. No aortic valve regurgitation. There is no aortic stenosis. The aortic valve is trileaflet. Tricuspid Valve: Tricuspid valve leaflets are normal. Trivial tricuspid regurgitation. No tricuspid valve stenosis. Pulmonic Valve: Pulmonic leaflets exhibit normal cuspal separation. No pulmonic valve regurgitation is evident. There is no pulmonic valve stenosis. Aorta: The aorta is normal. No dilation of the ascending aorta. The aortic root exhibits normal size. Great Vessels: IVC: The inferior vena cava is normal in size and course. Pericardium: The pericardium is normal in appearance. No pericardial effusion. Clinical Data Comment: History: Former Smoker, DM, HTN, Dyslipidemia Measurements Anatomy Label Value Normal Value Aorta AoRoot, MM 2.7 cm (2.2cm - 3.7cm) Aortic Valve AV Vmean 1.06 m/s Aortic Valve AV VTI 31 cm Aortic Valve AV PGmax 10 mmHg Aortic Valve AV PGmean 5 mmHg Aortic Valve AV Vmax, Caliper 1.62 m/s (1m/s - 1.7m/s) Aortic Valve LVOT VTI / AV VTI 0.88 Aortic Valve SCOTTY D (continuity eq. VTI) 2.8 cm Aortic Valve SCOTTY Index (continuity 1.29 cm /m eq.Vmax) Patient: HARITHA CASTANON Study Date: 05/25/2022 10:11 AM Page 2 of 4 Aortic Valve LVOT Vmax / AV Vmax 0.82 Interventricular septum IVSd, 2D 1 cm (0.6cm - 1.1cm) Left Atrium LA Area s, A4C 27.9 cm (0cm - 20cm ) Left Atrium LA Area s, A2C 22.3 cm (0cm - 20cm ) Left Atrium LAESV, MOD4 91 ml (22ml - 52ml) Left Atrium LAESV, MOD2 67 ml (22ml - 52ml) Left Atrium LAESV index, MOD4 45.3 ml/m Left Atrium LAESV index, MOD2 33.3 ml/m Left Ventricle LVOT Vmax 1.33 m/s (0.7m/s - 1.1m/s) Left Ventricle LVOTd 2 cm (1.8cm - 2cm) Left Ventricle LVOT VTI 27.3 cm (18cm - 22cm) Left Ventricle LVOT PGmax 7 mmHg Left Ventricle LVEF visual 72 % (55% - 75%) Left Ventricle LVDd, 2D 4.3 cm (3.7cm - 5.2cm) Left Ventricle LVDs, 2D 2.6 cm (2.2cm - 3.5cm) Left Ventricle LVPWd, 2D 1 cm (0.6cm - 0.9cm) Left Ventricle FS, 2D 39.53 % Left Ventricle LVEDV, BP 117 ml (56ml - 104ml) Left Ventricle LVESV, BP 33 ml (19ml - 49ml) Left Ventricle LVEDV Index, BP 58.2 ml/m (35ml/m - 75ml/m ) Left Ventricle LVESV Index, BP 16.4 ml/m (12ml/m - 30ml/m ) Left Ventricle LVSV Index, BP 41.8 ml/m Left Ventricle LVOT PGmean 4 mmHg Left Ventricle LVOT Vmean 0.87 m/s Left Ventricle LVOT Area 3.1 cm Left Ventricle Diastolic MV E Vmax 1.06 m/s Function Left Ventricle Diastolic MV A Vmax 1.1 m/s Function Left Ventricle Diastolic MV E/A 0.96 Function Left Ventricle Diastolic MV E/E' lateral 13.8 Function Left Ventricle Diastolic MV E/E' septal 16.2 (0.45 - 1.25) Function Left Ventricle Diastolic MV DT 180 ms Function Left Ventricle Diastolic MV E' septal 0.07 m/s Function Left Ventricle Diastolic MV E' lateral 0.08 m/s Function Left Ventricle Diastolic MV E/E' mean 14.13 Function Left Ventricle Diastolic MV E' mean 0.08 m/s Function Pulmonic Valve PV PGmax 6 mmHg Pulmonic Valve PV Vmax, Caliper 1.26 m/s (0.6m/s - 0.9m/s) Right Ventricle Diastolic TR Pmax 24 mmHg Function Right Ventricle Diastolic PV AT 92 ms Patient: HARITHA CASTANON Study Date: 05/25/2022 10:11 AM Page 3 of 4 Function Tricuspid Valve RVSP 27 mmHg Tricuspid Valve RA Pressure 3 mmHg Tricuspid Valve TR Vmax 2.46 m/s (No Signature Object) Patient: HARITHA CASTANON Study Date: 05/25/2022 10:11 AM Page 4 of 4 Keyanna Burch MD ECHO ORDERABLES Performing Organization Address [facility]/ZIP Co de Phone Number [facility] [address] [address] * (ABNORMAL) PT-INR (05/24/2022 12:01 AM CDT) PT 15.0(H) 12.1 - 14.8 sec 05/24/2022 12:40 AM CDT [facility] INR 1.2(H) 0.9 - 1.1 05/24/2022 12:40 AM CDT [facility] Blood BLOOD SPECIMEN / Unknown Lab Venipuncture / Unknown 05/24/2022 12:01 AM CDT 05/24/2022 12:10 AM CDT Narrative [facility] - 05/24/2022 12:40 AM CDT Conventional Warfarin Anticoagulant Therapy: INR Reference Range: 2.0-3.0 Intensive Warfarin Anticoagulant Therapy: INR Reference Range: 2.5-3.5 Keyanna Burch MD LAB - COAGULATION OR DERABLES Performing Organization Address City/[facility]/ZIP Co de Phone Number [facility] [address] [address] * PHOSPHORUS BLOOD (05/24/2022 12:01 AM CDT) Phosphorus 3.1 2.3 - 4.7 mg/dL 05/24/2022 12:34 AM CDT [facility] Blood BLOOD SPECIMEN / Unknown Lab Venipuncture / Unknown 05/24/2022 12:01 AM CDT 05/24/2022 12:10 AM CDT Keyanna Burch MD LAB - CHEMISTRY ORDE RABLES Performing Organization Address City/[facility]/ZIP Co de Phone Number [facility] [address] [address] * MAGNESIUM BLOOD (05/24/2022 12:01 AM CDT) Magnesium 1.9 1.6 - 2.6 mg/dL 05/24/2022 12:34 AM CDT [facility] Blood BLOOD SPECIMEN / Unknown Lab Venipuncture / Unknown 05/24/2022 12:01 AM CDT 05/24/2022 12:10 AM CDT Keyanna Burch MD LAB - CHEMISTRY TOSIN ABIGAILALEX Performing Organization Address City/[facility]/ZIP Co de Phone Number [facility] [address] [phone] * LACTIC ACID BLOOD (05/24/2022 12:01 AM CDT) Lactic Acid 1.81 <=2 mmol/L 05/24/2022 12:26 AM CDT [facility] Blood BLOOD SPECIMEN / Unknown Lab Venipuncture / Unknown 05/24/2022 12:01 AM CDT 05/24/2022 12:10 AM CDT Keyanna Burch MD LAB - CHEMISTRY TOSIN SAINZ Performing Organization Address City/[facility]/ZIP Co de Phone Number [facility] [address] [address] * DERMATOPATHOLOGY (09/16/2020 12:00 AM COSTUME SHOP MANAGER) Case Report Dermatopathology Report Case: [id number] Authorizing Provider: Sorin Lozano MD Collected: 09/16/2020 12:00 AM Ordering Location: [facility] Received: 09/17/2020 12:08 PM Pathologist: Rosemary Espino MD Specimens: A) - Skin, upper abdomen A B) - Skin, upper abdomen B C) - Skin, left upper lateral arm above elbow 0 1:15 PM COSTUME SHOP MANAGER DERMATOPATHOLOGY LABORATORY Final Diagnosis Specimen A. SKIN, upper abdomen A: FOCAL DERMAL FIBROSIS (L90.5) (see microscopic description and comment) Specimen B. SKIN, upper abdomen B: LICHEN SCLEROSUS ET ATROPHICUS (L90.0) (see microscopic description) Specimen C. SKIN, left upper lateral arm above elbow: HYPERPLASTIC (HYPERTROPHIC) ACTINIC KERATOSIS (L57.0) (see microscopic description) 0 1:15 PM COSTUME SHOP MANAGER DERMATOPATHOLOGY LABORATORY Clinical History A-B: R/O morphea vs LS&A vs other C: R/O BCC, LSK 0 1:15 PM [facility] DERMATOPATHOLOGY [facility]AT[facility] Gross Description Specimen A: Received is one formalin filled container labeled with the patient's name and designated upper abdomen A. The specimen consists of a punch biopsy measuring 5x5x6 mm, biected. Jar 0. Specimen B: Received is one formalin filled container labeled with the patient's name and designated upper abdomen B. The specimen consists of a punch biopsy measuring 5x5x6 mm, bisected. Jar 0. Specimen C: Received is one formalin filled container labeled with the patient's name and designated left upper lateral arm above elbow. The specimen consists of a shave biopsy measuring 10x8x1 mm. Jar 0. 0 1:15 PM [facility] DERMATOPATHOLOGY [facility] Microscopic Description Specimen A. SKIN, upper abdomen A: The epidermis is unremarkable. There is focal dermal fibrosis. Verhoeff-Van Gieson (VVG) elastic stain does not reveal significant disruption of dermal elastic fibers. Grocott's methenamine silver (GMS) stain fails to highlight fungal elements in the available sections. Additional deeper sections were obtained and reviewed. COMMENT: The overall histologic findings are nonspecific; however, as focal fibrosis is present, and in the setting of the histologic findings in specimen B, early/evolving lichen sclerosus et atrophicus cannot be entirely excluded. Specimen B. SKIN, upper abdomen B: There is compact hyperkeratosis, atrophy, and vacuolar alteration of the basal cell layer. The papillary dermis is sclerotic and homogeneous with an underlying lymphohistiocytic infiltrate. Verhoeff-Van Gieson (VVG) elastic stain reveals focal disruption of elastic fibers in the superficial dermis. Grocott's methenamine silver (GMS) stain fails to highlight fungal elements in the available sections. Specimen C. SKIN, left upper lateral arm above elbow: There is hyperkeratosis alternating with parakeratosis. There is epidermal hyperplasia with disorderly maturation of keratinocytes with nuclear pleomorphism confined to the lower half of the epidermis. The lesion is inflamed. 0 1:15 PM [facility] DERMATOPATHOLOGY [facility]ORATORY Disclaimer An external and internal positive and negative controls are appropriate for the histochemical, immunohistochemical and immunofluorescence stain(s) in this case (if any), except where stated explicitly. The performance characteristics of the stain(s) cited in this report were developed and its performance characteristic determined by the Dermatopathology Laboratory at [facility], directed by Dr. Merlyn Grover. These tests need not be, and therefore are not, approved by the [place] Food and Drug Administration. The tests are used for clinical purposes. Billing Codes Specimen Charges Stain Charges 27533 99588 05704 1 1 1 [id number] 96667 77077 45662 1 1 1 1 0 1:15 PM COSTUME SHOP MANAGER DERMATOPATHOLOGY LABORATORY Embedded Images 0 1:15 PM COSTUME SHOP MANAGER DERMATOPATHOLOGY LABORATORY Pathology/Cytology TISSUE SPECIMEN FROM SKIN / Unknown 09/16/2020 09/17/2020 12:08 PM COSTUME SHOP MANAGER Miscellaneous samples (specimen) TISSUE SPECIMEN FROM SKIN / Unknown 09/16/2020 09/17/2020 12:08 PM COSTUME SHOP MANAGER Miscellaneous samples (specimen) TISSUE SPECIMEN FROM SKIN / Unknown 09/16/2020 09/17/2020 12:08 PM COSTUME SHOP MANAGER Sorin Lozano MD LAB - PATHOLOGY/CYTO LOGY ORDERABLES DERMATOPATHOLOGY LABORATORY [facility] - Department of Dermatology [facility] Specialized Medicine [address] [place] [address], [address] [phone] Care Teams Pathology Secretary/Transcriptionist Relationship Specialty Start Date End Date Arturo Tang DO PCP - General Internal Medicine 05/23/22
--- OUTSIDE RECORDS SUMMARY | 2025-01-18 14:23 | XMS_ITS | Encounter Summary ---
Author Organization [facility] Address [address] [place] [address] Phone Care Team Providers Care Creative Strategist Name Role Phone Maricarmen Mireles MD Primary Care Provider [phone] Arturo Tang DO Primary Care Provider Reason for Visit * Reason Comments Medication Refill Encounter Details Date Type Department Care Team (Late st Contact Info) Description 08/31/2021 Refill [facility] - Primary Care - [place] [address] [place] [address] Maricarmen Mireles MD [address] [place] [address] Medication Refill Social History Tobacco [...] Telephone Encounter - Rosanna Lozoya RN - 08/31/2021 8:22 AM CDT Medication failed the protocol, provider to review and approve the medication order if appropriate. Requested Prescriptions Pending Prescriptions Disp Refills glipiZIDE (GLUCOTROL XL) 5 MG TABLET SR 24 HR [Pharmacy Med Name: glipiZIDE ER 5 MG Oral Tablet Extended Release 24 Hour] 90 Tablet 0 Sig: Take 1 tablet by mouth once daily Sulfonylureas Protocol Failed - 08/31/2021 5:30 AM Failed - HgA1C on record in past 6 months HGB-A1C Date Value Ref Range Status 08/09/2020 7.1 % Final Failed - GFR on record in past 6 months No results found for: GFRNA Passed - Visit with relevant provider in past 6 months or upcoming 90 days Recent Visits Date Type Provider Dept 03/10/21 Office Visit Maricarmen Mireles MD [facility] Showing recent visits within past 182 days [...] documented as of this encounter Care Teams Creative Strategist Relationship Specialty Start Date End Date Maricarmen Mireles MD PCP - General Family Medicine 08/25/15 12/08/21 Arturo Tang DO [facility] [place] [address] PCP - General Internal Medicine 12/17/21 documented as of this encounter
--- OUTSIDE RECORDS SUMMARY | 2025-01-18 14:23 | XMS_ITS | Encounter Summary ---
Author Organization [facility] Address [address] [place] [address] Care Team Providers Care Senior Commissary Agent Name Role Phone Arturo Tang DO Primary Care Provider [phone] Encounter Details Date Type Department Care Team (Late st Contact Info) Description 09/17/2020 Lab Requisition [facility] DermPath Lab [address] [place] [phone] Sorin [place]oz[place] [address] Social History Tobacco Use Types Packs/Day Years Used Date Smoking Tobacco: Never Assessed Sex and Gender Information Value Date Recorded Sex Assigned at Not on file Gender Identity Not on file Sexual Orientation Not on file documented as of this encounter Plan of Treatment Not on file documented as of this encounter Procedures Procedure Name Priority Date/Time Associated Diagnosis Comments DERMATOPATHOLOGY Routine 09/16/2020 12:0 0 AM THIRD RAIL INSTALLER documented in this encounter Results * DERMATOPATHOLOGY (09/16/2020 12:00 AM THIRD RAIL INSTALLER) Case Report Dermatopathology Report Case: [id number] Authorizing Provider: Sorin Lozaon MD Collected: 09/16/2020 12:00 AM Ordering Location: [facility] DermPath Lab Received: 09/17/2020 12:08 PM Pathologist: Rosemary Espino MD Specimens: A) - Skin, upper abdomen A B) - Skin, upper abdomen B C) - Skin, left upper lateral arm above elbow 0 1:15 PM THIRD RAIL INSTALLER DERMATOPATHOLOGY LABORATORY Final Diagnosis Specimen A. SKIN, upper abdomen A: FOCAL DERMAL FIBROSIS (L90.5) (see microscopic description and comment) Specimen B. SKIN, upper abdomen B: LICHEN SCLEROSUS ET ATROPHICUS (L90.0) (see microscopic description) Specimen C. SKIN, left upper lateral arm above elbow: HYPERPLASTIC (HYPERTROPHIC) ACTINIC KERATOSIS (L57.0) (see microscopic description) 0 1:15 PM [facility] DERMATOPATHOLOGY LABORATORY Clinical History A-B: R/O morphea vs LS&A vs other C: R/O BCC, LSK 0 1:15 PM [facility] DERMATOPATHOLOGY LABORATORY Gross Description [...] 10x8x1 mm. Jar 0. 0 1:15 PM [facility] DERMATOPATHOLOGY LABORATORY Microscopic Description [...] The lesion is inflamed. 0 1:15 PM THIRD RAIL INSTALLER DERMATOPATHOLOGY LABORATORY Disclaimer An external and internal positive and negative controls are appropriate for the histochemical, immunohistochemical and immunofluorescence stain(s) in this case (if any), except where stated explicitly. The performance characteristics of the stain(s) cited in this report were developed and its performance characteristic determined by the Dermatopathology Laboratory at [facility], directed by Dr. Merlyn Grover. These tests need not be, and therefore are not, approved by the [place] Food and Drug Administration. The tests are used for clinical purposes. Billing Codes Specimen Charges Stain Charges 81955 93173 15408 1 1 1 70966 00486 95102 49612 1 1 1 1 0 1:15 PM THIRD RAIL INSTALLER DERMATOPATHOLOGY LABORATORY Embedded Images 0 1:15 PM THIRD RAIL INSTALLER DERMATOPATHOLOGY LABORATORY Pathology/Cytology TISSUE SPECIMEN FROM SKIN / Unknown 09/16/2020 09/17/2020 12:08 PM THIRD RAIL INSTALLER Miscellaneous samples (specimen) TISSUE SPECIMEN FROM SKIN / Unknown 09/16/2020 09/17/2020 12:08 PM THIRD RAIL INSTALLER Miscellaneous samples (specimen) TISSUE SPECIMEN FROM SKIN / Unknown 09/16/2020 09/17/2020 12:08 PM THIRD RAIL INSTALLER Sorin Lozano MD LAB - PATHOLOGY/CYTO LOGY ORDERABLES DERMATOPATHOLOGY LABORATORY [facility] - Department of Dermatology [facility] [address] [place] [address], [address] [phone] documented in this encounter Visit Diagnoses Not on filedocumented in this encounter Care Teams Senior Commissary Agent Relationship Specialty Start Date End Date Arturo Tang DO PCP - General Internal Medicine 05/23/22 documented as of this encounter
--- OUTSIDE RECORDS SUMMARY | 2025-01-18 14:23 | XMS_ITS | Encounter Summary ---
Author Organization [facility] Address [address] [place] [address] Phone Care Team Providers Care Title Investigator Name Role Phone Maricarmen Mireles MD Primary Care Provider Arturo Tang DO Primary Care Provider Reason for Visit * Reason Comments Medication Refill Encounter Details Date Type Department Care Team (Late st Contact Info) Description [facility] [address] [place] [address] Maricarmen Mireles MD [address] [place] [address] Medication Refill Social History Tobacco [...] Telephone Encounter - Natalie Arredondo RN - 10/26/2021 11:05 AM CST Medication failed the protocol, provider to review and approve the medication order if appropriate. Requested Prescriptions Pending Prescriptions Disp Refills metoprolol Succinate (TOPROL-XL) 50 MG TABLET SR 24 HR [Pharmacy Med Name: Metoprolol Succinate ER 50 MG Oral Tablet Extended Release 24 Hour] 90 Tablet 0 Sig: Take 1 tablet by mouth once daily Beta-Blockers Protocol Passed - 10/26/2021 10:27 AM Passed - BP on record in the past year Clinician-entered: BP Readings from Last 3 Encounters: 03/10/21 124/88 10/12/20 142/82 08/25/20 140/82 Patient-entered: No data recorded Passed - Visit with relevant provider in past 12 months or upcoming 90 days Recent Visits Date Type Provider Dept 03/10/21 Office Visit Maricarmen Mireles MD [facility] Showing recent visits within past 365 [...] Hmg CoA Reductase Inhibitors Protocol Failed - 10/26/2021 10:27 AM Failed - Lipid panel in past 12 months LDL Date Value Ref Range Status 08/09/2020 93 0 - 130 mg/dL Final Passed - Visit with relevant provider in past 12 months or upcoming 90 days Recent Visits Date Type Provider Dept 03/10/21 Office Visit Maricarmen Mireles MD [facility] Showing recent visits within past 365 days and meeting all other requirements Future Appointments No visits were found meeting these conditions. Showing future appointments within next 90 days and meeting all other requirements HER FITTER documented in this encounter Plan of Treatment Not on file documented as of this encounter Visit Diagnoses Diagnosis Essential hypertension Unspecified essential hypertension Hyperlipidemia, unspecified hyperlipidemia type documented in this encounter Additional Health Concerns Assessment Noted Time PHQ-9 Depression Total Score: 0 08/25/20 20 12:00 PM CDT documented as of this encounter Care Teams Title Investigator Relationship Specialty Start Date End Date Maricarmen Mireles MD PCP - General Family Medicine 08/25/15 12/08/21 Arturo Tang DO [facility] [place] [address] PCP - General Internal Medicine 12/17/21 documented as of this encounter
--- OUTSIDE RECORDS SUMMARY | 2025-01-18 14:23 | XMS_ITS | Encounter Summary ---
Author Organization [facility] Address [address] [place] [address] Phone Care Team Providers Care Supervisor Television Chassis Repair Name Role Phone Maricarmen Mireles MD Primary Care Provider Arturo Tang DO Primary Care Provider Reason for Visit * Reason Comments Medication Refill Encounter Details Date Type Department Care Team (Late st Contact Info) Description 05/28/2021 Refill [facility] - Primary Care - [place] [address] [place] [address] Maricarmen Mireles MD [address] [place] [address] Medication Refill Social History Tobacco [...] Telephone Encounter - Susan Husain RN - 05/29/2021 10:14 AM CDT Medication failed the protocol, provider to review and approve the medication order if appropriate. Requested Prescriptions Pending Prescriptions Disp Refills glipiZIDE (GLUCOTROL XL) 5 MG TABLET SR 24 HR [Pharmacy Med Name: glipiZIDE ER 5 MG Oral Tablet Extended Release 24 Hour] 90 Tablet 0 Sig: Take 1 tablet by mouth once daily Sulfonylureas Protocol Failed - 05/28/2021 9:37 PM Failed - HgA1C on record in past 6 months HGB-A1C Date Value Ref Range Status 08/09/2020 7.1 % Final Failed - GFR on record in past 6 months No results found for: GFRNA Passed - Visit with relevant provider in past 6 months or upcoming 90 days Recent Visits Date Type Provider Dept 03/10/21 Office Visit Maricarmen Mireles MD [facility] Showing recent visits within past 182 days [...] documented as of this encounter Care Teams Supervisor Television Chassis Repair Relationship Specialty Start Date End Date Maricarmen Mireles MD PCP - General Family Medicine 08/25/15 12/08/21 Arturo Tang DO [facility] [place] [address] PCP - General Internal Medicine 12/17/21 documented as of this encounter
== END 2025-01-18 14:05 | disposition home or self-care (01) ==
LOC: ANHIMG 14:06
PROVIDERS: PCP Internal Medicine; Visit Provider Nurse Practitioner
DX: Z12.31 Encounter for screening mammogram for malignant neoplasm of breast (principal)
CPT/HCPCS: 77063; 77067

== ENCOUNTER 2025-01-23 14:30 | Outpatient (RCR) | payer MEDICARE, SELFPAY | END 2025-01-28 23:59 | disposition home or self-care (01) | LOC: ANHDMC 14:30 | PROVIDERS: PCP Internal Medicine; Visit Provider Nurse Practitioner | DX: E11.65 Type 2 diabetes mellitus with hyperglycemia (principal); Z71.89 Other specified counseling | CPT/HCPCS: G0108; G0109 ==

== ENCOUNTER 2025-03-08 09:58 | Emergency (ER) | payer MEDICARE, SELFPAY ==
[2025-03-08 10:07] VITALS: BP 139/84; PULSE 83; RESP 18; TEMP 36.2; O2SAT 97
--- NOTE | 2025-03-08 10:08 | ED.EYEPROB ---
HPI - Eye Problem General Chief complaint: Eye Problems Stated complaint: SWOLLEN EYE Time Seen by Provider: 03/08/25 10:23 Source: patient and RN notes reviewed Mode of arrival: ambulatory Limitations: no limitations History of Present Illness HPI Narrative: 74-year-old female presents with concern of for redness, irritation, swelling of the right upper eyelid. She reports watery drainage. Reports yesterday was slightly yellow and cloudy. She denies vision changes. In a separate complaint she reports chronic rhinorrhea, she takes antihistamines without relief. MD chief complaint: eye redness Related Data Home Medications ?Medication ?Instructions ?Recorded ?Confirmed ?Last Taken ?Type fexofenadine 180 mg tablet 180 mg PO HS 01/11/22 03/08/25 09/20/23 History cholecalciferol (vitamin D3) 50 50 mcg PO HS 04/13/23 03/08/25 09/20/23 History mcg (2,000 unit) capsule biotin 5,000 mcg chewable tablet 5,000 mcg PO HS 09/13/23 03/08/25 09/20/23 History Allergies Allergy/AdvReac Type Severity Reaction Status Date / Time Sulfa (Sulfonamide Allergy Severe Hives / Verified 03/08/25 10:09 Antibiotics) Red Face Review of Systems Review of Systems: CONSTITUTIONAL: Denies malaise, chills, sweats, or fever. EYES: Denies visual changes. Reports right upper eyelid redness, irritation, with discharge. ENT: Denies rhinorrhea, congestion, sinus pain, otalgia or sore throat. SKIN: Denies rash or itching. NEUROLOGIC: Denies numbness, weakness, or headache. PSYCHIATRIC: Denies anxiety or depression. All systems reviewed & are unremarkable except as noted in HPI and below [facility] Past Medical History Medical History Obstructive sleep apnea Type 2 diabetes mellitus Hypertension GI bleed due to NSAIDs Hyperlipidemia Transaminitis Obesity GERD (gastroesophageal reflux disease) Arthritis Anxiety Allergy Surgical History Surgical History History of esophagogastroduodenoscopy (05/2022) For evaluation of upper GI bleed. Findings included a large hiatal hernia, erythematous mucosa in the gastric body which was biopsied, and 2 friable gastric polyps which were resected and retrieved. H/O total knee replacement Bilateral in 2015 H/O esophagogastroduodenoscopy (~05/2022) History of carpal tunnel release of both wrists No pertinent past surgical history Family History Family History Mother Hypertension Grandparent Acute myocardial infarction Grandparent Acute myocardial infarction Father Cerebrovascular accident Prostate carcinoma Grandparent Diabetes mellitus Sibling Glaucoma Social History Social History (Updated 01/16/25 @ 14:22 by Susan Mack MA) Smoking packs per day: 1 Smoking cigarettes per day: 20.0 Years smoked: 20 Smoking pack-years: 20.00 Smoking status: Former smoker Tobacco type: cigarettes Smoking end date: 11/14/89 Alcohol intake: never Substance use: never Substance use type: does not use Do You Feel Safe in your Home?: Yes Living arrangements: alone Spiritual care concerns: No Comments At time of signature, agree with nursing past medical, surgical, social and family history. There is no relevant family history pertinent to the presenting complaint Exam Narrative: GENERAL: Well-appearing, well-nourished, and in no acute distress. HEAD: Normocephalic, atraumatic. EYES: PERRLA, sclera clear, and EOMI. No nystagmus. Right conjunctivae mildly injected, right inner upper eyelid erythematous and edematous. Left Upper and lower eyelid unremarkable, no periorbital edema noted ENT: Nares clear, turbinates pink, no rhinorrhea or epistaxis. Mucous membranes moist. TM pearly pressley with sharp light reflex bilaterally; no tragal tenderness. NECK: Supple. CHEST: No respiratory distress. Speaks in full sentences. HEART: Regular rate and rhythm. SKIN: Warm, dry, no visible rash. NEURO: Alert and oriented x3. PSYCH: Normal mood and affect Course Course Emergency Course: Patient is aware of diagnosis, understands and agrees to treatment plan. Anticipatory guidance given. Patient agrees to follow-up as directed and is aware of reasons to seek care at the emergency department. Portions of this record may have been created with voice recognition software Level of Care: Express Care Visit Vital Signs Vital signs: Vital Signs Temperature 97.2 F L 03/08/25 10:07 Pulse Rate 83 03/08/25 10:07 Respiratory Rate 18 03/08/25 10:07 Blood Pressure 139/84 03/08/25 10:07 Pulse Oximetry 97 03/08/25 10:07 Temperature 97.2 F L 03/08/25 10:07 Pulse Rate 83 03/08/25 10:07 Respiratory Rate 18 03/08/25 10:07 Blood Pressure 139/84 03/08/25 10:07 Pulse Oximetry 97 03/08/25 10:07 Reviewed. MDM - Eye Problem MDM Narrative Medical decision making narrative: Consideration of the following conditions may be warranted for the presenting problem, they are not final diagnoses: Bacterial conjunctivitis, allergic conjunctivitis, viral conjunctivitis, foreign body, blepharitis, chalazion, hordeolum, corneal abrasion, preseptal cellulitis, orbital cellulitis. No evidence of proptosis, ophthalmoplegia, vision loss, pain with eye movement. Exam findings show no acute concerns or changes; patient is non-toxic appearing and is in no distress. Patient is appropriate for outpatient treatment and follow-up. Critical Care Time Critical Care Time Critical Care Time: No Discharge Plan Discharge Clinical Impression: Hordeolum, Rhinorrhea Patient Disposition: Home Condition: Stable Instructions: Pedro (ED) Additional Instructions: Do not touch or rub your eye. Use a warm washcloth on your eye throughout the day Use eyedrops as directed Practice good handwashing You may take Tylenol or ibuprofen for pain Follow-up with PCP or direct support specialist if condition is not improving in 2-3days. Go to the emergency room if you have pain behind your eye, pressure behind your eye, difficulty seeing, or other severe symptoms Patient Language: Armenian Prescriptions: New polymyxin B sulf-trimethoprim 10,000 unit- 1 mg/mL drops 1 drp RIGHT EYE Q3H 7 Days Qty: 10 0RF Rx Instructions: while awake; do not exceed 6 doses in 24 hours ipratropium bromide 21 mcg (0.03 %) spray,non-aerosol 2 spray NASAL TID PRN (Reason: nasal drainage) Qty: 30 0RF Rx Instructions: administer into each nostril No Action cholecalciferol (vitamin D3) 50 mcg (2,000 unit) capsule 50 mcg PO HS (DME) blood-glucose meter [Advanced Glucose Meter] Misc See Rx Instructions .Route Qty: 1 0RF Rx Instructions: USE TO CHECK BS BID fexofenadine 180 mg tablet 180 mg PO HS (DME) CPAP supplies See Rx Instructions .Route .MEDSUPPLY Qty: 1 0RF Rx Instructions: CPAP climate line tubing, CPAP Mirage FX, Replacement cushion, Headgear UW CPAP Device, CPAP S9-S10 Elite Filters pravastatin 20 mg tablet 20 mg PO HS Qty: 90 3RF Eliquis 5 mg tablet 5 mg PO Q12HR Qty: 180 1RF Ozempic 1 mg/dose (4 mg/3 mL) pen injector 1 mg subcut WEEKLY Qty: 3 2RF diltiazem HCl 180 mg Capsule,Ext.Rel 24h Degradable 180 mg PO QAM 30 Days Qty: 30 0RF biotin 5,000 mcg Tablet,Chewable 5,000 mcg PO HS buspirone 10 mg tablet 10 mg PO DAILY Qty: 90 1RF duloxetine 30 mg capsule,delayed release(DR/EC) 30 mg PO DAILY Qty: 90 1RF (DME) Advanced Gluc Meter Test Strip Strip See Rx Instructions .Route Qty: 100 3RF Rx Instructions: Use to check BS BID (DME) lancets [Advanced Travel Lancets] 28 gauge misc See Rx Instructions .Route Qty: 100 3RF Rx Instructions: Use to check BS BID omeprazole 20 mg capsule,delayed release(DR/EC) See Rx Instructions .ROUTE .COMPLEX Qty: 90 1RF Dose Instruction: Take 1 capsule by mouth once daily Rx Instructions: Take 1 capsule by mouth once daily glipizide 10 mg tablet extended release 24hr See Rx Instructions .ROUTE .COMPLEX Qty: 90 1RF Dose Instruction: Take 1 tablet by mouth once daily Rx Instructions: Take 1 tablet by mouth once daily metoprolol succinate 100 mg tablet extended release 24 hr 100 mg PO DAILY Qty: 90 1RF lisinopril 20 mg tablet See Rx Instructions .ROUTE .COMPLEX Qty: 90 1RF Dose Instruction: Take 1 tablet by mouth once daily Rx Instructions: Take 1 tablet by mouth once daily ferrous sulfate 325 mg (65 mg iron) tablet 325 mg PO DAILY Qty: 90 0RF Follow-up/Referrals: Sol Aragon, MULTIPLE RESAW OPERATOR [Primary Care Provider] - Time of Disposition: 10:32
== END 2025-03-08 10:35 | disposition home or self-care (01) ==
PROVIDERS: Emergency Provider Nurse Practitioner; PCP Nurse Practitioner
DX: H00.011 Hordeolum externum right upper eyelid (principal); E11.9 Type 2 diabetes mellitus without complications; E78.5 Hyperlipidemia, unspecified; I10 Essential (primary) hypertension; Z87.891 Personal history of nicotine dependence; Z79.899 Other long term (current) drug therapy
CPT/HCPCS: 99213; G0463

== ENCOUNTER 2025-06-05 00:22 | Day surgery (SDC) | payer MEDICARE, SELFPAY ==
[2025-05-28 14:30] VITALS: BMI 31.8
--- OUTSIDE RECORDS SUMMARY | 2025-06-05 00:25 | XMS_ITS | Referral Summary ---
Author Organization [facility] Medical Office Building [facility] Address [address] [place] [address] Care Team Providers Care Bender Helper Name Role Phone Sol Aragon NP Primary Care Provider [phone] Allergies Active Allergy Reactions Criticality Noted Date Comments House Dust Metformin Diarrhea High 12/09/2016 Sulfamethoxazole-Trimethoprim Rash Medium 2016 Medications ergocalciferol (VITAMIN D) 50,000 unit capsule Take one by mouth every week 4 4 8 Active acetaminophen (TYLENOL) 325 mg tablet Take 2 tablets (650 mg total) by mouth as needed 2 Active busPIRone (BUSPAR) 10 mg tablet Take 1 tablet (10 mg total) by mouth daily 3 Active fexofenadine (CHANDLER) 180 mg tablet Take 1 tablet (180 mg total) by mouth daily Active Eliquis 5 mg tabletIndications :Paroxysmal atrial fibrillation (HCC) Take 1 tablet by mouth twice daily 180 tablet 4 Active lisinopriL (PRINIVIL,ZESTRIL ) 20 mg tablet Take 1 tablet (20 mg total) by mouth daily 4 Active Ozempic 1 mg/dose (4 mg/3 mL) pen injector injection Inject 1 mg under the skin once a week 5 Active metoprolol XL (TOPROL-XL) 100 mg 24 hr tablet Take 1 tablet (100 mg total) by mouth daily 4 Active glipiZIDE XL (GLUCOTROL XL) 10 mg 24 hr tablet Take 1 tablet (10 mg total) by mouth daily [address] (CYMBALTA) 30 mg capsule Take 1 capsule (30 mg total) by mouth daily 5 Active omeprazole (PriLOSEC) 20 mg capsule Take 1 capsule (20 mg total) by mouth daily 5 Active pravastatin (PRAVACHOL) 20 mg tablet Take 1 tablet (20 mg total) by mouth daily 4 Active DILT-XR 180 mg 24 hr capsuleIndication s:Paroxysmal atrial fibrillation (HCC) Take 1 capsule by mouth once daily 90 capsule 3 5 Active Active Problems Problem Noted Date Diagnosed [...] on file 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 Gender Identity Not on file Sexual Orientation Not on file Last Filed Vital Signs Vital Sign Reading Time Taken Comments Blood Pressure 132/74 01/21/2025 1:09 PM CDT Pulse 69 01/21/2025 1:09 PM CDT Temperature - - Respiratory Rate - - Oxygen Saturation 96% 01/21/2025 1:09 PM CDT Inhaled Oxygen Concentration - - Weight 88.5 kg (195 lb) 01/21/2025 1:09 PM CDT Height 162.6 cm (5' 4) 01/21/2025 1:09 PM CDT Body Mass Index 33.47 01/21/2025 1:09 PM CDT Plan of Treatment Not on [...] 9:47 PM CDT Screening Mamm Bi Acc#: [id number] DATE OF EXAM: Jul 02 2015 Performed [...] Fax: -- Attending Fax: -- Attending ID: [id number] Requesting ID: [id number] Report To 1 ID: [id number] Report To 1 Name: JESSICA DE LA PAZ Report To 1 FAX: -- NextGen Order #: Procedure Note Provider, MD Shobha - 03/10/2017 Screening Mamm Bi Acc#: [id number] DATE OF EXAM: Jul 02 2015 Performed [...] Fax: -- Attending Fax: -- Attending ID: [id number] Requesting ID: [id number] Report To 1 ID: [id number] Report To 1 Name: JESSICA DE LA PAZ Report To 1 FAX: -- NextGen Order #: Historical Provider MD CHEN MAMMO PROCEDURES Valeri l Result * COLONOSCOPY (07/01/2011 12:00 AM CDT) Anatomical Region Laterality Modality Other Narrative 07/01/2011 12:00 AM CDT Ordered by an unspecified provider. Procedure Note Provider, MD Shobha - 07/01/2011 12:00 AM CDT PROCEDURE REPORT Patient: HARITHA CASTANON Account: [id number] Room No: : 1950 Patient Type: [facility] Attend.: Arturo Chavez M.D. Admit Date: 07/01/2011 Dict.: Arturo Chavez M.D. Disch. Date: PROCEDURE PERFORMED: Colonoscopy. HISTORY: 60-year-old female presents for screening colonoscopy. PHYSICAL EXAMINATION: Morbidly obese female. Lungs are clear. Cardiovascular examination was unremarkable. PROCEDURE: Colonoscopy was performed with the [employer] video endoscope.The patient was premedicated by anesthesia. [...] procedure without difficulty. POSTOPERATIVE DIAGNOSIS: Normal colonoscopy. Sujatha Loyd TD: 07/01/2011 13:55 CC: All Barber, M.D. PROCEDURE REPORT Authenticated by Arturo Chavez MD On 07/02/2011 07:40:00 AM us Historical Provider ENDOSCOPY PROCEDURES Valeri l Result from Last 3 Months or Most Recently Relevant to Health Maintenance Insurance [facility] Care Teams Bender Helper Relationship Specialty Start Date End Date Sol Aragon NP PCP - General Nurse Practitioner 04/18/23
--- OUTSIDE RECORDS SUMMARY | 2025-06-05 00:25 | XMS_ITS | Encounter Summary ---
Author Organization [facility] Address [address] [place] [address] Phone Care Team Providers Care Junior Legal Secretary Name Role Phone Maricarmen Mireles MD Primary Care Provider Arturo Tang DO Primary Care Provider Reason for Visit * Reason Comments Medication Refill Encounter Details Date Type Department Care Team (Late st Contact Info) Description [facility] [address] [place] [address] Maricarmen Mireles MD [address] [place] [address] Medication Refill Social History Tobacco [...] Dept 03/10/21 Office Visit Maricarmen Mireles MD [facility] 08/25/20 Office Visit Maricarmen Mireles MD [facility] Showing recent visits within past 365 days [...] Dept 03/10/21 Office Visit Maricarmen Mireles MD [facility] 08/25/20 Office Visit Maricarmen Mireles MD [facility] Showing recent visits within past 365 days [...] 8 months ago Physical exam, annual (Adult) [facility] Maricarmen Mireles MD 1 year ago Type 2 diabetes mellitus without complication, without long-term current use of insulin ([facility]) [facility] - Maricarmen Beck MD 1 year ago Physical exam, annual (Adult) [facility] Maricarmen Mireles MD 2 years ago Type 2 diabetes mellitus without complication, without long-term current use of insulin([facility]) [facility] Maricarmen Mireles MD Upcoming Appointments Future Appointments In 10 months Maricarmen Mireles MD [facility] - Recent and Past Visits Recent Visits Date Type Provider Dept 03/10/21 Office Visit Maricarmen Mireles MD [facility] 08/25/20 Office Visit Maricarmen Mireles MD [facility] Showing recent visits within past 460 days [...] documented as of this encounter Care Teams Junior Legal Secretary Relationship Specialty Start Date End Date Maricarmen Mireles MD PCP - General Family Medicine 08/25/15 12/08/21 Arturo Tang DO [facility] [place] [address] PCP - General Internal Medicine 12/17/21 documented as of this encounter
--- OUTSIDE RECORDS SUMMARY | 2025-06-05 00:25 | XMS_ITS | Clinical Summary ---
Author Organization [facility] Address [address] [place] [address] Care Team Providers Care Resident Medical Officer Name Role Phone Arturo Tang DO Primary Care Provider [phone] Source Comments [facility],non-owned Affiliates and Associated Physician Practices is amultiple site organization consisting of ambulatory clinics and hospital sitesin [place], [place], [place] and [place]. This disclosure is being madepursuant to the Care Everywhere program and may not contain all information available regarding this patient. Last updated 18.[facility] Allergies Active Allergy Reactions Criticality Noted Date Comments Dust Mite Extract Other 05/24/2022 Metformin Diarrhea High 12/09/2016 Sulfamethoxazole W-Trimethoprim Rash Medium 03/14 Medications * Be aware that medications may not be up to date on this document. Alwaysverify current medications with the patient. phenazopyridin e (PYRIDIUM) 200 MG tablet Take 200 mg by mouth 3 times daily as needed Active Biotin 20989 MCG Take by mouth once daily Active [...] Grams (4000 mg) / 24 hours. 0 Active Active Problems Problem Noted Date Diagnosed [...] money to get more. 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 Gender Identity Not on file Sexual Orientation [...] 6:02 AM CDT Height 160 cm (5' 3) 05/23/2022 11:29 PM CDT Body Mass Index [...] VACCINE (1 of 2) 1999 COVID-19 VACCINE (5 - 2023- season) 2024 02/19/2022, 09/21/2021, 01/13/2021, Additional history exists Respiratory Syncytial Virus (RSV) Vaccine Pt: or over 60 yrs (1 - 1-dose 75+ series) 2024 DEPRESSION SCREENING 11/14/2024 MEDICARE AWV CALENDAR YEAR 2024 INFLUENZA VACCINE (#1) 2025 , 08/03/2020, 07/28/2020, Additional history exists HEPATITIS B VACCINE Aged Out No longe r eligible based on patient's age to complete this topic HIB VACCINE Aged Out No longer eligi ble based on patient's age to complete this topic HPV VACCINE Aged Out No longer eligi ble based on patient's age to complete this topic MENINGOCOCCAL (Group B) VACCINE SHARED DECISION-MAKING Aged Out No longer eligible based on patient's age to complete this topic MENINGOCOCCAL GROUPS A/C/Y/W VACCINE Aged Out No longer eligible based on patient's age to complete this topic Insurance AETNA MEDICARE ADV AETNA AETNA MEDICARE [facility] Advance Directives * Full Code (Latest Code Status on File) Date Activated Date Inactivated Comments 05/23/2022 11:21 PM 05/26/2022 12:59 PM Care Teams Resident Medical Officer Relationship Specialty Start Date End Date Arturo Tang DO PCP - General Internal Medicine 05/23/22
--- OUTSIDE RECORDS SUMMARY | 2025-06-05 00:25 | XMS_ITS | Clinical Summary ---
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 Gender Identity Not on file Sexual Orientation [...] 01/21/2025 1:09 PM CDT Plan of Treatment Health Maintenance Due Date Last Done Comments Depression Screening 1950 Fall Risk Assessment 1950 Hepatitis C Screening 1950 Hepatitis B Screening 1967 Well Visit 65+ 2014 Osteoporosis Screening-Bone Density Scan 07/06/2020 07/06/2018, 07/06/2018 Colon Cancer Screening-Colonoscopy 07/01/2021 07/01/2011 Covid-19 Vaccine (6 - 2023-2 5 season) 2024 08/13/2022, 02/19/2022, 09/21/2021, Additional history exists Influenza Vaccine (#1) 2025 , 08/08/2021, 08/03/2020, Additional history exists DTaP/Tdap/Td [...] 9:47 PM CDT Screening Mamm Bi Acc#: [id number] DATE OF EXAM: Jul 02 2015 Performed [...] Fax: -- Attending Fax: -- Attending ID: [id number] Requesting ID: [id number] Report To 1 ID: [id number] Report To 1 Name: JESSICA DE LA PAZ Report To 1 FAX: -- NextGen Order #: Procedure Note Provider, MD Shobha - 03/10/2017 Screening Mamm Bi Acc#: [id number] DATE OF EXAM: Jul 02 2015 Performed by: CLINICAL HISTORY: Routine screening. RESULT: Two views of each breast obtained, compared with 06/04/14 and 08/10/12.Scattered fibroglandular densities bilaterally. No dominant mass isdemonstrated. No suspicious clusters of microcalcifications are evident.A few scattered benign calcifications. A few small densities which aresimilar to previously. Digital technology was employed plus computer-aideddetection software (Vozeeme) was utilized in interpretation of these images.This [...] Fax: -- Attending Fax: -- Attending ID: [id number] Requesting ID: [id number] Report To 1 ID: [id number] Report To 1 Name: JESSICA DE LA PAZ Report To 1 FAX: -- NextGen Order #: Historical Provider MD CHEN MAMMO PROCEDURES Valeri l Result * COLONOSCOPY (07/01/2011 12:00 AM CDT) Anatomical Region Laterality Modality Other Narrative 07/01/2011 12:00 AM CDT Ordered by an unspecified provider. Procedure Note ProviderShobha MD - 07/01/2011 12:00 AM CDT PROCEDURE REPORT Patient: HARITHA CASTANON Account: [id number] Room No: : 1950 Patient Type: [facility] Attend.: Arturo Chavez M.D. Admit Date: 07/01/2011 Dict.: Arturo Chavez M.D. Disch. Date: PROCEDURE PERFORMED: Colonoscopy. HISTORY: 60-year-old female presents for screening colonoscopy. PHYSICAL EXAMINATION: Morbidly obese female. Lungs are clear. Cardiovascular examination was unremarkable. PROCEDURE: Colonoscopy was performed with the [employer] video endoscope.The patient was premedicated by anesthesia. [...] to Health Maintenance Insurance AETNA MEDICARE GOLD TNA MEDICARE GOLD Care Teams Yeast Pumper Relationship Specialty Start Date End Date Sol rAagon NP PCP - General Nurse Practitioner 04/18/23
--- OUTSIDE RECORDS SUMMARY | 2025-06-05 00:25 | XMS_ITS | Encounter Summary ---
Author Organization [facility] Address [address] [place] [address] Phone Care Team Providers Care Salvage Machine Operator Name Role Phone Maricarmen Mireles MD Primary Care Provider Arturo Tang DO Primary Care Provider Reason for Visit * Reason Comments Medication Refill Encounter Details Date Type Department Care Team (Late st Contact Info) Description 07/[facility] [address] [place] [address] Maricarmen Mireles MD [address] [place] [address] Medication Refill Social History Tobacco [...] Dept 03/10/21 Office Visit Maricarmen Mireles MD [facility] [employer] [facility] 08/25/20 Office Visit Maricarmen Mireles MD [facility] [employer] [facility] Showing recent visits within past 365 [...] Dept 03/10/21 Office Visit Maricarmen Mireles MD [facility] [employer] [facility] 08/25/20 Office Visit Maricarmen Mireles MD [facility] [employer] [facility] Showing recent visits within past 365 [...] documented as of this encounter Care Teams Salvage Machine Operator Relationship Specialty Start Date End Date Maricarmen Mireles MD PCP - General Family Medicine 08/25/15 12/08/21 Arturo Tang DO [facility] [place] [address] PCP - General Internal Medicine 12/17/21 documented as of this encounter
--- OUTSIDE RECORDS SUMMARY | 2025-06-05 00:25 | XMS_ITS | Encounter Summary ---
Author Organization [facility] Address [address] [place] [address] Phone Care Team Providers Care Top Cutter Name Role Phone Maricarmen Mireles MD Primary Care Provider [phone] Arturo Tang DO Primary Care Provider Reason for Visit * Reason Comments Medication Refill Encounter Details Date Type Department Care Team (Late st Contact Info) Description 08/31/2021 Refill [facility] - Primary Care - Connie [address] [place] [address] Maricarmen Mireles MD [address] [place] [address] Medication Refill Social History [...] Dept 03/10/21 Office Visit Maricarmen Mireles MD [facility] Showing recent visits within past 182 days and meeting all other requirements Future Appointments No visits were found meeting these conditions. Showing future appointments within next 90 days and meeting all other requirements documented in this encounter Plan of Treatment Not on file documented as of this encounter Visit Diagnoses Diagnosis Type 2 diabetes mellitus without complication, without long-term current use of insulin documented in this encounter Additional Health Concerns Assessment Noted Time PHQ-9 Depression Total Score: 0 08/25/20 20 12:00 PM CDT documented as of this encounter Care Teams Top Cutter Relationship Specialty Start Date End Date Maricarmen Mireles MD PCP - General Family Medicine 08/25/15 12/08/21 Arturo Tang DO [address] [facility] [place] [address] PCP - General Internal Medicine 12/17/21 documented as of this encounter
--- OUTSIDE RECORDS SUMMARY | 2025-06-05 00:25 | XMS_ITS | Encounter Summary ---
Author Organization [facility] Address [address] [place] [address] Phone Care Team Providers Care Collection Systems Administrator Name Role Phone Maricarmen Mireles MD Primary Care Provider [phone] Arturo Tang DO Primary Care Provider Reason for Visit * Reason Comments Medication Refill Encounter Details Date Type Department Care Team (Late st Contact Info) Description 10/26/2021 Refill [facility] [address] [place] [address] Maricarmen Mireles MD [address] [place] [address] Medication Refill Social History Tobacco [...] Dept 03/10/21 Office Visit Maricarmen Mireles MD [facility] Showing recent visits within past 365 days [...] Dept 03/10/21 Office Visit Maricarmen Mireles MD [facility] Showing recent visits within past 365 days and meeting all other requirements Future Appointments No visits were found meeting these conditions. Showing future appointments within next 90 days and meeting all other requirements BIN TENDER documented in this encounter Plan of Treatment Not on file documented as of this encounter Visit Diagnoses Diagnosis Essential hypertension Unspecified essential hypertension Hyperlipidemia, unspecified hyperlipidemia type documented in this encounter Additional Health Concerns Assessment Noted Time PHQ-9 Depression Total Score: 0 08/25/20 20 12:00 PM CDT documented as of this encounter Care Teams Collection Systems Administrator Relationship Specialty Start Date End Date Maricarmen Mireles MD PCP - General Family Medicine 08/25/15 12/08/21 Arturo Tang DO [facility] [facility] [address] [facility] [place] [address] PCP - General Internal Medicine 12/17/21 documented as of this encounter
--- OUTSIDE RECORDS SUMMARY | 2025-06-05 00:25 | XMS_ITS | Encounter Summary ---
Author Organization [facility] Address [address] [facility] [place] [address] Care Team Providers Care Child And Adolescent Psychologist Name Role Phone Arturo Tang DO Primary Care Provider [phone] Encounter Details Date Type Department Care Team (Late st Contact Info) Description 09/17/2020 Lab Requisition [facility] [address] [place] [id number] Sorin Lozano MD [address] [place] [address] Social History Tobacco Use Types Packs/Day Years Used Date Smoking Tobacco: Never Assessed Comments Unknown Sex and Gender Information Value Date Recorded Sex Assigned at Not on file Legal Sex Female 6:18 AM HELP DESK REPRESENTATIVE Gender Identity Not on file Sexual Orientation Not on file documented as of this encounter Plan of Treatment Not on file documented as of this encounter Procedures Procedure Name Priority Date/Time Associated Diagnosis Comments DERMATOPATHOLOGY Routine 09/16/2020 12:0 0 AM HELP DESK REPRESENTATIVE documented in this encounter Results * DERMATOPATHOLOGY (09/16/2020 12:00 AM HELP DESK REPRESENTATIVE) Case Report Dermatopathology Report Case: [id number] Authorizing Provider: Sorin Lozano MD Collected: 09/16/2020 12:00 AM Ordering Location: [facility] Received: 09/17/2020 12:08 PM Pathologist: Rosemary Espino MD Specimens: A) - Skin, upper abdomen A B) - Skin, upper abdomen B C) - Skin, left upper lateral arm above elbow 0 1:15 PM [facility] DERMATOPATHOLOGY LABORATORY Final Diagnosis Specimen A. SKIN, upper abdomen A: FOCAL DERMAL FIBROSIS (L90.5) (see microscopic description and comment) Specimen B. SKIN, upper abdomen B: LICHEN SCLEROSUS ET ATROPHICUS (L90.0) (see microscopic description) Specimen C. SKIN, left upper lateral arm above elbow: HYPERPLASTIC (HYPERTROPHIC) ACTINIC KERATOSIS (L57.0) (see microscopic description) 0 1:15 PM [facility] DERMATOPATHOLOGY LABORATORY at [address] HELP DESK REPRESENTATIVE Clinical History A-B: R/O morphea vs LS&A vs other C: R/O BCC, LSK 0 1:15 PM [facility] DERMATOPATHOLOGY LABORATORY Gross Description Specimen A: Received [...] 10x8x1 mm. Jar 0. 0 1:15 PM [facility] DERMATOPATHOLOGY LABORATORY Microscopic Description Specimen A. SKIN, [...] The lesion is inflamed. 0 1:15 PM HELP DESK REPRESENTATIVE DERMATOPATHOLOGY LABORATORY Disclaimer An external and internal positive and negative controls are appropriate for the histochemical, immunohistochemical and immunofluorescence stain(s) in this case (if any), except where stated explicitly. The performance characteristics of the stain(s) cited in this report were developed and its performance characteristic determined by the Dermatopathology Laboratory at [facility], directed by Dr. Merlyn Grover. These tests need not be, and therefore are not, approved by the [place] Food and Drug Administration. The tests are used for clinical purposes. Billing Codes Specimen Charges Stain Charges 17857 02878 36982 1 1 1 73742 82763 79583 19690 1 1 1 1 0 1:15 PM HELP DESK REPRESENTATIVE DERMATOPATHOLOGY LABORATORY Embedded Images 0 1:15 PM HELP DESK REPRESENTATIVE DERMATOPATHOLOGY LABORATORY Pathology/Cytology TISSUE SPECIMEN FROM SKIN / Unknown 09/16/2020 09/17/2020 12:08 PM HELP DESK REPRESENTATIVE Miscellaneous samples (specimen) TISSUE SPECIMEN FROM SKIN / Unknown 09/16/2020 09/17/2020 12:08 PM HELP DESK REPRESENTATIVE Miscellaneous samples (specimen) TISSUE SPECIMEN FROM SKIN / Unknown 09/16/2020 09/17/2020 12:08 PM HELP DESK REPRESENTATIVE Sorin Lozano MD LAB - PATHOLOGY/CYTOLOGY ORD ERABLES Final Result DERMATOPATHOLOGY LABORATORY [facility] - Department of Dermatology [facility] [address] [place] [address], [address] [place] [address], [facility] [phone] documented in this encounter Visit Diagnoses Not on filedocumented in this encounter Care Teams Child And Adolescent Psychologist Relationship Specialty Start Date End Date Arturo Tang DO PCP - General Internal Medicine 05/23/22 documented as of this encounter
--- OUTSIDE RECORDS SUMMARY | 2025-06-05 00:25 | XMS_ITS | Encounter Summary ---
Author Organization [facility] Address [address] [place] [address] Phone Care Team Providers Care Ext Js Developer Name Role Phone Maricarmen Mireles MD Primary Care Provider Arturo Tang DO Primary Care Provider Reason for Visit * Reason Comments Medication Refill Encounter Details Date Type Department Care Team (Late st Contact Info) Description [facility] [address] [place] [address] Maricarmen Mireles MD [address] [place] [address] Medication Refill Social History Tobacco [...] Dept 03/10/21 Office Visit Maricarmen Mireles MD [facility] 08/25/20 Office Visit Maricarmen Mireles MD [facility] recent visits within past 365 [...] documented as of this encounter Care Teams Ext Js Developer Relationship Specialty Start Date End Date Maricarmen Mireles MD PCP - General Family Medicine 08/25/15 12/08/21 Arturo Tang DO [address] [facility] [place] [address] PCP - General Internal Medicine 12/17/21 documented as of this encounter
--- OUTSIDE RECORDS SUMMARY | 2025-06-05 00:25 | XMS_ITS | Encounter Summary ---
Author Organization [facility] Address [address] [place] [address] Phone Care Team Providers Care Machine Carton Marker Name Role Phone Maricarmen Mireles MD Primary Care Provider Arturo Tang DO Primary Care Provider Reason for Visit * Reason Comments Medication Refill Encounter Details Date Type Department Care Team (Late st Contact Info) Description 09/15/[address] [facility] - Primary Care - [place] [address] [place] [address] Maricarmen Mireles MD [address] [place] [address] Medication Refill Social History Tobacco [...] Dept 03/10/21 Office Visit Maricarmen Mireles MD [facility] Showing recent visits within past 365 [...] Dept 03/10/21 Office Visit Maricarmen Mireles MD [facility] Showing recent visits within past 365 [...] as of this encounter Care Teams Machine Carton Marker Relationship Specialty Start Date End Date Maricarmen Mireles MD PCP - General Family Medicine 08/25/15 12/08/21 Arturo Tang DO [facility] [facility] [place] [address] PCP - General Internal Medicine 12/17/21 documented as of this encounter
--- OUTSIDE RECORDS SUMMARY | 2025-06-05 00:25 | XMS_ITS | Encounter Summary ---
Author Organization [facility] Address [address] [place] [address] Phone Care Team Providers Care Insurance Professional Name Role Phone Maricarmen Mireles MD Primary Care Provider Arturo Tang DO Primary Care Provider Reason for Visit * Reason Comments Medication Refill Encounter Details Date Type Department Care Team (Late st Contact Info) Description 05/28/2021 Refill [facility] - Primary Care - Connie [address] [place] [address] Maricarmen Mireles MD [address] [place] [address] Medication Refill Social History Tobacco [...] Dept 03/10/21 Office Visit Maricarmen Mireles MD [facility] Showing recent visits within past 182 [...] documented as of this encounter Care Teams Insurance Professional Relationship Specialty Start Date End Date Maricarmen Mireles MD PCP - General Family Medicine 08/25/15 12/08/21 Arturo Tang DO [address] [place] [address] PCP - General Internal Medicine 12/17/21 documented as of this encounter
--- OUTSIDE RECORDS SUMMARY | 2025-06-05 00:25 | XMS_ITS | Encounter Summary ---
Author Organization [facility] Address [address] [place] [address] Phone Care Team Providers Care Wind Energy Technician Name Role Phone Maricarmen Mireles MD Primary Care Provider [phone] Arturo Tang DO Primary Care Provider Reason for Visit * Reason Comments Medication Refill Encounter Details Date Type Department Care Team (Late st Contact Info) Description 01/19/2021 Refill [facility] - Primary Care - [place] [address] [place] [address] Maricarmen Mireles MD [address] [place] [address] Medication Refill Social History Tobacco [...] COVID-19? No / Unsure 01/13/2021 4:52 PM ECOLOGIST documented as of this encounter Miscellaneous Notes * Telephone Encounter - Susan Husain RN - 01/19/2021 4:33 PM ECOLOGIST Medication approved and signed per standing order protocol. OGIST documented in this encounter Plan of Treatment Not on file documented as of this encounter Visit Diagnoses Not on filedocumented in this encounter Additional Health Concerns Assessment Noted Time PHQ-9 Depression Total Score: 0 08/25/20 20 12:00 PM CDT documented as of this encounter Care Teams Wind Energy Technician Relationship Specialty Start Date End Date Maricarmen Mireles MD PCP - General Family Medicine 08/25/15 12/08/21 Arturo Tang DO [facility] [facility] [place] [address] PCP - General Internal Medicine 12/17/21 documented as of this encounter
--- OUTSIDE RECORDS SUMMARY | 2025-06-05 00:25 | XMS_ITS | Encounter Summary ---
Author Organization [facility] Address [address] [place] [address] Phone Care Team Providers Care Inventory Taker Name Role Phone Maricarmen Mireles MD Primary Care Provider [phone] Arturo Tang DO Primary Care Provider Reason for Visit * Reason Comments Medication Refill Encounter Details Date Type Department Care Team (Late st Contact Info) Description 01/24/2021 Refill [facility] - Primary Care - [place] [address] [place] [address] Maricarmen Mireles MD [address] [place] [address] Medication Refill Social History Tobacco [...] COVID-19? No / Unsure 01/13/2021 4:52 PM KEYSMITH documented as of this encounter Miscellaneous Notes [...] 5 months ago Physical exam, annual (Adult) [facility] Maricarmen Mireles MD 1 year ago Type 2 diabetes mellitus without complication, without long-term current use of insulin ([facility]) [facility] - Maricarmen Beck MD 1 year ago Physical exam, annual (Adult) [facility] - Maricarmen Beck MD 2 years ago Type 2 diabetes mellitus without complication, without long-term current use of insulin([facility]) [facility] - Maricarmen Beck MD 2 years ago Physical exam, annual (Adult) [facility] Maricarmen Mireles MD Upcoming Appointments Future Appointments In 4 weeks Maricarmen Mireles MD [facility] CONTENT COORDIN[facility] - Recent and Past Visits Recent Visits Date Type Provider Dept 08/25/20 Office Visit Maricarmen Mireles MD [facility] 12/28/19 [facility] within past 460 days with a meds authorizing provider and meeting all other requirements Future Appointments Date Type Provider Dept 02/23/21 Appointment [facility] Showing future appointments within [...] documented as of this encounter Care Teams Inventory Taker Relationship Specialty Start Date End Date Maricarmen Mireles MD PCP - General Family Medicine 08/25/15 12/08/21 Arturo Tang DO [facility] [place] [address] PCP - General Internal Medicine 12/17/21 documented as of this encounter
--- OUTSIDE RECORDS SUMMARY | 2025-06-05 00:26 | XMS_ITS | Encounter Summary ---
Author Organization [facility] Address [address] [place] [address] Phone Care Team Providers Care Head Of Physics Name Role Phone Maricarmen Mireles MD Primary Care Provider Arturo Tang DO Primary Care Provider Reason for Visit * Reason Comments Medication Refill Encounter Details Date Type Department Care Team (Late st Contact Info) Description 09/01/2020 Refill [facility] - Primary Care - [place] [address] [place] [address] Maricarmen Mireles MD [address] [place] [address] Medication Refill Social History Tobacco [...] 1 week ago Physical exam, annual (Adult) [facility] Maricarmen Mireles MD 8 months ago Type 2 diabetes mellitus without complication, without long-term current use of insulin ([facility]) [facility] - Maricarmen Beck MD 1 year ago Physical exam, annual (Adult) [facility] - Maricarmen Beck MD 1 year ago Type 2 diabetes mellitus without complication, without long-term current use of insulin ([facility]) [facility] - Maricarmen Beck MD 2 years ago Physical exam, annual (Adult) [facility] - Maricarmen Trejo MD Upcoming Appointments Future Appointments In 5 months Maricarmen Mireles MD [facility] PROPOSAL LEAD WRITER - Recent and Past Visits Recent Visits Date Type Provider Dept 08/25/20 Office Visit [facility] 12[facility]28/19 Office Visit Mar[facility]armen [facility]les MD [facility] 06/22/19 Office Visit [facility] Show[facility] recent visits within past 460 days [...] documented as of this encounter Care Teams Head Of Physics Relationship Specialty Start Date End Date Maricarmen Mireles MD PCP - General Family Medicine 08/25/15 12/08/21 Arturo Tang DO [facility] [facility] [place] [address] PCP - General Internal Medicine 12/17/21 documented as of this encounter
--- OUTSIDE RECORDS SUMMARY | 2025-06-05 00:26 | XMS_ITS | Clinical Summary ---
Author Organization [facility] Address [address] [address] Phone Care Team Providers Care Port Captain Name Role Phone Arturo Tang DO Primary [...] complication, without long-term current use of insulin Take 1 tablet by mouth once daily [...] 9:07 AM CDT Height 160 cm (5' 3) 03/10/2021 9:07 AM CDT Body Mass Index 43.47 03/10/2021 9:07 AM CDT Plan of Treatment Health Maintenance Due Date Last Done Comments Diabetes: Foot Exam 1950 Hepatitis C Virus (HCV) Screening 1950 Cologuard 1994 Immunochemical Fecal Occult Blood 1994 Diabetes: Hemoglobin A1c 02/06/2021 020, 12/11/2019, 06/12/2019, Additional history exists Colonoscopy 07/01/2021 07/01/2011 Colorectal Cancer Screening 07/01/2021 Diabetes: Nephropathy Screening 08/09/2021 08/09/2020, 12/11/2019, 06/12/2019, Additional history exists Diabetes: Eye Exam 11/11/2021 11/11/2020, 10/14/2017 SARS-COV-2 Immunization ( season) 2024 02/19/2022, 09/21/2021, 01/13/2021, Additional history exists Respiratory Syncytial Virus (RSV) Immunization (Adult) (1 - 1-dose 75+ series) 2024 Influenza Immunization (#1) 07/15/202507/16, 08/03/2020, 07/28/2020, Additional history exists Td Immunization Every 10 Years (Adults With 1 Tdap) 01/11/2026 01/11/2016, 11/14/2014 Pneumococcal Immunization (50+ years) Completed 12/09/2016, 12/09/2016, 07/07/2015, Additional history exists Pneumococcal Immunization Combined Discontinued 12/09/2016, 12/09/2016, 07/07/2015, Additional history exists DEXA Bone Density Discontinued 07/06/2018 Zoster Immunization Completed 12/04/2018, 10/03/2018, 08/28/2015 Mammogram Discontinued 07/13/2019, 07/14/2017 Hepatitis B Immunization Aged Out No longer eligible based on patient's age to complete this topic Human Papillomavirus (HPV) Immunization Aged Out No longer eligible based [...] without long-term current use of insulin (HCC) [facility] SCREENING BILATERAL DIGITAL W CAD W JAY Routine 07/13/2019 1:45 PM CDT Encounter for screening mammogram for malignant neoplasm of breast [facility] BONE DENSITOMETRY AXIAL SKELETON Routine 07/06/2018 2:35 PM CDT Postmenopausal COLONOSCOPY Routine 07/01/2011 from Last 3 Months or Most Recently Relevant to Health Maintenance Results * DILATED EYE EXAM (11/11/2020) us Tyrone Wolfe PROCEDURE/MINOR SURGICAL ORDERAB LES Edited [...] Comparison is made to exams dated: 07/14/2017 [facility], 07/02/2015, and 06/04/2014 [facility]. BREAST TISSUE:There are scattered fibroglandular densities [...] exam. Electronically signed by: Sonido quan/tony:07/13/2019 15:09:37 Memorandum Statement Clerk: Francesca NUNEZR)(M), [facility] letter sent: Normal Exam Reading location: [place] [...] Comparison is made to exams dated: 07/14/2017 [facility], 07/02/2015, and 06/04/2014 [facility]. BREAST TISSUE:There are scattered fibroglandular densities [...] exam. Electronically signed by: Sonido quan/tony:07/13/2019 15:09:37 Memorandum Statement Clerk: Francesca Jerez RTTatianaR)(M), [facility] letter sent: Normal Exam Reading location: [place] BI-RADS: 1 Negative us Maricarmen Mireles MD IMG MAMMO ORDERABLES Final R esult * [facility] BONE DENSITOMETRY AXIAL SKELETON (07/06/2018 2:35 PM [...] old F with given history of screening. [employer] Of Women/Model: [employer] (S/N [id number]) CLINICAL INFORMATION: Risk factors: Menopause due to [...] Armond Desouza M.D. MARSHALL: MARSHALL Report ID: [id number] Reading Location: [place] [address] Procedure Note Armond Desouza MD - 07/07/2018 EXAM DESCRIPTION: BRENDA BONE DENSITOMETRY AXIAL SKELETON REASON FOR STUDY: 67 y/o year old F with given history of screening. [employer]: [employer] (S/N [id number]) CLINICAL INFORMATION: Risk factors: Menopause due to [...] Armond Desouza M.D. MARSHALL: MARSHALL Report ID: [id number] Reading Location: [place] [address] IMPRESSION: Low bone mass. Statistically significant decrease [...] Maintenance Insurance MEDICARE C [employer] Care Teams Port Captain Relationship Specialty Start Date End Date Arturo Tang DO [facility] [place] [address] PCP - General Internal Medicine 12/17/21
--- OUTSIDE RECORDS SUMMARY | 2025-06-05 00:26 | XMS_ITS | Encounter Summary ---
Author Organization [facility] Address [address] [place] [address] Phone Care Team Providers Care Willow Analyst Name Role Phone Maricarmen Mireles MD Primary Care Provider Arturo Tang DO Primary Care Provider Reason for Visit * Reason Comments Medication Refill Encounter Details Date Type Department Care Team (Late st Contact Info) Description 08/03/2020 Refill [facility] - Primary Care - Connie [address] [place] [address] Maricarmen Mireles MD [address] [place] [address] Medication Refill Social History Tobacco [...] long-term current use of insulin ([facility]) [facility] - Maricarmen Beck MD 1 year ago Physical exam, annual (Adult) [facility] - Maricarmen Beck MD 1 year ago Type 2 diabetes mellitus without complication, without long-term current use of insulin ([facility]) [facility] - Maricarmen Beck MD 2 years ago Physical exam, annual (Adult) [facility] - Maricarmen Trejo MD 2 years ago Sinusitis, unspecified chronicity, unspecified location [facility] - Rani Yoder APN, SKILL LABOR Upcoming Appointments Future Appointments In 2 weeks Maricarmen Mireles MD [facility] [place] - Recent and Past Visits Recent Visits Date Type Provider Dept 12/28/19 Office Visit Maricarmen Mireles MD [facility] [place] 06/22/19 Office Visit Maricarmen Mireles MD [facility] Connie Showing recent visits within past 460 days with a meds authorizing provider and meeting all other requirements Future Appointments Date Type Provider Dept 08/25/20 Appointment Maricarmen Mireles MD [facility] Connie Nina Showing future appointments within next 90 days with a meds authorizing provider and meeting all other requirements documented in this encounter Plan of Treatment Not on file documented as of this encounter Visit Diagnoses Not on filedocumented in this encounter Additional Health Concerns Assessment Noted Time PHQ-9 Depression Total Score: 0 12/21/19 19 1:00 PM TEACHER ASSOCIATE documented as of this encounter Care Teams Willow Analyst Relationship Specialty Start Date End Date Maricarmen Mireles MD PCP - General Family Medicine 08/25/15 12/08/21 Arturo Tang DO [facility] [place] [address] PCP - General Internal Medicine 12/17/21 documented as of this encounter
--- OUTSIDE RECORDS SUMMARY | 2025-06-05 00:26 | XMS_ITS | Encounter Summary ---
Author Organization [facility] Address [address] [place] [address] Phone Care Team Providers Care Jewelry Model Maker Name Role Phone Maricarmen Mireles MD Primary Care Provider [phone] Arturo Tang DO Primary Care Provider Reason for Visit * Reason Comments Medication Refill Encounter Details Date Type Department Care Team (Late st Contact Info) Description 09/21/2020 Refill [facility] [address] [place] [address] Maricarmen Mireles MD [address] [place] [address] Medication Refill Social History Tobacco [...] * Telephone Encounter - Jennifer Allen D, [facility] - 09/22/2020 11:43 AM BANK CREDIT CARD COLLECTION CLERK Medication failed the protocol, provider to review [...] ago Physical exam, annual (Adult) [facility] Maricarmen Mireles MD 8 months ago Type 2 diabetes mellitus without complication, without long-term current use of insulin ([facility]) [facility] - Maricarmen Beck MD 1 year ago Physical exam, annual (Adult) [facility] - Maricarmen Beck MD 1 year ago Type 2 diabetes mellitus without complication, without long-term current use of insulin ([facility]) [facility] - Maricarmen Beck MD 2 years ago Physical exam, annual (Adult) [facility] - Maricarmen Trejo MD Upcoming Appointments Future Appointments In 5 months Maricarmen Mireles MD [facility] - Recent and Past Visits Recent Visits Date Type Provider Dept 08/25/20 Office Visit Maricarmen Mireles MD [facility] 12/28/19 Office Visit Maricarmen Mireles MD [facility] [place] 06/22/19 Office Visit Maricarmen Mireles MD [facility] Showing recent visits within past 460 [...] ago Physical exam, annual (Adult) [facility] Maricarmen Mireles MD 8 months ago Type 2 diabetes mellitus without complication, without long-term current use of insulin ([facility]) [facility] - Maricarmen Beck MD 1 year ago Physical exam, annual (Adult) [facility] - Maricarmen Beck MD 1 year ago Type 2 diabetes mellitus without complication, without long-term current use of insulin ([facility]) [facility] - Maricarmen Beck MD 2 years ago Physical exam, annual (Adult) [facility] Maricarmen Mireles MD Upcoming Appointments Future Appointments In 5 months Maricarmen Mireles MD [facility] - Recent and Past Visits Recent Visits Date Type Provider Dept 08/25/20 Office Visit Maricarmen Mireles MD [facility] 12/28/19 Office Visit Maricarmen Mireles MD [facility] 06/22/19 Office Visit Maricarmen Mireles MD [facility] Showing recent visits within past 460 [...] ago Physical exam, annual (Adult) [facility] Maricarmen Mireles MD 8 months ago Type 2 diabetes mellitus without complication, without long-term current use of insulin ([facility]) [facility] - Maricarmen Beck MD 1 year ago Physical exam, annual (Adult) [facility] - Maricarmen Beck MD 1 year ago Type 2 diabetes mellitus without complication, without long-term current use of insulin ([facility]) [facility] - Maricarmen Beck MD 2 years ago Physical exam, annual (Adult) [facility] Maricarmen Mireles MD Upcoming Appointments Future Appointments In 5 months Maricarmen Mireles MD [facility] - Recent and Past Visits Recent Visits Date Type Provider Dept 08/25/20 Office Visit Maricarmen Mireles MD [facility] 12/28/19 Office Visit Maricarmen Mireles MD [facility] 06/22/19 Office Visit Maricarmen Mireles MD [facility] Showing recent visits within past 460 days with a meds authorizing provider and meeting all other requirements Future Appointments No visits were found meeting these conditions. Showing future appointments within next 90 days with a meds authorizing provider and meeting all other requirements Passed - Last BP in normal range BP Readings from Last 1 Encounters: 08/25/20 140/82 CREDIT CARD COLLECTION CLERK documented in this encounter Plan of Treatment Not on file documented as of this encounter Visit Diagnoses Diagnosis Gastroesophageal reflux disease Esophageal reflux Depression with anxiety Dysthymic disorder documented in this encounter Additional Health Concerns Assessment Noted Time PHQ-9 Depression Total Score: 0 08/25/20 20 12:00 PM CDT documented as of this encounter Care Teams Jewelry Model Maker Relationship Specialty Start Date End Date Maricarmen Mireles MD PCP - General Family Medicine 08/25/15 12/08/21 Arturo Tang DO [address] [facility] [address] [facility] [id number] PCP - General Internal Medicine 12/17/21 documented as of this encounter
--- OUTSIDE RECORDS SUMMARY | 2025-06-05 00:26 | XMS_ITS | Encounter Summary ---
Author Organization [facility] Address [address] [place] [address] Phone Care Team Providers Care Steward/Stewardess Chief Cargo Vessel Name Role Phone Maricarmen Mireles MD Primary Care Provider [phone] Arturo Tang DO Primary Care Provider Reason for Visit * Reason Comments Medication Refill Encounter Details Date Type Department Care Team (Late st Contact Info) Description [facility]/14[facility] [address] [place] [address] Maricarmen Mireles MD [address] [place] [address] Medication Refill Social History Tobacco [...] Dept 03/10/21 Office Visit Maricarmen Mireles MD [facility] Showing recent visits within past 365 days and meeting all other requirements Future Appointments No visits were found meeting these conditions. Showing future appointments within next 90 days and meeting all other requirements Passed - No matching NSAID med order in past 45 days No matching medication orders between 10/02/2021 11:02 AM and 11/16/2021 11:02 AM GE HOOKER documented in this encounter Plan of Treatment Not on file documented as of this encounter Visit Diagnoses Not on filedocumented in this encounter Additional Health Concerns Assessment Noted Time PHQ-9 Depression Total Score: 0 08/25/20 20 12:00 PM CDT documented as of this encounter Care Teams Steward/Stewardess Chief Cargo Vessel Relationship Specialty Start Date End Date Maricarmen Mireles MD PCP - General Family Medicine 08/25/15 12/08/21 Arturo Tang DO [address] [address] PCP - General Internal Medicine 12/17/21 documented as of this encounter
--- OUTSIDE RECORDS SUMMARY | 2025-06-05 00:26 | XMS_ITS | Encounter Summary ---
Author Organization [facility] Address [address] [place] [address] Phone Care Team Providers Care Creative Specialist Name Role Phone Maricarmen Mireles MD Primary Care Provider [phone] Arturo Tang DO Primary Care Provider Reason for Visit * Reason Comments Medication Refill Encounter Details Date Type Department Care Team (Late Contact Info) Description 10/23/2020 [facility] [place] [address] [place] [address] Elvira Kumar APRN, COMPOTYPE OPERATOR [address] [place] [address] Medication Refill Social History Tobacco Use Types [...] COVID-19? No / Unsure 10/12/2020 3:25 PM NUCLEAR MEDICINE SUPERVISOR documented as of this encounter Plan of Treatment Not on file documented as of this encounter Visit Diagnoses Diagnosis Back strain, initial encounter documented in this encounter Additional Health Concerns Assessment Noted Time PHQ-9 Depression Total Score: 0 08/25/20 20 12:00 PM CDT documented as of this encounter Care Teams Creative Specialist Relationship Specialty Start Date End Date Maricarmen Mireles MD PCP - General Family Medicine 08/25/15 12/08/21 Arturo Tang DO [facility] [place] [address] PCP - General Internal Medicine 12/17/21 documented as of this encounter
--- OUTSIDE RECORDS SUMMARY | 2025-06-05 00:26 | XMS_ITS | Encounter Summary ---
Author Organization [facility] Address [address] [place] [address] Phone Care Team Providers Care Fly Maker Name Role Phone Maricarmen Mireles MD Primary Care Provider Arturo Tang DO Primary Care Provider Reason for Visit * Reason Comments Medication Refill Encounter Details Date Type Department Care Team (Late st Contact Info) Description 11/27/2021 Refill [facility] - Primary Care - [place] [address] [place] [address] Maricarmen Mireles MD [address] [place] [address] Medication Refill Social History Tobacco [...] Susan Husain RN - 11/27/2021 3:52 PM CONFERENCE SERVICES MANAGER Medication failed the protocol, provider to review [...] 6 months No results found for: GFRNA ERENCE SERVICES MANAGER documented in this encounter Plan of Treatment Not on file documented as of this encounter Visit Diagnoses Diagnosis Type 2 diabetes mellitus without complication, without long-term current use of insulin documented in this encounter Additional Health Concerns Assessment Noted Time PHQ-9 Depression Total Score: 0 08/25/20 20 12:00 PM CDT documented as of this encounter Care Teams Fly Maker Relationship Specialty Start Date End Date Maricarmen Mireles MD PCP - General Family Medicine 08/25/15 12/08/21 Arturo Tnag DO [facility]7 [facility] [place] [address] PCP - General Internal Medicine 12/17/21 documented as of this encounter
[2025-06-05] MEDS: SIMETHICONE ORAL SUSPENSION 20 MG/0.3 ML 30 ML BOTTLE 1.8 ML PO (09:51)
--- NOTE | 2025-06-05 10:31 | WPDANESEPPF ---
Anes - Initial Pre Proc Eval Procedure: Operation Date: 06/05/25 11:00 Proposed Procedures p Esophagogastroduodenoscopy & Colonoscopy - Saturnino Myles MD Date/Time: 06/05/25 10:31 Surgeon: Saturnino Myles MD Pre Op Diagnosis: Anemia, unspecified Patient Data Age: 74 Gender: F Height: 1.63 m Weight: 84.5 kg Allergies Allergy/AdvReac Type Severity Reaction Status Date / Time Sulfa (Sulfonamide Allergy Severe Hives / Verified 06/05/25 10:08 Antibiotics) Red Face Home Medications ?Medication ?Instructions ?Recorded ?Confirmed ?Type fexofenadine 180 mg tablet 180 mg PO HS 01/11/22 05/28/25 History cholecalciferol (vitamin D3) 50 50 mcg PO HS 04/13/23 05/28/25 History mcg (2,000 unit) capsule diltiazem HCl 180 mg 180 mg PO QAM 30 days #30 caps 04/15/23 06/05/25 Rx capsule,extended release 24 hr, controlled CPAP supplies #1 ea 08/30/23 04/26/25 Rx biotin 5,000 mcg chewable tablet 5,000 mcg PO HS 09/13/23 05/28/25 History blood-glucose meter (Advanced #1 ea 10/09/24 04/26/25 Rx Glucose Meter) blood sugar diagnostic (Advanced #100 ea 10/10/24 04/26/25 Rx Glucose Meter Test Strips) lancets 28 gauge (Advanced Travel #100 ea 10/10/24 04/26/25 Rx Lancets) omeprazole 20 mg capsule,delayed See Rx Instructions .Route 12/28/24 05/28/25 Rx release .COMPLEX #90 caps glipizide 10 mg tablet, extended See Rx Instructions .Route 01/24/25 05/28/25 Rx release 24 hr .COMPLEX #90 tabs lisinopril 20 mg tablet See Rx Instructions .Route 01/24/25 05/28/25 Rx .COMPLEX #90 tabs metoprolol succinate 100 mg 100 mg PO DAILY #90 tabs 01/24/25 06/05/25 Rx tablet,extended release 24 hr apixaban 5 mg tablet (Eliquis) 5 mg PO Q12HR #180 tabs 03/26/25 06/05/25 Rx duloxetine 30 mg capsule,delayed 30 mg PO DAILY #90 caps 03/26/25 06/05/25 Rx release buspirone 10 mg tablet 10 mg PO DAILY #90 tabs 04/11/25 06/05/25 Rx semaglutide 1 mg/dose (4 mg/3 mL) 1 mg (0.75 mL) subcut WEEKLY #3 mL 04/15/25 05/28/25 Rx subcutaneous pen injector (Ozempic) ferrous sulfate 325 mg (65 mg 325 mg PO DAILY #90 tabs 04/25/25 05/28/25 Rx iron) tablet pravastatin 20 mg tablet 20 mg PO HS #90 tabs 04/26/25 05/28/25 Rx Patient hx anesthesia problems: none Family hx anesthesia problems: none Results Review: All pre-operative results and documents have been reviewed as part of the pre-operative evaluation. [facility] Past Medical History Medical History Obstructive sleep apnea Type 2 diabetes mellitus Hypertension GI bleed due to NSAIDs Hyperlipidemia Transaminitis Obesity GERD (gastroesophageal reflux disease) Arthritis Anxiety Allergy Surgical History Surgical History History of esophagogastroduodenoscopy (05/2022) For evaluation of upper GI bleed. Findings included a large hiatal hernia, erythematous mucosa in the gastric body which was biopsied, and 2 friable gastric polyps which were resected and retrieved. H/O total knee replacement Bilateral in 2014 H/O esophagogastroduodenoscopy (~05/2022) History of carpal tunnel release of both wrists No pertinent past surgical history Family History Family History Mother Hypertension Grandparent Acute myocardial infarction Grandparent Acute myocardial infarction Father Cerebrovascular accident Prostate carcinoma Grandparent Diabetes mellitus Sibling Glaucoma Social History Social History Smoking packs per day: 1 Smoking cigarettes per day: 20.0 Years smoked: 20 Smoking pack-years: 20.00 Smoking status: Former smoker Tobacco type: cigarettes Smoking end date: 11/14/89 Alcohol intake: never Substance use: never Substance use type: does not use Do You Feel Safe in your Home?: Yes Living arrangements: alone Spiritual care concerns: No Anes - Eval Final PreProcedure Day of Procedure 06/05/25 10:31 Patient weight: obese Heart: regular rate and rhythm Lungs: clear to auscultation Airway: Mallampati scale class III Neurological: alert and oriented Last oral intake: >/= 8 hours ASA classification: III Emergent: no Anesthetic plan: proceed Anesthesia type and monitoring: general GIVS and standard monitoring Results Review: All pre-operative results and documents have been reviewed as part of the pre-operative evaluation. Informed Consent: The patient's anesthetic plan and its attendant risks and benefits were discussed with the patient/family/POA. Questions were solicited and answers provided to the satisfaction of the patient/family/POA.
[2025-06-05] MEDS: LACTATED RINGERS 1,000 ML 150 ML IV CONT (10:37)
--- NOTE | 2025-06-05 11:27 | PM.IMHP ---
H&P: HPI History of Present Illness Date/Time: 06/05/25 11:27 Chief Complaint: Iron deficiency anemia Narrative: in January this year, the patient was found to have hemoglobin of 8.8, and an iron saturation of 4%. She has been referred for EGD and colonoscopy. Her last colonoscopy was approximately 2 years ago, finding A transverse colon adenoma . she also has a history of NSAIDs related peptic ulcer bleeding. Review of Systems Review of Systems: All systems reviewed & are unremarkable except as noted in HPI and below PMFSH Past Medical History Medical History Obstructive sleep apnea Type 2 diabetes mellitus Hypertension GI bleed due to NSAIDs Hyperlipidemia Transaminitis Obesity GERD (gastroesophageal reflux disease) Arthritis Anxiety Allergy Surgical History Surgical History History of esophagogastroduodenoscopy (05/2022) For evaluation of upper GI bleed. Findings included a large hiatal hernia, erythematous mucosa in the gastric body which was biopsied, and 2 friable gastric polyps which were resected and retrieved. H/O total knee replacement Bilateral in 2014 H/O esophagogastroduodenoscopy (~05/2022) History of carpal tunnel release of both wrists No pertinent past surgical history Family History Family History Mother Hypertension Grandparent Acute myocardial infarction Grandparent Acute myocardial infarction Father Cerebrovascular accident Prostate carcinoma Grandparent Diabetes mellitus Sibling Glaucoma Social History Social History Smoking packs per day: 1 Smoking cigarettes per day: 20.0 Years smoked: 20 Smoking pack-years: 20.00 Smoking status: Former smoker Tobacco type: cigarettes Smoking end date: 11/14/89 Alcohol intake: never Substance use: never Substance use type: does not use Do You Feel Safe in your Home?: Yes Living arrangements: alone Spiritual care concerns: No Meds Home Medications and Allergies Home Medications ?Medication ?Instructions ?Recorded ?Confirmed ?Type fexofenadine 180 mg tablet 180 mg PO HS 01/11/22 05/28/25 History cholecalciferol (vitamin D3) 50 50 mcg PO HS 04/13/23 05/28/25 History mcg (2,000 unit) capsule diltiazem HCl 180 mg 180 mg PO QAM 30 days #30 caps 04/15/23 06/05/25 Rx capsule,extended release 24 hr, controlled CPAP supplies #1 ea 08/30/23 04/26/25 Rx biotin 5,000 mcg chewable tablet 5,000 mcg PO HS 09/13/23 05/28/25 History blood-glucose meter (Advanced #1 ea 10/09/24 04/26/25 Rx Glucose Meter) blood sugar diagnostic (Advanced #100 ea 10/10/24 04/26/25 Rx Glucose Meter Test Strips) lancets 28 gauge (Advanced Travel #100 ea 10/10/24 04/26/25 Rx Lancets) omeprazole 20 mg capsule,delayed See Rx Instructions .Route 12/28/24 05/28/25 Rx release .COMPLEX #90 caps glipizide 10 mg tablet, extended See Rx Instructions .Route 01/24/25 05/28/25 Rx release 24 hr .COMPLEX #90 tabs lisinopril 20 mg tablet See Rx Instructions .Route 01/24/25 05/28/25 Rx .COMPLEX #90 tabs metoprolol succinate 100 mg 100 mg PO DAILY #90 tabs 01/24/25 06/05/25 Rx tablet,extended release 24 hr apixaban 5 mg tablet (Eliquis) 5 mg PO Q12HR #180 tabs 03/26/25 06/05/25 Rx duloxetine 30 mg capsule,delayed 30 mg PO DAILY #90 caps 03/26/25 06/05/25 Rx release buspirone 10 mg tablet 10 mg PO DAILY #90 tabs 04/11/25 06/05/25 Rx semaglutide 1 mg/dose (4 mg/3 mL) 1 mg (0.75 mL) subcut WEEKLY #3 mL 04/15/25 05/28/25 Rx subcutaneous pen injector (Ozempic) ferrous sulfate 325 mg (65 mg 325 mg PO DAILY #90 tabs 04/25/25 05/28/25 Rx iron) tablet pravastatin 20 mg tablet 20 mg PO HS #90 tabs 04/26/25 05/28/25 Rx Allergies Allergy/AdvReac Type Severity Reaction Status Date / Time Sulfa (Sulfonamide Allergy Severe Hives / Verified 07/23/25 10:08 Antibiotics) Red Face Exam Const: General: cooperative and healthy appearing Resp: Effort & Inspection: normal respiratory effort and able to speak in complete sentences Auscultation: clear to auscultation bilaterally Cardio: Rate: regular rate Rhythm: regular rhythm GI: Inspection: normal to inspection GI Palp: No No hepatosplenomegaly present Auscultation: normal bowel sounds Rectal Exam: deferred Skin: General skin exam: normal color Psych: Appearance: grossly normal Mental Status: mental status grossly normal Assessment and Plan Assessment and plan (1) Iron deficiency anemia: Code(s): D50.9 - Iron deficiency anemia, unspecified Status: Acute Assessment and Plan: The patient is deemed a good candidate for the procedure. Consent signed. Will proceed.
--- NOTE | 2025-06-05 11:54 | S_PTH ---
PATIENT: Haritha Castanon LOC: [facility] Pimentel#:[id number] AGE/SX: 74/F ROOM: RE06/05/[address]: Saturnino Myles MD : 1950 BED: DIS: 06/05/2025 SPEC #: [id number] RECD: 06/05/25 13:34 STATUS: JOHN RE #: [id number] MOUNA: 06/05/25 11:[address]: Saturnino Myles DEPT: [facility] Surgical RECD BY: Marjorie Garcia ENTERED: 06/05/25 13:36 SP TYPE: Surgical OTHR DR: Arturo Tang, Tissues: A - Gastric Polyp B - Gastric Biopsy C - Gastric Biopsy D - Colon Biopsy E - Colon Biopsy F - Colon Polypectomy Procedures: Hematoxylin and Eosin Stain Gross and Microscopic Level 4 MLH1 MSH2 MSH6 PMS2
--- NOTE | 2025-06-05 11:57 | SUR.OPER ---
EGD: [id number] COLON: Start 1202
[2025-06-05 12:41] VITALS: BP 133/65; PULSE 65; RESP 20; O2SAT 96
[2025-06-05 12:51] VITALS: BP 128/72; PULSE 60; RESP 20; O2SAT 97
[2025-06-05 13:01] VITALS: BP 141/68; PULSE 60; RESP 20; O2SAT 97
== END 2025-06-05 13:28 | disposition home or self-care (01) ==
PROVIDERS: PCP Internal Medicine; Referring Provider Nurse Practitioner; Visit Provider Internal Medicine Gastroenterology
PROC: 0DJ08ZZ Inspection of Upper Intestinal Tract, Via Natural or Artificial Opening Endoscopic (ICD-10-PCS; CPT 45378; principal; 2025-06-05 11:00)
DX: D50.9 Iron deficiency anemia, unspecified (principal); C18.0 Malignant neoplasm of cecum; C18.7 Malignant neoplasm of sigmoid colon; K31.7 Polyp of stomach and duodenum; D12.3 Benign neoplasm of transverse colon; I85.00 Esophageal varices without bleeding; K44.9 Diaphragmatic hernia without obstruction or gangrene; K29.51 Unspecified chronic gastritis with bleeding; E78.5 Hyperlipidemia, unspecified; I10 Essential (primary) hypertension; G47.33 Obstructive sleep apnea (adult) (pediatric); E11.9 Type 2 diabetes mellitus without complications; R74.01 Elevation of levels of liver transaminase levels; K21.9 Gastro-esophageal reflux disease without esophagitis; F41.9 Anxiety disorder, unspecified; M19.90 Unspecified osteoarthritis, unspecified site; Z79.84 Long term (current) use of oral hypoglycemic drugs; Z79.01 Long term (current) use of anticoagulants; Z79.85 Long-term (current) use of injectable non-insulin antidiabetic drugs; E66.9 Obesity, unspecified; Z68.32 Body mass index [BMI] 32.0-32.9, adult; Z99.89 Dependence on other enabling machines and devices; Z98.890 Other specified postprocedural states; Z87.891 Personal history of nicotine dependence; Z80.42 Family history of malignant neoplasm of prostate; Z82.49 Family history of ischemic heart disease and other diseases of the circulatory system
CPT/HCPCS: 43239; 43251; 45380; 82948; 88305; 88342; J2003; J2704; J7120

== ENCOUNTER 2025-06-18 07:35 | Outpatient (CLI) | payer MEDICARE, SELFPAY ==
--- NOTE | ~2025-06-18 | CT_ITS ---
EXAMINATION: CT chest abdomen pelvis w con DATE: 06/18/2025 8:20 CDT INDICATION: Malignant neoplasm of the colon TECHNIQUE: Computed tomography (CT) of the chest, abdomen, and pelvis was performed with 100 cc Omnip aque 350 intravenous contrast. The dose-length product was 1105.10 mGy-cm. Automated exposure control and iterative reconstruction technique were employed. COMPARISON: None FINDINGS: CHEST CT: Large hiatal hernia. No significant pleural or pericardial effusion. No thoracic lymphadenopathy. Hea rt size normal. There is a 5 mm right upper lobe nodule, image 29. There is a 3 mm right lower lobe n odule in the superior segment, image 55. There is a 6 mm nodule in the right lower lobe, image 59. Th ere is a 12 mm left lower lobe nodule, image 61. No endobronchial lesions. No pneumothorax. No axilla ry, mediastinal or hilar lymphadenopathy. There is severe thoracic and lumbar spondylosis with dextro scoliosis of the thoracic spine. No focal lytic or blastic lesions are identified to suggest metastat ic disease. ABDOMEN/PELVIS CT: Cirrhosis of the liver. There are calcified granulomas of the spleen which is enlarged. Small low-den sity lesion left hepatic lobe, most likely benign cysts. The pancreas, adrenal glands and kidneys are unremarkable. There are high density nodules in the gallbladder lumen which may represent stones or gallbladder polyps. Nonobstructive bowel gas pattern. Mildly enlarged portacaval lymph node measuring 1.9 cm. Nonobstructive bowel gas pattern. No focal bowel masses are identified. IMPRESSION: 1. Multiple bilateral pulmonary nodules largest measuring 4 mm in the left lower lobe, suspicious for metastatic disease. 2: Cirrhosis of the liver with splenomegaly. Findings compatible with portal hypertension. 3: Mildly enlarged portacaval lymph node measuring 1.9 cm. 4: Hyperdense dependent nodules in the gallbladder lumen which may represent stones or polyps. Reviewed, dictated and finalized at location A. IMPRESSION: 1. Multiple bilateral pulmonary nodules largest measuring 4 mm in the left lowe r lobe, suspicious for metastatic disease. 2: Cirrhosis of the liver with splenomegaly. Findings compatible with portal hy pertension. 3: Mildly enlarged portacaval lymph node measuring 1.9 cm. 4: Hyperdense dependent nodules in the gallbladder lumen which may represent st ones or polyps.
--- OUTSIDE RECORDS SUMMARY | 2025-06-18 07:42 | XMS_ITS | Encounter Summary ---
Author Organization [facility] Address [address] [place] [address] Phone Care Team Providers Care Cardiovascular Technologist Name Role Phone Maricarmen Mireles MD Primary Care Provider [phone] Arturo Tang DO Primary Care Provider Reason for Visit * Reason Comments Medication Refill Encounter Details Date Type Department Care Team (Late st Contact Info) Description 11/27/2021 Refill [facility] - Primary Care - [place] [address] [place] [address] Maricarmen Mireles MD [address] [place] [address] Medication Refill Social History Tobacco [...] Susan Husain RN - 11/27/2021 3:52 PM SUPERVISOR HANGING AND TRIMMING Medication failed the protocol, provider to review [...] 6 months No results found for: GFRNA RVISOR HANGING AND TRIMMING documented in this encounter Plan of Treatment Not on file documented as of this encounter Visit Diagnoses Diagnosis Type 2 diabetes mellitus without complication, without long-term current use of insulin documented in this encounter Additional Health Concerns Assessment Noted Time PHQ-9 Depression Total Score: 0 08/25/20 20 12:00 PM CDT documented as of this encounter Care Teams Cardiovascular Technologist Relationship Specialty Start Date End Date Maricarmen Mireles MD PCP - General Family Medicine 08/25/15 12/08/21 Arturo Tang DO [facility] [place] [address] PCP - General Internal Medicine 12/17/21 documented as of this encounter
--- OUTSIDE RECORDS SUMMARY | 2025-06-18 07:42 | XMS_ITS | Encounter Summary ---
Author Organization [facility] Address [address] [place] [address] Phone Care Team Providers Care Telephone Instrument Supervisor Name Role Phone Maricarmen Mireles MD Primary Care Provider Arturo Tang DO Primary Care Provider Reason for Visit * Reason Comments Medication Refill Encounter Details Date Type Department Care Team (Late st Contact Info) Description 10/23/2020 [facility] [place] [address] [place] [address] Elvira Kumar APRN, COLOR LABORATORY TECHNICIAN [address] [place] [address] Medication Refill Social History Tobacco Use Types [...] COVID-19? No / Unsure 10/12/2020 3:25 PM ARCHITECTURAL PROJECT CAPTAIN documented as of this encounter Plan of Treatment Not on file documented as of this encounter Visit Diagnoses Diagnosis Back strain, initial encounter documented in this encounter Additional Health Concerns Assessment Noted Time PHQ-9 Depression Total Score: 0 08/25/20 20 12:00 PM CDT documented as of this encounter Care Teams Telephone Instrument Supervisor Relationship Specialty Start Date End Date Maricarmen Mireles MD PCP - General Family Medicine 08/25/15 12/08/21 Arturo Tang DO [facility] [place] [address] PCP - General Internal Medicine 12/17/21 documented as of this encounter
--- OUTSIDE RECORDS SUMMARY | 2025-06-18 07:42 | XMS_ITS | Encounter Summary ---
Author Organization [facility] Address [address] [place] [address] Phone Care Team Providers Care Audiometrist Name Role Phone Maricarmen Mireles MD Primary Care Provider [phone] Arturo Tang DO Primary Care Provider Reason for Visit * Reason Comments Medication Refill Encounter Details Date Type Department Care Team (Late st Contact Info) Description 10/26/2021 [facility]ill [facility] [address] [place] [address] Maricarmen Mireles MD [address] [place] [address] Medication Refill Social History Tobacco [...] Dept 03/10/21 Office Visit Maricarmen Mireles MD [facility] [employer] [facility] Showing recent visits within past 365 days [...] Dept 03/10/21 Office Visit Maricarmen Mireles MD [facility] [place] [facility] Showing recent visits within past 365 days and meeting all other requirements Future Appointments No visits were found meeting these conditions. Showing future appointments within next 90 days and meeting all other requirements ENISHMENT ANALYST documented in this encounter Plan of Treatment Not on file documented as of this encounter Visit Diagnoses Diagnosis Essential hypertension Unspecified essential hypertension Hyperlipidemia, unspecified hyperlipidemia type documented in this encounter Additional Health Concerns Assessment Noted Time PHQ-9 Depression Total Score: 0 08/25/20 20 12:00 PM CDT documented as of this encounter Care Teams Audiometrist Relationship Specialty Start Date End Date Maricarmen Mireles MD PCP - General Family Medicine 08/25/15 12/08/21 Arturo Tang DO [facility] [address] [place] [address] PCP - General Internal Medicine 12/17/21 documented as of this encounter
--- OUTSIDE RECORDS SUMMARY | 2025-06-18 07:42 | XMS_ITS | Encounter Summary ---
Author Organization [facility] Address [address] [place] [address] Phone Care Team Providers Care Practice Physician Name Role Phone Maricarmen Mireles MD Primary Care Provider Arturo Tang DO Primary Care Provider Reason for Visit * Reason Comments Medication Refill Encounter Details Date Type Department Care Team (Late st Contact Info) Description 08/31/2021 Refill [facility] - [facility] - [place] [address] [place] [address] Maricarmen Mireles MD [address] [place] [address] Medication Refill Social History Tobacco [...] Dept 03/10/21 Office Visit Maricarmen Mireles MD [facility] Showing recent visits within past 182 days [...] documented as of this encounter Care Teams Practice Physician Relationship Specialty Start Date End Date Maricarmen Mireles MD PCP - General Family Medicine 08/25/15 12/08/21 Arturo Tang DO [address] [facility] [place] [address] PCP - General Internal Medicine 12/17/21 documented as of this encounter
--- OUTSIDE RECORDS SUMMARY | 2025-06-18 07:42 | XMS_ITS | Encounter Summary ---
Author Organization [facility] Address [address] [place] [address] Care Team Providers Care Chef Manager Name Role Phone Arturo Tang DO Primary Care Provider [phone] Encounter Details Date Type Department Care Team (Late st Contact Info) Description 09/17/2020 Lab Requisition [facility] [address] [place] [id number] Sorin Lozano MD [address] [place] [address] Social History Tobacco Use Types Packs/Day Years Used Date Smoking Tobacco: Never Assessed Comments Unknown Sex and Gender Information Value Date Recorded Sex Assigned at Not on file Legal Sex Female 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 Gender Identity Not on file Sexual Orientation Not on file documented as of this encounter Plan of Treatment Not on file documented as of this encounter Procedures Procedure Name Priority Date/Time Associated Diagnosis Comments DERMATOPATHOLOGY Routine 09/16/2020 12:0 0 AM ENGINEER 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 documented in this encounter Results * DERMATOPATHOLOGY (09/16/2020 12:00 AM ENGINEER 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) Case Report Dermatopathology Report Case: [id number] Authorizing Provider: Sorin Lozano MD Collected: 09/16/2020 12:00 AM Ordering Location: [facility] Received: 09/17/2020 12:08 PM Pathologist: Rosemary Espino MD Specimens: A) - Skin, upper abdomen A B) - Skin, upper abdomen B C) - Skin, left upper lateral arm above elbow 0 1:15 PM [facility] Final Diagnosis Specimen A. SKIN, upper abdomen A: FOCAL DERMAL FIBROSIS (L90.5) (see microscopic description and comment) Specimen B. SKIN, upper abdomen B: LICHEN SCLEROSUS ET ATROPHICUS (L90.0) (see microscopic description) Specimen C. SKIN, left upper lateral arm above elbow: HYPERPLASTIC (HYPERTROPHIC) ACTINIC KERATOSIS (L57.0) (see microscopic description) 0 1:15 PM [facility] DERMATOPATHOLOGY [facility]ORATORY at [address] ENGINE[address] 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 Clinical History A-B: R/O morphea vs LS&A vs other C: R/O BCC, LSK 0 1:15 PM [facility]ERMATOPATH[facility]Y [facility] Gross Description Specimen [...] 10x8x1 mm. Jar 0. 0 1:15 PM [facility] Microscopic Description Specimen [...] The lesion is inflamed. 0 1:15 PM [facility] 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 DERMATOPATHOLOGY LABORATORY Disclaimer An external and internal positive and negative controls are appropriate for the histochemical, immunohistochemical and immunofluorescence stain(s) in this case (if any), except where stated explicitly. The performance characteristics of the stain(s) cited in this report were developed and its performance characteristic determined by the Dermatopathology Laboratory at [facility], directed by Dr. Merlyn Grover. These tests need not be, and therefore are not, approved by the [place] Food and Drug Administration. The tests are used for clinical purposes. Billing Codes Specimen Charges Stain Charges 46248 02234 78381 1 1 1 23979 52243 54627 31952 1 1 1 1 0 1:15 PM 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 DERMATOPATHOLOGY LABORATORY Embedded Images 0 1:15 PM [facility] 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 DERMATOPATHOLOGY LABORATORY Pathology/Cytology TISSUE SPECIMEN FROM SKIN / Unknown 09/16/2020 09/17/2020 12:08 PM ENGINEER 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 Miscellaneous samples (specimen) TISSUE SPECIMEN FROM SKIN / Unknown 09/16/2020 09/17/2020 12:08 PM ENGINEER 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 Miscellaneous samples (specimen) TISSUE SPECIMEN FROM SKIN / Unknown 09/16/2020 09/17/2020 12:08 PM ENGINEER 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 Sorin Lozano MD LAB - PATHOLOGY/CYTOLOGY ORD ERABLES Final Result DERMATOPATHOLOGY LABORATORY [facility] - Department of Dermatology [facility] Specialized Medicine [address] [place] [address], [address] [place] [address], [facility] [phone] documented in this encounter Visit Diagnoses Not on filedocumented in this encounter Care Teams Chef Manager Relationship Specialty Start Date End Date Arturo Tang DO PCP - General Internal Medicine 05/23/22 documented as of this encounter
--- OUTSIDE RECORDS SUMMARY | 2025-06-18 07:42 | XMS_ITS | Clinical Summary ---
Author Organization [facility] Address [address] [address] Phone Care Team Providers Care Foreign Service Teacher Name Role Phone Arturo Tang DO Primary [...] without long-term current use of insulin (HCC) [facility] SCREENING BILATERAL DIGITAL W CAD W JAY Routine 07/13/2019 1:45 PM CDT Encounter for screening mammogram for malignant neoplasm of breast [facility] BONE DENSITOMETRY AXIAL SKELETON Routine 07/06/2018 2:35 PM CDT Postmenopausal COLONOSCOPY Routine 07/01/2011 from Last 3 Months or Most Recently Relevant to Health Maintenance Results * DILATED EYE EXAM (11/11/2020) us Tyrone Wolfe PROCEDURE/MINOR SURGICAL ORDERAB LES Edited Result - Final * HEMOGLOBIN A1C W/ ESTIMATED GLUCOSE (08/09/2020) HGB-A1C 7.1 % Blood specimen (specimen) 08/09/2020 us Maricarmen Mierles MD CHEMISTRY ORDERABLES Edited Result - Final [...] Comparison is made to exams dated: 07/14/2017 [facility], 07/02/2015, and 06/04/2014 [facility]. BREAST TISSUE:There are scattered fibroglandular densities [...] exam. Electronically signed by: Sonido quan/tony:07/13/2019 15:09:37 Surface To Air Weapons Officer: Francesca NUNEZR)(M), [facility] letter sent: Normal Exam Reading location: [...] Comparison is made to exams dated: 07/14/2017 [facility], 07/02/2015, and 06/04/2014 [facility]. BREAST TISSUE:There are scattered fibroglandular densities [...] exam. Electronically signed by: Sonido quan/tony:07/13/2019 15:09:37 Surface To Air Weapons Officer: Francesca Jerez RTTatianaR)(M), [facility] letter sent: Normal Exam Reading location: [place] BI-RADS: 1 Negative us Maricarmen Mireles MD IMG MAMMO ORDERABLES Final R esult * [facility] BONE DENSITOMETRY AXIAL SKELETON (07/06/2018 2:35 [...] old F with given history of screening. Crossing Flagman/Model: IntelligentM (S/N [id number]) CLINICAL INFORMATION: Risk factors: Menopause due to [...] Armond Desouza M.D. MARSHALL: MARSHALL Report ID: [id number] Reading Location: [place] [address] Procedure Note Armond Desouza MD - 07/07/2018 EXAM DESCRIPTION: [facility] BONE DENSITOMETRY AXIAL SKELETON REASON FOR STUDY: 67 y/o year old F with given history of screening. Crossing Flagman/Model: IntelligentM (S/N [id number]) CLINICAL INFORMATION: Risk factors: Menopause due to [...] Armond Desouza M.D. MARSHALL: MARSHALL Report ID: [id number] Reading Location: [place] [address] IMPRESSION: Low bone mass. Statistically significant decrease [...] Maintenance Insurance MEDICARE C AETNA Care Teams Foreign Service Teacher Relationship Specialty Start Date End Date Arturo Tang DO [facility] [place] [address] PCP - General Internal Medicine 12/17/21
--- OUTSIDE RECORDS SUMMARY | 2025-06-18 07:42 | XMS_ITS | Encounter Summary ---
Author Organization [facility] Address [address] [place] [address] Phone Care Team Providers Care Foster Care Therapist Name Role Phone Maricarmen Mireles MD Primary Care Provider Arturo Tang DO Primary Care Provider Reason for Visit * Reason Comments Medication Refill Encounter Details Date Type Department Care Team (Late st Contact Info) Description 09/01/2020 Refill [facility] - Primary Care - [place] [address] [place] [address] Maricarmen Mireles MD [address] [place] [address] Medication Refill Social History Tobacco [...] 1 week ago Physical exam, annual (Adult) [facility] Maricarmen Mireles MD 8 months ago Type 2 diabetes mellitus without complication, without long-term current use of insulin ([facility]) [facility] - Maricarmen Beck MD 1 year ago Physical exam, annual (Adult) [facility] - Maricarmen Beck MD 1 year ago Type 2 diabetes mellitus without complication, without long-term current use of insulin ([facility]) [facility] - Maricarmen Beck MD 2 years ago Physical exam, annual (Adult) [facility] - Maricarmen Trejo MD Upcoming Appointments Future Appointments In 5 months Maricarmen Mireles MD [facility] - [facility] JOB TRACER - Recent and Past Visits Recent Visits Date Type Provider Dept 08/25/20 Office [facility]19 [facility] Visit [facility]en [facility]les MD [facility] 06/22/19 [facility] visits within past [...] documented as of this encounter Care Teams Foster Care Therapist Relationship Specialty Start Date End Date Maricarmen Mireles MD PCP - General Family Medicine 08/25/15 12/08/21 Arturo Tang DO [facility] [facility] [place] [address] PCP - General Internal Medicine 12/17/21 documented as of this encounter
--- OUTSIDE RECORDS SUMMARY | 2025-06-18 07:42 | XMS_ITS | Encounter Summary ---
Author Organization [facility] Address [address] [place] [address] Phone Care Team Providers Care Optometrist Name Role Phone Maricarmen Mireles MD Primary Care Provider Arturo Tang DO Primary Care Provider Reason for Visit * Reason Comments Medication Refill Encounter Details Date Type Department Care Team (Late st Contact Info) Description [facility] [address] [place] [address] Maricarmen Mireles MD [address] [place] [address] Medication Refill Social History Tobacco [...] Dept 03/10/21 Office Visit Maricarmen Mireles MD [facility] 08/25/20 Office Visit Maricarmen Mireles MD [facility] Showing recent visits within past 365 [...] Dept 03/10/21 Office Visit Maricarmen Mireles MD [facility] 08/25/20 Office Visit Maricarmen Mireles MD [facility] Showing recent visits within past 365 [...] documented as of this encounter Care Teams Optometrist Relationship Specialty Start Date End Date Maricarmen Mireles MD PCP - General Family Medicine 08/25/15 12/08/21 Arturo Tang DO [facility] [place] [address] PCP - General Internal Medicine 12/17/21 documented as of this encounter
--- OUTSIDE RECORDS SUMMARY | 2025-06-18 07:42 | XMS_ITS | Clinical Summary ---
Author Organization [facility] Address [address] [place] [address] Care Team Providers Care Precision Machinist Name Role Phone Arturo Tang DO Primary Care Provider [phone] Source Comments [facility],non-owned Affiliates and Associated Physician Practices is amultiple site organization consisting of ambulatory clinics and hospital sitesin [place], [place], [place] and [place]. This disclosure is being madepursuant to the Care Everywhere program and may not contain all information available regarding this patient. Last updated 18.[facility] Allergies Active Allergy Reactions Criticality Noted Date Comments Dust Mite Extract Other 05/24/2022 Metformin Diarrhea High 12/09/2016 Sulfamethoxazole W-Trimethoprim Rash Medium 03/14 Medications * Be aware that medications may not be up to date on this document. Alwaysverify current medications with the patient. 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 Gender Identity Not on file Sexual Orientation [...] complete this topic Insurance AETNA MEDICARE ADV SELF PAY NO INSURANCE Member Subscriber Plan / Payer (Ef fective for All Dates) Name:Haritha Brito Member ID:Not on file Relation to Subscriber:Not on file Name:HARITHA BRITO Subscriber ID:Not on file (Home) Address: [address] [place] [address] Payer ID:Not on file Group ID:Not on file Type:Self Pay Address: [place], [place] AETNA AETNA MEDICARE ADV Advance Directives * Full Code (Latest Code Status on File) Date Activated Date Inactivated Comments 05/23/2022 11:21 PM 05/26/2022 12:59 PM Care Teams Precision Machinist Relationship Specialty Start Date End Date Arturo Tang DO PCP - General Internal Medicine 05/23/22
--- OUTSIDE RECORDS SUMMARY | 2025-06-18 07:42 | XMS_ITS | Encounter Summary ---
Author Organization [facility] Address [address] [place] [address] Phone Care Team Providers Care Rotary Drier Feeder Name Role Phone Maricarmen Mireles MD Primary Care Provider Arturo Tang DO Primary Care Provider Reason for Visit * Reason Comments Medication Refill Encounter Details Date Type Department Care Team (Late st Contact Info) Description [facility] [address] [place] [address] Maricarmen Mireles MD [address] [place] [address] Medication Refill Social History Tobacco [...] Dept 03/10/21 Office Visit Maricarmen Mireles MD [facility] [place] [facility] 08/25/20 Office Visit Maricarmen Mireles MD [facility] [place] [facility] Showing recent visits within past 365 [...] Dept 03/10/21 Office Visit Maricarmen Mireles MD [facility] [place] [facility] 08/25/20 Office Visit Maricarmen Mireles MD [facility] [place] [facility] Showing recent visits within past 365 [...] 8 months ago Physical exam, annual (Adult) [facility] Maricarmen Mireles MD 1 year ago Type 2 diabetes mellitus without complication, without long-term current use of insulin ([facility]) [facility] - Maricarmen Beck MD 1 year ago Physical exam, annual (Adult) [facility] Maricarmen Mireles MD 2 years ago Type 2 diabetes mellitus without complication, without long-term current use of insulin([facility]) [facility] Maricarmen Mireles MD Upcoming Appointments Future Appointments In 10 months Maricarmen Mireles MD [facility] - Recent and Past Visits Recent Visits Date Type Provider Dept 03/10/21 Office Visit Maricarmen Mireles MD [facility] 08/25/20 Office Visit Maricarmen Mireles MD [facility] Showing recent visits within past 460 days [...] documented as of this encounter Care Teams Rotary Drier Feeder Relationship Specialty Start Date End Date Maricarmen Mireles MD PCP - General Family Medicine 08/25/15 12/08/21 Arturo Tang DO [facility] [place] [address] PCP - General Internal Medicine 12/17/21 documented as of this encounter
--- OUTSIDE RECORDS SUMMARY | 2025-06-18 07:42 | XMS_ITS | Clinical Summary ---
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 RESULT: Two views of each breast obtained, compared with 06/04/14 and 08/10/12.Scattered fibroglandular densities bilaterally. No dominant mass isdemonstrated. No suspicious clusters of microcalcifications are evident.A few scattered benign calcifications. A few small densities which aresimilar to previously. Digital technology was employed plus computer-aideddetection software ([employer]) was utilized in interpretation of these images.This [...] Fax: -- Attending Fax: -- Attending ID: [id number] Requesting ID: [id number] Report To 1 ID: [id number] Report To 1 Name: JESSICA DE LA PAZ Report To 1 FAX: -- NextGen Order #: Historical Provider MD CHEN MAMMO PROCEDURES Valeri l Result * COLONOSCOPY (07/01/2011 12:00 AM CDT) Anatomical Region Laterality Modality Other Narrative 07/01/2011 12:00 AM CDT Ordered by an unspecified provider. Procedure Note ProviderShobha MD - 07/01/2011 12:00 AM CDT PROCEDURE REPORT Patient: HARITHA CASTANON Account: [id number] Room No: : 1950 Patient Type: OPA Attend.: Arturo Chavez M.D. Admit Date: 07/01/2011 Dict.: Arturo Chavez M.D. Disch. Date: PROCEDURE PERFORMED: Colonoscopy. HISTORY: 60-year-old female presents for screening colonoscopy. PHYSICAL EXAMINATION: Morbidly obese female. Lungs are clear. Cardiovascular examination was unremarkable. PROCEDURE: Colonoscopy was performed with the Heysan video endoscope.The patient was premedicated by anesthesia. [...] MEDICARE GOLD TNA MEDICARE GOLD Care Teams Electronic Controls Repairer Supervisor Relationship Specialty Start Date End Date Sol Aragon NP PCP - General Nurse Practitioner 04/18/23
--- OUTSIDE RECORDS SUMMARY | 2025-06-18 07:42 | XMS_ITS | Encounter Summary ---
Author Organization [facility] Address [address] [place] [address] Phone Care Team Providers Care Electric Installer Name Role Phone Maricarmen Mireles MD Primary Care Provider Arturo Tang DO Primary Care Provider Reason for Visit * Reason Comments Medication Refill Encounter Details Date Type Department Care Team (Late st Contact Info) Description 09/21/2020 [facility] [address] [place] [address] Maricarmen Mireles MD [address] [place] [address] Medication Refill Social History Tobacco [...] * Telephone Encounter - Jennifer Allen D, [facility] - 09/22/2020 11:43 AM MC KAY STITCHER Medication failed the protocol, provider to review [...] 4 weeks ago Physical exam, annual (Adult) [facility] Maricarmen Mireles MD 8 months ago Type 2 diabetes mellitus without complication, without long-term current use of insulin ([facility]) [facility] - Maricarmen Beck MD 1 year ago Physical exam, annual (Adult) [facility] - Maricarmen Beck MD 1 year ago Type 2 diabetes mellitus without complication, without long-term current use of insulin ([facility]) [facility] - Maricarmen Beck MD 2 years ago Physical exam, annual (Adult) [facility] - Maricarmen Trejo MD Upcoming Appointments Future Appointments In 5 months Maricarmen Mireles MD [facility] FACILITY WORKER - Recent and Past Visits Recent Visits Date Type Provider Dept 08/25/20 Office Visit Maricarmen Mireles MD [facility] 12/28/19 Office Visit Maricarmen Mireles MD [facility] [place] 06/22/19 Office Visit Maricarmen Mireles MD [facility] Showing recent visits within past 460 days [...] 4 weeks ago Physical exam, annual (Adult) [facility] Maricarmen Mireles MD 8 months ago Type 2 diabetes mellitus without complication, without long-term current use of insulin ([facility]) [facility] - Maricarmen Beck MD 1 year ago Physical exam, annual (Adult) [facility] - Maricarmen Beck MD 1 year ago Type 2 diabetes mellitus without complication, without long-term current use of insulin ([facility]) [facility] - Maricarmen Beck MD 2 years ago Physical exam, annual (Adult) [facility] Maricarmen Mireles MD Upcoming Appointments Future Appointments In 5 months Maricarmen Mireles MD [facility] - Recent and Past Visits Recent Visits Date Type Provider Dept 08/25/20 Office Visit Maricarmen Mireles MD [facility] 12/28/19 Office Visit Maricarmen Mireles MD [facility] 06/22/19 Office Visit Maricarmen Mireles MD [facility] Showing recent visits within past 460 days [...] 4 weeks ago Physical exam, annual (Adult) [facility] Maricarmen Mireles MD 8 months ago Type 2 diabetes mellitus without complication, without long-term current use of insulin ([facility]) [facility] - Maricarmen Beck MD 1 year ago Physical exam, annual (Adult) [facility] - Maricarmen Beck MD 1 year ago Type 2 diabetes mellitus without complication, without long-term current use of insulin ([facility]) [facility] - Maricarmen Beck MD 2 years ago Physical exam, annual (Adult) [facility] Maricarmen Mireles MD Upcoming Appointments Future Appointments In 5 months Maricarmen Mireles MD [facility] FACILITY WORKER - Recent and Past Visits Recent Visits Date Type Provider Dept 08/25/20 Office Visit Maricarmen Mireles MD [facility] 12/28/19 Office Visit Maricarmen Mireles MD [facility] 06/22/19 Office Visit Maricarmen Mireles MD [facility] Showing recent visits within past 460 days with a meds authorizing provider and meeting all other requirements Future Appointments No visits were found meeting these conditions. Showing future appointments within next 90 days with a meds authorizing provider and meeting all other requirements Passed - Last BP in normal range BP Readings from Last 1 Encounters: 08/25/20 140/82 KAY STITCHER documented in this encounter Plan of Treatment Not on file documented as of this encounter Visit Diagnoses Diagnosis Gastroesophageal reflux disease Esophageal reflux Depression with anxiety Dysthymic disorder documented in this encounter Additional Health Concerns Assessment Noted Time PHQ-9 Depression Total Score: 0 08/25/20 20 12:00 PM CDT documented as of this encounter Care Teams Electric Installer Relationship Specialty Start Date End Date Maricarmen Mireles MD PCP - General Family Medicine 08/25/15 12/08/21 Arturo Tang DO [facility] [address] [facility] [place] [id number] PCP - General Internal Medicine 12/17/21 documented as of this encounter
--- OUTSIDE RECORDS SUMMARY | 2025-06-18 07:42 | XMS_ITS | Encounter Summary ---
Author Organization [facility] Address [address] [place] [address] Phone Care Team Providers Care Sole Tacker Name Role Phone Maricarmen Mireles MD Primary Care Provider Arturo Tang DO Primary Care Provider Reason for Visit * Reason Comments Medication Refill Encounter Details Date Type Department Care Team (Late st Contact Info) Description 01/19/2021 Refill [facility] - Primary Care - [place] [address] [place] [address] Maricarmen Mireles MD [address] [place] [address] Medication Refill Social History Tobacco [...] COVID-19? No / Unsure 01/13/2021 4:52 PM EMAIL DEVELOPER documented as of this encounter Miscellaneous Notes * Telephone Encounter - Susan Husain RN - 01/19/2021 4:33 PM EMAIL DEVELOPER Medication approved and signed per standing order protocol. L DEVELOPER documented in this encounter Plan of Treatment Not on file documented as of this encounter Visit Diagnoses Not on filedocumented in this encounter Additional Health Concerns Assessment Noted Time PHQ-9 Depression Total Score: 0 08/25/20 20 12:00 PM CDT documented as of this encounter Care Teams Sole Tacker Relationship Specialty Start Date End Date Maricarmen Mireles MD PCP - General Family Medicine 08/25/15 12/08/21 Arturo Tang DO [facility] [place] [address] PCP - General Internal Medicine 12/17/21 documented as of this encounter
--- OUTSIDE RECORDS SUMMARY | 2025-06-18 07:42 | XMS_ITS | Referral Summary ---
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 Gender Identity Not on file Sexual Orientation [...] 9:47 PM CDT Screening Mamm Bi Acc#: [id number] DATE OF EXAM: Jul 02 2015 Performed [...] Fax: -- Attending Fax: -- Attending ID: [id number] Requesting ID: [id number] Report To 1 ID: [id number] Report To 1 Name: JESSICA DE LA PAZ Report To 1 FAX: -- NextGen Order #: Procedure Note Provider, MD Shobha - 03/10/2017 Screening Mamm Bi Acc#: [id number] DATE OF EXAM: Jul 02 2015 Performed [...] Fax: -- Attending Fax: -- Attending ID: [id number] Requesting ID: [id number] Report To 1 ID: [id number] Report To 1 Name: JESSICA DE LA PAZ Report To 1 FAX: -- NextGen Order #: Historical Provider MD CHEN MAMMO PROCEDURES Valeri l Result * COLONOSCOPY (07/01/2011 12:00 AM CDT) Anatomical Region Laterality Modality Other Narrative 07/01/2011 12:00 AM CDT Ordered by an unspecified provider. Procedure Note Provider, MD Shobha - 07/01/2011 12:00 AM CDT PROCEDURE REPORT Patient: HARITHA CASTANON Account: [id number] Room No: : 1950 [facility] Attend.: Arturo Chavez M.D. Admit Date: 07/01/2011 Dict.: Arturo Chavez M.D. Disch. Date: PROCEDURE PERFORMED: Colonoscopy. HISTORY: 60-year-old female presents for screening colonoscopy. PHYSICAL EXAMINATION: Morbidly obese female. Lungs are clear. Cardiovascular examination was unremarkable. PROCEDURE: Colonoscopy was performed with the [employer] video endoscope.The patient was premedicated by anesthesia. [...] Most Recently Relevant to Health Maintenance Insurance [facility] MEDICARE [facility] MEDICARE [facility] Care Teams Clerk Of Superior Court Relationship Specialty Start Date End Date Sol Aragon NP PCP - General Nurse Practitioner 04/18/23
--- OUTSIDE RECORDS SUMMARY | 2025-06-18 07:42 | XMS_ITS | Encounter Summary ---
Author Organization [facility] Address [address] [place] [address] Phone Care Team Providers Care Banking Services Officer Name Role Phone Maricarmen Mireles MD Primary Care Provider [phone] Arturo Tang DO Primary Care Provider Reason for Visit * Reason Comments Medication Refill Encounter Details Date Type Department Care Team (Late st Contact Info) Description 08/09/2021 [facility]ill [facility] [address] [place] [address] Maricarmen Mireles MD [address] [place] [address] Medication Refill Social History Tobacco [...] Dept 03/10/21 Office Visit Maricarmen Mireles MD [facility] 08/25/20 Office Visit [facility]en [facility]les MD [facility] recent visits within past 365 [...] documented as of this encounter Care Teams Banking Services Officer Relationship Specialty Start Date End Date Maricarmen Mireles MD PCP - General Family Medicine 08/25/15 12/08/21 Arturo Tang DO [address] [facility] [place] [address] PCP - General Internal Medicine 12/17/21 documented as of this encounter
--- OUTSIDE RECORDS SUMMARY | 2025-06-18 07:42 | XMS_ITS | Encounter Summary ---
Author Organization [facility] Address [address] [place] [address] Phone Care Team Providers Care Equity Structurer Name Role Phone Maricarmen Mireles MD Primary Care Provider Arturo Tang DO Primary Care Provider Reason for Visit * Reason Comments Medication Refill Encounter Details Date Type Department Care Team (Late st Contact Info) Description 11/14/20[facility] [address] [place] [address] Maricarmen Mireles MD [address] [place] [address] Medication Refill Social History Tobacco [...] [facility] Showing recent visits within past 365 days and meeting all other requirements Future Appointments No visits were found meeting these conditions. 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
--- OUTSIDE RECORDS SUMMARY | 2025-06-18 07:42 | XMS_ITS | Encounter Summary ---
Author Organization [facility] Address [address] [place] [address] Phone Care Team Providers Care Manager Strategic Name Role Phone Maricarmen Mireles MD Primary Care Provider Arturo Tang DO Primary Care Provider Reason for Visit * Reason Comments Medication Refill Encounter Details Date Type Department Care Team (Late st Contact Info) Description 09/15/2021 Refill [facility] - Primary Care - [place] [address] [place] [address] Maricarmen Mireles MD [address] [place] [address] Medication Refill Social History Tobacco [...] Dept 03/10/21 Office Visit Maricarmen Mireles MD [facility] Showing recent visits within past 365 days [...] Dept 03/10/21 Office Visit Maricarmen Mireles MD [facility] Showing recent visits within past 365 days [...] documented as of this encounter Care Teams Manager Strategic Relationship Specialty Start Date End Date Maricarmen Mireles MD PCP - General Family Medicine 08/25/15 12/08/21 Arturo Tang DO [facility] [place] [place] [address] PCP - General Internal Medicine 12/17/21 documented as of this encounter
--- OUTSIDE RECORDS SUMMARY | 2025-06-18 07:42 | XMS_ITS | Encounter Summary ---
Author Organization [facility] Address [address] [place] [address] Phone Care Team Providers Care Environmental Health And Safety Leader Name Role Phone Maricarmen Mireles MD Primary Care Provider Arturo Tang DO Primary Care Provider Reason for Visit * Reason Comments Medication Refill Encounter Details Date Type Department Care Team (Late st Contact Info) Description 05/28/2021 Refill [facility] - Primary Care - [place] [address] [place] [address] Maricarmen Mireles MD [address] [place] [address] Medication Refill Social History Tobacco [...] 03/10/21 Office Visit Maricarmen Mireles MD [facility] Showing recent visits within past [...] documented as of this encounter Care Teams Environmental Health And Safety Leader Relationship Specialty Start Date End Date Maricarmen Mireles MD PCP - General Family Medicine 08/25/15 12/08/21 Arturo Tang DO [address] [facility] [place] [address] PCP - General Internal Medicine 12/17/21 documented as of this encounter
--- OUTSIDE RECORDS SUMMARY | 2025-06-18 07:42 | XMS_ITS | Encounter Summary ---
Author Organization [facility] Address [address] [place] [address] Phone Care Team Providers Care Hand Spray Operator Name Role Phone Maricarmen Mireles MD Primary Care Provider Arturo Tang DO Primary Care Provider Reason for Visit * Reason Comments Medication Refill Encounter Details Date Type Department Care Team (Late st Contact Info) Description 01/24/2021 Refill [facility] - Primary Care - [place] [address] [place] [address] Maricarmen Mireles MD [address] [place] [address] Medication Refill Social History Tobacco [...] COVID-19? 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 documented as of this encounter Miscellaneous Notes [...] 5 months ago Physical exam, annual (Adult) [facility] Maricarmen Mireles MD 1 year ago Type 2 diabetes mellitus without complication, without long-term current use of insulin ([facility]) [facility] - Maricarmen Beck MD 1 year ago Physical exam, annual (Adult) [facility] - Maricarmen Beck MD 2 years ago Type 2 diabetes mellitus without complication, without long-term current use of insulin([facility]) [facility] - Maricarmen Beck MD 2 years ago Physical exam, annual (Adult) [facility] Maricarmen Mireles MD Upcoming Appointments Future Appointments In 4 weeks [facility]en [facility]ireles MD [facility]IV[facility] - Recent and Past Visits Recent Visits Date Type Provider Dept 08/25/20 Office Visit Maricarmen Mireles MD [facility] 12/28/19 Office Visit [facility]en [facility] Showing recent visits within past 460 days with a meds authorizing provider and meeting all other requirements Future Appointments Date Type Provider Dept 02/23/21 Appointment Maricarmen Mireles MD [facility] [place] Showing future appointments within next 90 days with a meds authorizing provider and meeting all other requirements documented in this encounter Plan of Treatment Not on file documented as of this encounter Visit Diagnoses Not on filedocumented in this encounter Additional Health Concerns Assessment Noted Time PHQ-9 Depression Total Score: 0 08/25/20 12:00 PM CDT documented as of this encounter Care Teams Hand Spray Operator Relationship Specialty Start Date End Date Maricarmen Mireles MD PCP - General Family Medicine 08/25/15 12/08/21 Arturo Tang DO [facility] [place] [address] PCP - General Internal Medicine 12/17/21 documented as of this encounter
--- OUTSIDE RECORDS SUMMARY | 2025-06-18 07:42 | XMS_ITS | Encounter Summary ---
Author Organization [facility] Address [address] [place] [address] Phone Care Team Providers Care Precision Lens Polisher Name Role Phone Maricarmen Mireles MD Primary Care Provider [phone] Arturo Tang DO Primary Care Provider Reason for Visit * Reason Comments Medication Refill Encounter Details Date Type Department Care Team (Late st Contact Info) Description 08/03/2020 Refill [facility] - Primary Care - [place] [address] [place] [address] Maricarmen Mireles MD [address] [place] [address] Medication Refill Social History Tobacco [...] without long-term current use of insulin ([facility]) [facility] - Maricarmen Beck MD 1 year ago Physical exam, annual (Adult) [facility] - Maricarmen Beck MD 1 year ago Type 2 diabetes mellitus without complication, without long-term current use of insulin ([facility]) [facility] - Maricarmen Beck MD 2 years ago Physical exam, annual (Adult) [facility] - Maricarmen Trejo MD 2 years ago Sinusitis, unspecified chronicity, unspecified location [facility] - Rani Yoder APN, BOOTH CASHIER Upcoming Appointments Future Appointments In 2 weeks Maricarmen Mireles MD [facility] - Recent and Past Visits Recent Visits Date Type Provider Dept 12/28/19 Office Visit Maricarmen Mireles MD [facility] [place] 06/22/19 Office Visit Maricarmen Mireles MD [facility] [place] Showing recent visits within past 460 days with a meds authorizing provider and meeting all other requirements Future Appointments Date Type Provider Dept 08/25/20 Appointment Maricarmen Mireles MD [facility] [place] Showing future appointments within next 90 days with a meds authorizing provider and meeting all other requirements documented in this encounter Plan of Treatment Not on file documented as of this encounter Visit Diagnoses Not on filedocumented in this encounter Additional Health Concerns Assessment Noted Time PHQ-9 Depression Total Score: 0 12/21/19 19 1:00 PM ACCOUNTS PAYABLE OR RECEIVABLE CLERK documented as of this encounter Care Teams Precision Lens Polisher Relationship Specialty Start Date End Date Maricarmen Mireles MD PCP - General Family Medicine 08/25/15 12/08/21 Arturo Tang DO [facility] [place] [address] PCP - General Internal Medicine 12/17/21 documented as of this encounter
[2025-06-18 08:17] LABS: Estimated Glomerular Filt Rate 54
== END 2025-06-18 07:36 | disposition home or self-care (01) ==
PROVIDERS: PCP Internal Medicine; Visit Provider Internal Medicine Gastroenterology
DX: R91.8 Other nonspecific abnormal finding of lung field (principal); C18.9 Malignant neoplasm of colon, unspecified; K74.60 Unspecified cirrhosis of liver; R16.1 Splenomegaly, not elsewhere classified; R59.0 Localized enlarged lymph nodes; R93.2 Abnormal findings on diagnostic imaging of liver and biliary tract
CPT/HCPCS: 71260; 74177; Q9967

== ENCOUNTER 2025-06-20 02:54 | Day surgery (SDC) | payer MEDICARE, SELFPAY ==
[2025-06-17 12:40] VITALS: BMI 31.8
--- OUTSIDE RECORDS SUMMARY | 2025-06-20 02:56 | XMS_ITS | Encounter Summary ---
Author Organization [facility] Address [address] [place] [address] Phone Care Team Providers Care Community Marketing Manager Name Role Phone Maricarmen Mireles MD Primary Care Provider Arturo Tang DO Primary Care Provider Reason for Visit * Reason Comments Medication Refill Encounter Details Date Type Department Care Team (Late st Contact Info) Description 08/31/2021 Refill [facility] - Primary Care - [place] [address] [place] [address] Maricarmen Mireles MD [address] [place] [address] Medication Refill Social History Tobacco [...] Dept 03/10/21 Office Visit Maricarmen Mireles MD [facility] Showing recent visits within past [...] documented as of this encounter Care Teams Community Marketing Manager Relationship Specialty Start Date End Date Maricarmen Mireles MD PCP - General Family Medicine 08/25/15 12/08/21 Arturo Tang DO [address] [facility] [place] [address] PCP - General Internal Medicine 12/17/21 documented as of this encounter
--- OUTSIDE RECORDS SUMMARY | 2025-06-20 02:56 | XMS_ITS | Encounter Summary ---
Author Organization [facility] Address [address] [facility] [place] [address] Care Team Providers Care Manufacturers Service Representative Name Role Phone Arturo Tang DO Primary Care Provider [phone] Encounter Details Date Type Department Care Team (Late st Contact Info) Description 09/17/2020 Lab Requisition [facility] [address] [place] [id number] Sorin Lozano MD [address] [place] [address] Social History Tobacco Use Types Packs/Day Years Used Date Smoking Tobacco: Never Assessed Comments Unknown Sex and Gender Information Value Date Recorded Sex Assigned at Not on file Legal Sex Female 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 Gender Identity Not on file Sexual Orientation Not on file documented as of this encounter Plan of Treatment Not on file documented as of this encounter Procedures Procedure Name Priority Date/Time Associated Diagnosis Comments DERMATOPATHOLOGY Routine 09/16/2020 12:0 0 AM REGISTERED VETERINARY TECHNICIAN documented in this encounter Results * DERMATOPATHOLOGY (09/16/2020 12:00 AM REGISTERED VETERINARY TECHNICIAN) Case Report Dermatopathology Report Case: [id number] Authorizing Provider: Sorin Lozano MD Collected: 09/16/2020 12:00 AM Ordering Location: [facility] Received: 09/17/2020 12:08 PM Pathologist: Rosemary Espino MD Specimens: A) - Skin, upper abdomen A B) - Skin, upper abdomen B C) - Skin, left upper lateral arm above elbow 0 1:15 PM [facility] DERMATOPATHOLOGY LABORATORY Final Diagnosis Specimen A. SKIN, upper abdomen A: FOCAL DERMAL FIBROSIS (L90.5) (see microscopic description and comment) Specimen B. SKIN, upper abdomen B: LICHEN SCLEROSUS ET ATROPHICUS (L90.0) (see microscopic description) Specimen C. SKIN, left upper lateral arm above elbow: HYPERPLASTIC (HYPERTROPHIC) ACTINIC KERATOSIS (L57.0) (see microscopic description) 0 1:15 PM [facility] DERMATOPATHOLOGY LABORATORY at [address] REGISTERED VETERINARY TECHNICIAN Clinical History A-B: R/O morphea vs LS&A vs other C: R/O BCC, LSK 0 1:15 PM [facility] DERMATOPATHOLOGY LABORATORY Gross Description Specimen [...] 10x8x1 mm. Jar 0. 0 1:15 PM [facility] DERMATOPATHOLOGY LABORATORY Microscopic Description Specimen [...] The lesion is inflamed. 0 1:15 PM REGISTERED VETERINARY TECHNICIAN DERMATOPATHOLOGY LABORATORY Disclaimer An external and internal positive and negative controls are appropriate for the histochemical, immunohistochemical and immunofluorescence stain(s) in this case (if any), except where stated explicitly. The performance characteristics of the stain(s) cited in this report were developed and its performance characteristic determined by the Dermatopathology Laboratory at [facility], directed by Dr. Merlyn Grover. These tests need not be, and therefore are not, approved by the [place] Food and Drug Administration. The tests are used for clinical purposes. Billing Codes Specimen Charges Stain Charges 27639 89036 04423 1 1 1 37315 18499 73383 11861 1 1 1 1 0 1:15 PM REGISTERED VETERINARY TECHNICIAN DERMATOPATHOLOGY LABORATORY Embedded Images 0 1:15 PM REGISTERED VETERINARY TECHNICIAN DERMATOPATHOLOGY LABORATORY Pathology/Cytology TISSUE SPECIMEN FROM SKIN / Unknown 09/16/2020 09/17/2020 12:08 PM REGISTERED VETERINARY TECHNICIAN Miscellaneous samples (specimen) TISSUE SPECIMEN FROM SKIN / Unknown 09/16/2020 09/17/2020 12:08 PM REGISTERED VETERINARY TECHNICIAN Miscellaneous samples (specimen) TISSUE SPECIMEN FROM SKIN / Unknown 09/16/2020 09/17/2020 12:08 PM REGISTERED VETERINARY TECHNICIAN Sorin Lozano MD LAB - PATHOLOGY/CYTOLOGY ORD ERABLES Final Result DERMATOPATHOLOGY LABORATORY [facility] - Department of Dermatology [facility] Specialized Medicine [address] [place] [address], 3rd [place] [address], [facility] [phone] documented in this encounter Visit Diagnoses Not on filedocumented in this encounter Care Teams Manufacturers Service Representative Relationship Specialty Start Date End Date Arturo Tang DO PCP - General Internal Medicine 05/23/22 documented as of this encounter
--- OUTSIDE RECORDS SUMMARY | 2025-06-20 02:56 | XMS_ITS | Encounter Summary ---
Author Organization [facility] Address [address] [place] [address] Phone Care Team Providers Care Project Coordinator Rn Name Role Phone Maricarmen Mireles MD Primary Care Provider Arturo Tang DO Primary Care Provider Reason for Visit * Reason Comments Medication Refill Encounter Details Date Type Department Care Team (Late st Contact Info) Description 08/09/2021 Refill [facility] [address] [place] [address] Mraicarmen Mireles MD [address] [place] [address] Medication Refill Social History Tobacco [...] Mireles MD [facility] 08/25/20 Office Visit Maricarmen Mireles MD [facility] Showing recent visits within past 365 [...] documented as of this encounter Care Teams Project Coordinator Rn Relationship Specialty Start Date End Date Maricarmen Mireles MD PCP - General Family Medicine 08/25/15 12/08/21 rAturo Tang DO [address] [place] [address] PCP - General Internal Medicine 12/17/21 documented as of this encounter
--- OUTSIDE RECORDS SUMMARY | 2025-06-20 02:56 | XMS_ITS | Clinical Summary ---
Author Organization [facility] [employer] Address [address] [place] [address] Care Team Providers Care Solar Energy Systems Designer Name Role Phone Arturo Tang DO Primary Care Provider [phone] Source Comments [facility] [employer],non-owned Affiliates and Associated Physician Practices is amultiple site organization consisting of ambulatory clinics and hospital sitesin [place], [place], [place] and [place]. This disclosure is being madepursuant to the Care Everywhere program and may not contain all information available regarding this patient. Last updated 18.[facility] [employer] Allergies Active Allergy Reactions Criticality Noted Date Comments Dust Mite Extract Other 05/24/2022 Metformin Diarrhea High 12/09/2016 Sulfamethoxazole W-Trimethoprim Rash Medium 03/14 Medications * Be aware that medications may not be up to date on this document. Alwaysverify current medications with the patient. 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
--- OUTSIDE RECORDS SUMMARY | 2025-06-20 02:57 | XMS_ITS | Encounter Summary ---
Author Organization [facility] Address [address] [place] [address] Phone Care Team Providers Care High Frequency Mill Operator Name Role Phone Maricarmen Mireles MD Primary Care Provider Arturo Tang DO Primary Care Provider Reason for Visit * Reason Comments Medication Refill Encounter Details Date Type Department Care Team (Late st Contact Info) Description [facility] [address] [place] [address] Maricarmen Mireles MD [address] [place] [address] Medication Refill Social History Tobacco [...] * Telephone Encounter - Jennifer Allen D, [facility] - 09/22/2020 11:43 AM SPORT INTERNSHIP Medication failed the protocol, provider to review [...] 4 weeks ago Physical exam, annual (Adult) [facility] Maricarmen Mireles MD 8 months ago Type 2 diabetes mellitus without complication, without long-term current use of insulin ([facility]) [facility] - Maricarmen Beck MD 1 year ago Physical exam, annual (Adult) [facility] - Maricarmen Beck MD 1 year ago Type 2 diabetes mellitus without complication, without long-term current use of insulin ([facility]) [facility] - Maricarmen Beck MD 2 years ago Physical exam, annual (Adult) [facility] - Maricarmen Trejo MD Upcoming Appointments Future Appointments In 5 months Maricarmen Mireles MD [facility] HIGH SCHOOL SPECIAL EDUCATION TEACHER - Recent and Past Visits Recent Visits Date Type Provider Dept 08/25/20 Office Visit Maricarmen Mireles MD [facility] 12/28/19 Office Visit Maricarmen Mireles MD [facility] 06/22/19 Office Visit Maricarmen Mireles MD [facility] Showing recent visits within past 460 [...] 4 weeks ago Physical exam, annual (Adult) [facility] Maricarmen Mireles MD 8 months ago Type 2 diabetes mellitus without complication, without long-term current use of insulin ([facility]) [facility] - Maricarmen Beck MD 1 year ago Physical exam, annual (Adult) [facility] - Maricarmen Beck MD 1 year ago Type 2 diabetes mellitus without complication, without long-term current use of insulin ([facility]) [facility] - Maricarmen Beck MD 2 years ago Physical exam, annual (Adult) [facility] Maricarmen Mireles MD Upcoming Appointments Future Appointments In 5 months Mariacrmen Mireles MD [facility] - Recent and Past Visits Recent Visits Date Type Provider Dept 08/25/20 Office Visit Maricarmen Mireles MD [facility] 12/28/19 Office Visit Maricarmen Mireles MD [facility] 06/22/19 Office Visit Maricarmen Mireles MD [facility] Showing recent visits within past 460 [...] 4 weeks ago Physical exam, annual (Adult) [facility] Maricarmen Mireles MD 8 months ago Type 2 diabetes mellitus without complication, without long-term current use of insulin (HCC) [facility] - Maricarmen Beck MD 1 year ago Physical exam, annual (Adult) [facility] - Maricarmen Beck MD 1 year ago Type 2 diabetes mellitus without complication, without long-term current use of insulin ([facility]) [facility] - Maricarmen Beck MD 2 years ago Physical exam, annual (Adult) [facility] Maricarmen Mireles MD Upcoming Appointments Future Appointments In 5 months Maricarmen Mireles MD [facility] HIGH SCHOOL SPECIAL EDUCATION TEACHER - Recent and Past Visits Recent Visits Date Type Provider Dept 08/25/20 Office Visit Maricarmen Mireles MD [facility] 12/28/19 Office Visit Maricarmen Mireles MD [facility] 06/22/19 Office Visit Maricarmen Mireles MD [facility] Showing recent visits within past 460 days with a meds authorizing provider and meeting all other requirements Future Appointments No visits were found meeting these conditions. Showing future appointments within next 90 days with a meds authorizing provider and meeting all other requirements Passed - Last BP in normal range BP Readings from Last 1 Encounters: 08/25/20 140/82 T INTERNSHIP documented in this encounter Plan of Treatment Not on file documented as of this encounter Visit Diagnoses Diagnosis Gastroesophageal reflux disease Esophageal reflux Depression with anxiety Dysthymic disorder documented in this encounter Additional Health Concerns Assessment Noted Time PHQ-9 Depression Total Score: 0 08/25/20 20 12:00 PM CDT documented as of this encounter Care Teams High Frequency Mill Operator Relationship Specialty Start Date End Date Maricarmen Mireles MD PCP - General Family Medicine 08/25/15 12/08/21 Arturo Tang DO [address] [facility] [id number] PCP - General Internal Medicine 12/17/21 documented as of this encounter
--- OUTSIDE RECORDS SUMMARY | 2025-06-20 02:57 | XMS_ITS | Encounter Summary ---
Author Organization [facility] Address [address] [place] [address] Phone Care Team Providers Care Homicide Squad Captain Name Role Phone Maricarmen Mireles MD Primary Care Provider [phone] Arturo Tang DO Primary Care Provider Reason for Visit * Reason Comments Medication Refill Encounter Details Date Type Department Care Team (Late st Contact Info) Description 05/28/2021 Refill [facility] - Primary Care - [place] [address] [place] [address] Maricarmen Mireles MD [address] [place] [address] Medication Refill Social History Tobacco [...] Dept 03/10/21 Office Visit Maricarmen Mireles MD [facility] Showing recent visits within past [...] documented as of this encounter Care Teams Homicide Squad Captain Relationship Specialty Start Date End Date Maricarmen Mireles MD PCP - General Family Medicine 08/25/15 12/08/21 Arturo Tang DO [address] [facility] [place] [address] PCP - General Internal Medicine 12/17/21 documented as of this encounter
--- OUTSIDE RECORDS SUMMARY | 2025-06-20 02:57 | XMS_ITS | Encounter Summary ---
Author Organization [facility] Address [address] [place] [address] Phone Care Team Providers Care Trimmer Sawyer Name Role Phone Maricarmen Mireles MD Primary Care Provider Arturo Tang DO Primary Care Provider Reason for Visit * Reason Comments Medication Refill Encounter Details Date Type Department Care Team (Late st Contact Info) Description [facility] [address] [place] [address] Maricarmen Mireles MD [address] [place] [address] Medication Refill Social History Tobacco [...] Dept 03/10/21 Office Visit Maricarmen Mireles MD [facility] Showing recent visits within past 365 days and meeting all other requirements Future Appointments No visits were found meeting these conditions. Showing future appointments within next 90 days and meeting all other requirements Passed - No matching NSAID med order in past 45 days No matching medication orders between 10/02/2021 11:02 AM and 11/16/2021 11:02 AM AL LABORATORY TECHNICIAN documented in this encounter Plan of Treatment Not on file documented as of this encounter Visit Diagnoses Not on filedocumented in this encounter Additional Health Concerns Assessment Noted Time PHQ-9 Depression Total Score: 0 08/25/20 20 12:00 PM CDT documented as of this encounter Care Teams Trimmer Sawyer Relationship Specialty Start Date End Date Maricarmen Mireles MD PCP - General Family Medicine 08/25/15 12/08/21 Arturo Tang DO [address] [place] [address] PCP - General Internal Medicine 12/17/21 documented as of this encounter
--- OUTSIDE RECORDS SUMMARY | 2025-06-20 02:57 | XMS_ITS | Encounter Summary ---
Author Organization [facility] Address [address] [place] [address] Phone Care Team Providers Care Human Resources Recruiter Name Role Phone Maricarmen Mireles MD Primary Care Provider [phone] Arturo Tang DO Primary Care Provider Reason for Visit * Reason Comments Medication Refill Encounter Details Date Type Department Care Team (Late st Contact Info) Description 01/19/2021 Refill [facility] - Primary Care - [place] [address] [place] [address] Maricarmen Mireles MD [address] [place] [address] Medication Refill Social History Tobacco [...] COVID-19? No / Unsure 01/13/2021 4:52 PM SNACK BAR COOK documented as of this encounter Miscellaneous Notes * Telephone Encounter - Susan Husain RN - 01/19/2021 4:33 PM SNACK BAR COOK Medication approved and signed per standing order protocol. K BAR COOK documented in this encounter Plan of Treatment Not on file documented as of this encounter Visit Diagnoses Not on filedocumented in this encounter Additional Health Concerns Assessment Noted Time PHQ-9 Depression Total Score: 0 08/25/20 20 12:00 PM CDT documented as of this encounter Care Teams Human Resources Recruiter Relationship Specialty Start Date End Date Maricarmen Mireles MD PCP - General Family Medicine 08/25/15 12/08/21 Arturo Tang DO [facility] [facility] [place] [address] PCP - General Internal Medicine 12/17/21 documented as of this encounter
--- OUTSIDE RECORDS SUMMARY | 2025-06-20 02:57 | XMS_ITS | Encounter Summary ---
Author Organization [facility] Address [address] [place] [address] Phone Care Team Providers Care Continuous Process Rotary Drum Tanner Name Role Phone Maricarmen Mireles MD Primary Care Provider [phone] Arturo Tang DO Primary Care Provider Reason for Visit * Reason Comments Medication Refill Encounter Details Date Type Department Care Team (Late st Contact Info) Description [facility] [address] [place] [address] Maricarmen Mireles MD [address] [place] [address] Medication Refill Social History [...] Dept 03/10/21 Office Visit Maricarmen Mireles MD [facility] 08/25/20 Office Visit Maricarmen Mireles MD [facility] Showing recent visits within past [...] Dept 03/10/21 Office Visit Maricarmen Mireles MD [facility] 08/25/20 Office Visit Maricarmen Mireles MD [facility] [place] [facility] Showing recent visits within past [...] ago Physical exam, annual (Adult) [facility] Maricarmen Mireles MD 1 year ago Type 2 diabetes mellitus without complication, without long-term current use of insulin ([facility]) [facility] - Maricarmen Beck MD 1 year ago Physical exam, annual (Adult) [facility] Maricarmen Mireles MD 2 years ago Type 2 diabetes mellitus without complication, without long-term current use of insulin([facility]) [facility] Maricarmen Mireles MD Upcoming Appointments Future Appointments In 10 months Maricarmen Mireles MD [facility] - Recent and Past Visits Recent Visits Date Type Provider Dept 03/10/21 Office Visit Maricarmen Mireles MD [facility] 08/25/20 Office Visit Maricarmen Mireles MD [facility] Showing recent visits within past 460 [...] documented as of this encounter Care Teams Continuous Process Rotary Drum Tanner Relationship Specialty Start Date End Date Maricarmen Mireles MD PCP - General Family Medicine 08/25/15 12/08/21 Arturo Tang DO [facility] [facility] [place] [place] [address] PCP - General Internal Medicine 12/17/21 documented as of this encounter
--- OUTSIDE RECORDS SUMMARY | 2025-06-20 02:57 | XMS_ITS | Clinical Summary ---
Author Organization [facility] Building [address] Address [address] [place] [address] Care Team Providers Care Metal Spray Operator Name Role Phone Sol Aragon NP Primary [...] on file Legal Sex Female 11:56 PM SCALE AGENT Gender Identity Not on file Sexual Orientation [...] 9:47 PM CDT Screening Mamm Bi Acc#: [id number] DATE OF EXAM: Jul 02 2015 Performed [...] Fax: -- Attending Fax: -- Attending ID: [id number] Requesting ID: [id number] Report To 1 ID: [id number] Report To 1 Name: JESSICA DE LA PAZ Report To 1 FAX: -- NextGen Order #: Procedure Note Provider, MD Shobha - 03/10/2017 Screening Mamm Bi Acc#: [id number] DATE OF EXAM: Jul 02 2015 Performed by: CLINICAL HISTORY: Routine screening. RESULT: Two views of each breast obtained, compared with 06/04/14 and 08/10/12.Scattered fibroglandular densities bilaterally. No dominant mass isdemonstrated. No suspicious clusters of microcalcifications are evident.A few scattered benign calcifications. A few small densities which aresimilar to previously. Digital technology was employed plus computer-aideddetection software ([employer]) was utilized in interpretation of these images.This [...] Fax: -- Attending Fax: -- Attending ID: [id number] Requesting ID: [id number] Report To 1 ID: [id number] Report To 1 Name: JESSICA DE LA PAZ Report To 1 FAX: -- NextGen Order #: Historical Provider MD CHEN MAMMO PROCEDURES Valeri l Result * COLONOSCOPY (07/01/2011 12:00 AM CDT) Anatomical Region Laterality Modality Other Narrative 07/01/2011 12:00 AM CDT Ordered by an unspecified provider. Procedure Note ProviderShobha MD - 07/01/2011 12:00 AM CDT PROCEDURE REPORT Patient: HARITHA CASTANON Account: [id number] Room No: : 1950 Patient Type: OPA Attend.: Arturo Chavez M.D. Admit Date: 07/01/2011 Dict.: Arturo Chavez M.D. Disch. Date: PROCEDURE PERFORMED: Colonoscopy. HISTORY: 60-year-old female presents for screening colonoscopy. PHYSICAL EXAMINATION: Morbidly obese female. Lungs are clear. Cardiovascular examination was unremarkable. PROCEDURE: Colonoscopy was performed with the WhatsNexx video endoscope.The patient was premedicated by anesthesia. [...] MEDICARE GOLD TNA MEDICARE GOLD Care Teams Metal Spray Operator Relationship Specialty Start Date End Date Sol Aragon NP PCP - General Nurse Practitioner 04/18/23
--- OUTSIDE RECORDS SUMMARY | 2025-06-20 02:57 | XMS_ITS | Encounter Summary ---
Author Organization [facility] Address [address] [place] [address] Phone Care Team Providers Care Reducing Salon Attendant Name Role Phone Maricarmen Mireles MD Primary Care Provider Arturo Tang DO Primary Care Provider Reason for Visit * Reason Comments Medication Refill Encounter Details Date Type Department Care Team (Late st Contact Info) Description 07/27/[facility] [address] [place] [address] Maricarmen Mireles MD [address] [place] [address] Medication Refill Social History Tobacco [...] Dept 03/10/21 Office Visit Maricarmen Mireles MD [facility] 08/25/20 Office Visit Maricarmen Mireles MD [facility] Showing recent visits within past [...] Dept 03/10/21 Office Visit Maricarmen Mireles MD [facility] 08/25/20 Office Visit Maricarmen Mireles MD [facility] Showing recent visits within past [...] documented as of this encounter Care Teams Reducing Salon Attendant Relationship Specialty Start Date End Date Maricarmen Mireles MD PCP - General Family Medicine 08/25/15 12/08/21 Arturo Tang DO [facility] [place] [address] PCP - General Internal Medicine 12/17/21 documented as of this encounter
--- OUTSIDE RECORDS SUMMARY | 2025-06-20 02:57 | XMS_ITS | Encounter Summary ---
Author Organization [facility] Address [address] [place] [address] Phone Care Team Providers Care Pick Up Attendant Name Role Phone Maricarmen Mireles MD Primary Care Provider Arturo Tang DO Primary Care Provider Reason for Visit * Reason Comments Medication Refill Encounter Details Date Type Department Care Team (Late st Contact Info) Description 11/27/2021 Refill [facility] - [facility] - [place] [address] [place] [address] Maricarmen Mireles MD [address] [place] [address] Medication Refill Social History Tobacco [...] Susan Husain RN - 11/27/2021 3:52 PM FULLING MILL OPERATOR Medication failed the protocol, provider to review [...] 6 months No results found for: GFRNA ING MILL OPERATOR documented in this encounter Plan of Treatment Not on file documented as of this encounter Visit Diagnoses Diagnosis Type 2 diabetes mellitus without complication, without long-term current use of insulin documented in this encounter Additional Health Concerns Assessment Noted Time PHQ-9 Depression Total Score: 0 08/25/20 20 12:00 PM CDT documented as of this encounter Care Teams Pick Up Attendant Relationship Specialty Start Date End Date Maricarmen Mireles MD PCP - General Family Medicine 08/25/15 12/08/21 Arturo Tang DO [facility] [place] [address] PCP - General Internal Medicine 12/17/21 documented as of this encounter
--- OUTSIDE RECORDS SUMMARY | 2025-06-20 02:57 | XMS_ITS | Encounter Summary ---
Author Organization [facility] Address [address] [place] [address] Phone Care Team Providers Care Gravure Printing Machinist Name Role Phone Maricarmen Mireles MD Primary Care Provider Arturo Tang DO Primary Care Provider Reason for Visit * Reason Comments Medication Refill Encounter Details Date Type Department Care Team (Late st Contact Info) Description 09/01/2020 Refill [facility] - Primary Care - [place] [address] [place] [address] Maricarmen Mireles MD [address] [place] [address] Medication Refill Social History Tobacco [...] 1 week ago Physical exam, annual (Adult) [facility] Maricarmen Mireles MD 8 months ago Type 2 diabetes mellitus without complication, without long-term current use of insulin ([facility]) [facility] [place] - Maricarmen Beck MD 1 year ago Physical exam, annual (Adult) [facility] [place] - Maricarmen Beck MD 1 year ago Type 2 diabetes mellitus without complication, without long-term current use of insulin ([facility]) [facility] [place] - Maricarmen Beck MD 2 years ago Physical exam, annual (Adult) [facility] - Maricarmen Trejo MD Upcoming Appointments Future Appointments In 5 months Maricarmen Mireles MD [facility] - [facility] NEMATOLOGIST - Recent and Past Visits Recent Visits Date Type Provider Dept 08/25/20 Office Visit [facility] 12/28/19 Office Visit Maricarmen Mireles MD [facility] 06/22/19 Office Visit [facility] Showing recent visits within past [...] documented as of this encounter Care Teams Gravure Printing Machinist Relationship Specialty Start Date End Date Maricarmen Mireles MD PCP - General Family Medicine 08/25/15 12/08/21 Arturo Tang DO [facility] [place] [address] PCP - General Internal Medicine 12/17/21 documented as of this encounter
--- OUTSIDE RECORDS SUMMARY | 2025-06-20 02:57 | XMS_ITS | Clinical Summary ---
Author Organization [facility] Address [address] [address] Phone Care Team Providers Care Conservation Specialist Name Role Phone Arturo Tang DO [...] without long-term current use of insulin (HCC) [facility] SCREENING BILATERAL DIGITAL W CAD W JAY Routine 07/13/2019 1:45 PM CDT Encounter for screening mammogram for malignant neoplasm of breast [facility] BONE DENSITOMETRY AXIAL SKELETON Routine 07/06/2018 2:35 [...] Comparison is made to exams dated: 07/14/2017 [facility], 07/02/2015, and 06/04/2014 [facility]. BREAST TISSUE:There are scattered fibroglandular densities [...] exam. Electronically signed by: Sonido quan/tony:07/13/2019 15:09:37 Border Measurer: Francesca NUNEZR)(M), [facility] letter sent: Normal Exam Reading location: [...] Comparison is made to exams dated: 07/14/2017 [facility], 07/02/2015, and 06/04/2014 [facility]. BREAST TISSUE:There are scattered fibroglandular densities [...] exam. Electronically signed by: Sonido quan/tony:07/13/2019 15:09:37 Border Measurer: Francesca Jerez RTTatianaR)(M), [facility] letter sent: Normal Exam Reading location: [place] BI-RADS: 1 Negative us Maricarmen Mireles MD IMG MAMMO ORDERABLES Final R esult * [facility] BONE DENSITOMETRY AXIAL SKELETON (07/06/2018 2:35 PM [...] old F with given history of screening. Senior Supplier Quality Engineer/Model: [employer] (S/N [id number]) CLINICAL INFORMATION: Risk factors: Menopause due to [...] Armond Desouza M.D. MARSHALL: MARSHALL Report ID: [id number] Reading Location: [place] [address] Procedure Note Armond Desouza MD - 07/07/2018 EXAM DESCRIPTION: [place] BONE DENSITOMETRY AXIAL SKELETON REASON FOR STUDY: 67 y/o year old F with given history of screening. Senior Supplier Quality Engineer/Model: [employer] (S/N [id number]) CLINICAL INFORMATION: Risk factors: Menopause due to [...] Armond Desouza M.D. MARSHALL: MARSHALL Report ID: [id number] Reading Location: [place] [address] IMPRESSION: Low bone mass. Statistically significant decrease [...] Maintenance Insurance MEDICARE C AET[employer] Care Teams Conservation Specialist Relationship Specialty Start Date End Date Arturo Tang DO [facility] [place] [address] PCP - General Internal Medicine 12/17/21
--- OUTSIDE RECORDS SUMMARY | 2025-06-20 02:57 | XMS_ITS | Encounter Summary ---
Author Organization [facility] Address [address] [place] [address] Phone Care Team Providers Care Aluminum Container Tester Name Role Phone Maricarmen Mireles MD Primary Care Provider [phone] Arturo Tang DO Primary Care Provider Reason for Visit * Reason Comments Medication Refill Encounter Details Date Type Department Care Team (Late st Contact Info) Description 10/23/2020 [facility] [place] [address] [place] [address] Elvira Kumar APRN, WASTE DISPOSAL ATTENDANT [address] [place] [address] Medication Refill Social History Tobacco Use Types [...] COVID-19? No / Unsure 10/12/2020 3:25 PM ELECTRICAL FOREMAN documented as of this encounter Plan of Treatment Not on file documented as of this encounter Visit Diagnoses Diagnosis Back strain, initial encounter documented in this encounter Additional Health Concerns Assessment Noted Time PHQ-9 Depression Total Score: 0 08/25/20 20 12:00 PM CDT documented as of this encounter Care Teams Aluminum Container Tester Relationship Specialty Start Date End Date Maricarmen Mireles MD PCP - General Family Medicine 08/25/15 12/08/21 Arturo Tang DO [facility] [place] [address] PCP - General Internal Medicine 12/17/21 documented as of this encounter
--- OUTSIDE RECORDS SUMMARY | 2025-06-20 02:57 | XMS_ITS | Encounter Summary ---
Author Organization [facility] Address [address] [place] [address] Phone Care Team Providers Care Grade Teacher Name Role Phone Maricarmen Mireles MD Primary Care Provider Arturo Tang DO Primary Care Provider Reason for Visit * Reason Comments Medication Refill Encounter Details Date Type Department Care Team (Late st Contact Info) Description 10/[facility]20[facility] [address] [place] [address] Maricarmen Mireles MD [address] [place] [address] Medication Refill Social History Tobacco [...] Dept 03/10/21 Office Visit Maricarmen Mireles MD [facility] Showing recent visits within past 365 [...] Dept 03/10/21 Office Visit Maricarmen Mireles MD [facility] [place] [facility] Showing recent visits within past 365 days and meeting all other requirements Future Appointments No visits were found meeting these conditions. Showing future appointments within next 90 days and meeting all other requirements MATION QA TESTER documented in this encounter Plan of Treatment Not on file documented as of this encounter Visit Diagnoses Diagnosis Essential hypertension Unspecified essential hypertension Hyperlipidemia, unspecified hyperlipidemia type documented in this encounter Additional Health Concerns Assessment Noted Time PHQ-9 Depression Total Score: 0 08/25/20 20 12:00 PM CDT documented as of this encounter Care Teams Grade Teacher Relationship Specialty Start Date End Date Maricarmen Mireles MD PCP - General Family Medicine 08/25/15 12/08/21 Arturo Tang DO [facility] [place] [address] PCP - General Internal Medicine 12/17/21 documented as of this encounter
--- OUTSIDE RECORDS SUMMARY | 2025-06-20 02:57 | XMS_ITS | Encounter Summary ---
Author Organization [facility] Address [address] [place] [address] Phone Care Team Providers Care Forest Landscape Ecology Professor Name Role Phone Maricarmen Mireles MD Primary Care Provider [phone] Arturo Tang DO Primary Care Provider Reason for Visit * Reason Comments Medication Refill Encounter Details Date Type Department Care Team (Late st Contact Info) Description 01/24/2021 Refill [facility] - Primary Care - [place] [address] [place] [address] Maricarmen Mireles MD [address] [place] [address] Medication Refill Social History Tobacco [...] COVID-19? No / Unsure 01/13/2021 4:52 PM FLOATING LABOR GANG SUPERVISOR documented as of this encounter Miscellaneous Notes [...] 5 months ago Physical exam, annual (Adult) [facility] Maricarmen Mireles MD 1 year ago Type 2 diabetes mellitus without complication, without long-term current use of insulin ([facility]) [facility] - Maricarmen Beck MD 1 year ago Physical exam, annual (Adult) [facility] - Maricarmen Beck MD 2 years ago Type 2 diabetes mellitus without complication, without long-term current use of insulin([facility]) [facility] - Maricarmen Beck MD 2 years ago Physical exam, annual (Adult) [facility] Maricarmen Mireles MD Upcoming Appointments Future Appointments In 4 weeks Mar[facility]armen [facility]les MD [facility] REPRESENTAT[facility] - Recent and Past Visits Recent Visits Date Type Provider Dept 08/25/20 Office Visit Maricarmen Mireles MD [facility] 12/28/19 Office Visit [facility] Showing recent visits within past 460 days with a meds authorizing provider and meeting all other requirements Future Appointments Date Type Provider Dept 02/23/21 Appointment Maricarmen [facility]ireles MD [facility] Showing future appointments within [...] documented as of this encounter Care Teams Forest Landscape Ecology Professor Relationship Specialty Start Date End Date Maricarmen Mireles MD PCP - General Family Medicine 08/25/15 12/08/21 Arturo Tang DO [facility] [place] [address] PCP - General Internal Medicine 12/17/21 documented as of this encounter
--- OUTSIDE RECORDS SUMMARY | 2025-06-20 02:57 | XMS_ITS | Encounter Summary ---
Author Organization [facility] Address [address] [place] [address] Phone Care Team Providers Care Wet End Supervisor Name Role Phone Maricarmen Mireles MD Primary Care Provider Arturo Tang DO Primary Care Provider Reason for Visit * Reason Comments Medication Refill Encounter Details Date Type Department Care Team (Late st Contact Info) Description 09/15/2021 Refill [facility] - Primary Care - [place] [address] [place] [address] Maricarmen Mireles MD [address] [place] [address] Medication Refill Social History Tobacco [...] Dept 03/10/21 Office Visit Maricarmen Mireles MD [facility] Showing recent visits within past [...] Dept 03/10/21 Office Visit Maricarmen Mireles MD [facility] Showing recent visits within past [...] documented as of this encounter Care Teams Wet End Supervisor Relationship Specialty Start Date End Date Maricarmen Mireles MD PCP - General Family Medicine 08/25/15 12/08/21 Arturo Tang DO [facility] [place] [address] PCP - General Internal Medicine 12/17/21 documented as of this encounter
--- OUTSIDE RECORDS SUMMARY | 2025-06-20 02:57 | XMS_ITS | Encounter Summary ---
Author Organization [facility] Address [address] [place] [address] Phone Care Team Providers Care Business Unit Director Name Role Phone Maricarmen Mireles MD Primary Care Provider Arturo Tang DO Primary Care Provider Reason for Visit * Reason Comments Medication Refill Encounter Details Date Type Department Care Team (Late st Contact Info) Description 08/03/2020 Refill [facility] - Primary Care - [place] [address] [place] [address] Maricarmen Mireles MD [address] [place] [address] Medication Refill Social History Tobacco [...] without long-term current use of insulin ([facility]) [facility] - Maricarmen Beck MD 1 year ago Physical exam, annual (Adult) [facility] - Maricarmen Beck MD 1 year ago Type 2 diabetes mellitus without complication, without long-term current use of insulin ([facility] - Maricarmen Beck MD 2 years ago Physical exam, annual (Adult) [facility] - Maricarmen Trejo MD 2 years ago Sinusitis, unspecified chronicity, unspecified location [facility] - Rani Yoder APN, CIVIL STRUCTURAL ENGINEER Upcoming Appointments Future Appointments In 2 weeks Maricarmen Mireles MD [facility] - [place] - Recent and Past Visits Recent Visits Date Type Provider Dept 12/28/19 Office Visit Maricarmen Mireles MD [facility] [place] 06/22/19 Office Visit [facility] MD [facility] [place] Showing recent visits within past 460 days with a meds authorizing provider and meeting all other requirements Future Appointments Date Type Provider Dept 08/25/20 Appointment Maricarmen Mireles MD [facility] [place] Showing future appointments within next 90 days with a meds authorizing provider and meeting all other requirements documented in this encounter Plan of Treatment Not on file documented as of this encounter Visit Diagnoses Not on filedocumented in this encounter Additional Health Concerns Assessment Noted Time PHQ-9 Depression Total Score: 0 12/21/19 19 1:00 PM MINE DEVELOPMENT ENGINEER documented as of this encounter Care Teams Business Unit Director Relationship Specialty Start Date End Date Maricarmen Mireles MD PCP - General Family Medicine 08/25/15 12/08/21 Arturo Tang DO [facility] [place] [address] PCP - General Internal Medicine 12/17/21 documented as of this encounter
[2025-06-20 07:37] VITALS: BP 121/73; PULSE 93; RESP 18; TEMP 36; O2SAT 98
[2025-06-20] MEDS: LACTATED RINGERS 1,000 ML 150 ML IV CONT (07:46)
--- NOTE | 2025-06-20 08:40 | PM.IMHP ---
H&P: HPI History of Present Illness Date/Time: 06/20/25 08:40 Chief Complaint: Colon carcinoma-polyps Narrative: patient recently diagnosed with cecal carcinoma. An incidental small polyp with adenocarcinoma was seen in the sigmoid colon. This colonoscopy is performed to check the resection site. In addition she had a transverse colon polyp, and the area was tattooed. Will attempt removing the polyp today. Review of Systems Review of Systems: All systems reviewed & are unremarkable except as noted in HPI and below PMFSH Past Medical History Medical History Portal hypertension Cirrhosis Obstructive sleep apnea Type 2 diabetes mellitus Hypertension GI bleed due to NSAIDs Hyperlipidemia Transaminitis Obesity GERD (gastroesophageal reflux disease) Arthritis Anxiety Allergy Surgical History Surgical History History of esophagogastroduodenoscopy (05/2022) For evaluation of upper GI bleed. Findings included a large hiatal hernia, erythematous mucosa in the gastric body which was biopsied, and 2 friable gastric polyps which were resected and retrieved. H/O total knee replacement Bilateral in 2014 H/O esophagogastroduodenoscopy (~05/2022) History of carpal tunnel release of both wrists No pertinent past surgical history Family History Family History Mother Hypertension Grandparent Acute myocardial infarction Grandparent Acute myocardial infarction Father Cerebrovascular accident Prostate carcinoma Grandparent Diabetes mellitus Sibling Glaucoma Social History Social History Smoking packs per day: 1 Smoking cigarettes per day: 20.0 Years smoked: 20 Smoking pack-years: 20.00 Smoking status: Former smoker Tobacco type: cigarettes Smoking end date: 11/14/89 Alcohol intake: never Substance use: never Substance use type: does not use Do You Feel Safe in your Home?: Yes Living arrangements: alone Spiritual care concerns: No Meds Home Medications and Allergies Home Medications ?Medication ?Instructions ?Recorded ?Confirmed ?Type fexofenadine 180 mg tablet 180 mg PO HS 01/11/22 06/20/25 History cholecalciferol (vitamin D3) 50 50 mcg PO HS 04/13/23 06/20/25 History mcg (2,000 unit) capsule diltiazem HCl 180 mg 180 mg PO QAM 30 days #30 caps 04/15/23 06/20/25 Rx capsule,extended release 24 hr, controlled CPAP supplies #1 ea 08/30/23 06/12/25 Rx biotin 5,000 mcg chewable tablet 5,000 mcg PO HS 09/13/23 06/20/25 History blood-glucose meter (Advanced #1 ea 10/09/24 06/12/25 Rx Glucose Meter) blood sugar diagnostic (Advanced #100 ea 10/10/24 06/12/25 Rx Glucose Meter Test Strips) lancets 28 gauge (Advanced Travel #100 ea 10/10/24 06/12/25 Rx Lancets) omeprazole 20 mg capsule,delayed See Rx Instructions .Route 12/28/24 06/20/25 Rx release .COMPLEX #90 caps glipizide 10 mg tablet, extended See Rx Instructions .Route 01/24/25 06/20/25 Rx release 24 hr .COMPLEX #90 tabs lisinopril 20 mg tablet See Rx Instructions .Route 01/24/25 06/20/25 Rx .COMPLEX #90 tabs duloxetine 30 mg capsule,delayed 30 mg PO DAILY #90 caps 03/26/25 06/20/25 Rx release buspirone 10 mg tablet 10 mg PO DAILY #90 tabs 04/11/25 06/20/25 Rx semaglutide 1 mg/dose (4 mg/3 mL) 1 mg (0.75 mL) subcut WEEKLY #3 mL 04/15/25 06/20/25 Rx subcutaneous pen injector (Ozempic) ferrous sulfate 325 mg (65 mg 325 mg PO DAILY #90 tabs 04/25/25 06/17/25 Rx iron) tablet pravastatin 20 mg tablet 20 mg PO HS #90 tabs 04/26/25 06/20/25 Rx carvedilol 6.25 mg tablet 6.25 mg PO DAILY #90 tabs 06/06/25 06/20/25 Rx Allergies Allergy/AdvReac Type Severity Reaction Status Date / Time Sulfa (Sulfonamide Allergy Severe Hives / Verified 06/20/25 07:34 Antibiotics) Red Face Vital Signs Vital Signs - 24 hr 06/20/25 07:37 Temperature 96.8 F L Pulse Rate 93 Respiratory Rate 18 Blood Pressure 121/73 Pulse Oximetry 98 Oxygen Delivery Room Air Exam Const: General: cooperative and healthy appearing Resp: Effort & Inspection: normal respiratory effort and able to speak in complete sentences Auscultation: clear to auscultation bilaterally Cardio: Rate: regular rate Rhythm: regular rhythm GI: Inspection: normal to inspection GI Palp: No No hepatosplenomegaly present Auscultation: normal bowel sounds Rectal Exam: deferred Skin: General skin exam: normal color Psych: Appearance: grossly normal Mental Status: mental status grossly normal Assessment and Plan Assessment and plan (1) Colon adenocarcinoma: Code(s): C18.9 - Malignant neoplasm of colon, unspecified Status: Acute Assessment and Plan: The patient is deemed a good candidate for the procedure. Consent signed. Will proceed.
--- NOTE | 2025-06-20 09:11 | S_PTH ---
PATIENT: Haritha Castanon LOC: ERIC Pimentel#:[id number] AGE/SX: 74/F ROOM: RE06/20/[address]: Saturnino Myles MD : 1950 BED: DIS: 06/20/2025 SPEC #: [id number] RECD: 06/20/25 12:06 STATUS: JOHN REQ #: [id number] MOUNA: 06/20/25 09:[address]: Saturnino Myles DEPT: [facility] Surgical RECD BY: Marjorie Garcia ENTERED: 06/20/25 12:07 SP TYPE: Surgical OTHR DR: Arturo Tang, Tissues: A - Colon Polypectomy B - Colon Polypectomy Procedures: Hematoxylin and Eosin Stain Gross and Microscopic Level 4
[2025-06-20 09:12] VITALS: BP 109/64; PULSE 73; RESP 20; O2SAT 100
[2025-06-20 09:22] VITALS: BP 104/68; PULSE 68; RESP 20; O2SAT 96
[2025-06-20 09:32] VITALS: BP 119/70; PULSE 62; RESP 19; O2SAT 99
--- NOTE | 2025-06-21 07:56 | P.PNAN_ITS ---
Anes - Initial Pre Proc Eval Procedure: Operation Date: 06/20/25 08:30 Proposed Procedures p Diagnostic Colonoscopy - Saturnino Myles MD Date/Time: 06/21/25 07:56 Surgeon: Saturnino Myles MD Pre Op Diagnosis: Malignant neoplasm of sigmoid colon Patient Data Age: 74 Gender: F Height: 1.63 m Weight: 83.1 kg Last Vital Signs Temp 36.0 C L 06/20/25 07:37 Pulse 62 06/20/25 09:32 Resp 19 06/20/25 09:32 BP 119/70 06/20/25 09:32 Pulse Ox 99 06/20/25 09:32 O2 Del Method Room Air 06/20/25 09:32 Allergies Allergy/AdvReac Type Severity Reaction Status Date / Time Sulfa (Sulfonamide Allergy Severe Hives / Verified 06/20/25 07:34 Antibiotics) Red Face Home Medications ?Medication ?Instructions ?Recorded ?Confirmed ?Type fexofenadine 180 mg tablet 180 mg PO HS 01/11/22 06/20/25 History cholecalciferol (vitamin D3) 50 50 mcg PO HS 04/13/23 06/20/25 History mcg (2,000 unit) capsule diltiazem HCl 180 mg 180 mg PO QAM 30 days #30 caps 04/15/23 06/20/25 Rx capsule,extended release 24 hr, controlled CPAP supplies #1 ea 08/30/23 06/12/25 Rx biotin 5,000 mcg chewable tablet 5,000 mcg PO HS 09/13/23 06/20/25 History blood-glucose meter (Advanced #1 ea 10/09/24 06/12/25 Rx Glucose Meter) blood sugar diagnostic (Advanced #100 ea 10/10/24 06/12/25 Rx Glucose Meter Test Strips) lancets 28 gauge (Advanced Travel #100 ea 10/10/24 06/12/25 Rx Lancets) omeprazole 20 mg capsule,delayed See Rx Instructions .Route 12/28/24 06/20/25 Rx release .COMPLEX #90 caps glipizide 10 mg tablet, extended See Rx Instructions .Route 01/24/25 06/20/25 Rx release 24 hr .COMPLEX #90 tabs lisinopril 20 mg tablet See Rx Instructions .Route 01/24/25 06/20/25 Rx .COMPLEX #90 tabs duloxetine 30 mg capsule,delayed 30 mg PO DAILY #90 caps 03/26/25 06/20/25 Rx release buspirone 10 mg tablet 10 mg PO DAILY #90 tabs 04/11/25 06/20/25 Rx semaglutide 1 mg/dose (4 mg/3 mL) 1 mg (0.75 mL) subcut WEEKLY #3 mL 04/15/25 06/20/25 Rx subcutaneous pen injector (Ozempic) ferrous sulfate 325 mg (65 mg 325 mg PO DAILY #90 tabs 04/25/25 06/17/25 Rx iron) tablet pravastatin 20 mg tablet 20 mg PO HS #90 tabs 04/26/25 06/20/25 Rx carvedilol 6.25 mg tablet 6.25 mg PO DAILY #90 tabs 06/06/25 06/20/25 Rx Patient hx anesthesia problems: none Family hx anesthesia problems: none Results Review: All pre-operative results and documents have been reviewed as part of the pre- operative evaluation. [facility] Past Medical History Medical History Portal hypertension Cirrhosis Obstructive sleep apnea Type 2 diabetes mellitus Hypertension GI bleed due to NSAIDs Hyperlipidemia Transaminitis Obesity GERD (gastroesophageal reflux disease) Arthritis Anxiety Allergy Surgical History Surgical History History of esophagogastroduodenoscopy (05/2022) For evaluation of upper GI bleed. Findings included a large hiatal hernia, erythematous mucosa in the gastric body which was biopsied, and 2 friable gastric polyps which were resected and retrieved. H/O total knee replacement Bilateral in 2014 H/O esophagogastroduodenoscopy (~05/2022) History of carpal tunnel release of both wrists No pertinent past surgical history Family History Family History Mother Hypertension Grandparent Acute myocardial infarction Grandparent Acute myocardial infarction Father Cerebrovascular accident Prostate carcinoma Grandparent Diabetes mellitus Sibling Glaucoma Social History Social History Smoking packs per day: 1 Smoking cigarettes per day: 20.0 Years smoked: 20 Smoking pack-years: 20.00 Smoking status: Former smoker Tobacco type: cigarettes Smoking end date: 11/14/89 Alcohol intake: never Substance use: never Substance use type: does not use Do You Feel Safe in your Home?: Yes Living arrangements: alone Spiritual care concerns: No Anes - Eval Final PreProcedure Day of Procedure 06/21/25 07:56 Patient weight: obese Heart: regular rate and rhythm Lungs: clear to auscultation Airway: Mallampati scale class III Neurological: alert and oriented Last oral intake: >/= 8 hours ASA classification: III Emergent: no Anesthetic plan: proceed Anesthesia type and monitoring: general GIVS and standard monitoring Results Review: All pre-operative results and documents have been reviewed as part of the pre- operative evaluation. Informed Consent: The patient's anesthetic plan and its attendant risks and benefits were discussed with the patient/family/POA. Questions were solicited and answers provided to the satisfaction of the patient/family/POA.
== END 2025-06-20 09:54 | disposition home or self-care (01) ==
PROVIDERS: PCP Internal Medicine; Referring Provider Nurse Practitioner Family; Visit Provider Internal Medicine Gastroenterology
PROC: 0DJD8ZZ Inspection of Lower Intestinal Tract, Via Natural or Artificial Opening Endoscopic (ICD-10-PCS; CPT 45378; principal; 2025-06-20 08:30)
DX: Z08 Encounter for follow-up examination after completed treatment for malignant neoplasm (principal); K63.5 Polyp of colon; Z87.891 Personal history of nicotine dependence; E66.9 Obesity, unspecified; Z68.31 Body mass index [BMI] 31.0-31.9, adult; Z85.038 Personal history of other malignant neoplasm of large intestine
CPT/HCPCS: 45385; 45381; 82948; 88305; J2003; J2704; J7120

== ENCOUNTER 2025-07-08 08:27 | Outpatient (CLI) | payer MEDICARE, SELFPAY ==
--- NOTE | ~2025-07-08 | NM_ITS ---
EXAMINATION: NM jeri stress w perfusion DATE: 07/08/2025 10:40 CDT INDICATION: Preprocedural examination TECHNIQUE: Rest images were obtained following intravenous administration of 10.8 mCi Tc99m tetrofosmin (Myoview). The patient was infused intravenously with Lexiscan (regadenoson). Then, 34.3 mCi Tc99m tetrofosmin (Myoview) was administered intravenously, and stress images were obtained. Data was guru nstructed into short axis and horizontal and vertical long axis SPECT images. Gated SPECT images were also obtained. COMPARISON: None. FINDINGS: There is no definite reversible or fixed perfusion abnormality to suggest ischemia or infarction. There is no segmental wall motion abnormality. Left ventricular ejection fraction measures 84%. IMPRESSION: 1. No definite ischemia or infarct. 2. Normal left ventricular ejection fraction measuring 84%. Reviewed, dictated and finalized at location O.
--- NOTE | 2025-07-08 08:42 | EST_ITS ---
Patient Info Name: Haritha Castanon Age: 74 years : 1950 Gender: Female Ht: 64 in Wt: 190 lbs BSA: 2.01 m2 HR: 75 bpm BP: 143 / 79 mmHg Exam Date: 07/08/2025 8:42 AM Patient Status: O Admit Date: 07/08/2025 Exam Type: CA stress jeri w NM A regadenoson stress test was performed. Staff Referring Physician: Sean Cantu DO Attending Provider: Sean Cantu DO Exercise Technologist: Mel Francisco Exercise Physician: Sean Cantu DO Summary 1. 1. Negative lexiscan stress test for ischemic ST changes by ECG criteria. 2. 2. Baseline hypertension. 3. 3. Nuclear scan to follow and will be reported separately. Please correlate with it. 4. 4. Patient informed of the above results. Protocol: Lexiscan Stress ECG Details Stage: REST Duration (min): 0 min : 59 sec HR (bpm): 75 SBP (mmHg): 143 DBP (mmHg): 79 Stage: REST Duration (min): 4 min : 14 sec HR (bpm): 75 SBP (mmHg): 143 DBP (mmHg): 79 Stage: STAGE 1 Duration (min): 1 min : 0 sec HR (bpm): 90 SBP (mmHg): 141 DBP (mmHg): 72 Stage: RECOVERY Duration (min): 1 min : 0 sec HR (bpm): 102 SBP (mmHg): 141 DBP (mmHg): 72 Stage: RECOVERY Duration (min): 2 min : 0 sec HR (bpm): 100 SBP (mmHg): 141 DBP (mmHg): 72 Stage: RECOVERY Duration (min): 3 min : 0 sec HR (bpm): 99 SBP (mmHg): 143 DBP (mmHg): 73 Stage: RECOVERY Duration (min): 3 min : 45 sec HR (bpm): 97 SBP (mmHg): 143 DBP (mmHg): 73 Rest HR: 75 bpm Peak HR: 103 bpm Rest Sys BP: 143 mmHg Peak Sys BP: 143 mmHg Max Pred HR: 145 bpm % Max Pred HR: 71 % Target HR: 123 bpm Max RPP: 14,729 bpm*mmHg Termination Reason: Completed protocol Cardiac Symptoms: Shortness of breath Total Time: 1 min : 0 sec Rest Tyson BP: 79 mmHg Peak Tyson BP: 73 mmHg Total Dose: 0.4 mg Resting ECG Sinus rhythm. Stress ECG No ST changes. Arrhythmias None. Report Signatures
== END 2025-07-08 08:28 | disposition home or self-care (01) ==
PROVIDERS: PCP Internal Medicine; Visit Provider Internal Medicine Cardiovascular Disease
DX: Z01.810 Encounter for preprocedural cardiovascular examination (principal)
CPT/HCPCS: 78452; 93017; A9502; J2785

== ENCOUNTER 2025-07-18 11:55 | Outpatient (CLI) | payer MEDICARE, SELFPAY ==
--- NOTE | ~2025-07-18 | PE_ITS ---
EXAMINATION: PET skull to mid thigh DATE: 07/18/2025 13:55 INDICATION: Malignant neoplasm of the cecum TECHNIQUE: Blood glucose level was 92 mg/dL. 10.622 mCi of 18-fluorodeoxyglucose (18-FDG) was administered i.v. Low dose computed tomography (CT) images were acquired from the base of the brain to the proximal thighs for attenuation correction and anatomic localization. Positron emission tomography (PET) images were acquired in the same distribution beginning 62 minutes after injection. Images including fused PET/CT images were reconstructed in axial, coronal, and sagittal planes. Automated exposure control technique was employed. The dose- length product was 1107.96mGy-cm. COMPARISON: CT dated 06/18/2025 and 05/23/2022 FINDINGS: Head/neck: There is symmetric increased activity in the oral cavity, palatine tonsils, laryngeal muscles and ocular muscles without CT correlate, likely physiologic. There is increased uptake associated with likely dental Stephy with periapical lucency at the right maxillary second premolar. No pathologically enlarged cervical lymphadenopathy or suspicious foci of increased FDG uptake in the visualized head or neck. Chest: 11 mm noncalcified nodule in the perihilar left lower lobe, 6-7 mm nodule in the superior segment of the right lower lobe and 5 mm nodules at the right apex, all without abnormally increased uptake which would favor granulomatous disease over metastatic disease or primary malignancy. Calcified left hilar and mediastinal lymph nodes consistent with old granulomatous disease. No pneumonia, pulmonary edema or other pulmonary infiltrates. No pleural effusion. Heart size is normal. Atherosclerotic coronary artery calcifications. No pericardial effusion. Thoracic aorta is normal in caliber. Large sliding-type hiatal hernia with some associated herniated fat and minimal fluid. No pathologically enlarged or FDG avid thoracic lymphadenopathy. Abdomen/pelvis/proximal thighs: Physiologic renal accumulation and excretion of FDG activity in the kidneys, bladder and along portions of ureters. Subtle liver surface nodularity consistent with cirrhosis. Normal degree and heterogenous pattern of increased uptake throughout the liver without radiologic correlate or dominant FDG avid lesion. No abnormal activity identified in the region of a couple chronic small hypodense hepatic lesions most likely hepatic cysts or hemangiomas which are better appreciated on the prior postcontrast CT studies. Small calcified gallstones the dependent aspect of the otherwise normal gallbladder. The pancreas and bilateral adrenal glands are normal. Multiple small splenic calcific lesions consistent with old granulomatous disease. Mild uptake scattered throughout the bowels without radiologic correlate, also likely physiologic. Normal appendix. No other abnormal foci of increased FDG uptake or pathologically enlarged lymphadenopathy in the abdomen, pelvis or proximal thighs. Musculoskeletal: Severe thoracic and lumbar and moderate cervical spondylosis. No suspicious lytic, blastic or abnormally FDG avid bone lesions. IMPRESSION: 1. No abnormal increased FDG uptake associated with a few bilateral pulmonary nodules, the largest and most concerning measuring 12 mm in the left lower lobe. While reassuring and suggests this most likely represents sequela of old granulomatous disease would recommend further evaluation with 6 month follow-up low-dose noncontrast chest CT. No other FDG avid lesions suspicious for metastatic disease. 2. Cholelithiasis. 3. Cirrhosis. 4. Large sliding-type hiatal hernia. Reviewed, dictated and finalized at location A. IMPRESSION: 1. No abnormal increased FDG uptake associated with a few bilateral pulmonary n odules, the largest and most concerning measuring 12 mm in the left lower lobe. While reassuring and suggests this most likely represents sequela of old granu lomatous disease would recommend further evaluation with 6 month follow-up low- dose noncontrast chest CT. No other FDG avid lesions suspicious for metastatic disease. 2. Cholelithiasis. 3. Cirrhosis. 4. Large sliding-type hiatal hernia.
--- OUTSIDE RECORDS SUMMARY | 2025-07-18 12:23 | XMS_ITS | Encounter Summary ---
Author Organization [facility] Address [address] [place] [address] Phone Care Team Providers Care Director Funds Development Name Role Phone Maricarmen Mireles MD Primary Care Provider Arturo Tang DO Primary Care Provider Reason for Visit * Reason Comments Medication Refill Encounter Details Date Type Department Care Team (Late st Contact Info) Description 11/27/2021 Refill [facility] - Primary Care - [place] [address] [place] [address] Maricarmen Mireles MD [address] [place] [address] Medication Refill Social History [...] Susan Husain RN - 11/27/2021 3:52 PM CARPET INSTALLER Medication failed the protocol, provider to review [...] 6 months No results found for: GFRNA ET INSTALLER documented in this encounter Plan of Treatment Not on file documented as of this encounter Visit Diagnoses Diagnosis Type 2 diabetes mellitus without complication, without long-term current use of insulin documented in this encounter Additional Health Concerns Assessment Noted Time PHQ-9 Depression Total Score: 0 08/25/20 20 12:00 PM CDT documented as of this encounter Care Teams Director Funds Development Relationship Specialty Start Date End Date Maricarmen Mireles MD PCP - General Family Medicine 08/25/15 12/08/21 Arturo Tang DO [facility] [place] [address] PCP - General Internal Medicine 12/17/21 documented as of this encounter
--- OUTSIDE RECORDS SUMMARY | 2025-07-18 12:23 | XMS_ITS | Encounter Summary ---
Author Organization [facility] Address [address] [place] [address] Phone Care Team Providers Care Staff Occupational Therapist Name Role Phone Maricarmen Mireles MD Primary Care Provider [phone] Arturo Tang DO Primary Care Provider Reason for Visit * Reason Comments Medication Refill Encounter Details Date Type Department Care Team (Late st Contact Info) Description 10/23/2020 [facility] - [place] [address] [place] [address] Elvira Kumar APRN, LONG TERM [address] [place] [address] Medication Refill Social History Tobacco Use Types [...] COVID-19? No / Unsure 10/12/2020 3:25 PM OFFENSIVE COORDINATOR documented as of this encounter Plan of Treatment Not on file documented as of this encounter Visit Diagnoses Diagnosis Back strain, initial encounter documented in this encounter Additional Health Concerns Assessment Noted Time PHQ-9 Depression Total Score: 0 08/25/20 20 12:00 PM CDT documented as of this encounter Care Teams Staff Occupational Therapist Relationship Specialty Start Date End Date Maricarmen Mireles MD PCP - General Family Medicine 08/25/15 12/08/21 Arturo Tang DO [facility] [place] [place] [address] PCP - General Internal Medicine 12/17/21 documented as of this encounter
--- OUTSIDE RECORDS SUMMARY | 2025-07-18 12:23 | XMS_ITS | Encounter Summary ---
Author Organization [facility] Address [address] [place] [address] Phone Care Team Providers Care Air Purifier Servicer Name Role Phone Maricarmen Mireles MD Primary Care Provider Arturo Tang DO Primary Care Provider Reason for Visit * Reason Comments Medication Refill Encounter Details Date Type Department Care Team (Late st Contact Info) Description 10/26/2021 [facility] [address] [place] [address] Maricarmen Mireles MD [address] [place] [address] Medication Refill Social History Tobacco [...] Dept 03/10/21 Office Visit Maricarmen Mireles MD [email or web address] [facility] Showing recent visits within past 365 days [...] Dept 03/10/21 Office Visit Maricarmen Mireles MD [facility] [place] [facility] Showing recent visits within past 365 days and meeting all other requirements Future Appointments No visits were found meeting these conditions. Showing future appointments within next 90 days and meeting all other requirements UTER AIDED DRAFTER documented in this encounter Plan of Treatment Not on file documented as of this encounter Visit Diagnoses Diagnosis Essential hypertension Unspecified essential hypertension Hyperlipidemia, unspecified hyperlipidemia type documented in this encounter Additional Health Concerns Assessment Noted Time PHQ-9 Depression Total Score: 0 08/25/20 20 12:00 PM CDT documented as of this encounter Care Teams Air Purifier Servicer Relationship Specialty Start Date End Date Maricarmen Mireles MD PCP - General Family Medicine 08/25/15 12/08/21 Arturo Tang DO [facility] [address] [place] [address] PCP - General Internal Medicine 12/17/21 documented as of this encounter
--- OUTSIDE RECORDS SUMMARY | 2025-07-18 12:23 | XMS_ITS | Encounter Summary ---
Author Organization [facility] Address [address] [place] [address] Care Team Providers Care Spiral Winding Machine Helper Name Role Phone Arturo Tang DO Primary Care Provider [phone] Encounter Details Date Type Department Care Team (Late st Contact Info) Description 09/17/2020 Lab Requisition [facility] [address] [place] [id number] Sorin Lozano MD [address] [place] [address] Social History Tobacco Use Types Packs/Day Years Used Date Smoking Tobacco: Never Assessed Comments Unknown Sex and Gender Information Value Date Recorded Sex Assigned at Not on file Legal Sex Female 6:18 AM RAILCAR FOREMAN Gender Identity Not on file Sexual Orientation Not on file documented as of this encounter Plan of Treatment Not on file documented as of this encounter Procedures Procedure Name Priority Date/Time Associated Diagnosis Comments DERMATOPATHOLOGY Routine 09/16/2020 12:0 0 AM RAILCAR FOREMAN documented in this encounter Results * DERMATOPATHOLOGY (09/16/2020 12:00 AM RAILCAR FOREMAN) Case Report Dermatopathology Report Case: [id number] Authorizing Provider: Sorin Lozano MD Collected: 09/16/2020 12:00 AM Ordering Location: [facility] Received: 09/17/2020 12:08 PM Pathologist: Rosemary Espino MD Specimens: A) - Skin, upper abdomen A B) - Skin, upper abdomen B C) - Skin, left upper lateral arm above elbow 0 1:15 PM [facility] Final Diagnosis Specimen A. SKIN, upper abdomen A: FOCAL DERMAL FIBROSIS (L90.5) (see microscopic description and comment) Specimen B. SKIN, upper abdomen B: LICHEN SCLEROSUS ET ATROPHICUS (L90.0) (see microscopic description) Specimen C. SKIN, left upper lateral arm above elbow: HYPERPLASTIC (HYPERTROPHIC) ACTINIC KERATOSIS (L57.0) (see microscopic description) 0 1:15 PM [facility] at [address] [employer] Clinical History A-B: R/O morphea vs LS&A vs other C: R/O BCC, LSK 0 1:15 PM [facility] Gross Description Specimen A: Received [...] 10x8x1 mm. Jar 0. 0 1:15 PM [facility] Microscopic Description Specimen A. SKIN, [...] The lesion is inflamed. 0 1:15 PM [facility]ERMAT[facility]ATH[facility]Y [facility] Disclaimer An external and internal positive and negative controls are appropriate for the histochemical, immunohistochemical and immunofluorescence stain(s) in this case (if any), except where stated explicitly. The performance characteristics of the stain(s) cited in this report were developed and its performance characteristic determined by the Dermatopathology Laboratory at [facility], directed by Dr. Merlyn Grover. These tests need not be, and therefore are not, approved by the [place] Food and Drug Administration. The tests are used for clinical purposes. Billing Codes Specimen Charges Stain Charges 48061 55115 88934 1 1 1 02803 45412 38206 65562 1 1 1 1 0 1:15 PM [facility] DERMATOPATHOLOGY LABOR[facility]ORY Embedded Images 0 1:15 PM [facility]ERMATOPATH[facility]Y [facility]ORY Pathology/Cytology TISSUE SPECIMEN FROM SKIN / Unknown 09/16/2020 09/17/2020 12:08 PM RAILCAR FOREMAN Miscellaneous samples (specimen) TISSUE SPECIMEN FROM SKIN / Unknown 09/16/2020 09/17/2020 12:08 PM RAILCAR FOREMAN Miscellaneous samples (specimen) TISSUE SPECIMEN FROM SKIN / Unknown 09/16/2020 09/17/2020 12:08 PM RAILCAR FOREMAN Sorin Lozano MD LAB - PATHOLOGY/CYTOLOGY ORD ERABLES Final Result DERMATOPATHOLOGY LABORATORY [facility] - Department of Dermatology [facility] Specialized Medicine [address] [place] [address], [address] [place] [address], [facility] [phone] documented in this encounter Visit Diagnoses Not on filedocumented in this encounter Care Teams Spiral Winding Machine Helper Relationship Specialty Start Date End Date Arturo Tang DO PCP - General Internal Medicine 05/23/22 documented as of this encounter
--- OUTSIDE RECORDS SUMMARY | 2025-07-18 12:23 | XMS_ITS | Encounter Summary ---
Author Organization [facility] Address [address] [place] [address] Phone Care Team Providers Care Chemistry Lecturer Name Role Phone Maricarmen Mireles MD Primary Care Provider Arturo Tang DO Primary Care Provider Reason for Visit * Reason Comments Medication Refill Encounter Details Date Type Department Care Team (Late st Contact Info) Description 08/09[facility]20[facility] [address] [place] [address] Maricarmen Mireles MD [address] [place] [address] Medication Refill Social History Tobacco [...] [facility] 08/25/20 Office Visit Maricarmen Mireles MD [facility] within past [...] documented as of this encounter Care Teams Chemistry Lecturer Relationship Specialty Start Date End Date Maricarmen Mireles MD PCP - General Family Medicine 08/25/15 12/08/21 Arturo Tang DO [address] [place] [address] PCP - General Internal Medicine 12/17/21 documented as of this encounter
--- OUTSIDE RECORDS SUMMARY | 2025-07-18 12:23 | XMS_ITS | Encounter Summary ---
Author Organization [facility] Address [address] [place] [address] Phone Care Team Providers Care Toll Collector Name Role Phone Maricarmen Mireles MD Primary Care Provider Arturo Tang DO Primary Care Provider Reason for Visit * Reason Comments Medication Refill Encounter Details Date Type Department Care Team (Late st Contact Info) Description 07/27/2021 Refill [facility] [address] [place] [address] Maricarmen Mireles MD [address] [place] [address] Medication Refill Social History Tobacco [...] Dept 03/10/21 Office Visit Maricarmen Mireles MD [facility] 08/25/20 Office Visit Maricarmen Mireles MD [facility] Showing recent visits within past 365 [...] Dept 03/10/21 Office Visit Maricarmen Mireles MD [facility] 08/25/20 Office Visit Maricarmen Mireles MD [facility] Showing recent visits within past 365 [...] documented as of this encounter Care Teams Toll Collector Relationship Specialty Start Date End Date Maricarmen Mireles MD PCP - General Family Medicine 08/25/15 12/08/21 Arturo Tang DO [facility] [place] [address] PCP - General Internal Medicine 12/17/21 documented as of this encounter
--- OUTSIDE RECORDS SUMMARY | 2025-07-18 12:23 | XMS_ITS | Encounter Summary ---
Author Organization [facility] Address [address] [place] [address] Phone Care Team Providers Care Janitorial Manager Name Role Phone Maricarmen Mireles MD Primary Care Provider [phone] Arturo Tang DO Primary Care Provider Reason for Visit * Reason Comments Medication Refill Encounter Details Date Type Department Care Team (Late st Contact Info) Description 08/03/2020 Refill [facility] - Primary Care - [place] [address] [place] [address] Maricarmen Mireles MD [address] [place] [address] Medication Refill Social History Tobacco [...] complication, without long-term current use of insulin ([facility]) [facility] - Maricarmen Beck MD 1 year ago Physical exam, annual (Adult) [facility] - Maricarmen Beck MD 1 year ago Type 2 diabetes mellitus without complication, without long-term current use of insulin ([facility]) [facility] - Maricarmen Beck MD 2 years ago Physical exam, annual (Adult) [facility] - Maricarmen Trejo MD 2 years ago Sinusitis, unspecified chronicity, unspecified location [facility] - Rani Yoder APN, TEAM PHYSICIAN Upcoming Appointments Future Appointments In 2 weeks Maricarmen Mireles MD [facility] - [facility] - Recent and Past Visits Recent Visits Date Type Provider Dept 12/28/19 Office Visit Maricarmen Mireles MD [facility] [place] 06/22/19 Office Visit Mar[facility]armen [facility] [place] Showing recent visits within past 460 days with a meds authorizing provider and meeting all other requirements Future Appointments Date Type Provider Dept 08/25/20 Appointment Maricarmen [facility]ireles MD [facility] [place] Showing future appointments within next 90 days with a meds authorizing provider and meeting all other requirements documented in this encounter Plan of Treatment Not on file documented as of this encounter Visit Diagnoses Not on filedocumented in this encounter Additional Health Concerns Assessment Noted Time PHQ-9 Depression Total Score: 0 12/21/19 19 1:00 PM SEWER AND DRAIN TECHNICIAN documented as of this encounter Care Teams Janitorial Manager Relationship Specialty Start Date End Date Maricarmen Mireles MD PCP - General Family Medicine 08/25/15 12/08/21 Arturo Tang DO [facility] [place] [address] PCP - General Internal Medicine 12/17/21 documented as of this encounter
--- OUTSIDE RECORDS SUMMARY | 2025-07-18 12:23 | XMS_ITS | Encounter Summary ---
Author Organization [facility] Address [address] [place] [address] Phone Care Team Providers Care Manager Property Name Role Phone Maricarmen Mireles MD Primary Care Provider Arturo Tang DO Primary Care Provider Reason for Visit * Reason Comments Medication Refill Encounter Details Date Type Department Care Team (Late st Contact Info) Description 09/15/2021 Refill [facility] - Primary Care - [place] [address] [place] [address] Maricarmen Mireles MD [address] [place] [address] Medication Refill Social History Tobacco [...] Dept 03/10/21 Office Visit Maricarmen Mireles MD [facility] Showing recent visits within past 365 [...] Dept 03/10/21 Office Visit Maricarmen Mireles MD [facility] Showing recent visits within past 365 [...] as of this encounter Care Teams Manager Property Relationship Specialty Start Date End Date Maricarmen Mireles MD PCP - General Family Medicine 08/25/15 12/08/21 Arturo Tang DO [facility] [place] [address] PCP - General Internal Medicine 12/17/21 documented as of this encounter
--- OUTSIDE RECORDS SUMMARY | 2025-07-18 12:23 | XMS_ITS | Encounter Summary ---
Author Organization [facility] Address [address] [place] [address] Phone Care Team Providers Care Feed Blender Name Role Phone Maricarmen Mireles MD Primary Care Provider Arturo Tang DO Primary Care Provider Reason for Visit * Reason Comments Medication Refill Encounter Details Date Type Department Care Team (Late st Contact Info) Description 05/28/2021 Refill [facility] - Primary Care - [place] [address] [place] [address] Maricarmen Mireles MD [address] [place] [address] Medication Refill Social History Tobacco [...] Dept 03/10/21 Office Visit Maricarmen Mireles MD [facility] Showing recent visits within past 182 [...] documented as of this encounter Care Teams Feed Blender Relationship Specialty Start Date End Date Maricarmen Mireles MD PCP - General Family Medicine 08/25/15 12/08/21 Arturo Tang DO [address] [facility] [place] [address] PCP - General Internal Medicine 12/17/21 documented as of this encounter
--- OUTSIDE RECORDS SUMMARY | 2025-07-18 12:23 | XMS_ITS | Encounter Summary ---
Author Organization [facility] Address [address] [place] [place] [address] Phone Care Team Providers Care Certified Hyperbaric Technician Name Role Phone Maricarmen Mireles MD Primary Care Provider Arturo Tang DO Primary Care Provider Reason for Visit * Reason Comments Medication Refill Encounter Details Date Type Department Care Team (Late st Contact Info) Description 01/24/2021 Refill [facility] - Primary Care - [place] [address] [place] [address] Maricarmen Mireles MD [address] [place] [address] Medication Refill Social History Tobacco [...] COVID-19? No / Unsure 01/13/2021 4:52 PM SUPPLY CHAIN DEVELOPMENT MANAGER documented as of this encounter Miscellaneous Notes [...] 5 months ago Physical exam, annual (Adult) [facility] Maricarmen Mireles MD 1 year ago Type 2 diabetes mellitus without complication, without long-term current use of insulin ([facility]) [facility] - Maricarmen Beck MD 1 year ago Physical exam, annual (Adult) [facility] - Maricarmen Beck MD 2 years ago Type 2 diabetes mellitus without complication, without long-term current use of insulin([facility]) [facility] - Maricarmen Beck MD 2 years ago Physical exam, annual (Adult) [facility] Maricarmen Mireles MD Upcoming Appointments Future Appointments In 4 weeks [facility]en [facility]les MD [facility] - Recent and Past Visits Recent Visits Date Type Provider Dept 08/25/20 Office Visit Maricarmen Mireles MD [facility] 12/28/19 Office Visit [facility] Showing recent visits within past 460 days with a meds authorizing provider and meeting all other requirements Future Appointments Date Type Provider Dept 02/23/21 Appointment [facility]armen [facility] MD [facility] Showing future appointments within [...] documented as of this encounter Care Teams Certified Hyperbaric Technician Relationship Specialty Start Date End Date Maricarmen Mireles MD PCP - General Family Medicine 08/25/15 12/08/21 Arturo Tang DO [facility] [facility] [address] PCP - General Internal Medicine 12/17/21 documented as of this encounter
--- OUTSIDE RECORDS SUMMARY | 2025-07-18 12:23 | XMS_ITS | Encounter Summary ---
Author Organization [facility] Address [address] [place] [address] Phone Care Team Providers Care Ladle Liner Name Role Phone Maricarmen Mireles MD Primary Care Provider Arturo Tang DO Primary Care Provider Reason for Visit * Reason Comments Medication Refill Encounter Details Date Type Department Care Team (Late st Contact Info) Description 01/19/2021 Refill [facility] - Primary Care - [place] [address] [place] [address] Maricarmen Mireles MD [address] [place] [address] Medication Refill Social History Tobacco [...] COVID-19? No / Unsure 01/13/2021 4:52 PM PIZZA MAKER documented as of this encounter Miscellaneous Notes * Telephone Encounter - Susan Husain RN - 01/19/2021 4:33 PM PIZZA MAKER Medication approved and signed per standing order protocol. A MAKER documented in this encounter Plan of Treatment Not on file documented as of this encounter Visit Diagnoses Not on filedocumented in this encounter Additional Health Concerns Assessment Noted Time PHQ-9 Depression Total Score: 0 08/25/20 20 12:00 PM CDT documented as of this encounter Care Teams Ladle Liner Relationship Specialty Start Date End Date Maricarmen Mireles MD PCP - General Family Medicine 08/25/15 12/08/21 Arturo Tang DO [facility] [place] [address] PCP - General Internal Medicine 12/17/21 documented as of this encounter
--- OUTSIDE RECORDS SUMMARY | 2025-07-18 12:23 | XMS_ITS | Encounter Summary ---
Author Organization [facility] Address [address] [place] [address] Phone Care Team Providers Care Dock Builder Name Role Phone Maricarmen Mireles MD Primary Care Provider Arturo Tang DO Primary Care Provider Reason for Visit * Reason Comments Medication Refill Encounter Details Date Type Department Care Team (Late st Contact Info) Description [facility] [address] [place] [address] Maricarmen Mireles MD [address] [place] [address] Medication Refill Social History Tobacco [...] Dept 03/10/21 Office Visit Maricarmen Mireles MD [facility] [place] [facility] 08/25/20 Office Visit Maricarmen Mireles MD [facility] [place] [facility] Showing recent visits within past 365 days [...] Dept 03/10/21 Office Visit Maricarmen Mireles MD [facility] [employer] [facility] 08/25/20 Office Visit Maricarmen Mireles MD [facility] [place] [facility] Showing recent visits within past 365 days [...] 8 months ago Physical exam, annual (Adult) [facility] Maricarmen Mireles MD 1 year ago Type 2 diabetes mellitus without complication, without long-term current use of insulin ([facility]) [facility] - Maricarmen Beck MD 1 year ago Physical exam, annual (Adult) [facility] Maricarmen Mireles MD 2 years ago Type 2 diabetes mellitus without complication, without long-term current use of insulin([facility]) [facility] Maricarmen Mireles MD Upcoming Appointments Future Appointments In 10 months Maricarmen Mireles MD [facility] - Recent and Past Visits Recent Visits Date Type Provider Dept 03/10/21 Office Visit Maricarmen Mireles MD [facility] 08/25/20 Office Visit Maricarmen Mireles MD [facility] Showing recent visits within past 460 [...] documented as of this encounter Care Teams Dock Builder Relationship Specialty Start Date End Date Maricarmen Mireles MD PCP - General Family Medicine 08/25/15 12/08/21 Arturo Tang DO [facility] [place] [address] PCP - General Internal Medicine 12/17/21 documented as of this encounter
--- OUTSIDE RECORDS SUMMARY | 2025-07-18 12:23 | XMS_ITS | Clinical Summary ---
Author Organization [facility] Address [address] [address] Phone Care Team Providers Care Educational Administrator Name Role Phone Arturo Tang DO Primary [...] exists Diabetes: Eye Exam 11/11/2021 11/11/2020, 10/14/2017 Respiratory Syncytial Virus (RSV) Immunization (Adult) (1 - 1-dose 75+ series) 2024 Influenza Immunization (#1) 2025 09/2 , 08/03/2020, 07/28/2020, Additional history exists SARS-COV-2 Immunization ( season) 2025 02/19/2022, 09/21/2021, 01/13/2021, Additional history exists Td Immunization Every 10 [...] without long-term current use of insulin (HCC) [facility] SCREENING BILATERAL DIGITAL W CAD W JAY Routine 07/13/2019 1:45 PM CDT Encounter for screening mammogram for malignant neoplasm of breast [facility] BONE DENSITOMETRY AXIAL SKELETON Routine [...] Comparison is made to exams dated: 07/14/2017 [facility], 07/02/2015, and 06/04/2014 [facility]. BREAST TISSUE:There are scattered fibroglandular densities [...] exam. Electronically signed by: Sonido quan/tony:07/13/2019 15:09:37 Cold Type Composing Machine Operator: Francesca NUNEZR)(M), [facility] letter sent: Normal Exam Reading [...] Comparison is made to exams dated: 07/14/2017 [facility], 07/02/2015, and 06/04/2014 [facility]. BREAST TISSUE:There are scattered fibroglandular densities [...] exam. Electronically signed by: Sonido quan/tony:07/13/2019 15:09:37 Cold Type Composing Machine Operator: Francesca Jerez RTTatianaR)(M), [facility] letter sent: Normal Exam Reading location: [place] BI-RADS: 1 Negative us Maricarmen Mireles MD IMG MAMMO ORDERABLES Final R esult * [facility] BONE DENSITOMETRY AXIAL SKELETON (07/06/2018 [...] old F with given history of screening. Home Demonstration Agent/Model: [employer] (S/N [id number]) CLINICAL INFORMATION: Risk factors: Menopause due to [...] Armond Desouza M.D. MARSHALL: MARSHALL Report ID: [id number] Reading Location: [place] [address] Procedure Note Armond Desouza MD - 07/07/2018 EXAM DESCRIPTION: [facility] BONE DENSITOMETRY AXIAL SKELETON REASON FOR STUDY: 67 y/o year old F with given history of screening. Home Demonstration Agent/Model: [employer] (S/N [id number]) CLINICAL INFORMATION: Risk factors: Menopause due to [...] Armond Desouza M.D. MARSHALL: MARSHALL Report ID: [id number] Reading Location: [place] [address] IMPRESSION: Low bone mass. Statistically significant decrease [...] Maintenance Insurance MEDICARE C AETNA Care Teams Educational Administrator Relationship Specialty Start Date End Date Arturo Tang DO [facility] [facility] [place] [address] PCP - General Internal Medicine 12/17/21
--- OUTSIDE RECORDS SUMMARY | 2025-07-18 12:23 | XMS_ITS | Encounter Summary ---
Author Organization [facility] Address [address] [place] [address] Phone Care Team Providers Care Farm Management Professor Name Role Phone Maricarmen Mireles MD Primary Care Provider [phone] Arturo Tang DO Primary Care Provider Reason for Visit * Reason Comments Medication Refill Encounter Details Date Type Department Care Team (Late st Contact Info) Description 08/31/2021 Refill [facility] - Primary Care - [place] [address] [place] [address] Maricarmen Mireles MD [address] [place] [address] Medication Refill Social History Tobacco [...] Dept 03/10/21 Office Visit Maricarmen Mireles MD [facility] Showing recent visits within past 182 [...] documented as of this encounter Care Teams Farm Management Professor Relationship Specialty Start Date End Date Maricarmen Mireles MD PCP - General Family Medicine 08/25/15 12/08/21 Arturo Tang DO [address] [facility] [place] [address] PCP - General Internal Medicine 12/17/21 documented as of this encounter
--- OUTSIDE RECORDS SUMMARY | 2025-07-18 12:23 | XMS_ITS | Encounter Summary ---
Author Organization [facility] Address [address] [place] [address] Phone Care Team Providers Care Pipe Finisher Name Role Phone Maricarmen Mireles MD Primary Care Provider Arturo Tang DO Primary Care Provider Reason for Visit * Reason Comments Medication Refill Encounter Details Date Type Department Care Team (Late st Contact Info) Description [facility] [address] [place] [address] Maricarmen Mireles MD [address] [place] [address] Medication Refill Social History Tobacco [...] Dept 03/10/21 Office Visit Maricarmen Mireles MD [facility] Showing recent visits within past 365 days and meeting all other requirements Future Appointments No visits were found meeting these conditions. Showing future appointments within next 90 days and meeting all other requirements Passed - No matching NSAID med order in past 45 days No matching medication orders between 10/02/2021 11:02 AM and 11/16/2021 11:02 AM MAINTENANCE documented in this encounter Plan of Treatment Not on file documented as of this encounter Visit Diagnoses Not on filedocumented in this encounter Additional Health Concerns Assessment Noted Time PHQ-9 Depression Total Score: 0 08/25/20 20 12:00 PM CDT documented as of this encounter Care Teams Pipe Finisher Relationship Specialty Start Date End Date Maricarmen Mireles MD PCP - General Family Medicine 08/25/15 12/08/21 Arturo Tang DO [address] [facility] [place] [address] PCP - General Internal Medicine 12/17/21 documented as of this encounter
--- OUTSIDE RECORDS SUMMARY | 2025-07-18 12:23 | XMS_ITS | Clinical Summary ---
Author Organization [facility] Address [address] [place] [address] Care Team Providers Care Brewer Helper Name Role Phone Arturo Tang DO Primary Care Provider [phone] Source Comments [facility],non-owned Affiliates and Associated Physician Practices is amultiple site organization consisting of ambulatory clinics and hospital sitesin [place], [place], [place] and [place]. This disclosure is being madepursuant to the Care Everywhere program and may not contain all information available regarding this patient. Last updated 18.[facility] Allergies Active Allergy Reactions Criticality Noted Date Comments Dust Mite Extract Other 05/24/2022 Metformin Diarrhea High 12/09/2016 Sulfamethoxazole W-Trimethoprim Rash Medium 03/14 Medications * Be aware that medications may not be up to date on this document. Alwaysverify current medications with the patient. phenazopyridin e (PYRIDIUM) 200 MG tablet Take 200 mg by mouth 3 times daily as needed Active Biotin 76406 MCG Take by mouth once daily Active [...] on file Legal Sex Female 6:18 AM TOUR COUNSELOR Gender Identity Not on file Sexual Orientation [...] 1999 ZOSTER VACCINE (1 of 2) 1999 Respiratory Syncytial Virus (RSV) Vaccine Pt: or over 60 yrs (1 - 1-dose 75+ series) 2024 DEPRESSION SCREENING 11/14/2024 MEDICARE AWV CALENDAR YEAR 2024 COVID-19 VACCINE ( season) 2025 02/19/2022, 09/21/2021, 01/13/2021, Additional history exists INFLUENZA VACCINE (#1) 2025 , 08/03/2020, 07/28/2020, [...] Subscriber ID:Not on file (Home) Address: [address] [place] [address] Payer ID:Not on file Group ID:Not on file Type:Self Pay Address: [place], [place] AETNA AETNA MEDICARE ADV Advance Directives * Full Code (Latest Code Status on File) Date Activated Date Inactivated Comments 05/23/2022 11:21 PM 05/26/2022 12:59 PM Care Teams Brewer Helper Relationship Specialty Start Date End Date Arturo Tang DO PCP - General Internal Medicine 05/23/22
--- OUTSIDE RECORDS SUMMARY | 2025-07-18 12:23 | XMS_ITS | Encounter Summary ---
Author Organization [facility] Address [address] [place] [address] Phone Care Team Providers Care Application Support Consultant Name Role Phone Maricarmen Mireles MD Primary Care Provider Arturo Tang DO Primary Care Provider Reason for Visit * Reason Comments Medication Refill Encounter Details Date Type Department Care Team (Late st Contact Info) Description [facility] [address] [place] [address] Maricarmen Mireles MD [address] [place] [address] Medication Refill Social History Tobacco [...] * Telephone Encounter - Jennifer Allen D, [facility] - 09/22/2020 11:43 AM SOLDER SPRAYER Medication failed the protocol, provider to review [...] ago Physical exam, annual (Adult) [facility] Maricarmen Mireles MD 8 months ago Type 2 diabetes mellitus without complication, without long-term current use of insulin ([facility]) [facility] - Maricarmen Beck MD 1 year ago Physical exam, annual (Adult) [facility] - Maricarmen Beck MD 1 year ago Type 2 diabetes mellitus without complication, without long-term current use of insulin ([facility]) [facility] - Maricarmen Beck MD 2 years ago Physical exam, annual (Adult) [facility] - Maricarmen Trejo MD Upcoming Appointments Future Appointments In 5 months Maricarmen Mireles MD [facility] CHAIN PERSON - Recent and Past Visits Recent Visits Date Type Provider Dept 08/25/20 Office Visit Maricarmen Mireles MD [facility] 12/28/19 Office Visit Maricarmen Mireles MD [facility] [place] 06/22/19 Office Visit Maricarmen Mireles MD [facility] Showing recent visits within past 460 [...] ago Physical exam, annual (Adult) [facility] Maricarmen Mireles MD 8 months ago Type 2 diabetes mellitus without complication, without long-term current use of insulin ([facility]) [facility] - Maricarmen Beck MD 1 year ago Physical exam, annual (Adult) [facility] - Maricarmen Beck MD 1 year ago Type 2 diabetes mellitus without complication, without long-term current use of insulin ([facility]) [facility] - Maricarmen Beck MD 2 years ago Physical exam, annual (Adult) [facility] Maricarmen Mireles MD Upcoming Appointments Future Appointments In 5 months Maricarmen Mireles MD [facility] - Recent and Past Visits Recent Visits Date Type Provider Dept 08/25/20 Office Visit Maricarmen Mierles MD [facility] 12/28/19 Office Visit Maricarmen Mireles MD [facility] 06/22/19 Office Visit Maricarmen Mireles MD [facility] Showing recent visits within past 460 [...] ago Physical exam, annual (Adult) [facility] Maricarmen Mireles MD 8 months ago Type 2 diabetes mellitus without complication, without long-term current use of insulin (HCC) [facility] - Maricarmen Beck MD 1 year ago Physical exam, annual (Adult) [facility] - Maricarmen Beck MD 1 year ago Type 2 diabetes mellitus without complication, without long-term current use of insulin ([facility]) [facility] - Maricarmen Beck MD 2 years ago Physical exam, annual (Adult) [facility] Maricarmen Mireles MD Upcoming Appointments Future Appointments In 5 months Maricarmen Mireles MD [facility] CHAIN PERSON - Recent and Past Visits Recent Visits Date Type Provider Dept 08/25/20 Office Visit Maricarmen Mireles MD [facility] 12/28/19 Office Visit Maricarmen Mireles MD [facility] 06/22/19 Office Visit Maricarmen Mireles MD [facility] Showing recent visits within past 460 days with a meds authorizing provider and meeting all other requirements Future Appointments No visits were found meeting these conditions. Showing future appointments within next 90 days with a meds authorizing provider and meeting all other requirements Passed - Last BP in normal range BP Readings from Last 1 Encounters: 08/25/20 140/82 ER SPRAYER documented in this encounter Plan of Treatment Not on file documented as of this encounter Visit Diagnoses Diagnosis Gastroesophageal reflux disease Esophageal reflux Depression with anxiety Dysthymic disorder documented in this encounter Additional Health Concerns Assessment Noted Time PHQ-9 Depression Total Score: 0 08/25/20 20 12:00 PM CDT documented as of this encounter Care Teams Application Support Consultant Relationship Specialty Start Date End Date Maricarmen Mireles MD PCP - General Family Medicine 08/25/15 12/08/21 Arturo Tang DO [address] [facility] [address] [facility] [place] [id number] PCP - General Internal Medicine 12/17/21 documented as of this encounter
--- OUTSIDE RECORDS SUMMARY | 2025-07-18 12:23 | XMS_ITS | Clinical Summary ---
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 RESULT: Two views of each breast obtained, compared with 06/04/14 and 08/10/12.Scattered fibroglandular densities bilaterally. No dominant mass isdemonstrated. No suspicious clusters of microcalcifications are evident.A few scattered benign calcifications. A few small densities which aresimilar to previously. Digital technology was employed plus computer-aideddetection software (Coferon) was utilized in interpretation of these images.This [...] Fax: -- Attending Fax: -- Attending ID: [id number] Requesting ID: [id number] Report To 1 ID: [id number] Report To 1 Name: JESSICA DE LA PAZ Report To 1 FAX: -- NextGen Order #: Historical Provider MD CHEN MAMMO PROCEDURES Valeri l Result * COLONOSCOPY (07/01/2011 12:00 AM CDT) Anatomical Region Laterality Modality Other Narrative 07/01/2011 12:00 AM CDT Ordered by an unspecified provider. Procedure Note ProviderShobha MD - 07/01/2011 12:00 AM CDT PROCEDURE REPORT Patient: HARITHA CASTANON Account: [id number] Room No: : 1950 Patient Type: OPA Attend.: Arturo Chavez M.D. Admit Date: 07/01/2011 Dict.: Arturo Chavez M.D. Disch. Date: PROCEDURE PERFORMED: Colonoscopy. HISTORY: 60-year-old female presents for screening colonoscopy. PHYSICAL EXAMINATION: Morbidly obese female. Lungs are clear. Cardiovascular examination was unremarkable. PROCEDURE: Colonoscopy was performed with the [employer] video endoscope.The patient was premedicated by anesthesia. [...] MEDICARE GOLD TNA MEDICARE GOLD Care Teams Director Cloud Transformation Relationship Specialty Start Date End Date Sol Aragon NP PCP - General Nurse Practitioner 04/18/23
--- OUTSIDE RECORDS SUMMARY | 2025-07-18 12:23 | XMS_ITS | Encounter Summary ---
Author Organization [facility] Address [address] [place] [address] Phone Care Team Providers Care Landscape Designer Name Role Phone Maricarmen Mireles MD Primary Care Provider [phone] Arturo Tang DO Primary Care Provider Reason for Visit * Reason Comments Medication Refill Encounter Details Date Type Department Care Team (Late st Contact Info) Description 09/01/2020 Refill [facility] - Primary Care - [place] [address] [place] [address] Maricarmen Mireles MD [address] [place] [address] Medication Refill Social History Tobacco [...] week ago Physical exam, annual (Adult) [facility] Maricarmen Mireles MD 8 months ago Type 2 diabetes mellitus without complication, without long-term current use of insulin ([facility]) [facility] - Maricarmen Beck MD 1 year ago Physical exam, annual (Adult) [facility] - Maricarmen Beck MD 1 year ago Type 2 diabetes mellitus without complication, without long-term current use of insulin ([facility]) [facility] - Maricarmen Beck MD 2 years ago Physical exam, annual (Adult) [facility] - Maricarmen Trejo MD Upcoming Appointments Future Appointments In 5 months Maricarmen Mireles MD [facility] [employer]IDATION INTERN - Recent and Past Visits Recent Visits Date Type Provider Dept 08/25/20 Office Visit [facility] 12/28/19 Office Visit Maricarmen Mireles MD [facility] 06/22/19 Office Visit [facility] Show[facility] recent visits within past [...] documented as of this encounter Care Teams Landscape Designer Relationship Specialty Start Date End Date Maricarmen Mireles MD PCP - General Family Medicine 08/25/15 12/08/21 Arturo Tang DO [facility] [place] [address] PCP - General Internal Medicine 12/17/21 documented as of this encounter
== END 2025-07-18 11:56 | disposition home or self-care (01) ==
PROVIDERS: PCP Internal Medicine; Visit Provider Surgery
DX: C18.0 Malignant neoplasm of cecum (principal); N20.0 Calculus of kidney; K74.60 Unspecified cirrhosis of liver; K44.9 Diaphragmatic hernia without obstruction or gangrene
CPT/HCPCS: 78815; A9552

== ENCOUNTER 2025-08-23 09:35 | Outpatient (CLI) | payer MEDICARE, SELFPAY ==
[2025-08-23 11:20] LABS: Hematocrit 38.8 % (37.0-47.0); Hemoglobin 11.5 g/dL (12.0-15.0)
[2025-08-23 11:40] LABS: Anion Gap 6 mmol/L (4-12); Blood Urea Nitrogen 15 mg/dL (7-17); Calcium 9.1 mg/dL (8.4-10.2); Carbon Dioxide 29 mmol/L (22-30); Chloride 103 mmol/L (98-107); Estimated Glomerular Filt Rate > 60; Glucose 113 mg/dL (65-110); Potassium 4.4 mmol/L (3.4-5.0); Sodium 138 mmol/L (137-145)
== END 2025-08-23 09:36 | disposition home or self-care (01) ==
LOC: ANHSURGERY 09:38
PROVIDERS: Anesthesiology; PCP Internal Medicine; Visit Provider Surgery
DX: C18.0 Malignant neoplasm of cecum (principal); E11.9 Type 2 diabetes mellitus without complications
CPT/HCPCS: 36415; 80048; 85014; 85018; 86850; 86900; 86901

== ENCOUNTER 2025-09-02 14:24 | Inpatient (IN) | payer MEDICARE, SELFPAY ==
[2025-08-23 10:07] VITALS: BP 117/72; PULSE 73; RESP 16; TEMP 36.4; O2SAT 97; BMI 32.1
--- NOTE | 2025-08-23 10:38 | PC.NURSE ---
[facility] has started construction of its new state of the art ER which will open Spring 2026. With this, we anticipate parking may be a challenge for some our surgical patients and families. Parking spaces are limited but are available for all Surgical, obstetrics, and ER patients sharing this lot. If you arrive and find you are having a hard time finding a parking space, please note that we understand the challenges, please drive around the hospital and park near Hospital Entrance 1. When you enter this entrance, you can ask a volunteer to direct or take you back to the surgical waiting area to check in. We appreciate everyone?s understanding of these expected challenges while we build for your future. Report to the Outpatient Waiting Room, entrance under the green pavilion located off [address], at time __10:00AM___ on date ___09/02/25__. Planned Procedure Time: __12:00PM____.? Time changes happen often and if your time is changed the preop area will call you the afternoon before. - You and your visitor will be asked to self-screen and do not enter if you have any COVID symptoms. Please call surgeon if you need to reschedule. - A mask is optional within the hospital at this time. BOWEL PREP DAY BEFORE SURGERY PER DR FLOR. CLEAR LIQUIDS DAY BEFORE SURGERY. Patients may have clear liquids (water, carbonated beverages, clear teas, apple juice) until 3 hours prior to surgery with a maximum of 20 ounces. From midnight until time of surgery and no smoking, or chewing tobacco (or any form of nicotine). No chewing gum, candy or mints. Take only the following medications with a SIP of water on the morning of surgery: ____BUSPIRONE, CARVEDILOL, DILTIAZEM, DULOXETINE DO NOT STOP ANY OF YOUR OTHER PRESCRIPTION MEDICATIONS PRIOR TO SURGERY EXCEPT THE FOLLOWING Hold all vitamins and supplements for 3 days per anesthesiologist. LAST DOSE 08/29/25 Please no make-up, nail lebanese, hairspray, perfume, deodorant, or body powder the day of surgery.? No jewelry (including any body piercings) or valuables the day of surgery, leave them at home.? Please take a shower or bath the night before, or the morning of, surgery with an antibacterial soap.? Wear comfortable, loose fitting clothing.? - Jewelry must be removed prior to entering the operating room.? Rings and piercings that are not removed may be cut off. - The hospital will not accept responsibility for valuables.? - Please leave all valuables, including medications, at home the day of surgery. If you are going home after surgery, a licensed sales driver must drive you home.? - NO public transportation without another adult if you receive anesthesia. - We recommend that an adult stay with you for 24 hours following discharge. - We also recommend that you do not drive, make important decision, drink alcoholic beverages, or take any drugs that were not prescribed by your health care provider for at least 24 hours after your discharge time. Follow any additional instructions given to you from your surgeon. ANTIBIOTICS DAY PRIOR TO SURGERY PER DR FLOR. BOWEL PREP DAY PRIOR TO SURGERY. ENSURE BUNDLE. HIBICLENS SHOWER DAY BEFORE & MORNING OF SURGERY. Telephone instructions given to ___PATIENT & SISTER and asked if any additional questions and then verbalized understanding. Patient advised to call surgeon office or pre surgery nurse liaison [phone] if any additional questions.
[2025-09-02] VITALS (14 sets, daily range): BP systolic 118–141; BP diastolic 52–70; PULSE 70–86; RESP 16–24; TEMP 35.9–36.6; O2SAT 93–98; BMI 31.7
--- OUTSIDE RECORDS SUMMARY | 2025-09-02 00:31 | XMS_ITS | Encounter Summary ---
Author Organization [facility] Address [address] 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
--- OUTSIDE RECORDS SUMMARY | 2025-09-02 00:31 | XMS_ITS | Encounter Summary ---
Author Organization [facility] Address [address] [place] [address] Phone Care Team Providers Care Safety Glass Installer Name Role Phone Maricarmen Mireles MD Primary Care Provider Arturo Tang DO Primary Care Provider Reason for Visit * Reason Comments Medication Refill Encounter Details Date Type Department Care Team (Late st Contact Info) Description 01/19/2021 Refill [facility] - Primary Care - [place] [address] [place] [address] Maricarmen Mireles MD [address] [place] [address] Medication Refill Social History Tobacco [...] COVID-19? No / Unsure 01/13/2021 4:52 PM PAYROLL LEAD documented as of this encounter Miscellaneous Notes * Telephone Encounter - Susan Husain RN - 01/19/2021 4:33 PM PAYROLL LEAD Medication approved and signed per standing order protocol. OLL LEAD documented in this encounter Plan of Treatment Not on file documented as of this encounter Visit Diagnoses Not on filedocumented in this encounter Additional Health Concerns Assessment Noted Time PHQ-9 Depression Total Score: 0 08/25/20 20 12:00 PM CDT documented as of this encounter Care Teams Safety Glass Installer Relationship Specialty Start Date End Date Maricarmen Mireles MD PCP - General Family Medicine 08/25/15 12/08/21 Arturo Tang DO [facility] [place] [address] PCP - General Internal Medicine 12/17/21 documented as of this encounter
--- OUTSIDE RECORDS SUMMARY | 2025-09-02 00:31 | XMS_ITS | Clinical Summary ---
Author Organization [facility] Afshan Singer Address [address] [place] [address] Care Team Providers Care Assembler Wire Mesh Gate Name Role Phone Unavailable Primary Care Provider Unavailabl e Allergies Active Allergy Reactions Criticality Noted Date Comments Sulfa (Sulfonamide Antibiotics) Hives High 05/15 Medications busPIRone (BUSPAR) 10 mg tablet Take 10 mg by mouth daily. Active carvediloL (COREG) 6.25 mg tablet TAKE 1 TABLET BY MOUTH ONCE DAILY WITH MEALS/FOOD. 5 Active DULoxetine (CYMBALTA) 30 mg Capsule, Delayed Release(E.C.) Take 30 mg by mouth daily. 5 Active fexofenadine (CHANDLER) 180 mg tablet Take 180 mg by mouth daily. Active glipiZIDE (GLUCOTROL XL) 10 mg Extended Release 24 hour tablet Take 10 mg by mouth daily. Active lisinopriL (PRINIVIL) 20 mg tablet Take 20 mg by mouth daily. Active omeprazole (PriLOSEC) 20 mg Capsule, Delayed Release(E.C.) Take 20 mg by mouth daily. 5 Active pravastatin (PRAVACHOL) 20 mg tablet Take 20 mg by mouth daily at bedtime. Active semaglutide 1 mg/dose (4 mg/3 mL) Pen Injector Inject by subcutaneous injection. 5 Active dilTIAZem (CARDIZEM CD, CARTIA XT) 180 mg Controlled Delivery 24 hour capsule Take 180 mg by mouth daily. Active Active Problems Problem Noted Date Diagnosed Date Malignant neoplasm of colon 07/25/2025 Encounters Date Type Department Care Team Description 07/31/2025 External Device Data STL ABSTRACTION Provider, Abstract 07/30/2025 External Device Data ST[facility] ABSTRACTION Provider, Abstract 07/30/2025 External Device Data [facility] ABSTRACTION Provider, Abstract 07/25/2025 4:00 PM CDT Telephone Check Up [facility] [address] [place] [address] Erika Puga MD Malignant neoplasm of colon, unspecified part of colon (CMS/HCC) (Primary Dx) 07/10/2025 External Device Data STL ABSTRACTION Provider, Abstract 07/09/2025 External Device Data ST[facility] ABSTRACTION Provider, Abstract 07/09/2025 External Device Data ST[facility] ABSTRACTION Provider, Abstract 07/08/2025 1:30 PM CDT Office Visit [facility] [address] [place] [address] Leroy Dsouza MD Malignant neoplasm of colon, unspecified part of colon (CMS/HCC) (Primary Dx) from Last 3 Months Family History Medical History Relation Name Comments No Known Problems Child No Known Problems Father Breast Cancer Maternal Grandmother Diabetes Maternal Grandmother No Known Problems Mother No Known Problems Sister Relation Name Status Comments Child Alive Father Maternal Grandmother Mother Sister Alive Social History Tobacco Use Types Packs/Day Years Used Date Smoking Tobacco: Former Cigarettes 1 20 0 11/14/1969 - 11/14/1989 Smokeless Tobacco: Never Alcohol Use Standard Drinks/Week Comments Never 0 (1 standard drink = 0.6 oz pur e alcohol) Comments Unknown Sex and Gender Information Value Date Recorded Sex Assigned at Not on file Legal Sex Female 10:48 AM CDT Gender Identity Not on file Sexual Orientation Not on file Last Filed Vital Signs Vital Sign Reading Time Taken Comments Blood Pressure 131/90 07/08/2025 1:33 PM CDT Pulse 94 07/08/2025 1:33 PM CDT Temperature 36.3 C (97.4 F) 07/08/2025 1:33 PM CDT Respiratory Rate 15 07/08/2025 1:33 PM CDT Oxygen Saturation 98% 07/08/2025 1:33 PM CDT Inhaled Oxygen Concentration - - Weight 86.5 kg (190 lb 12.8 oz) 07/08/2025 1:33 PM CDT Height 162.6 cm (5' 4) 07/08/2025 1:33 PM CDT Body Mass Index 32.75 07/08/2025 1:33 PM CDT Plan of Treatment Health Maintenance Due Date Last Done Comments DIABETES ANNUAL FOOT EXAM 1968 DIABETES MICROALBUMIN ANNUAL SCREEN 1968 LDL CHOLESTEROL ANNUAL 1968 ZOSTER VACCINE (2 of 3) 01/29/2019 12/04/19 19, 10/03/2018, 08/28/2015 DIABETES ANNUAL RETINAL EXAM 11/11/2021 11/11/2020 DIABETES HBA1C Q 6 MONTHS 11/25/2022 05/25/2022 OSTEOPOROSIS SCREENING 07/06/2023 07/06/2018, 2017 RSV VACCINE (60+ or ) (1 - 1-dose 75+ series) 2024 INFLUENZA VACCINE (#1) 2025 , 08/13/2022, 08/08/2021, Additional history exists COVID-19 Vaccine (7 - 2024-2 6 season) 2025 08/12/2023, 08/13/2022, 02/19/2022, Additional history exists DTAP/TDAP/TD VACCINES (2 - T d or Tdap) 01/11/2026 01/11/2016, 11/14/2014 COLORECTAL SCREENING Discontinued 07/01/2011, 07/01/20 11 Colorectal Cancer Screening Discontinued PNEUMOCOCCAL VACCINE 50+ YEARS Completed 0 12/09/2016, 07/07/2015, 11/14/2014 FIT-DNA Q 3 years Discontinued FIT/FOBT Q 1 year Discontinued Flex Sig/CT Colonography Q 5 years Discontinued Insurance [employer] O [facility]
--- OUTSIDE RECORDS SUMMARY | 2025-09-02 00:31 | XMS_ITS | Encounter Summary ---
Author Organization [facility] Address [address] [place] [address] Phone Care Team Providers Care Asphalt Tar And Gravel Roofer Name Role Phone Maricarmen Mireles MD Primary Care Provider [phone] Arturo Tang DO Primary Care Provider Reason for Visit * Reason Comments Medication Refill Encounter Details Date Type Department Care Team (Late st Contact Info) Description 01/24/2021 Refill [facility] - Primary Care - [place] [address] [place] [address] Maricarmen Mireles MD [address] [place] [address] Medication Refill Social History Tobacco [...] COVID-19? No / Unsure 01/13/2021 4:52 PM FOREST LOGISTICS MANAGER documented as of this encounter Miscellaneous [...] 5 months ago Physical exam, annual (Adult) [facility] Maricarmen Mireles MD 1 year ago Type 2 diabetes mellitus without complication, without long-term current use of insulin [facility] - Maricarmen Beck MD 1 year ago Physical exam, annual (Adult) [facility] - Maricarmen Beck MD 2 years ago Type 2 diabetes mellitus without complication, without long-term current use of insulin([facility] - Maricarmen Beck MD 2 years ago Physical exam, annual (Adult) [facility] [place] [place] Maricarmen Mireles MD Upcoming Appointments Future Appointments In 4 weeks Maricarmen Mireles MD [facility] - Recent and Past Visits Recent Visits Date Type Provider Dept 08/25/20 Office Visit Maricarmen Mireles MD [facility] 12/28/19 [facility] recent visits within past 460 days with a meds authorizing provider and meeting all other requirements Future Appointments Date Type Provider Dept 02/23/21 Appointment [facility] Showing future appointments [...] documented as of this encounter Care Teams Asphalt Tar And Gravel Roofer Relationship Specialty Start Date End Date Maricarmen Mireles MD PCP - General Family Medicine 08/25/15 12/08/21 Arturo Tang DO [facility] [place] [address] PCP - General Internal Medicine 12/17/21 documented as of this encounter
--- OUTSIDE RECORDS SUMMARY | 2025-09-02 00:31 | XMS_ITS | Encounter Summary ---
Author Organization [facility] Address [address] [place] [address] Phone Care Team Providers Care Apparel Manager Name Role Phone Maricarmen Mireles MD Primary Care Provider Arturo Tang DO Primary Care Provider Reason for Visit * Reason Comments Medication Refill Encounter Details Date Type Department Care Team (Late st Contact Info) Description 09/21/2020 [facility] [address] [place] [address] Maricarmen Mireles MD [address] [place] [address] Medication Refill Social History Tobacco [...] [facility] - 09/22/2020 11:43 AM FATS AND OILS LOADER Medication failed the protocol, provider to review [...] ago Physical exam, annual (Adult) [facility] Maricarmen Mireles MD 8 months ago Type 2 diabetes mellitus without complication, without long-term current use of insulin ([facility]) [facility] - Maricarmen Beck MD 1 year ago Physical exam, annual (Adult) [facility] - Maricarmen Beck MD 1 year ago Type 2 diabetes mellitus without complication, without long-term current use of insulin ([facility]) [facility] - Maricarmen Beck MD 2 years ago Physical exam, annual (Adult) [facility] - Maricarmen Trejo MD Upcoming Appointments Future Appointments In 5 months Maricarmen Mireles MD [facility] SPACE STUDIES FACULTY MEMBER - Recent and Past Visits Recent Visits Date Type Provider Dept 08/25/20 Office Visit Maricarmen Mireles MD [facility] 12/28/19 Office Visit Maricarmen Mireles MD [facility] 06/22/19 Office Visit Maricarmen Mireles MD [facility] Showing recent visits within past 460 days [...] ago Physical exam, annual (Adult) [facility] Maricarmen Mireles MD 8 months ago Type 2 diabetes mellitus without complication, without long-term current use of insulin ([facility]) [facility] - Maricarmen Beck MD 1 year ago Physical exam, annual (Adult) [facility] - Maricarmen Beck MD 1 year ago Type 2 diabetes mellitus without complication, without long-term current use of insulin ([facility]) [facility] - Maricarmen Beck MD 2 years ago Physical exam, annual (Adult) [facility] Maricarmen Mireles MD Upcoming Appointments Future Appointments In 5 months Maricarmen Mireles MD [facility] - Recent and Past Visits Recent Visits Date Type Provider Dept 08/25/20 Office Visit Maricarmen Mireles MD [facility] 12/28/19 Office Visit Maricarmen Mireles MD [facility] 06/22/19 Office Visit Maricarmen Mireles MD [facility] Showing recent visits within past 460 days [...] ago Physical exam, annual (Adult) [facility] Maricarmen Mireles MD 8 months ago Type 2 diabetes mellitus without complication, without long-term current use of insulin (HCC) [facility] - Maricarmen Beck MD 1 year ago Physical exam, annual (Adult) [facility] - Maricarmen Beck MD 1 year ago Type 2 diabetes mellitus without complication, without long-term current use of insulin ([facility]) [facility] - Maricarmen Beck MD 2 years ago Physical exam, annual (Adult) [facility] Maricarmen Mireles MD Upcoming Appointments Future Appointments In 5 months Maricarmen Mireles MD [facility] SPACE STUDIES FACULTY MEMBER - Recent and Past Visits Recent Visits Date Type Provider Dept 08/25/20 Office Visit Maricarmen Mireles MD [facility] 12/28/19 Office Visit Maricarmen Mireles MD [facility] 06/22/19 Office Visit Maricarmen Mireles MD [facility] Showing recent visits within past 460 days with a meds authorizing provider and meeting all other requirements Future Appointments No visits were found meeting these conditions. Showing future appointments within next 90 days with a meds authorizing provider and meeting all other requirements Passed - Last BP in normal range BP Readings from Last 1 Encounters: 08/25/20 140/82 AND OILS LOADER documented in this encounter Plan of Treatment Not on file documented as of this encounter Visit Diagnoses Diagnosis Gastroesophageal reflux disease Esophageal reflux Depression with anxiety Dysthymic disorder documented in this encounter Additional Health Concerns Assessment Noted Time PHQ-9 Depression Total Score: 0 08/25/20 20 12:00 PM CDT documented as of this encounter Care Teams Apparel Manager Relationship Specialty Start Date End Date Maricarmen Mireles MD PCP - General Family Medicine 08/25/15 12/08/21 Arturo Tang DO [address] [facility] [address] [facility] [place] [id number] PCP - General Internal Medicine 12/17/21 documented as of this encounter
--- OUTSIDE RECORDS SUMMARY | 2025-09-02 00:31 | XMS_ITS | Encounter Summary ---
Author Organization [facility] Address [address] [place] [address] Phone Care Team Providers Care Program Strategist Name Role Phone Maricarmen Mireles MD Primary Care Provider [phone] Arturo Tang DO Primary Care Provider Reason for Visit * Reason Comments Medication Refill Encounter Details Date Type Department Care Team (Late st Contact Info) Description [facility] [address] [place] [address] Maricarmen Mireles MD [address] [place] [address] Medication Refill Social History Tobacco [...] Dept 03/10/21 Office Visit Maricarmen Mireles MD [facility] 08/25/20 Office Visit [facility]armen [facility]ireles MD [facility] Show[facility] recent visits within past 365 [...] documented as of this encounter Care Teams Program Strategist Relationship Specialty Start Date End Date Maricarmen Mireles MD PCP - General Family Medicine 08/25/15 12/08/21 Arturo Tang DO [address] [facility] [place] [address] PCP - General Internal Medicine 12/17/21 documented as of this encounter
--- OUTSIDE RECORDS SUMMARY | 2025-09-02 00:31 | XMS_ITS | Encounter Summary ---
Author Organization [facility] Address [address] [place] [address] Phone Care Team Providers Care Science Education Professor Name Role Phone Maricarmen Mireles MD Primary Care Provider Arturo Tang DO Primary Care Provider Reason for Visit * Reason Comments Medication Refill Encounter Details Date Type Department Care Team (Late st Contact Info) Description 05/28/2021 Refill [facility] - Primary Care - Connie [address] [place] [address] Maricarmen Mireles MD [address] [place] [address] Medication Refill Social History Tobacco [...] Dept 03/10/21 Office Visit Maricarmen Mireles MD [facility] Showing recent visits within past 182 [...] documented as of this encounter Care Teams Science Education Professor Relationship Specialty Start Date End Date Maricarmen Mireles MD PCP - General Family Medicine 08/25/15 12/08/21 Arturo Tang DO [address] [facility] [place] [address] PCP - General Internal Medicine 12/17/21 documented as of this encounter
--- OUTSIDE RECORDS SUMMARY | 2025-09-02 00:31 | XMS_ITS | Encounter Summary ---
Author Organization [facility] Address [address] [place] [address] Phone Care Team Providers Care Equity Analyst Name Role Phone Maricarmen Mireles MD Primary Care Provider Arturo Tang DO Primary Care Provider Reason for Visit * Reason Comments Medication Refill Encounter Details Date Type Department Care Team (Late st Contact Info) Description 11/27/2021 Refill [facility] - Primary Care - [place] [address] [place] [address] Maricarmen Mireles MD [address] [place] [address] Medication Refill Social History Tobacco [...] Susan Husain RN - 11/27/2021 3:52 PM SENIOR CONSUMER INSIGHTS CONSULTANT Medication failed the protocol, provider to review [...] 6 months No results found for: GFRNA OR CONSUMER INSIGHTS CONSULTANT documented in this encounter Plan of Treatment Not on file documented as of this encounter Visit Diagnoses Diagnosis Type 2 diabetes mellitus without complication, without long-term current use of insulin documented in this encounter Additional Health Concerns Assessment Noted Time PHQ-9 Depression Total Score: 0 08/25/20 20 12:00 PM CDT documented as of this encounter Care Teams Equity Analyst Relationship Specialty Start Date End Date Maricarmen Mireles MD PCP - General Family Medicine 08/25/15 12/08/21 Arturo Tang DO [facility] [facility] [address] PCP - General Internal Medicine 12/17/21 documented as of this encounter
--- OUTSIDE RECORDS SUMMARY | 2025-09-02 00:31 | XMS_ITS | Encounter Summary ---
Author Organization [facility] Address [address] [place] [address] Phone Care Team Providers Care Client Solutions Director Name Role Phone Maricarmen Mireles MD Primary Care Provider Arturo Tang DO Primary Care Provider Reason for Visit * Reason Comments Medication Refill Encounter Details Date Type Department Care Team (Late st Contact Info) Description [facility] [address] [place] [address] Maricarmen Mireles MD [address] [place] [address] Medication Refill Social History Tobacco [...] Dept 03/10/21 Office Visit Maricarmen Mireles MD [facility] Showing recent visits within [...] Dept 03/10/21 Office Visit Maricarmen Mireles MD [facility] Showing recent visits within past 365 days and meeting all other requirements Future Appointments No visits were found meeting these conditions. 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 documented in this encounter Plan of Treatment Not on file documented as of this encounter Visit Diagnoses Diagnosis Essential hypertension Unspecified essential hypertension Hyperlipidemia, unspecified hyperlipidemia type documented in this encounter Additional Health Concerns Assessment Noted Time PHQ-9 Depression Total Score: 0 08/25/20 20 12:00 PM CDT documented as of this encounter Care Teams Client Solutions Director Relationship Specialty Start Date End Date Maricarmen Mireles MD PCP - General Family Medicine 08/25/15 12/08/21 Arturo Tang DO [facility] [address] [facility] [place] [address] PCP - General Internal Medicine 12/17/21 documented as of this encounter
--- OUTSIDE RECORDS SUMMARY | 2025-09-02 00:31 | XMS_ITS | Clinical Summary ---
Author Organization [facility] Address [address] [place] [address] Care Team Providers Care Regional Hr Manager Name Role Phone Sol Aragon NP [...] (gastroesophageal reflu x disease) Anxiety Diabetes mellitus Sleep apnea Atrial fibrillation (HCC) 04/13/2023 Family History Medical History Relation Name Comments Alzheimer's disease Father Moe dias Hearing loss Father Moe dias Parkinsonism Father Moe dias Parkinson' s disease; Heart disease Maternal Grandfather Nasir read Stroke Maternal Grandfather Nasir read Cancer Maternal Grandmother Sonja read Arthritis Mother Anne dias arthritis; Hypertension Mother Anne dias Hypertensi on; Obesity Mother Anneyo dias Cancer Other 1 Family history of [...] on file Legal Sex Female 11:56 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 Gender Identity Not on file Sexual Orientation [...] Cancer Screening-Colonoscopy 07/01/2021 07/01/2011 Covid-19 Vaccine (6 2024-2 6 season) 2025 08/13/2022, 02/19/2022, 09/21/2021, Additional history exists Influenza [...] 9:47 PM CDT Screening Mamm Bi Acc#: [id number] DATE OF EXAM: Jul 02 2015 Performed [...] Fax: -- Attending Fax: -- Attending ID: [id number] Requesting ID: [id number] Report To 1 ID: [id number] Report To 1 Name: JESSICA DE LA PAZ Report To 1 FAX: -- NextGen Order #: Procedure Note Provider, MD Shobha - 03/10/2017 Screening Mamm Bi Acc#: [id number] DATE OF EXAM: Jul 02 2015 Performed by: CLINICAL HISTORY: Routine screening. RESULT: Two views of each breast obtained, compared with 06/04/14 and 08/10/12.Scattered fibroglandular densities bilaterally. No dominant mass isdemonstrated. No suspicious clusters of microcalcifications are evident.A few scattered benign calcifications. A few small densities which aresimilar to previously. Digital technology was employed plus computer-aideddetection software (Akvo) was utilized in interpretation of these images.This [...] Fax: -- Attending Fax: -- Attending ID: [id number] Requesting ID: [id number] Report To 1 ID: [id number] Report To 1 Name: JESSICA DE LA PAZ Report To 1 FAX: -- NextGen Order #: Historical Provider MD CHEN MAMMO PROCEDURES Valeri l Result * COLONOSCOPY (07/01/2011 12:00 AM CDT) Anatomical Region Laterality Modality Other Narrative 07/01/2011 12:00 AM CDT Ordered by an unspecified provider. Procedure Note Provider, MD Shobha - 07/01/2011 12:00 AM CDT PROCEDURE REPORT Patient: HARITHA CASTANON Account: [id number] Room No: : 1950 Patient Type: [facility] Attend.: Arturo Chavez M.D. Admit Date: 07/01/2011 Dict.: Arturo Chavez M.D. Disch. Date: PROCEDURE PERFORMED: Colonoscopy. HISTORY: 60-year-old female presents for screening colonoscopy. PHYSICAL EXAMINATION: Morbidly obese female. Lungs are clear. Cardiovascular examination was unremarkable. PROCEDURE: Colonoscopy was performed with the [employer] video endoscope.The patient was premedicated by anesthesia. [...] Arturo Chavez MD On 07/02/2011 07:40:00 AM Historical Provider ENDOSCOPY PROCEDURES Valeri l Result from Last 3 Months or Most Recently Relevant to Health Maintenance Insurance [employer] MEDICARE GOLD AET MEDICARE GOLD Care Teams Regional Hr Manager Relationship Specialty Start Date End Date Sol Aragon NP PCP - General Nurse Practitioner 04/18/23
--- OUTSIDE RECORDS SUMMARY | 2025-09-02 00:31 | XMS_ITS | Encounter Summary ---
Author Organization [facility] Address [address] [place] [address] Care Team Providers Care Icd 9 Coder Name Role Phone Arturo Tang DO Primary Care Provider [phone] Encounter Details Date Type Department Care Team (Late st Contact Info) Description 09/17/2020 Lab Requisition [facility] [address] [place] [id number] Sorin Lozano MD [address] [place] [address] Social History Tobacco Use Types Packs/Day Years Used Date Smoking Tobacco: Never Assessed Comments Unknown Sex and Gender Information Value Date Recorded Sex Assigned at Not on file Legal Sex Female 6:18 AM LICENSED MASS REAL ESTATE APPRAISER Gender Identity Not on file Sexual Orientation Not on file documented as of this encounter Plan of Treatment Not on file documented as of this encounter Procedures Procedure Name Priority Date/Time Associated Diagnosis Comments DERMATOPATHOLOGY Routine 09/16/2020 12:0 0 AM LICENSED MASS REAL ESTATE APPRAISER documented in this encounter Results * DERMATOPATHOLOGY (09/16/2020 12:00 AM LICENSED MASS REAL ESTATE APPRAISER) Case Report Dermatopathology Report Case: [id number] Authorizing Provider: Sorin Lozano MD Collected: 09/16/2020 12:00 AM Ordering Location: [facility] Received: 09/17/2020 12:08 PM Pathologist: Rosemary Espino MD Specimens: A) - Skin, upper abdomen A B) - Skin, upper abdomen B C) - Skin, left upper lateral arm above elbow 0 1:15 PM [facility] DERMATOPATHOLOGY [facility]ORATORY Final Diagnosis Specimen A. SKIN, upper abdomen A: FOCAL DERMAL FIBROSIS (L90.5) (see microscopic description and comment) Specimen B. SKIN, upper abdomen B: LICHEN SCLEROSUS ET ATROPHICUS (L90.0) (see microscopic description) Specimen C. SKIN, left upper lateral arm above elbow: HYPERPLASTIC (HYPERTROPHIC) ACTINIC KERATOSIS (L57.0) (see microscopic description) 0 1:15 PM [facility] DERMATOPATHOLOGY LABORATORY at [address] LICENSED MASS REAL ESTATE APPRAISER Clinical History A-B: R/O morphea vs LS&A vs other C: R/O BCC, LSK 0 1:15 PM [facility] DERMATOPATHOLOGY [facility]OR[facility] Gross Description [...] 10x8x1 mm. Jar 0. 0 1:15 PM [facility] DERMATOPATHOLOGY [facility]ORATORY Microscopic Description [...] The lesion is inflamed. 0 1:15 PM LICENSED MASS REAL ESTATE APPRAISER DERMATOPATHOLOGY LABORATORY Disclaimer An external and internal positive and negative controls are appropriate for the histochemical, immunohistochemical and immunofluorescence stain(s) in this case (if any), except where stated explicitly. The performance characteristics of the stain(s) cited in this report were developed and its performance characteristic determined by the Dermatopathology Laboratory at [facility], directed by Dr. Merlyn Grover. These tests need not be, and therefore are not, approved by the [place] Food and Drug Administration. The tests are used for clinical purposes. Billing Codes Specimen Charges Stain Charges 35459 62044 15499 1 1 1 72213 18779 12744 02974 1 1 1 1 0 1:15 PM LICENSED MASS REAL ESTATE APPRAISER DERMATOPATHOLOGY LABORATORY Embedded Images 0 1:15 PM LICENSED MASS REAL ESTATE APPRAISER DERMATOPATHOLOGY LABORATORY Pathology/Cytology TISSUE SPECIMEN FROM SKIN / Unknown 09/16/2020 09/17/2020 12:08 PM LICENSED MASS REAL ESTATE APPRAISER Miscellaneous samples (specimen) TISSUE SPECIMEN FROM SKIN / Unknown 09/16/2020 09/17/2020 12:08 PM LICENSED MASS REAL ESTATE APPRAISER Miscellaneous samples (specimen) TISSUE SPECIMEN FROM SKIN / Unknown 09/16/2020 09/17/2020 12:08 PM LICENSED MASS REAL ESTATE APPRAISER Sorin Lozano MD LAB - PATHOLOGY/CYTOLOGY ORD ERABLES Final Result DERMATOPATHOLOGY LABORATORY [facility] - Department of Dermatology [facility] Specialized Medicine [address] [place] [address], [address] [place] [address], [facility] [phone] documented in this encounter Visit Diagnoses Not on filedocumented in this encounter Care Teams Icd 9 Coder Relationship Specialty Start Date End Date Arturo Tang DO PCP - General Internal Medicine 05/23/22 documented as of this encounter
--- OUTSIDE RECORDS SUMMARY | 2025-09-02 00:31 | XMS_ITS | Encounter Summary ---
Author Organization [facility] Address [address] [place] [address] Phone Care Team Providers Care Tapper Helper Name Role Phone Maricarmen Mireles MD Primary Care Provider Arturo Tang DO Primary Care Provider Reason for Visit * Reason Comments Medication Refill Encounter Details Date Type Department Care Team (Late st Contact Info) Description 04/30/2021 [facility] [address] [place] [address] Maricarmen Mireles MD [address] [place] [address] Medication Refill Social History Tobacco [...] Dept 03/10/21 Office Visit Maricarmen Mireles MD [facility] 08/25/20 Office Visit Maricarmen Mireles MD [facility] Showing recent visits within past 365 [...] Dept 03/10/21 Office Visit Maricarmen Mireles MD [facility] Pocket Concierge [facility] 08/25/20 Office Visit Maricarmen Mireles MD [facility] Showing recent visits within past 365 [...] ago Physical exam, annual (Adult) [facility] Maricarmen Mireles MD 1 year ago Type 2 diabetes mellitus without complication, without long-term current use of insulin ([facility]) [facility] - Maricarmen Beck MD 1 year ago Physical exam, annual (Adult) [facility] Maricarmen Mireles MD 2 years ago Type 2 diabetes mellitus without complication, without long-term current use of insulin([facility]) [facility] Maricarmen Mireles MD Upcoming Appointments Future Appointments In 10 months Maricarmen Mireles MD [facility] - Recent and Past Visits Recent Visits Date Type Provider Dept 03/10/21 Office Visit Maricarmen Mireles MD [facility] 08/25/20 Office Visit Maricarmen Mireles MD [facility] Showing recent visits within past 460 days [...] documented as of this encounter Care Teams Tapper Helper Relationship Specialty Start Date End Date Mariacrmen Mireles MD PCP - General Family Medicine 08/25/15 12/08/21 Arturo Tang DO [facility] [place] [address] PCP - General Internal Medicine 12/17/21 documented as of this encounter
--- OUTSIDE RECORDS SUMMARY | 2025-09-02 00:31 | XMS_ITS | Encounter Summary ---
Author Organization [facility] Address [address] [place] [address] Phone Care Team Providers Care Disabilities Services Officer Name Role Phone Maricarmen Mireles MD Primary Care Provider Arturo Tang DO Primary Care Provider Reason for Visit * Reason Comments Medication Refill Encounter Details Date Type Department Care Team (Late st Contact Info) Description 08/31/2021 Refill [facility] - Primary Care - Connie [address] [place] [address] Maricarmen Mireles MD [address] [place] [address] Medication Refill Social History Tobacco [...] Miscellaneous Notes * Telephone Encounter - Rosanna Lozyoa RN - 08/31/2021 8:22 AM CDT Medication [...] Dept 03/10/21 Office Visit Maricarmen Mireles MD [facility] Showing recent visits within past 182 [...] documented as of this encounter Care Teams Disabilities Services Officer Relationship Specialty Start Date End Date Maricarmen Mireles MD PCP - General Family Medicine 08/25/15 12/08/21 Arturo Tang DO [address] [facility] [place] [address] PCP - General Internal Medicine 12/17/21 documented as of this encounter
--- OUTSIDE RECORDS SUMMARY | 2025-09-02 00:31 | XMS_ITS | Encounter Summary ---
Author Organization [facility] Address [address] [place] [address] Phone Care Team Providers Care Continuous Mining Machine Company Miner Name Role Phone Maricarmen Mireles MD Primary Care Provider [phone] Arturo Tang DO Primary Care Provider Reason for Visit * Reason Comments Medication Refill Encounter Details Date Type Department Care Team (Late st Contact Info) Description 09/15/2021 Refill [facility] - Primary Care - [place] [address] [place] [address] Maricarmen Mireles MD [address] [place] [address] Medication Refill Social History Tobacco [...] Dept 03/10/21 Office Visit Maricarmen Mireles MD [facility] Showing recent visits within past 365 days [...] Dept 03/10/21 Office Visit Maricarmen Mireles MD [facility] Showing recent visits within past 365 days [...] as of this encounter Care Teams Continuous Mining Machine Company Miner Relationship Specialty Start Date End Date Maricarmen Mireles MD PCP - General Family Medicine 08/25/15 12/08/21 Arturo Tang DO [facility] [place] [address] PCP - General Internal Medicine 12/17/21 documented as of this encounter
--- OUTSIDE RECORDS SUMMARY | 2025-09-02 00:31 | XMS_ITS | Encounter Summary ---
Author Organization [facility] Address [address] [place] [address] Phone Care Team Providers Care Machine Plaster Mixer Name Role Phone Maricarmen Mireles MD Primary Care Provider [phone] Arturo Tang DO Primary Care Provider Reason for Visit * Reason Comments Medication Refill Encounter Details Date Type Department Care Team (Late st Contact Info) Description 10/23/2020 [facility] [address] [place] [address] Elvira Kumar APRN, BLOGS MANAGER [address] [place] [address] Medication Refill Social History Tobacco [...] COVID-19? No / Unsure 10/12/2020 3:25 PM LAW EXAMINER documented as of this encounter Plan of Treatment Not on file documented as of this encounter Visit Diagnoses Diagnosis Back strain, initial encounter documented in this encounter Additional Health Concerns Assessment Noted Time PHQ-9 Depression Total Score: 0 08/25/20 20 12:00 PM CDT documented as of this encounter Care Teams Machine Plaster Mixer Relationship Specialty Start Date End Date Maricarmen Mireles MD PCP - General Family Medicine 08/25/15 12/08/21 Arturo Tang DO [facility] [address] PCP - General Internal Medicine 12/17/21 documented as of this encounter
--- OUTSIDE RECORDS SUMMARY | 2025-09-02 00:31 | XMS_ITS | Encounter Summary ---
Author Organization [facility] Address [address] [place] [address] Phone Care Team Providers Care Guest Service Host Name Role Phone Maricarmen Mireles MD Primary Care Provider Arturo Tang DO Primary Care Provider Reason for Visit * Reason Comments Medication Refill Encounter Details Date Type Department Care Team (Late st Contact Info) Description 07/27/[address] [facility] [address] [place] [address] Maricarmen Mireles MD [address] [place] [address] Medication Refill Social History Tobacco [...] Dept 03/10/21 Office Visit Maricarmen Mireles MD [facility] [employer] [facility] 08/25/20 Office Visit Maricarmen Mireles MD [facility] [employer] [facility] Showing recent visits within past [...] Dept 03/10/21 Office Visit Maricarmen Mireles MD [facility] [employer] [facility] 08/25/20 Office Visit Maricarmen Mireles MD [facility] [employer] [facility] Showing recent visits within past [...] documented as of this encounter Care Teams Guest Service Host Relationship Specialty Start Date End Date Maricarmen Mireles MD PCP - General Family Medicine 08/25/15 12/08/21 Arturo Tang DO [employer] [facility] [facility] [place] [address] PCP - General Internal Medicine 12/17/21 documented as of this encounter
--- OUTSIDE RECORDS SUMMARY | 2025-09-02 00:31 | XMS_ITS | Clinical Summary ---
Author Organization [facility] Address [address] [address] Phone Care Team Providers Care Vice President Research Name Role Phone Arturo Tang DO Primary [...] Cologuard 1994 Immunochemical Fecal Occult Blood 1994 Medicare Initial AWV [id number] 08/14/2015 Diabetes: Hemoglobin A1c 02/06/2021 020, 12/11/2019, 06/12/2019, [...] without long-term current use of insulin (HCC) [facility] SCREENING BILATERAL DIGITAL W CAD W JAY Routine 07/13/2019 1:45 PM CDT Encounter for screening mammogram for malignant neoplasm of breast [facility] BONE DENSITOMETRY AXIAL SKELETON Routine 07/06/2018 2:35 PM CDT Postmenopausal COLONOSCOPY Routine 07/01/2011 from Last 3 Months or Most Recently Relevant to Health Maintenance Results * DILATED EYE EXAM (11/11/2020) Tyrone Wolfe PROCEDURE/MINOR SURGICAL ORDERAB LES Edited Result - Final * HEMOGLOBIN A1C W/ ESTIMATED GLUCOSE (08/09/2020) HGB-A1C 7.1 % Blood specimen (specimen) 08/09/2020 Maricarmen Mireles MD CHEMISTRY ORDERABLES Edited Result - Final * CMP (COMPREHENSIVE METABOLIC PANEL) (08/09/2020) Blood specimen (specimen) Maricarmen Mireles MD CHEMISTRY ORDERABLES Final R [...] is made to exams dated: 07/14/2017 [facility], 07/02/2015, and 06/04/2014 [facility]. BREAST TISSUE:There are scattered fibroglandular densities [...] next screening exam. Electronically signed by: Sonido quan/penrad:07/13/2019 15:09:37 Sales Special Agent: Francesca JO (R)), [facility] letter sent: Normal Exam Reading location: [...] is made to exams dated: 07/14/2017 [facility], 07/02/2015, and 06/04/2014 [facility]. BREAST TISSUE:There are scattered fibroglandular densities [...] next screening exam. Electronically signed by: Sonido Monroy M.D. /penrad:07/13/2019 15:09:37 Sales Special Agent: Francesca MUKHERJEE (R)([place]), [facility] letter sent: Normal Exam Reading location: [facility]: 1 Negative us Maricarmen Mireles MD IMG MAMMO ORDERABLES Final R esult * BRENDA BONE DENSITOMETRY AXIAL SKELETON (07/06/2018 2:35 PM [...] old F with given history of screening. Parenting Skills Instructor/Model: [employer] (S/N [id number]) CLINICAL INFORMATION: Risk factors: Menopause due to [...] 8:38 AM - Electronically signed by Armond Deosuza M.D. MARSHALL: MARSHALL Report ID: [id number] Reading Location: [place] [address] Procedure Note Armond Desouza MD - 07/07/2018 EXAM DESCRIPTION: BRENDA BONE DENSITOMETRY AXIAL SKELETON REASON FOR STUDY: 67 y/o year old F with given history of screening. 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 MARSHALL: MARSHALL Report ID: [id number] Reading Location: [place] [address] IMPRESSION: Low bone mass. Statistically significant decrease [...] Maintenance Insurance MEDICARE C AETNA Care Teams Vice President Research Relationship Specialty Start Date End Date Arturo Tang DO [address] [place] [address] PCP - General Internal Medicine 12/17/21
--- OUTSIDE RECORDS SUMMARY | 2025-09-02 00:31 | XMS_ITS | Clinical Summary ---
Author Organization [facility] Address [address] [place] [address] Care Team Providers Care Council On Aging Director Name Role Phone Arturo Tang DO Primary Care Provider [phone] Source Comments [facility],non-owned Affiliates and Associated Physician Practices is amultiple site organization consisting of ambulatory clinics and hospital sitesin [place], [place], [place] and [place]. This disclosure is being madepursuant to the Care Everywhere program and may not contain all information available regarding this patient. Last updated 18.[facility] Allergies Active Allergy Reactions Criticality Noted Date Comments Dust Mite Extract Other 05/24/2022 Metformin Diarrhea High 12/09/2016 Sulfamethoxazole W-Trimethoprim Rash Medium 03/14 Medications * Be aware that medications may not be up to date on this document. Alwaysverify current medications with the patient. phenazopyridin e (PYRIDIUM) 200 MG tablet Take 200 mg by mouth 3 times daily as needed Active Biotin 36267 MCG Take by mouth once daily Active [...] file Legal Sex Female 6:[address] Gender Identity Not on file Sexual Orientation [...] Subscriber ID:Not on file (Home) Address: [address] [place] [address] Payer ID:Not on file Group ID:Not on file Type:Self Pay Address: [place], [place] AETNA AETNA MEDICARE ADV Advance Directives * Full Code (Latest Code Status on File) Date Activated Date Inactivated Comments 05/23/2022 11:21 PM 05/26/2022 12:59 PM Care Teams Council On Aging Director Relationship Specialty Start Date End Date Arturo Tang DO PCP - General Internal Medicine 05/23/22
[2025-09-02] MEDS: LACTATED RINGERS 1,000 ML 30 ML IV CONT ×2 (10:30→14:29)
[2025-09-02] MEDS: KETOROLAC 15 MG/ML VIAL (*BKC) IV PUSH (10:47)
[2025-09-02] MEDS: ACETAMINOPHEN 500 MG TABLET 1000 MG PO (10:47)
--- NOTE | 2025-09-02 11:45 | WPDANESEPPF ---
Anes - Initial Pre Proc Eval Procedure: Operation Date: 09/02/25 12:00 Proposed Procedures p Hand Assisted Laparoscopic Right Colectomy - Maria Esther Pineda MD Date/Time: 09/02/25 11:45 Surgeon: Maria Esther Pineda MD Pre Op Diagnosis: cecal CA Patient Data Age: 74 Gender: F Height: 1.63 m Weight: 83.8 kg Last Vital Signs Temp 97 F L 09/02/25 10:43 Pulse 86 09/02/25 10:43 Resp 16 08/23/25 10:07 BP 123/70 09/02/25 10:43 Pulse Ox 98 09/02/25 10:43 O2 Del Method Room Air 09/02/25 10:43 Allergies Allergy/AdvReac Type Severity Reaction Status Date / Time Sulfa (Sulfonamide Allergy Severe Hives / Verified 09/02/25 10:40 Antibiotics) Red Face Home Medications ?Medication ?Instructions ?Recorded ?Confirmed ?Type fexofenadine 180 mg tablet 180 mg PO HS 01/11/22 08/23/25 History cholecalciferol (vitamin D3) 50 50 mcg PO HS 04/13/23 08/23/25 History mcg (2,000 unit) capsule diltiazem HCl 180 mg 180 mg PO QAM 30 days #30 caps 04/15/23 09/02/25 Rx capsule,extended release 24 hr, controlled CPAP supplies #1 ea 08/30/23 08/23/25 Rx biotin 5,000 mcg chewable tablet 5,000 mcg PO HS 09/13/23 08/23/25 History blood-glucose meter (Advanced #1 ea 10/09/24 08/23/25 Rx Glucose Meter) blood sugar diagnostic (Advanced #100 ea 10/10/24 08/23/25 Rx Glucose Meter Test Strips) lancets 28 gauge (Advanced Travel #100 ea 10/10/24 08/23/25 Rx Lancets) lisinopril 20 mg tablet See Rx Instructions .Route 01/24/25 08/23/25 Rx .COMPLEX #90 tabs duloxetine 30 mg capsule,delayed 30 mg PO DAILY #90 caps 03/26/25 09/02/25 Rx release buspirone 10 mg tablet 10 mg PO DAILY #90 tabs 04/11/25 09/02/25 Rx pravastatin 20 mg tablet 20 mg PO HS #90 tabs 04/26/25 08/23/25 Rx omeprazole 20 mg capsule,delayed See Rx Instructions .Route 07/08/25 08/23/25 Rx release .COMPLEX #90 caps semaglutide 1 mg/dose (4 mg/3 mL) 1 mg (0.75 mL) subcut WEEKLY #3 mL 07/08/25 09/02/25 Rx subcutaneous pen injector (Ozempic) glipizide 10 mg tablet, extended See Rx Instructions .Route 07/26/25 09/02/25 Rx release 24 hr .COMPLEX #90 tabs ciprofloxacin HCl 500 mg tablet 500 mg PO .COMPLEX #1 tablet 07/30/25 09/02/25 Rx metronidazole 500 mg tablet 500 mg PO .COMPLEX #3 tabs 07/30/25 09/02/25 Rx acetaminophen 500 mg tablet 1,000 mg PO Q6H PRN pain 08/23/25 08/23/25 History (Acetaminophen Extra Strength) carvedilol 6.25 mg tablet 6.25 mg PO DAILY #90 tabs 08/26/25 09/02/25 Rx Laboratory Tests 09/02/25 10:24 POC Capillary Glucose 103 mg/dl (65-105) Patient hx anesthesia problems: none Family hx anesthesia problems: none Results Review: All pre-operative results and documents have been reviewed as part of the pre-operative evaluation. [facility] Past Medical History Medical History Portal hypertension Cirrhosis Obstructive sleep apnea Type 2 diabetes mellitus Hypertension GI bleed due to NSAIDs Hyperlipidemia Transaminitis Obesity GERD (gastroesophageal reflux disease) Arthritis Anxiety Allergy Surgical History Surgical History History of esophagogastroduodenoscopy (05/2022) For evaluation of upper GI bleed. Findings included a large hiatal hernia, erythematous mucosa in the gastric body which was biopsied, and 2 friable gastric polyps which were resected and retrieved. H/O total knee replacement Bilateral in 2014 H/O esophagogastroduodenoscopy (~05/2022) History of carpal tunnel release of both wrists No pertinent past surgical history Family History Family History Mother Hypertension Grandparent Acute myocardial infarction Grandparent Acute myocardial infarction Father Cerebrovascular accident Prostate carcinoma Grandparent Diabetes mellitus Sibling Glaucoma Social History Social History Smoking packs per day: 1 Smoking cigarettes per day: 20.0 Years smoked: 20 Smoking pack-years: 20.00 Smoking status: Former smoker Tobacco type: cigarettes Smoking end date: 11/14/89 Alcohol intake: never Substance use: never Substance use type: does not use Do You Feel Safe in your Home?: Yes Living arrangements: alone Spiritual care concerns: No Anes - Eval Final PreProcedure Day of Procedure 09/02/25 11:45 Patient weight: obese Lungs: normal air movement Airway: Mallampati scale class II Neurological: alert and oriented Last oral intake: >/= 8 hours ASA classification: III Emergent: no Anesthetic plan: proceed Anesthesia type and monitoring: general ETT and standard monitoring Results Review: All pre-operative results and documents have been reviewed as part of the pre-operative evaluation. Hx of pafib, Hyperlipidemia, HTN, HAYDE on CPAP, DM fsbs 103, BMI 31, pt had stress test 06/2025 nml without ischemia, nml LVEF. Informed Consent: The patient's anesthetic plan and its attendant risks and benefits were discussed with the patient/family/POA. Questions were solicited and answers provided to the satisfaction of the patient/family/POA.
--- NOTE | 2025-09-02 12:03 | PM.IMHP ---
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 Pt c PET that was negative for any further metastatic dz. Review of Systems Review of Systems: All systems reviewed & are unremarkable except as noted in HPI and below PMFSH Past Medical History Medical History Portal hypertension Cirrhosis Obstructive sleep apnea Type 2 diabetes mellitus Hypertension GI bleed due to NSAIDs Hyperlipidemia Transaminitis Obesity GERD (gastroesophageal reflux disease) Arthritis Anxiety Allergy Surgical History Surgical History History of esophagogastroduodenoscopy (05/2022) For evaluation of upper GI bleed. Findings included a large hiatal hernia, erythematous mucosa in the gastric body which was biopsied, and 2 friable gastric polyps which were resected and retrieved. H/O total knee replacement Bilateral in 2014 H/O esophagogastroduodenoscopy (~05/2022) History of carpal tunnel release of both wrists No pertinent past surgical history Family History Family History Mother Hypertension Grandparent Acute myocardial infarction Grandparent Acute myocardial infarction Father Cerebrovascular accident Prostate carcinoma Grandparent Diabetes mellitus Sibling Glaucoma Social History Social History Smoking packs per day: 1 Smoking cigarettes per day: 20.0 Years smoked: 20 Smoking pack-years: 20.00 Smoking status: Former smoker Tobacco type: cigarettes Smoking end date: 11/14/89 Alcohol intake: never Substance use: never Substance use type: does not use Do You Feel Safe in your Home?: Yes Living arrangements: alone Spiritual care concerns: No Meds Home Medications and Allergies Home Medications ?Medication ?Instructions ?Recorded ?Confirmed ?Type fexofenadine 180 mg tablet 180 mg PO HS 01/11/22 08/23/25 History cholecalciferol (vitamin D3) 50 50 mcg PO HS 04/13/23 08/23/25 History mcg (2,000 unit) capsule diltiazem HCl 180 mg 180 mg PO QAM 30 days #30 caps 04/15/23 09/02/25 Rx capsule,extended release 24 hr, controlled CPAP supplies #1 ea 08/30/23 08/23/25 Rx biotin 5,000 mcg chewable tablet 5,000 mcg PO HS 09/13/23 08/23/25 History blood-glucose meter (Advanced #1 ea 10/09/24 08/23/25 Rx Glucose Meter) blood sugar diagnostic (Advanced #100 ea 10/10/24 08/23/25 Rx Glucose Meter Test Strips) lancets 28 gauge (Advanced Travel #100 ea 10/10/24 08/23/25 Rx Lancets) lisinopril 20 mg tablet See Rx Instructions .Route 01/24/25 08/23/25 Rx .COMPLEX #90 tabs duloxetine 30 mg capsule,delayed 30 mg PO DAILY #90 caps 03/26/25 09/02/25 Rx release buspirone 10 mg tablet 10 mg PO DAILY #90 tabs 04/11/25 09/02/25 Rx pravastatin 20 mg tablet 20 mg PO HS #90 tabs 04/26/25 08/23/25 Rx omeprazole 20 mg capsule,delayed See Rx Instructions .Route 07/08/25 08/23/25 Rx release .COMPLEX #90 caps semaglutide 1 mg/dose (4 mg/3 mL) 1 mg (0.75 mL) subcut WEEKLY #3 mL 07/08/25 09/02/25 Rx subcutaneous pen injector (Ozempic) glipizide 10 mg tablet, extended See Rx Instructions .Route 07/26/25 09/02/25 Rx release 24 hr .COMPLEX #90 tabs ciprofloxacin HCl 500 mg tablet 500 mg PO .COMPLEX #1 tablet 07/30/25 09/02/25 Rx metronidazole 500 mg tablet 500 mg PO .COMPLEX #3 tabs 07/30/25 09/02/25 Rx acetaminophen 500 mg tablet 1,000 mg PO Q6H PRN pain 08/23/25 08/23/25 History (Acetaminophen Extra Strength) carvedilol 6.25 mg tablet 6.25 mg PO DAILY #90 tabs 08/26/25 09/02/25 Rx Allergies Allergy/AdvReac Type Severity Reaction Status Date / Time Sulfa (Sulfonamide Allergy Severe Hives / Verified 09/02/25 10:40 Antibiotics) Red Face Vital Signs Vital Signs - 24 hr 09/02/25 10:43 Temperature 36.1 C L Pulse Rate 86 Blood Pressure 123/70 Pulse Oximetry 98 Oxygen Delivery Room Air Exam Const: General: cooperative, comfortable, no acute distress and ill appearing Eyes: General: appearance normal, both eyes and all related structures Neck: Neck: normal visual inspection, full ROM and no lymphadenopathy Resp: Auscultation: clear to auscultation bilaterally Cardio: Rate: regular rate Rhythm: regular rhythm GI: Inspection: normal to inspection and non-distended GI Palp: No abdominal tenderness and Yes Soft to palpation Skin: General skin exam: normal color and no rashes or lesions noted Neuro: General: patient oriented x3 and CN's II-XI intact bilaterally Extrem: General: normal to inspection and full ROM Assessment and Plan Assessment and plan (1) 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
--- NOTE | 2025-09-02 12:07 | WPDHPUPDATE1 ---
History and Physical Update Update Date/Time: 09/02/25 12:07 History and Physical has been reviewed, including an updated exam of the patient. There are NO changes in the patient's condition. Risks, benefits, and alternatives have been discussed and questions answered. Patient agrees to proceed with procedure.
[2025-09-02] MEDS: BUPIVACAINE/EPINEPHRINE 0.5% 50 ML VIAL 30 ML INFILTRATE (12:09)
[2025-09-02] MEDS: ceFAZolin 2 GM in SODIUM CHLORIDE 0.9% IV 50 ML 100 ML IVPB ×2 (12:09→18:07)
--- NOTE | 2025-09-02 12:09 | WPDHPUPDATE1 ---
History and Physical Update Update Date/Time: 09/02/25 12:09 History and Physical has been reviewed, including an updated exam of the patient. There are NO changes in the patient's condition. Risks, benefits, and alternatives have been discussed and questions answered. Patient agrees to proceed with procedure.
[2025-09-02] MEDS: metroNIDAZOLE 500 MG/ISO 100ML 500 MG/100 ML BAG 100 MG IVPB (12:20)
--- NOTE | 2025-09-02 13:21 | S_PTH ---
PATIENT: Haritha Castanon LOC: [id number] U#:[id number] AGE/SX: 74/F ROOM: 310 RE09/02/[address]: Maria Esther Pineda MD : 1950 BED: 01 DIS: 09/04/2025 SPEC #: [id number] RECD: 09/02/25 14:32 STATUS: JOHN REQ #: [id number] MOUNA: 09/02/25 13:[address]: Maria Esther Pineda DEPT: [facility] Surgical RECD BY: Marjorie Garcia ENTERED: 09/02/25 14:33 SP TYPE: Surgical OTHR DR: Arturo Tang DO Tissues: A - Colon Segment Tumor Procedures: Hematoxylin and Eosin Stain Gross and Microscopic Level 6
--- NOTE | 2025-09-02 14:28 | W.PM.PROC2 ---
Procedure Note - Detailed Date of Procedure 09/02/25 Pre-op Diagnosis right colon cancer Post-op Diagnosis Same Procedure Performed hand assisted laparoscopic right hemicolectomy Surgeon Maria Esther Pineda MD Anesthesia General Indications 74-year-old female presenting to the office with biopsy-proven cecal cancer. Patient did have preoperative PET that did not show any metastatic disease Findings palpable mass in the cecum Description of Procedure The patient was taken to the operating room and placed in the supine position. After adequate induction of general anesthesia, the patient was prepped and draped normal sterile fashion. A time-out was then done to verify the patient's identity as well as the procedure being performed. I began by making a hand port incision around the umbilicus. This was carried down into the peritoneal cavity. Once the abdominal wall was cleared, the hand port was then placed. I then insufflated the abdomen through the hand port. I then placed the camera through the hand port and under direct visualization, I placed 2 5 mm ports in right lower and right mid abdomen. Once this was done, I examined the right abdomen. It was noted that the patient had adhesions of the cecum and distal ileum to the pelvis. These adhesions were taken down both bluntly and with the ligasure under direct visualization. Once the right colon was mobilized, I began my medial approach. I did this by 1st recognizing and transecting the right colic vessels. This was taken down near the base of the mesentery with the LigaSure. Once this was done, I carried this plane towards the hepatic flexure until I encountered the duodenum which was mobilized posteriorly. I then began taking down the lateral attachments of the terminal ileum and right colon including taking down the white line of Toldt and the hepatic flexure. Once this was done my medial and lateral dissection planes met. I was able to easily manipulate the right colon. The palpable mass was noted in the cecum. At this point, I extracorporealyzed the right colon and terminal ileum. I then transected the terminal ileum approximately 10 cm proximal to the ileo colic junction with a 75 RONNY stapler. I then localized the tumor in the cecum. I measured 10 cm distal to this and transected the ascending colon at this point. I then performed a [id number] functional end-to-end anastomosis between the ileum and ascending colon with a 75 RONNY stapler followed by a TL 60 stapler. The anastomosis was noted to be tension-free and widely patent. I proceeded to over-sew the staple lines using imbricating 3-0 silk sutures. I closed the messenteric defect with a 2.0 silk suture. I then copiously irrigated the abdomen, no other pathology was noted. I then closed the hand port incision with a 0 PDS suture at the fascial level. The skin was closed with 4 O Monocryl subcuticular sutures including the 5 mm ports sites. Dermabond was then placed on all wounds. The patient tolerated the procedure well. She was extubated in the operating room postoperatively and will be transferred to the recovery room in stable condition. Estimated Blood Loss 25 Drains No Packing No Pathology Yes Complications No immediate complications Condition Stable Disposition PACU [facility] Billing Surgery - Charge Forward: Surgery Billing
--- NOTE | 2025-09-02 17:54 | ADMGEN ---
This patient, Haritha Castanon, was admitted to [facility] Surg Room 310-01. Patient/family oriented to hospital policies and general routines including ID bracelet, bed and alarms, visiting hours, pain management, procedures, bathroom and other care routines, personal items, smoking policy, room service/diet, and visiting hours. Information on how to activate the Rapid Response Team has been discussed. Patient/Family are encouraged to report perceived risks to care and to ask questions if they do not understand what they are told or what they should do. received report from Keren
[2025-09-02] MEDS: LACTATED RINGERS 1,000 ML 100 ML IV CONT (18:07)
--- NOTE | 2025-09-02 20:36 | PM.IMCN ---
Assessment and Plan Assessment and plan (1) Hypertension: Qualifiers: Hypertension type: primary hypertension Qualified Code(s): I10 - Essential (primary) hypertension Code(s): I10 - Essential (primary) hypertension Status: Acute (2) Type 2 diabetes mellitus: Qualifiers: Diabetes mellitus make up operator helper insulin use: without make up operator helper use Diabetes mellitus complication status: without complication Qualified Code(s): E11.9 - Type 2 diabetes mellitus without complications Code(s): E11.9 - Type 2 diabetes mellitus without complications Status: Acute (3) Obesity: Qualifiers: Obesity type: due to excess calories Obesity classification: adult class 3 (BMI >= 40) Serious obesity comorbidity presence: without serious comorbidity Body mass index: BMI 40.0-44.9 Qualified Code(s): E66.01 - Morbid (severe) obesity due to excess calories; Z68.41 - Body mass index [BMI] 40.0-44.9, adult Code(s): E66.9 - Obesity, unspecified Status: Acute (4) Cecal cancer: Code(s): 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 Hospitalist consulted for medical management. Status post hand assisted laparoscopic right hemicolectomy on 09/02/2025 due to biopsy-proven cecal cancer. She had preoperative PET that did not show metastatic disease. No immediate intraoperative complications. Patient rest comfortably and reports no pain. Denies shortness of breath, cough. She does not wear oxygen at home. Currently she is on 2 L nasal cannula postop. She has been using the incentive spirometer. ----- Patient doing well postop. At this time her blood pressure is at goal, continue to hold [employer] lisinopril 20 mg p.o. q.day. [employer] diltiazem and Coreg have been restarted. She is on famotidine in place of [employer] omeprazole. Restart SW[employer]INTENANCE pravastatin, duloxetine, buspirone. Continue to encourage use of incentive spirometer. Wean O2 per protocol. Lung exam is clear, no respiratory distress. Accu-Cheks a.c. HS with low-dose insulin sliding scale. Hold [employer]TE[employer] glipizide. CPAP nightly. ----- Clear liquid diet. Received perioperative cefazolin, currently on LR 100 cc/hour. SCDs. Patient wishes to be full code. HPI Date of Consult Consult date: 09/02/25 Requesting Physician: Maria Esther Pineda MD Primary Care Provider: Arturo Tang, Consult Narrative Reason for consult: Medical management Narrative: Haritha Castanon is a 74 year old female with PMH class 1 obesity, hypertension, HAYDE, hyperlipidemia, GERD, arthritis, anxiety. Hospitalist consulted for medical management. Status post hand assisted laparoscopic right hemicolectomy on 09/02/2025 due to biopsy-proven cecal cancer. She had preoperative PET that did not show metastatic disease. No immediate intraoperative complications. Patient rest comfortably and reports no pain. Denies shortness of breath, cough. She does not wear oxygen at home. Currently she is on 2 L nasal cannula postop. She has been using the incentive spirometer. Review of Systems Review of Systems: All systems reviewed & are unremarkable except as noted in HPI and below (Subjective) PMFSH Past Medical History Medical History Portal hypertension Cirrhosis Obstructive sleep apnea Type 2 diabetes mellitus Hypertension GI bleed due to NSAIDs Hyperlipidemia Transaminitis Obesity GERD (gastroesophageal reflux disease) Arthritis Anxiety Allergy Surgical History Surgical History History of esophagogastroduodenoscopy (05/2022) For evaluation of upper GI bleed. Findings included a large hiatal hernia, erythematous mucosa in the gastric body which was biopsied, and 2 friable gastric polyps which were resected and retrieved. H/O total knee replacement Bilateral in 2014 H/O esophagogastroduodenoscopy (~05/2022) History of carpal tunnel release of both wrists No pertinent past surgical history Family History Family History Mother Hypertension Grandparent Acute myocardial infarction Grandparent Acute myocardial infarction Father Cerebrovascular accident Prostate carcinoma Grandparent Diabetes mellitus Sibling Glaucoma Social History Social History Smoking packs per day: 1 Smoking cigarettes per day: 20.0 Years smoked: 20 Smoking pack-years: 20.00 Smoking status: Former smoker Alcohol intake: never Substance use: never Substance use type: does not use Do You Feel Safe in your Home?: Yes Lack of Transportation: No Lack of Food: Never True Current Housing: I Have Housing Concerned About Future Housing: No Difficulty Paying Gas/Electric Bills: No Difficulty Paying for Meds: No Currently Unemployed: No Education: Decline to Answer Difficulty w/ Childcare or Family Care: No Living arrangements: alone Spiritual care concerns: No Meds Home Medications and Allergies Home Medications ?Medication ?Instructions ?Recorded ?Confirmed ?Type fexofenadine 180 mg tablet 180 mg PO HS 01/11/22 08/23/25 History cholecalciferol (vitamin D3) 50 50 mcg PO HS 04/13/23 08/23/25 History mcg (2,000 unit) capsule diltiazem HCl 180 mg 180 mg PO QAM 30 days #30 caps 04/15/23 09/02/25 Rx capsule,extended release 24 hr, controlled CPAP supplies #1 ea 08/30/23 08/23/25 Rx biotin 5,000 mcg chewable tablet 5,000 mcg PO HS 09/13/23 08/23/25 History blood-glucose meter (Advanced #1 ea 10/09/24 08/23/25 Rx Glucose Meter) blood sugar diagnostic (Advanced #100 ea 10/10/24 08/23/25 Rx Glucose Meter Test Strips) lancets 28 gauge (Advanced Travel #100 ea 10/10/24 08/23/25 Rx Lancets) lisinopril 20 mg tablet See Rx Instructions .Route 01/24/25 08/23/25 Rx .COMPLEX #90 tabs duloxetine 30 mg capsule,delayed 30 mg PO DAILY #90 caps 03/26/25 09/02/25 Rx release buspirone 10 mg tablet 10 mg PO DAILY #90 tabs 04/11/25 09/02/25 Rx pravastatin 20 mg tablet 20 mg PO HS #90 tabs 04/26/25 08/23/25 Rx omeprazole 20 mg capsule,delayed See Rx Instructions .Route 07/08/25 08/23/25 Rx release .COMPLEX #90 caps semaglutide 1 mg/dose (4 mg/3 mL) 1 mg (0.75 mL) subcut WEEKLY #3 mL 07/08/25 09/02/25 Rx subcutaneous pen injector (Ozempic) glipizide 10 mg tablet, extended See Rx Instructions .Route 07/26/25 09/02/25 Rx release 24 hr .COMPLEX #90 tabs ciprofloxacin HCl 500 mg tablet 500 mg PO .COMPLEX #1 tablet 07/30/25 09/02/25 Rx metronidazole 500 mg tablet 500 mg PO .COMPLEX #3 tabs 07/30/25 09/02/25 Rx acetaminophen 500 mg tablet 1,000 mg PO Q6H PRN pain 08/23/25 08/23/25 History (Acetaminophen Extra Strength) carvedilol 6.25 mg tablet 6.25 mg PO DAILY #90 tabs 08/26/25 09/02/25 Rx Allergies Allergy/AdvReac Type Severity Reaction Status Date / Time Sulfa (Sulfonamide Allergy Severe Hives / Verified 09/02/25 17:04 Antibiotics) Red Face Vital Signs Vital Signs - 24 hr 09/02/25 10:43 09/02/25 14:29 09/02/25 14:40 Temperature 97 F L 97.4 F L Pulse Rate 86 75 74 Respiratory Rate 24 H 20 Blood Pressure 123/70 131/60 119/52 L Pulse Oximetry 98 94 94 Oxygen Delivery Room Air Simple Face Mask Simple Face Mask Oxygen Flow Rate 8 8 09/02/25 14:55 09/02/25 15:10 09/02/25 15:25 Temperature Pulse Rate 75 75 72 Respiratory Rate 20 20 20 Blood Pressure 119/58 L 118/57 L 129/62 Pulse Oximetry 95 94 94 Oxygen Delivery Nasal Cannula Nasal Cannula Nasal Cannula Oxygen Flow Rate 2 2 2 09/02/25 15:40 09/02/25 15:55 09/02/25 16:10 Temperature Pulse Rate 74 74 74 Respiratory Rate 20 20 20 Blood Pressure 125/58 L 118/64 130/61 Pulse Oximetry 93 94 94 Oxygen Delivery Nasal Cannula Nasal Cannula Nasal Cannula Oxygen Flow Rate 2 2 2 09/02/25 16:30 09/02/25 16:45 09/02/25 17:15 Temperature 97.1 F L 96.8 F L 96.6 F L Pulse Rate 76 70 70 Respiratory Rate 16 16 16 Blood Pressure 128/60 130/66 133/62 Pulse Oximetry 94 97 97 Oxygen Delivery Oxygen Flow Rate 09/02/25 18:13 09/02/25 19:57 Temperature 96.6 F L 97.9 F Pulse Rate 74 77 Respiratory Rate 18 20 Blood Pressure 130/60 141/57 H Pulse Oximetry 97 97 Oxygen Delivery Oxygen Flow Rate Exam Const: General: comfortable and no acute distress Other: A&O x3 HENMT: Mouth: Yes moist mucous membranes Eyes: Pupils: Equal, round and reactive pupils present Neck: Neck: supple Resp: Effort & Inspection: normal respiratory effort Auscultation: clear to auscultation bilaterally Cardio: Rate: regular rate Rhythm: regular rhythm Heart sounds: no murmurs GI: Inspection: non-distended GI Palp: Yes Soft to palpation and No Tenderness to palpation present (GI) Auscultation: normal bowel sounds : Bimanual exam- vagina & uterus: bladder normal to palpation Neuro: Speech: normal speech Motor exam (neuro): 5/5 motor strength present throughout Extrem: General: no edema Psych: Mental Status: mental status grossly normal Hospitalist MIPS Advance Care Plan I have confirmed that the patient's Advanced Care Plan is present, code status is documented, or surrogate decision maker is listed in patient medical record.: Yes Medication Reconciliation I have utilized all available resources to obtain, update and review the patients current medications (includes all prescriptions, OTC, herbals, cannabis, and nutritional supplements).: Yes
[2025-09-02] MEDS: PRAVASTATIN SODIUM 20 MG TABLET PO (22:12)
[2025-09-02] MEDS: FAMOTIDINE 20 MG/2 ML VIAL IV PUSH (22:13)
[2025-09-03] VITALS (8 sets, daily range): BP systolic 102–150; BP diastolic 49–75; PULSE 71–93; RESP 16–20; TEMP 36.1–36.7; O2SAT 93–98
--- NOTE | 2025-09-03 01:37 | PCRCNOTE ---
Pt does not wear her Home CPAP anymore, has lost 45lbs, does not want a hospital unit
[2025-09-03] MEDS: LACTATED RINGERS 1,000 ML 100 ML IV CONT (02:47)
[2025-09-03] MEDS: ceFAZolin 2 GM in SODIUM CHLORIDE 0.9% IV 50 ML 100 ML IVPB (02:48)
[2025-09-03 06:54] LABS: Hematocrit 33.1 % (37.0-47.0); Hemoglobin 9.8 g/dL (12.0-15.0); Immature Platelet Fraction Pct 5.7 % (0.9-11.2); Mean Corpuscular HGB Conc 29.6 g/dl (32-36); Mean Corpuscular Hemoglobin 23.0 pg (26-34); Mean Corpuscular Volume 77.5 fl (80-100); Platelet Count Result 122 k/mm3 (150-375); Red Blood Count 4.27 M/mm3 (4.2-5.4); White Blood Count 9.9 K/mm3 (4.5-10.0)
[2025-09-03 07:36] LABS: Anion Gap 8 mmol/L (4-12); Blood Urea Nitrogen 8 mg/dL (7-17); Calcium 8.2 mg/dL (8.4-10.2); Carbon Dioxide 25 mmol/L (22-30); Chloride 104 mmol/L (98-107); Estimated CRCL calculation 62 ml/min; Estimated Glomerular Filt Rate > 60; Glucose 147 mg/dL (65-110); Magnesium 2.0 mg/dL (1.6-2.3); Potassium 3.7 mmol/L (3.4-5.0); Sodium 137 mmol/L (137-145)
--- NOTE | 2025-09-03 08:02 | PM.IMPN ---
Progress Note: A&P Assessment and Plan (1) Hypertension: Qualifiers: Hypertension type: primary hypertension Qualified Code(s): I10 - Essential (primary) hypertension Code(s): I10 - Essential (primary) hypertension Status: Acute Assessment and Plan: blood pressure is at goal - continue to hold lisinopril 20 mg p.o. q.day. - diltiazem and Coreg - monitor blood pressure (2) Type 2 diabetes mellitus: Qualifiers: Diabetes mellitus complication status: without complication Diabetes mellitus long term care administrator insulin use: without penitentiary use Qualified Code(s): E11.9 - Type 2 diabetes mellitus without complications Code(s): E11.9 - Type 2 diabetes mellitus without complications Status: Acute Assessment and Plan: - Accu-Cheks a.c. - HS with low-dose insulin sliding scale. - Hold [employer] glipizide. 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 - preoperative PET that did not show metastatic disease. - received ATB prior to OR - continue IV fluids. -No immediate intraoperative complications. -Surgery to follow -- d/c montiel catheter today - monitor for s/s of infection or complication (4) Anemia: Qualifiers: Anemia type: unspecified type Qualified Code(s): D64.9 - Anemia, unspecified Code(s): D64.9 - Anemia, unspecified Status: Acute Assessment and Plan: - stable - monitor labs (5) Obstructive sleep apnea: Code(s): G47.33 - Obstructive sleep apnea (adult) (pediatric) Status: Acute Assessment and Plan: --> Continue to encourage use of incentive spirometer. Wean O2 per protocol. --> CPAP nightly. Plan Diet - per surgery Clear liquid diet. DVT -- SCDS Code status - full code. Disposition - patient will be monitored, once cleared by surgery, patient can be discharged with outpatient follow up. Time Spent With Patient Time with patient: Greater than 35 minutes Subjective Date/time seen: 09/03/25 08:02 Interval history: This is a pleasant 74 y/o female patient s/p hemicolectomy d/t cecal cancer. Patient is doing well. she is sitting up in bed this am. tolerated soft diet. She is passing flatus. she is rating pain at 2-3/10 at the worst. she denies any distress. Review of Systems Review of Systems: All systems reviewed & are unremarkable except as noted in HPI and below (Subjective) Exam Const: General: comfortable and no acute distress Other: A&O x3 HENMT: Mouth: Yes moist mucous membranes Eyes: Pupils: Equal, round and reactive pupils present Neck: Neck: supple Resp: Effort & Inspection: normal respiratory effort Auscultation: clear to auscultation bilaterally Cardio: Rate: regular rate Rhythm: regular rhythm Heart sounds: no murmurs GI: Inspection: non-distended Auscultation: normal bowel sounds Abdomen image:  1. incision intact, no signs of infection, clean and slight distal bruising to the incision site. 2. incision site, c/d/i. : General: Yes bladder normal to palpation Bimanual exam- vagina & uterus: bladder normal to palpation Neuro: Cranial nerves: Yes Equal, round and reactive pupils present Speech: normal speech Motor exam (neuro): 5/5 motor strength present throughout Extrem: General: no edema Psych: Mental Status: mental status grossly normal Objective Data Vital Signs Vital Signs: Vital Signs - 24 hr 09/02/25 10:43 09/02/25 14:29 09/02/25 14:40 Temperature 97 F L 97.4 F L Pulse Rate 86 75 74 Respiratory Rate 24 H 20 Blood Pressure 123/70 131/60 119/52 L Pulse Oximetry 98 94 94 Oxygen Delivery Room Air Simple Face Mask Simple Face Mask Oxygen Flow Rate 8 8 09/02/25 14:55 09/02/25 15:10 09/02/25 15:25 Temperature Pulse Rate 75 75 72 Respiratory Rate 20 20 20 Blood Pressure 119/58 L 118/57 L 129/62 Pulse Oximetry 95 94 94 Oxygen Delivery Nasal Cannula Nasal Cannula Nasal Cannula Oxygen Flow Rate 2 2 2 09/02/25 15:40 09/02/25 15:55 09/02/25 16:10 Temperature Pulse Rate 74 74 74 Respiratory Rate 20 20 20 Blood Pressure 125/58 L 118/64 130/61 Pulse Oximetry 93 94 94 Oxygen Delivery Nasal Cannula Nasal Cannula Nasal Cannula Oxygen Flow Rate 2 2 2 09/02/25 16:30 09/02/25 16:45 09/02/25 17:15 Temperature 97.1 F L 96.8 F L 96.6 F L Pulse Rate 76 70 70 Respiratory Rate 16 16 16 Blood Pressure 128/60 130/66 133/62 Pulse Oximetry 94 97 97 Oxygen Delivery Oxygen Flow Rate 09/02/25 18:13 09/02/25 19:57 09/03/25 00:09 Temperature 96.6 F L 97.9 F 98.0 F Pulse Rate 74 77 83 Respiratory Rate 18 20 18 Blood Pressure 130/60 141/57 H 150/75 H Pulse Oximetry 97 97 98 Oxygen Delivery Oxygen Flow Rate 09/03/25 04:09 09/03/25 06:55 09/03/25 07:56 Temperature 97.8 F 97.8 F Pulse Rate 84 88 Respiratory Rate 20 18 Blood Pressure 137/66 139/64 Pulse Oximetry 98 94 Oxygen Delivery Room Air Oxygen Flow Rate Intake/Output Intake/Output: Intake & Output 08/31/25 09/01/25 09/02/25 09/03/25 23:59 23:59 23:59 23:59 Intake Total 550 1106.7 Output Total 200 750 Balance 350 356.7 Meds/Results Medications: Active Medications Generic Name Dose Route Start Last Admin Trade Name Freq PRN Reason Stop Dose Admin Hydrocodone Bitart/Acetaminophen 1 tab 09/02/25 14:23 Hydrocodone/Acetaminophen (*Crx) 5-325 Mg Tablet PO Q4H PRN Pain Rated 4-6 Buspirone HCl 10 mg 09/03/25 09:00 Buspirone Hcl 10 Mg Tablet PO DAILY [facility] Carvedilol 6.25 mg 09/03/25 09:00 Carvedilol 6.25 Mg Tablet PO DAILY [facility] Dextrose 12.5 gm 09/02/25 20:34 Dextrose 50% 25 Gm/50 Ml Syringe IV PUSH PRN PRN Hypoglycemia Protocol Diltiazem HCl 180 mg 09/03/25 09:00 Diltiazem Hcl Cd 180 Mg Cap.24hr PO QAM [facility] Duloxetine HCl 30 mg 09/03/25 09:00 Duloxetine Hcl 30 Mg Capsule.Dr PO DAILY [facility] Enoxaparin Sodium 40 mg 09/03/25 09:00 Enoxaparin 40 Mg/0.4 Ml Syringe SUB-Q DAILY [facility] Famotidine 20 mg 09/02/25 21:00 09/02/25 22:13 Famotidine 20 Mg/2 Ml Vial IV PUSH 20 mg Q12HR [facility] Administration Fentanyl Citrate 25 mcg 09/01/25 21:21 Fentanyl Citrate Inj (*Crx) 100 Mcg/2 Ml Vial IV PUSH Q2M PRN Pain Glucose 15 gm 09/02/25 20:34 Glucose Oral Gel 15 Gm Of Glucse In 37.5 Gm Tube PO PRN PRN Hypoglycemia Protocol Hydromorphone HCl 1 mg 09/02/25 14:23 Hydromorphone Hcl Inj (*Crx) 1 Mg/Ml Syr IV PUSH Q2H PRN Breakthrough Pain Rated 7-10 or NPO Hydromorphone HCl 0.5 mg 09/02/25 14:23 Hydromorphone Hcl Inj (*Crx) 1 Mg/Ml Syr IV PUSH Q2H PRN Breakthrough Pain Rated 4-6 or NPO Lactated Ringer's 1,000 mls @ 100 mls/hr 09/02/25 14:25 09/03/25 02:47 Lr - Lactated Ringers Iv IV CONT 100 mls/hr .Q10H [facility] Administration Ibuprofen 800 mg in 200 mls @ 400 mls/hr 09/02/25 14:23 Caldolor 800 Mg/200 Ml IVPB Q6H PRN Breakthrough Pain Rated 1-3 or NPO Dextrose 1,000 mls @ 100 mls/hr 09/02/25 20:34 Dextrose 5% 1,000 Ml IVPB PRN PRN Hypoglycemia Protocol Insulin Aspart 2 - 5 units 09/03/25 08:00 Insulin Aspart (*Bkc) 100 Units/Ml SUB-Q TIDWM [facility] Protocol Insulin Aspart 1 - 2 units 09/02/25 21:00 09/02/25 21:12 Insulin Aspart (*Bkc) 100 Units/Ml SUB-Q Not Given HS [facility] Protocol Naloxone HCl 0.1 mg 09/02/25 14:23 Naloxone Hcl 0.4 Mg/Ml Vial IV PUSH Q2M PRN Opiate Reversal Ondansetron HCl 4 mg 09/01/25 21:21 Ondansetron Inj 4 Mg/2 Ml Vial IV PUSH ONCE PRN Nausea Ondansetron HCl 4 mg 09/02/25 14:23 Ondansetron Inj 4 Mg/2 Ml Vial IV PUSH Q4H PRN Nausea And Vomiting Oxycodone HCl 5 mg 09/01/25 21:21 Oxycodone Hcl (*Crx) 5 Mg Tab Ir PO ONCE PRN Pain Pravastatin Sodium 20 mg 09/02/25 21:00 09/02/25 22:12 Pravastatin Sodium 20 Mg Tablet PO 20 mg HS [facility] Administration Labs Labs: Laboratory Results - last 24 hr 09/02/25 09/02/25 09/02/25 10:24 14:46 20:09 WBC RBC Hgb Hct MCV MCH MCHC RDW Plt Count MPV % Immature Plt Fraction Sodium Potassium Chloride Carbon Dioxide Anion Gap BUN Creatinine Estim Creat Clear Calc Estimated GFR Glucose POC Capillary Glucose 103 112 H 128 H Calcium Magnesium 09/03/25 05:44 WBC 9.9 RBC 4.27 Hgb 9.8 L Hct 33.1 L MCV 77.5 L MCH 23.0 L MCHC 29.6 L RDW 15.8 H Plt Count 122 L MPV 12.3 H % Immature Plt Fraction 5.7 Sodium 137 Potassium 3.7 Chloride 104 Carbon Dioxide 25 Anion Gap 8 BUN 8 D Creatinine 0.73 Estim Creat Clear Calc 62 Estimated GFR > 60 Glucose 147 H POC Capillary Glucose Calcium 8.2 L Magnesium 2.0 Quality VTE Prophylaxis VTE prophylaxis: mechanical ordered Hospitalist MIPS Advance Care Plan I have confirmed that the patient's Advanced Care Plan is present, code status is documented, or surrogate decision maker is listed in patient medical record.: Yes Medication Reconciliation I have utilized all available resources to obtain, update and review the patients current medications (includes all prescriptions, OTC, herbals, cannabis, and nutritional supplements).: Yes The patient is not eligible for med reconciliation; the patient is in a emergent medical situation where delaying treatment would jeopardize the patients health.: Yes
--- NOTE | 2025-09-03 08:08 | PM.PNGS ---
Progress Note: A&P Assessment and Plan (1) Cecal cancer: Code(s): C18.0 - Malignant neoplasm of cecum <Ashok Morel DO - Last Filed: 09/03/25 08:22> Status: Acute <Ashok Morel DO - Last Filed: 09/03/25 08:22> Assessment and Plan: doing well, cont routine postop care, ADAT, home soon <Maria Esther Pineda MD - Last Filed: 09/03/25 14:36> Assessment and Plan: 74 yo F with cecal adenocarcinoma s/p TAMRA right colectomy 09/02 Portal hypertension Cirrhosis Obstructive sleep apnea Type 2 diabetes mellitus Hypertension Hyperlipidemia Obesity GERD (gastroesophageal reflux disease) Arthritis Anxiety Plan - As needed pain and antinausea meds - CLD, likely advance to regular diet today - Monitor ROBF - Ambulate - DC Gay this am - DC IVF - DVT PPx with lovenox - Home meds restarted - Hospitalist consult, appreciate recs and assistance Dispo: Continue cares, discharge planning A&P d/w Dr. Pineda <Ashokyarelis Morel DO - Last Filed: 09/03/25 08:22> Subjective Subjective Date/Time Seen: 09/03/25 08:08 <Ashokyarelis Morel DO - Last Filed: 09/03/25 08:22> Interval history: NAEON. Patient resting in bed comfortably this am. States her pain is well controlled, incisions CDI. Ambulated in room. Gay in with adequate UOP, will remove this am. Tolerated water without N/V. No ROBF. Labs okay, hgb 9.8, expected postop and near baseline of previous admissions. <Ashokyarelis Morel DO - Last Filed: 09/03/25 08:22> Review of Systems Review of Systems: 12 point ROS negative except HPI <Ashok KyleKanchan Morel DO - Last Filed: 09/03/25 08:22> Exam Narrative: General: Awake, alert, NAD HEENT: NCAT, mucous membranes pink, moist, no scleral icterus Neck: No masses or swelling, no JVD Heart: RR, HDS Lungs: Aerating well, symmetric expansion, no IWOB Abdomen: Soft, aTTP, ND, nonperitoneal, incisions CDI, expected minimal brusing around incisions Extremities: Moves all, normal inspection Psych: Normal mood, normal affect, normal judgment <Ashok KyleKanchan Morel DO - Last Filed: 09/03/25 08:22> Objective Data Vital Signs Vital Signs: Vital Signs - 24 hr 09/02/25 10:43 09/02/25 14:29 09/02/25 14:40 Temperature 97 F L 97.4 F L Pulse Rate 86 75 74 Respiratory Rate 24 H 20 Blood Pressure 123/70 131/60 119/52 L Pulse Oximetry 98 94 94 Oxygen Delivery Room Air Simple Face Mask Simple Face Mask Oxygen Flow Rate 8 8 09/02/25 14:55 09/02/25 15:10 09/02/25 15:25 Temperature Pulse Rate 75 75 72 Respiratory Rate 20 20 20 Blood Pressure 119/58 L 118/57 L 129/62 Pulse Oximetry 95 94 94 Oxygen Delivery Nasal Cannula Nasal Cannula Nasal Cannula Oxygen Flow Rate 2 2 2 09/02/25 15:40 09/02/25 15:55 09/02/25 16:10 Temperature Pulse Rate 74 74 74 Respiratory Rate 20 20 20 Blood Pressure 125/58 L 118/64 130/61 Pulse Oximetry 93 94 94 Oxygen Delivery Nasal Cannula Nasal Cannula Nasal Cannula Oxygen Flow Rate 2 2 2 09/02/25 16:30 09/02/25 16:45 09/02/25 17:15 Temperature 97.1 F L 96.8 F L 96.6 F L Pulse Rate 76 70 70 Respiratory Rate 16 16 16 Blood Pressure 128/60 130/66 133/62 Pulse Oximetry 94 97 97 Oxygen Delivery Oxygen Flow Rate 09/02/25 18:13 09/02/25 19:57 09/03/25 00:09 Temperature 96.6 F L 97.9 F 98.0 F Pulse Rate 74 77 83 Respiratory Rate 18 20 18 Blood Pressure 130/60 141/57 H 150/75 H Pulse Oximetry 97 97 98 Oxygen Delivery Oxygen Flow Rate 09/03/25 04:09 09/03/25 06:55 09/03/25 07:56 Temperature 97.8 F 97.8 F Pulse Rate 84 88 Respiratory Rate 20 18 Blood Pressure 137/66 139/64 Pulse Oximetry 98 94 Oxygen Delivery Room Air Oxygen Flow Rate <Ashok Miguel Ángel Adriel DO - Last Filed: 09/03/25 08:22> Intake/Output Intake/Output: Intake & Output 08/31/25 09/01/25 09/02/25 09/03/25 23:59 23:59 23:59 23:59 Intake Total 550 1106.7 Output Total 200 750 Balance 350 356.7 <Ashok Morel, DO - Last Filed: 09/03/25 08:22> Meds/Results Medications: Active Medications Generic Name Dose Route Start Last Admin Trade Name Freq PRN Reason Stop Dose Admin Hydrocodone Bitart/Acetaminophen 1 tab 09/02/25 14:23 Hydrocodone/Acetaminophen (*Crx) 5-325 Mg Tablet PO Q4H PRN Pain Rated 4-6 Buspirone HCl 10 mg 09/03/25 09:00 Buspirone Hcl 10 Mg Tablet PO DAILY [facility] Carvedilol 6.25 mg 09/03/25 09:00 Carvedilol 6.25 Mg Tablet PO DAILY [facility] Dextrose 12.5 gm 09/02/25 20:34 Dextrose 50% 25 Gm/50 Ml Syringe IV PUSH PRN PRN Hypoglycemia Protocol Diltiazem HCl 180 mg 09/03/25 09:00 Diltiazem Hcl Cd 180 Mg Cap.24hr PO QAM [facility] Duloxetine HCl 30 mg 09/03/25 09:00 Duloxetine Hcl 30 Mg Capsule.Dr PO DAILY [facility] Enoxaparin Sodium 40 mg 09/03/25 09:00 Enoxaparin 40 Mg/0.4 Ml Syringe SUB-Q DAILY [facility] Famotidine 20 mg 09/02/25 21:00 09/02/25 22:13 Famotidine 20 Mg/2 Ml Vial IV PUSH 20 mg Q12HR [facility] Administration Fentanyl Citrate 25 mcg 09/01/25 21:21 Fentanyl Citrate Inj (*Crx) 100 Mcg/2 Ml Vial IV PUSH Q2M PRN Pain Glucose 15 gm 09/02/25 20:34 Glucose Oral Gel 15 Gm Of Glucse In 37.5 Gm Tube PO PRN PRN Hypoglycemia Protocol Hydromorphone HCl 1 mg 09/02/25 14:23 Hydromorphone Hcl Inj (*Crx) 1 Mg/Ml Syr IV PUSH Q2H PRN Breakthrough Pain Rated 7-10 or NPO Hydromorphone HCl 0.5 mg 09/02/25 14:23 Hydromorphone Hcl Inj (*Crx) 1 Mg/Ml Syr IV PUSH Q2H PRN Breakthrough Pain Rated 4-6 or NPO Lactated Ringer's 1,000 mls @ 100 mls/hr 09/02/25 14:25 09/03/25 02:47 Lr - Lactated Ringers Iv IV CONT 100 mls/hr .Q10H [facility] Administration Ibuprofen 800 mg in 200 mls @ 400 mls/hr 09/02/25 14:23 Caldolor 800 Mg/200 Ml IVPB Q6H PRN Breakthrough Pain Rated 1-3 or NPO Dextrose 1,000 mls @ 100 mls/hr 09/02/25 20:34 Dextrose 5% 1,000 Ml IVPB PRN PRN Hypoglycemia Protocol Insulin Aspart 2 - 5 units 09/03/25 08:00 Insulin Aspart (*Bkc) 100 Units/Ml SUB-Q TIDWM [facility] Protocol Insulin Aspart 1 - 2 units 09/02/25 21:00 09/02/25 21:12 Insulin Aspart (*Bkc) 100 Units/Ml SUB-Q Not Given HS [facility] Protocol Naloxone HCl 0.1 mg 09/02/25 14:23 Naloxone Hcl 0.4 Mg/Ml Vial IV PUSH Q2M PRN Opiate Reversal Ondansetron HCl 4 mg 09/01/25 21:21 Ondansetron Inj 4 Mg/2 Ml Vial IV PUSH ONCE PRN Nausea Ondansetron HCl 4 mg 09/02/25 14:23 Ondansetron Inj 4 Mg/2 Ml Vial IV PUSH Q4H PRN Nausea And Vomiting Oxycodone HCl 5 mg 09/01/25 21:21 Oxycodone Hcl (*Crx) 5 Mg Tab Ir PO ONCE PRN Pain Pravastatin Sodium 20 mg 09/02/25 21:00 09/02/25 22:12 Pravastatin Sodium 20 Mg Tablet PO 20 mg HS [facility] Administration <Ashok Morel, DO - Last Filed: 09/03/25 08:22> Labs Labs: Laboratory Results - last 24 hr 09/02/25 09/02/25 09/02/25 10:24 14:46 20:09 WBC RBC Hgb Hct MCV MCH MCHC RDW Plt Count MPV % Immature Plt Fraction Sodium Potassium Chloride Carbon Dioxide Anion Gap BUN Creatinine Estim Creat Clear Calc Estimated GFR Glucose POC Capillary Glucose 103 112 H 128 H Calcium Magnesium 09/03/25 05:44 WBC 9.9 RBC 4.27 Hgb 9.8 L Hct 33.1 L MCV 77.5 L MCH 23.0 L MCHC 29.6 L RDW 15.8 H Plt Count 122 L MPV 12.3 H % Immature Plt Fraction 5.7 Sodium 137 Potassium 3.7 Chloride 104 Carbon Dioxide 25 Anion Gap 8 BUN 8 D Creatinine 0.73 Estim Creat Clear Calc 62 Estimated GFR > 60 Glucose 147 H POC Capillary Glucose Calcium 8.2 L Magnesium 2.0 <Ashok Morel DO - Last Filed: 09/03/25 08:22> Quality VTE Prophylaxis VTE prophylaxis: mechanical ordered and pharmacologic ordered <Ashok Morel DO - Last Filed: 09/03/25 08:22> Attestation Supervising Provider Attestation I, Maria Esther Pineda MD, have provided a substantive portion of the care of this patient. I performed the history, exam and/or medical decision making for this encounter. Maria Esther Pineda MD 09/03/25;14:34 <Maria Esther Pineda MD - Last Filed: 09/03/25 14:36>
[2025-09-03] MEDS: dilTIAZem HCL CD 180 MG CAP.24HR PO (08:51)
[2025-09-03] MEDS: ENOXAPARIN 40 MG/0.4 ML SYRINGE SUB-Q (08:52)
[2025-09-03] MEDS: FAMOTIDINE 20 MG/2 ML VIAL IV PUSH ×2 (08:53→20:09)
[2025-09-03] MEDS: PRAVASTATIN SODIUM 20 MG TABLET PO (20:09)
--- NOTE | 2025-09-03 22:45 | PCRCNOTE ---
Pt. was asked if she wanted a hospital cpap device and she declined the device.
[2025-09-04 03:18] VITALS: BP 126/65; PULSE 80; RESP 20; TEMP 36.4; O2SAT 90
[2025-09-04 06:19] LABS: Hematocrit 30.8 % (37.0-47.0); Hemoglobin 9.0 g/dL (12.0-15.0); Immature Granulocyte Percent A 0.6 % (0-0.5); Immature Platelet Fraction Pct 5.2 % (0.9-11.2); Lymphocytes Absolute Auto 1.11 K/mm3 (0.9-3.2); Mean Corpuscular HGB Conc 29.2 g/dl (32-36); Mean Corpuscular Hemoglobin 22.8 pg (26-34); Mean Corpuscular Volume 78.0 fl (80-100); Nucleated Red Blood Cells Absolute Auto 0.000 K/mm3 (0.0-0.012); Nucleated Red Blood Cells Perc 0.0 % (0.0-0.2); Platelet Count Result 120 k/mm3 (150-375); Red Blood Count 3.95 M/mm3 (4.2-5.4); White Blood Count 6.9 K/mm3 (4.5-10.0)
[2025-09-04 06:51] LABS: Anisocytosis 1+; Hypochromasia 1+; Ovalocytes 1+
[2025-09-04 06:52] LABS: Schistocytes None Seen
[2025-09-04 06:56] LABS: Anion Gap 5 mmol/L (4-12); Blood Urea Nitrogen 12 mg/dL (7-17); Calcium 8.2 mg/dL (8.4-10.2); Carbon Dioxide 29 mmol/L (22-30); Chloride 104 mmol/L (98-107); Estimated CRCL calculation 58 ml/min; Estimated Glomerular Filt Rate > 60; Glucose 116 mg/dL (65-110); Potassium 3.6 mmol/L (3.4-5.0); Sodium 138 mmol/L (137-145)
[2025-09-04] MEDS: ENOXAPARIN 40 MG/0.4 ML SYRINGE SUB-Q (08:39)
[2025-09-04 08:40] VITALS: PULSE 86
[2025-09-04] MEDS: FAMOTIDINE 20 MG/2 ML VIAL IV PUSH (08:40)
[2025-09-04] MEDS: dilTIAZem HCL CD 180 MG CAP.24HR PO (08:40)
--- NOTE | 2025-09-04 09:01 | P.PNGS_ITS ---
Progress Note: A&P Assessment and Plan (1) Cecal cancer: Code(s): C18.0 - Malignant neoplasm of cecum <Ashok Morel DO - Last Filed: 09/04/25 09:05> Status: Acute <Ashok Morel DO - Last Filed: 09/04/25 09:05> Assessment and Plan: doing well, cont routine postop care, poss home later today, await path <Maria Esther Pineda MD - Last Filed: 09/04/25 09:37> Assessment and Plan: 74 yo F with cecal adenocarcinoma s/p TAMRA right colectomy 09/02 Portal hypertension Cirrhosis Obstructive sleep apnea Type 2 diabetes mellitus Hypertension Hyperlipidemia Obesity GERD (gastroesophageal reflux disease) Arthritis Anxiety Plan - As needed pain and antinausea meds - Carbohydrate controlled diet - Ambulate - DVT PPx with lovenox - Home meds restarted - Hospitalist consult, appreciate recs and assistance Dispo: Continue cares, discharge planning, possibly DC home today A&P d/w Dr. Pineda <Ashok KyleKanchan Morel DO - Last Filed: 09/04/25 09:05> Subjective Subjective Date/Time Seen: 09/04/25 09:01 <Ashok WrightKanchan Morel DO - Last Filed: 09/04/25 09:05> Interval history: NAEON. Tolerating regular diet, denies N/V. Pain well controlled. Passing flatus, no further BMs. Incisions CDI, some ecchymosis around incisions. Slight hgb drift from 9.8 to 9.0. Afebrile. VSS. Has ambulated in room, encouraged ambulation with nursing in halls today. <Ashokyarelis Morel DO - Last Filed: 09/04/25 09:05> Review of Systems Review of Systems: 12 point ROS negative except HPI <Ashok WrightKanchan Morel DO - Last Filed: 09/04/25 09:05> Exam Narrative: General: Awake, alert, NAD HEENT: NCAT, mucous membranes pink, moist, no scleral icterus Neck: No masses or swelling, no JVD Heart: RR, HDS Lungs: Aerating well, symmetric expansion, no IWOB, on RA Abdomen: Soft, aTTP, ND, nonperitoneal, incisions CDI, expected brusing around incisions Extremities: Moves all, normal inspection, no edema Psych: Normal mood, normal affect, normal judgment <Ashok Morel DO - Last Filed: 09/04/25 09:05> Objective Data Vital Signs Vital Signs: Vital Signs - 24 hr 09/03/25 12:00 09/03/25 15:50 09/03/25 19:27 Temperature 97.8 F 97.0 F L 97.7 F Pulse Rate 73 71 83 Respiratory Rate 16 16 20 Blood Pressure 113/61 102/49 L 123/66 Pulse Oximetry 95 94 94 Oxygen Delivery 09/03/25 22:45 09/04/25 03:18 09/04/25 08:40 Temperature 97.6 F Pulse Rate 86 80 86 Respiratory Rate 20 Blood Pressure 126/65 Pulse Oximetry 93 90 Oxygen Delivery Room Air <Ashok Morel, DO - Last Filed: 09/04/25 09:05> Intake/Output Intake/Output: Intake & Output 09/01/25 09/02/25 09/03/25 09/04/25 23:59 23:59 23:59 23:59 Intake Total 550 1702.7 360 Output Total 200 750 Balance 350 952.7 360 <Ashok Morel DO - Last Filed: 09/04/25 09:05> Meds/Results Medications: Active Medications Generic Name Dose Route Start Last Admin Trade Name Freq PRN Reason Stop Dose Admin Hydrocodone Bitart/Acetaminophen 1 tab 09/02/25 14:23 Hydrocodone/Acetaminophen (*Crx) 5-325 Mg Tablet PO Q4H PRN Pain Rated 4-6 Buspirone HCl 10 mg 09/03/25 09:00 09/04/25 08:40 Buspirone Hcl 10 Mg Tablet PO 10 mg DAILY [facility] Administration Carvedilol 6.25 mg 09/03/25 09:00 09/04/25 08:40 Carvedilol 6.25 Mg Tablet PO 6.25 mg DAILY [facility] Administration Dextrose 12.5 gm 09/02/25 20:34 Dextrose 50% 25 Gm/50 Ml Syringe IV PUSH PRN PRN Hypoglycemia Protocol Diltiazem HCl 180 mg 09/03/25 09:00 09/04/25 08:40 Diltiazem Hcl Cd 180 Mg Cap.24hr PO 180 mg QAM [facility] Administration Duloxetine HCl 30 mg 09/03/25 09:00 09/04/25 08:40 Duloxetine Hcl 30 Mg Capsule.Dr PO 30 mg DAILY [facility] Administration Enoxaparin Sodium 40 mg 09/03/25 09:00 09/04/25 08:39 Enoxaparin 40 Mg/0.4 Ml Syringe SUB-Q 40 mg DAILY [facility] Administration Famotidine 20 mg 09/02/25 21:00 09/04/25 08:40 Famotidine 20 Mg/2 Ml Vial IV PUSH 20 mg Q12HR [facility] Administration Fentanyl Citrate 25 mcg 09/01/25 21:21 Fentanyl Citrate Inj (*Crx) 100 Mcg/2 Ml Vial IV PUSH Q2M PRN Pain Glucose 15 gm 09/02/25 20:34 Glucose Oral Gel 15 Gm Of Glucse In 37.5 Gm Tube PO PRN PRN Hypoglycemia Protocol Hydromorphone HCl 1 mg 09/02/25 14:23 Hydromorphone Hcl Inj (*Crx) 1 Mg/Ml Syr IV PUSH Q2H PRN Breakthrough Pain Rated 7-10 or NPO Hydromorphone HCl 0.5 mg 09/02/25 14:23 Hydromorphone Hcl Inj (*Crx) 1 Mg/Ml Syr IV PUSH Q2H PRN Breakthrough Pain Rated 4-6 or NPO Ibuprofen 800 mg in 200 mls @ 400 mls/hr 09/02/25 14:23 Caldolor 800 Mg/200 Ml IVPB Q6H PRN Breakthrough Pain Rated 1-3 or NPO Dextrose 1,000 mls @ 100 mls/hr 09/02/25 20:34 Dextrose 5% 1,000 Ml IVPB PRN PRN Hypoglycemia Protocol Insulin Aspart 2 - 5 units 09/03/25 08:00 09/04/25 08:41 Insulin Aspart (*Bkc) 100 Units/Ml SUB-Q Not Given TIDWM [facility] Protocol Insulin Aspart 1 - 2 units 09/02/25 21:00 09/03/25 21:00 Insulin Aspart (*Bkc) 100 Units/Ml SUB-Q Not Given HS [facility] Protocol Naloxone HCl 0.1 mg 09/02/25 14:23 Naloxone Hcl 0.4 Mg/Ml Vial IV PUSH Q2M PRN Opiate Reversal Ondansetron HCl 4 mg 09/01/25 21:21 Ondansetron Inj 4 Mg/2 Ml Vial IV PUSH ONCE PRN Nausea Ondansetron HCl 4 mg 09/02/25 14:23 Ondansetron Inj 4 Mg/2 Ml Vial IV PUSH Q4H PRN Nausea And Vomiting Oxycodone HCl 5 mg 09/01/25 21:21 Oxycodone Hcl (*Crx) 5 Mg Tab Ir PO ONCE PRN Pain Pravastatin Sodium 20 mg 09/02/25 21:00 09/03/25 20:09 Pravastatin Sodium 20 Mg Tablet PO 20 mg HS [facility] Administration <Ashok Morel, DO - Last Filed: 09/04/25 09:05> Labs Labs: Laboratory Results - last 24 hr 09/03/25 09/03/25 09/03/25 12:12 16:38 19:33 WBC RBC Hgb Hct MCV MCH MCHC RDW Plt Count MPV Immature Gran % (Auto) Neut % (Auto) Lymph % (Auto) Emanuel % (Auto) Eos % (Auto) Baso % (Auto) Lymph # (Auto) Emanuel # (Auto) Eos # (Auto) Baso # (Auto) Abs Immat Gran (auto) Absolute Neuts (auto) Absolute Nucleated RBC Band Neutrophils % Nucleated RBC % Platelet Estimate % Immature Plt Fraction Hypochromasia Anisocytosis Ovalocytes Schistocytes Sodium Potassium Chloride Carbon Dioxide Anion Gap BUN Creatinine Estim Creat Clear Calc Estimated GFR Glucose POC Capillary Glucose 131 H 88 154 H Calcium 09/04/25 09/04/25 05:38 07:59 WBC 6.9 RBC 3.95 L Hgb 9.0 L Hct 30.8 L MCV 78.0 L MCH 22.8 L MCHC 29.2 L RDW 16.0 H Plt Count 120 L MPV 12.2 H Immature Gran % (Auto) 0.6 H Neut % (Auto) 73.5 H Lymph % (Auto) 16.0 L Emanuel % (Auto) 9.1 H Eos % (Auto) 0.4 Baso % (Auto) 0.4 Lymph # (Auto) 1.11 Emanuel # (Auto) 0.6 Eos # (Auto) 0.0 Baso # (Auto) 0.0 Abs Immat Gran (auto) 0.04 H Absolute Neuts (auto) 5.1 Absolute Nucleated RBC 0.000 Band Neutrophils % Not Reportable Nucleated RBC % 0.0 Platelet Estimate Slightly decreased % Immature Plt Fraction 5.2 Hypochromasia 1+ Anisocytosis 1+ Ovalocytes 1+ Schistocytes None seen Sodium 138 Potassium 3.6 Chloride 104 Carbon Dioxide 29 Anion Gap 5 BUN 12 Creatinine 0.78 Estim Creat Clear Calc 58 Estimated GFR > 60 Glucose 116 H POC Capillary Glucose 125 H Calcium 8.2 L <Ashok Morel DO - Last Filed: 09/04/25 09:05> Attestation Supervising Provider Attestation I, Maria Esther Pineda MD, have provided a substantive portion of the care of this patient. I performed the history, exam and/or medical decision making for t his encounter. Maria Esther Pineda MD 09/04/25;09:37 <Maria Esther Pineda MD - Last Filed: 09/04/25 09:37>
--- NOTE | 2025-09-04 10:56 | PM.DS ---
DS: Admitting Diagnosis Discharge Date 09/04/2025 Admitting Diagnosis cecal cancer DS: Discharge Diagnosis Discharge Diagnosis (1) Cecal cancer: Code(s): C18.0 - Malignant neoplasm of cecum Status: Acute Assessment and Plan: s/p TAMRA R colectomy, doing well, cont routine postop care, home c po analgesia, colace, f/u 2 wks, will call c path (2) Type 2 diabetes mellitus: Qualifiers: Diabetes mellitus buttermaker continuous churn insulin use: without [facility] use Diabetes mellitus complication status: without complication Qualified Code(s): E11.9 - Type 2 diabetes mellitus without complications Code(s): E11.9 - Type 2 diabetes mellitus without complications Status: Acute Assessment and Plan: stable, appreciate medicine recs, home on previous meds (3) Hypertension: Qualifiers: Hypertension type: primary hypertension Qualified Code(s): I10 - Essential (primary) hypertension Code(s): I10 - Essential (primary) hypertension Status: Acute Assessment and Plan: see above DS: Summary Hospital Course Reason for hospitalization: cecal cancer Hospital Course: 74 y/o F presenting c cecal cancer bx proven via endoscopy. Pt had negative PET prior to surgery. Pt taken to OR on 09/02 for R colectomy, please see op report for details. Postop, pt did well and was transferred to surgical floor. On POD 1, pt was doing well and montiel was discontinued. Pt had flatus and BM and her diet was advanced. Pt POD 2, pt cont to do well and now marcelle solid diet. She cont to pass flatus. Pt is OOB and ambulating without issue. Pt will be dc'd home c po analgesia and colace. She will be sent home with routine postop instructions and f/u c me in 2 wks. Status at Discharge Functional status at discharge: independent ambulation Overall status at discharge: patient is progressing back to baseline Time Spent with Patient Time attestation: Total time spent providing and/or coordinating discharge services: Time spent: Less than 30 minutes Exam Const: General: cooperative, comfortable and no acute distress Eyes: General: appearance normal, both eyes and all related structures Resp: Auscultation: clear to auscultation bilaterally Cardio: Rate: regular rate Rhythm: regular rhythm GI: Inspection: normal to inspection DS: Data Data Completed and Pending Pending studies at discharge: Pending at discharge 09/02/25 13:21 Surgical [PTH] Routine Labs on day of discharge: Labs from last 24 hours 09/04/25 09/04/25 09/03/25 07:59 05:38 19:33 WBC 6.9 RBC 3.95 L Hgb 9.0 L Hct 30.8 L MCV 78.0 L MCH 22.8 L MCHC 29.2 L RDW 16.0 H Plt Count 120 L MPV 12.2 H Immature Gran % (Auto) 0.6 H Neut % (Auto) 73.5 H Lymph % (Auto) 16.0 L Stevens % (Auto) 9.1 H Eos % (Auto) 0.4 Baso % (Auto) 0.4 Lymph # (Auto) 1.11 Stevens # (Auto) 0.6 Eos # (Auto) 0.0 Baso # (Auto) 0.0 Abs Immat Gran (auto) 0.04 H Absolute Neuts (auto) 5.1 Absolute Nucleated RBC 0.000 Band Neutrophils % Not Reportable Nucleated RBC % 0.0 Platelet Estimate Slightly decreased % Immature Plt Fraction 5.2 Hypochromasia 1+ Anisocytosis 1+ Ovalocytes 1+ Schistocytes None seen Sodium 138 Potassium 3.6 Chloride 104 Carbon Dioxide 29 Anion Gap 5 BUN 12 Creatinine 0.78 Estim Creat Clear Calc 58 Estimated GFR > 60 Glucose 116 H POC Capillary Glucose 125 H 154 H Calcium 8.2 L 09/03/25 09/03/25 16:38 12:12 WBC RBC Hgb Hct MCV MCH MCHC RDW Plt Count MPV Immature Gran % (Auto) Neut % (Auto) Lymph % (Auto) Stevens % (Auto) Eos % (Auto) Baso % (Auto) Lymph # (Auto) Stevens # (Auto) Eos # (Auto) Baso # (Auto) Abs Immat Gran (auto) Absolute Neuts (auto) Absolute Nucleated RBC Band Neutrophils % Nucleated RBC % Platelet Estimate % Immature Plt Fraction Hypochromasia Anisocytosis Ovalocytes Schistocytes Sodium Potassium Chloride Carbon Dioxide Anion Gap BUN Creatinine Estim Creat Clear Calc Estimated GFR Glucose POC Capillary Glucose 88 131 H Calcium Discharge Plan Discharge Attending physician on discharge: Maria Esther Pineda Consulting providers: Michelle Romero Discharging Clinician: Maria Esther Pineda Anticipated Discharge Date/Time: 09/04/25 13:00 Patient Disposition: Home Activity: may shower and no straining Diet: as tolerated Wound Care Instructions: incision open to air Discharge Instructions: ok to shower over incision with soap and water Patient Instructions: Antibiotic Form Patient Language: Yoruba Stand Alone Forms: General Discharge Information Follow-up/Referrals: Maria Esther Pineda MD [Physician, General Surgery] - 2 Weeks Discharge Medications: New hydrocodone-acetaminophen 5-325 mg tablet 1 tablet PO Q6H PRN (Reason: pain) Qty: 20 0RF docusate sodium [Colace] 100 mg capsule 100 mg PO BID Qty: 20 0RF Continued cholecalciferol (vitamin D3) 50 mcg (2,000 unit) capsule 50 mcg PO HS (DME) blood-glucose meter [Advanced Glucose Meter] [facility] See Rx Instructions .Route Qty: 1 0RF Rx Instructions: USE TO CHECK BS BID metronidazole 500 mg tablet 500 mg PO .COMPLEX Qty: 3 0RF Rx Instructions: 500 mg orally at 1:00pm, 2:00pm & 11:00pm day prior to surgery; ciprofloxacin HCl 500 mg tablet 500 mg PO .COMPLEX Qty: 1 0RF Rx Instructions: 500 mg orally at 2:00pm day prior to surgery; fexofenadine 180 mg tablet 180 mg PO HS (DME) CPAP supplies See Rx Instructions .Route .MEDSUPPLY Qty: 1 0RF Rx Instructions: CPAP climate line tubing, CPAP Mirage FX, Replacement cushion, Headgear UW CPAP Device, CPAP S9-S10 Elite Filters diltiazem HCl 180 mg Capsule,Ext.Rel 24h Degradable 180 mg PO QAM 30 Days Qty: 30 0RF biotin 5,000 mcg Tablet,Chewable 5,000 mcg PO HS acetaminophen [Acetaminophen Extra Strength] 500 mg tablet 1,000 mg PO Q6H PRN (Reason: pain) (DME) Advanced Gluc Meter Test Strip Strip See Rx Instructions .Route Qty: 100 3RF Rx Instructions: Use to check BS BID (DME) lancets [Advanced Travel Lancets] 28 gauge misc See Rx Instructions .Route Qty: 100 3RF Rx Instructions: Use to check BS BID lisinopril 20 mg tablet See Rx Instructions .ROUTE .COMPLEX Qty: 90 1RF Dose Instruction: Take 1 tablet by mouth once daily Patient Comments: QAM Rx Instructions: Take 1 tablet by mouth once daily duloxetine 30 mg capsule,delayed release(DR/EC) 30 mg PO DAILY Qty: 90 1RF Patient Comments: QAM buspirone 10 mg tablet 10 mg PO DAILY Qty: 90 1RF Patient Comments: QAM pravastatin 20 mg tablet 20 mg PO HS Qty: 90 1RF omeprazole 20 mg capsule,delayed release(DR/EC) See Rx Instructions .ROUTE .COMPLEX Qty: 90 1RF Dose Instruction: Take 1 capsule by mouth once daily Rx Instructions: Take 1 capsule by mouth once daily Ozempic 1 mg/dose (4 mg/3 mL) pen injector 1 mg subcut WEEKLY Qty: 3 2RF Patient Comments: SUNDAYS glipizide 10 mg tablet extended release 24hr See Rx Instructions .ROUTE .COMPLEX Qty: 90 1RF Dose Instruction: Take 1 tablet by mouth once daily Patient Comments: QAM Rx Instructions: Take 1 tablet by mouth once daily carvedilol 6.25 mg tablet 6.25 mg PO DAILY Qty: 90 1RF Patient Comments: QAM Rx Instructions: must administer with a meal/food Date of admission: 09/02/25 14:24 Primary Care Provider: Arturo Tang Admitting Provider: Maria Esther Pineda Attending physician on admission: Maria Esther Pineda Condition: Stable
--- NOTE | 2025-09-04 14:39 | P.PNCROSS_ITS ---
Event Note Event Note Event Note: Patient was discharged by surgery before I rounded on patient, patient was a co nsult for hospitalist.
== END 2025-09-04 11:30 | disposition home or self-care (01) | DRG 330 ==
LOC: ANH3MEDSUR 16:28
PROVIDERS: Nurse Practitioner Family; Admitting Provider Surgery; PCP Internal Medicine; Visit Provider Surgery
PROC: 0DTF4ZZ Resection of Right Large Intestine, Percutaneous Endoscopic Approach (ICD-10-PCS; CPT 44204; principal; 2025-09-02 12:00)
DX: C18.0 Malignant neoplasm of cecum (principal); K76.6 Portal hypertension; K74.60 Unspecified cirrhosis of liver; I10 Essential (primary) hypertension; E78.5 Hyperlipidemia, unspecified; K21.9 Gastro-esophageal reflux disease without esophagitis; E11.9 Type 2 diabetes mellitus without complications; E66.811 Obesity, class 1; M19.90 Unspecified osteoarthritis, unspecified site; G47.33 Obstructive sleep apnea (adult) (pediatric); F41.9 Anxiety disorder, unspecified; Z96.653 Presence of artificial knee joint, bilateral; Z99.89 Dependence on other enabling machines and devices; Z68.32 Body mass index [BMI] 32.0-32.9, adult; Z87.19 Personal history of other diseases of the digestive system; Z87.891 Personal history of nicotine dependence; Z79.4 Long term (current) use of insulin
CPT/HCPCS: 36415; 80048; 82948; 83735; 85025; 85027; 85055; 88309; J0690; A9270; J1100; J1650; J1836; J1885; J2003; J2250; J2405; J2704; J3010; J7120